=== PATIENT | female | born 1950 | race Caucasian/White ===

== ENCOUNTER 2017-04-13 11:08 | Observation (INO) | payer MEDICARE, OTHER ==
[~2017-04-13] VITALS: Ht 160 cm; Wt 48.7 kg
[~2017-04-13 11:08] MED LIST: CREON PO; FLUC10S PO; GLUC2.5T2 PO; LEXA10TA PO; LIBRAX PO; LORA-474 PO; MORP30TA3 PO; PROT40TA PO; PROV200T11 PO; SENN1TAB11 PO; SUCR1TAB6 PO; TIZA4 PO; VICO7.5T PO; ZOVI800T13 PO
[2017-04-13 11:10] VITALS: BP 104/62; PULSE 84; RESP 14; TEMP 97.6; O2SAT 95
[2017-04-13] MEDS ORDERED: SODIUM CHLOR 0.9% 1000 ML INJ 1,000 ML IV SCH (11:46)
[2017-04-13] MEDS ORDERED: ONDANSETRON HCL 4 MG/2 ML VIAL IVP ONE (12:00)
[2017-04-13] MEDS ORDERED: MORPHINE SULFATE 4 MG/ML INJ IV PUSH ONE ×2 (12:00→15:30)
--- NOTE | 2017-04-13 12:07 | PD ---
HPI Chief Complaint: General Weakness Time Seen by Provider: 12:01 Travel History International Travel<30 days: No Contact w/Intl Traveler<30days: No Traveled to known affect area: No History of Present Illness HPI 66-year-old female that presents to the ED for evaluation of generalized weakness. Patient reports that she has a history of non-Hodgkin's lymphoma and she's been battling this for a number of years. Per patient she recently moved here from [place] about 2 weeks ago. She meant appointment with Dr. Quispe who she already saw as well as a different doctor for routine checkup. Per patient for the past 6 months she's been developing generalized weakness, anorexia and diarrhea. Per patient the diarrhea got worse today but is not constant all the time. Per patient she has lower abdominal pain. Per patient and family she is more lethargic and more tired than her usual. She does have a history of having had chemotherapy last time 6 months ago. She states that she is supposed to follow with Dr. Keating for oncology this week but has not been able to follow up yet. Per patient she had blood work done at [facility]. on Thursday but does not know the results. She denies any chest pain or shortness of breath. Per patient she does have abdominal pain mainly in the lower abdomen. She did had multiple surgeries including both the procedure 10-12 years ago secondary to what was thought to be pancreatic cancer but ended up being non- Hodgkin's lymphoma. She states that currently her pain is 6 out of 10 and gets worse when she has a bowel movement. Per patient has no blood in the bowels. Per patient her stools were more liquidy. She's had multiple bouts of this. No nausea or vomiting. PFSH Past Medical History Heart Rhythm Problems: No Cancer: Yes (NON HODKINS LYMPHOMA) Cardiac Catheterization: No Cardiovascular Problems: Yes High Cholesterol: No Chemotherapy: Yes (last 09/2016) Congestive Heart Failure: No Diabetes: Yes Patient Takes Glucophage: No Diminished Hearing: No Gastrointestinal Disorders: Yes Hypertension: No Myocardial Infarction: No Influenza Vaccination: Yes ?: Not Past Surgical History Appendectomy: Yes Body Medical Devices: PORT Cholecystectomy: Yes (DURING WHIPPLE) Coronary Artery Bypass Graft: No Hysterectomy: Yes Tonsillectomy: Yes Family History Family Myocardial Infarction: Yes (dad, brother) Social History Alcohol Use: No Tobacco Use: No Substance Use: No Allergies-Medications (Allergen,Severity, Reaction): Coded Allergies: Lyrica (Verified Allergy, Severe, neuro symptoms, 04/13/17) Reported Meds & Prescriptions Reported Meds & Active Scripts Active Reported Restasis Opth 0.05% (Cyclosporine Opth 0.05%) 0.05% Emul 1 Drop EACH EYE HS Lomotil (Diphenoxylate-Atropine) 2.5-0.025 Mg Tab 1 Tab PO Q6H PRN Xifaxan (Rifaximin) 550 Mg Tab 550 Mg PO Q12HR Phenergan (Promethazine HCl) 25 Mg Tablet 12.5 Mg PO Q6H PRN Glyburide 2.5 Mg Tab 2.5 Mg PO BID Take with meals at the same time each day Hydrocodone-Acetaminophen 7.5-300 Mg Tab 1 Tab PO Q6H PRN Megestrol (Megestrol Acetate) 20 Mg Tab 20 Mg PO QID Creon (Amylase/Lipase/Protease) 12,000-38,000-60,000 Units Cap 1 Cap PO TIDPC Metoprolol Succinate ER 24 HR (Metoprolol Succinate) 25 Mg Tab 12.5 Mg PO DAILY Provigil (Modafinil) 100 Mg Tab 100 Mg PO DAILY@1200 Provigil (Modafinil) 200 Mg Tab 200 Mg PO DAILY Lexapro (Escitalopram Oxalate) 20 Mg Tab 20 Mg PO DAILY Omeprazole 40 Mg Cap 40 Mg PO DAILY Review of Systems Except as stated in HPI: all other systems reviewed are Neg Physical Exam Narrative GENERAL: SKIN: Warm and dry. HEAD: Atraumatic. Normocephalic. EYES: Pupils equal and round. No scleral icterus. No injection or drainage. ENT: No nasal bleeding or discharge. Mucous membranes pink and moist.Tongue is midline. No blood deviation. NECK: Trachea midline. No JVD. CARDIOVASCULAR: Regular rate and rhythm. No murmurs, S3, S4. RESPIRATORY: No accessory muscle use. Clear to auscultation. Breath sounds equal bilaterally. GASTROINTESTINAL: Abdomen soft, non-tender, nondistended. Hepatic and splenic margins not palpable. MUSCULOSKELETAL: Extremities without clubbing, cyanosis, or edema. No obvious deformities. Full range of motion of the upper and lower extremities bilaterally. 2+ pulses bilaterally. NEUROLOGICAL: Awake and alert. No obvious cranial nerve deficits. Motor grossly within normal limits. Five out of 5 muscle strength in the arms and legs. Normal speech. PSYCHIATRIC: Appropriate mood and affect; insight and judgment normal. Data Data Last Documented VS Vital Signs Date Time Temp Pulse Resp B/P Pulse Ox O2 Delivery O2 Flow Rate FiO2 04/13/17 12:33 98 Room Air 04/13/17 11:10 97.6 84 14 104/62 Orders Electrocardiogram (04/13/17 11:46) Complete Blood Count With Diff (04/13/17 11:46) Comprehensive Metabolic Panel (04/13/17 11:46) Blood Culture (04/13/17 11:46) Lipase (04/13/17 11:46) Urinalysis - C+S If Indicated (04/13/17 11:46) Magnesium (Mg) (04/13/17 11:46) Thyroid Stimulating Hormone (04/13/17 11:46) C Diff Toxin Pcr (04/13/17 11:46) Chest, Single Ap (04/13/17 11:46) Ct Abd/Pel W Iv Contrast(Rout) (04/13/17 11:46) Iv Access Insert/Monitor (04/13/17 11:46) Ecg Monitoring (04/13/17 11:46) Oximetry (04/13/17 11:46) Stool Ova And Parasite Screen (04/13/17 11:46) Stool Wbc (Leukocytes) (04/13/17 11:46) Morphine Inj (Morphine Inj) (04/13/17 12:00) Ondansetron Inj (Zofran Inj) (04/13/17 12:00) Sodium Chlor 0.9% 1000 Ml Inj (Ns 1000 M (04/13/17 11:46) Potassium Chloride (Kcl) (04/13/17 14:00) Rotavirus Ag Detection (Stool) (04/13/17 13:58) C Diff Toxin Pcr (04/13/17 13:58) Giardia Antigen (Stool) (04/13/17 13:58) Stool Ova And Parasite Screen (04/13/17 13:58) Stool Wbc (Leukocytes) (04/13/17 13:58) Vascular Access Team Consult/P PRN (04/13/17 14:12) Vascular Poc Ultrasound (04/13/17 ) Morphine Inj (Morphine Inj) (04/13/17 15:30) Iohexol 350 Inj (Omnipaque 350 Inj) (04/13/17 16:51) Consult Medical Oncology (04/13/17 ) Labs Laboratory Tests Test 04/13/17 12:00 White Blood Count 11.3 TH/MM3 Red Blood Count 3.56 MIL/MM3 Hemoglobin 10.5 GM/DL Hematocrit 30.3 % Mean Corpuscular Volume 85.2 FL Mean Corpuscular Hemoglobin 29.4 PG Mean Corpuscular Hemoglobin 34.5 % Concent Red Cell Distribution Width 13.3 % Platelet Count 397 TH/MM3 Mean Platelet Volume 8.5 FL Neutrophils (%) (Auto) 81.3 % Lymphocytes (%) (Auto) 13.1 % Monocytes (%) (Auto) 4.3 % Eosinophils (%) (Auto) 1.0 % Basophils (%) (Auto) 0.3 % Neutrophils # (Auto) 9.2 TH/MM3 Lymphocytes # (Auto) 1.5 TH/MM3 Monocytes # (Auto) 0.5 TH/MM3 Eosinophils # (Auto) 0.1 TH/MM3 Basophils # (Auto) 0.0 TH/MM3 CBC Comment DIFF FINAL Differential Comment Sodium Level 141 MEQ/L Potassium Level 3.3 MEQ/L Chloride Level 107 MEQ/L Carbon Dioxide Level 24.0 MEQ/L Anion Gap 10 MEQ/L Blood Urea Nitrogen 14 MG/DL Creatinine 0.49 MG/DL Estimat Glomerular Filtration 126 ML/MIN Rate Random Glucose 151 MG/DL Calcium Level 9.1 MG/DL Magnesium Level 1.8 MG/DL Total Bilirubin 0.3 MG/DL Aspartate Amino Transf 16 U/L (AST/SGOT) Alanine Aminotransferase 28 U/L (ALT/SGPT) Alkaline Phosphatase 86 U/L Total Protein 6.5 GM/DL Albumin 3.2 GM/DL Lipase 91 U/L Thyroid Stimulating Hormone 0.837 uIU/ML 3rd Gen [facility] Medical Decision Making Medical Screen Exam Complete: Yes Emergency Medical Condition: Yes Medical Record Reviewed: Yes Interpretation(s) CBC & BMP Diagram 04/13/17 12:00 Differential Diagnosis Generalized weakness versus cancer versus diarrhea versus diverticulitis versus parasite versus acute abdomen versus pancreatitis versus perforation versus cancer Narrative Course 66-year-old female that presents to the ED for evaluation of general weakness. Patient was properly examined and was found to have signs and symptoms of unclear etiology at this time. Before she the patient has multiple comorbidities. I am concerned that she might have the cancer coming back. Will do labs and imaging because patient is very tender on the abdomen. Patient and family agree with plan. Patient was started on IV fluids and antiemetics and pain medication. Case was signed out to my attending Dr. Lopez pending labs and imaging and disposition. Bobo Hood Apr 13, 2017 12:07
[2017-04-13 12:15] LABS: AUTOMATED NEUTROPHIL # 9.2 TH/MM3 (1.8-7.7); BASOPHIL % 0.3 % (0.0-2.0); EOSINOPHIL # 0.1 TH/MM3 (0-0.4); HEMATOCRIT 30.3 % (35.0-46.0); HEMO FLAGS DIFF FINAL; LYMPH % 13.1 % (9.0-44.0); LYMPHOCYTE # 1.5 TH/MM3 (1.0-4.8); MEAN CELL VOLUME 85.2 FL (80.0-100.0); MEAN CORPUSCULAR HEMOGLOBIN 29.4 PG (27.0-34.0); MEAN CORPUSCULAR HGB CONC 34.5 % (32.0-36.0); MONO % 4.3 % (0.0-8.0); NEUT % 81.3 % (16.0-70.0); PLATELET COUNT 397 TH/MM3 (150-450); RED BLOOD COUNT 3.56 MIL/MM3 (4.00-5.30); RED CELL DISTRIBUTION WIDTH 13.3 % (11.6-17.2); WHITE BLOOD COUNT 11.3 TH/MM3 (4.0-11.0)
[2017-04-13 12:33] VITALS: O2SAT 98
[2017-04-13 12:34] LABS: ALT (GPT) 28 U/L (10-53); ANION GAP 10 MEQ/L (5-15); AST (GOT) 16 U/L (15-37); BLOOD UREA NITROGEN 14 MG/DL (7-18); CHLORIDE 107 MEQ/L (98-107); GLOMERULAR FILTRATION RATE 126 ML/MIN (>89); MAGNESIUM 1.8 MG/DL (1.5-2.5); POTASSIUM 3.3 MEQ/L (3.5-5.1); SODIUM (NA) 141 MEQ/L (136-145)
[2017-04-13 12:44] LABS: ALKALINE PHOSPHATASE 86 U/L (45-117); TOTAL BILIRUBIN ADULT 0.3 MG/DL (0.2-1.0)
[2017-04-13] MEDS ORDERED: MEGE20TA PO (12:45)
[2017-04-13] MEDS ORDERED: PROM25TA10 PO (12:45)
[2017-04-13] MEDS ORDERED: HYDR-2376 PO (12:45)
[2017-04-13] MEDS ORDERED: PROV200T11 PO (12:45)
[2017-04-13] MEDS ORDERED: LEXA20TA PO (12:45)
[2017-04-13] MEDS ORDERED: REST0.05 EACH EYE (12:45)
[2017-04-13] MEDS ORDERED: XIFA550T4 PO (12:45)
[2017-04-13] MEDS ORDERED: CREON12 PO (12:45)
[2017-04-13] MEDS ORDERED: LOMO2.5T PO (12:45)
[2017-04-13] MEDS ORDERED: PROV100T10 PO (12:45)
[2017-04-13] MEDS ORDERED: GLYB2.5T3 PO (12:45)
[2017-04-13] MEDS ORDERED: OMEP40CA2 PO (12:45)
[2017-04-13] MEDS ORDERED: METO25TA6 PO (12:45)
--- NOTE | 2017-04-13 13:31 | RADRPT ---
EXAM DATE/TIME: 04/13/2017 12:08 [facility] COMPARISON: No previous studies available for comparison. INDICATIONS : Shortness of breath. MEDICAL HISTORY : Diabetes mellitus type II. Non-Hodgkin's lymphoma SURGICAL HISTORY : Appendectomy. Infusaport ENCOUNTER: Initial ACUITY: 2 days PAIN SCORE: 0/10 LOCATION: Bilateral chest FINDINGS: A single view of the chest demonstrates the lungs to be symmetrically aerated without evidence of mas s, infiltrate or effusion. There is a left subclavian line in good position. Clips are seen in the u pper abdomen. The cardiomediastinal contours are unremarkable. Osseous structures are intact. CONCLUSION: No acute disease. Ernie Lackey MD on April 13, 2017 at 13:27 Board Certified Radiologist. This report was verified electronically.
--- NOTE | 2017-04-13 13:59 | PD ---
Physical Exam Narrative I, Dr. Lopez, have reviewed the advance practice practitioner's documentation and am in agreement, met with the patient face to face, made the diagnosis, and the medical decision making was done by me. *My assessment and Findings: Dehydration vs. electrolyte abnormality 66yo F with PMH of nonhodgkin's lymphoma here with generalized weakness and nonbloody diarrhea. Labs reviewed, WBC 11.3. H/H showed 10.5/30.3, which is at baseline. TSH normal. K mildly decreased at 3.3, replaced orally with 20mEq KCl. CXR negative. CTa/p showed postop change from whipple procedure and removal of pancreatic head. Also some soft tissue density surrounding celiac and SMA. Recommend PET scan. Also nonspecific sclerotic area in left ilum which may be bone island or metastatic disease. Focal area of suspected consolidation or atelectasis at medial right middle lobe. Pt has no fever or cough so clinically do not think it is pneumonia. Pt has been having weight loss and has not follow up with oncologist here. Last chemo was in 09/2016 in [place]. Discussed with Dr. Arias and admitted for observation and further work up of recurrence of nonhodgkin's lymphoma. Consult placed for medical oncology. UA pending. Data Data Last Documented VS Vital Signs Date Time Temp Pulse Resp B/P Pulse Ox O2 Delivery O2 Flow Rate FiO2 04/13/17 12:33 98 Room Air 04/13/17 11:10 97.6 84 14 104/62 Orders Electrocardiogram (04/13/17 11:46) Complete Blood Count With Diff (04/13/17 11:46) Comprehensive Metabolic Panel (04/13/17 11:46) Blood Culture (04/13/17 11:46) Lipase (04/13/17 11:46) Urinalysis - C+S If Indicated (04/13/17 11:46) Magnesium (Mg) (04/13/17 11:46) Thyroid Stimulating Hormone (04/13/17 11:46) Chest, Single Ap (04/13/17 11:46) Ct Abd/Pel W Iv Contrast(Rout) (04/13/17 11:46) Iv Access Insert/Monitor (04/13/17 11:46) Ecg Monitoring (04/13/17 11:46) Oximetry (04/13/17 11:46) Morphine Inj (Morphine Inj) (04/13/17 12:00) Ondansetron Inj (Zofran Inj) (04/13/17 12:00) Sodium Chlor 0.9% 1000 Ml Inj (Ns 1000 M (04/13/17 11:46) Potassium Chloride (Kcl) (04/13/17 14:00) Rotavirus Ag Detection (Stool) (04/13/17 13:58) Vascular Access Team Consult/P PRN (04/13/17 14:12) Vascular Poc Ultrasound (04/13/17 ) Morphine Inj (Morphine Inj) (04/13/17 15:30) Iohexol 350 Inj (Omnipaque 350 Inj) (04/13/17 16:51) Consult Medical Oncology (04/13/17 ) Admit Order (Ed Use Only) (04/13/17 17:39) Labs Laboratory Tests Test 04/13/17 12:00 White Blood Count 11.3 TH/MM3 Red Blood Count 3.56 MIL/MM3 Hemoglobin 10.5 GM/DL Hematocrit 30.3 % Mean Corpuscular Volume 85.2 FL Mean Corpuscular Hemoglobin 29.4 PG Mean Corpuscular Hemoglobin 34.5 % Concent Red Cell Distribution Width 13.3 % Platelet Count 397 TH/MM3 Mean Platelet Volume 8.5 FL Neutrophils (%) (Auto) 81.3 % Lymphocytes (%) (Auto) 13.1 % Monocytes (%) (Auto) 4.3 % Eosinophils (%) (Auto) 1.0 % Basophils (%) (Auto) 0.3 % Neutrophils # (Auto) 9.2 TH/MM3 Lymphocytes # (Auto) 1.5 TH/MM3 Monocytes # (Auto) 0.5 TH/MM3 Eosinophils # (Auto) 0.1 TH/MM3 Basophils # (Auto) 0.0 TH/MM3 CBC Comment DIFF FINAL Differential Comment Sodium Level 141 MEQ/L Potassium Level 3.3 MEQ/L Chloride Level 107 MEQ/L Carbon Dioxide Level 24.0 MEQ/L Anion Gap 10 MEQ/L Blood Urea Nitrogen 14 MG/DL Creatinine 0.49 MG/DL Estimat Glomerular Filtration 126 ML/MIN Rate Random Glucose 151 MG/DL Calcium Level 9.1 MG/DL Magnesium Level 1.8 MG/DL Total Bilirubin 0.3 MG/DL Aspartate Amino Transf 16 U/L (AST/SGOT) Alanine Aminotransferase 28 U/L (ALT/SGPT) Alkaline Phosphatase 86 U/L Total Protein 6.5 GM/DL Albumin 3.2 GM/DL Lipase 91 U/L Thyroid Stimulating Hormone 0.837 uIU/ML 3rd Gen MDM Supervised Visit with DARIAN: Yes Interpretation(s) EKG: NSR 78bpm. LAD. No ST segment elevation or depression. Diagnosis Primary Impression: Generalized weakness Admitting Information Admitting Physician Requests: Observation Sonal Lopez DO Apr 13, 2017 13:59 Generalized weakness Admitting Information Admitting Physician Requests: Observation Sonal Lopez DO Apr 13, 2017 13:59
[2017-04-13] MEDS ORDERED: POTASSIUM CHLORIDE 20 MEQ CONTROLLED RELEASE TAB PO ONE (14:00)
[2017-04-13] MEDS ORDERED: IOHEXOL 350 MG/ML 10 ML VIAL (for RAD DIAG) IV ONE (16:51)
--- NOTE | 2017-04-13 17:19 | RADRPT ---
EXAM DATE/TIME: 04/13/2017 16:12 [facility] COMPARISON: CT ABDOMEN & PELVIS W/O CONTRAST, November 27, 2009, 20:12. INDICATIONS : Weight loss, nausea, diarrhea, abdomen pain IV CONTRAST: 80 cc Omnipaque 350 (iohexol) IV ORAL CONTRAST: No oral contrast ingested. RADIATION DOSE: 9.96 CTDIvol (mGy) MEDICAL HISTORY : Cardiovascular disease. Diabetes, non-Hodgkin's lymphoma SURGICAL HISTORY : Appendectomy. Whipple ENCOUNTER: Initial ACUITY: 4 - 6 days PAIN SCALE: 5/10 LOCATION: Abdomen TECHNIQUE: Volumetric scanning of the abdomen and pelvis was performed. Using automated exposure control and adjustment of the mA and/or kV according to patient size, radiation dose was kept as low as reasonably achievable to obtain optimal diagnostic quality images. FINDINGS: The patient is status post Whipple procedure with removal of the pancreatic head. The pancreatic body and tail appear normal. There is some increased soft tissue density seen in the expec sarah region of the pancreatic head. The soft tissue density does abut and surround the portions of th e celiac artery and SMA. The prior study from 2009 showed soft tissue density in this region. This w as done without intravenous contrast. The soft tissue density is much better delineated on the curre nt study but based on the vascular calcifications it appears likely similar to the prior exam. There is some dilatation of the biliary duct at the estella hepatus measuring 1.5 cm. This appearance is unch anged. Clips are seen in the right upper quadrant. Bowel dylan are seen in the right upper quadra nt. All these findings appear stable. Bowel dylan are seen at the distal aspect of the stomach. The liver, spleen, kidneys and adrenal glands are unremarkable. The pelvic structures appear grossly intact. The patient appears to be status post hysterectomy. No pelvic masses are seen. There is increased density seen at the anterior medial right middle lobe region. This may represent an area of focal consolidation or atelectasis. No focal masses are seen at the lung bases. There is a new 0.9 cm focal area of sclerosis at the left iliac bone. No other focal bone lesions ar e seen. There is some degenerative change in the lower lumbar spine. CONCLUSION: 1. Postoperative change from a Whipple procedure and removal of the pancreatic head. There is some s oft tissue density seen surrounding the celiac and SMA. Some of the soft tissue density does appear p resent based on the comparison with the prior exam. This suggests this is likely postoperative ricardo e. However, recurrence could potentially have a similar appearance. One could further evaluate this region noninvasively with a PET/FDG study to determine if this is metabolically active or not. 2. Nonspecific sclerotic area identified at the left ilium. This could be a bone island. Other cause s for sclerotic lesions including metastatic disease cannot be excluded. This could also be further e valuated with the PET/FDG study. 3. Focal area of suspected consolidation or atelectasis at the medial right middle lobe. Ernie Lackey MD on April 13, 2017 at 16:56 Board Certified Radiologist. This report was verified electronically.
[2017-04-13] MEDS: SODIUM CHLOR 0.9% 1000 ML INJ 1,000 ML IV SCH ×2 (17:39→23:45)
[2017-04-13] MEDS ORDERED: MAGNESIUM HYDROXIDE SUSP 30 ML CUP PO PRN (17:45)
[2017-04-13] MEDS ORDERED: LACTULOSE SYRUP 20 GM/30 ML CUP PO PRN (17:45)
[2017-04-13] MEDS ORDERED: SENNOSIDES 8.6 MG TAB PO PRN (17:45)
[2017-04-13] MEDS ORDERED: SODIUM CHLORIDE 0.9% FLUSH 10 ML FLUSH IV FLUSH PRN (17:45)
[2017-04-13] MEDS ORDERED: BISACODYL 10 MG SUPP RECTAL PRN (17:45)
[2017-04-13] MEDS ORDERED: ACETAMINOPHEN 325 MG TAB PO PRN (17:45)
[2017-04-13] MEDS ORDERED: NALOXONE HCL 0.4 MG/ML AMP IV PRN (17:45)
[2017-04-13 18:18] LABS: BACTERIA, URINE RARE /hpf; BLOOD, URINE NEG (NEG); COMMENT (UR) CULTURE INDICATED; CULTURE IF INDICATED CULTURE INDICATED; GLUCOSE,URINE NEG (NEG); KETONE, URINE 10 mg/dL (NEG); MUCUS URINE FEW /lpf (OCC); NITRITE,URINE NEG (NEG); PH, URINE 5.5 (5.0-8.5); URINE COLOR YELLOW (YELLW/STRAW)
[2017-04-13 18:20] VITALS: BP 112/65; PULSE 77; O2SAT 98
[2017-04-13 19:00] VITALS: BP_SYST 109; BP_SYST 98; BP_DIAS 65; PULSE 82; PULSE 86; RESP 16; RESP 18; TEMP 97.6; TEMP 99.4; O2SAT 100; O2SAT 97
--- NOTE | 2017-04-13 19:38 | HHI.HP ---
HPI Service [facility] Primary Care Physician Azael Quispe MD Admission Diagnosis Generalized weakness Diagnoses: Chief Complaint: Generalized weakness, nausea, diarrhea. Travel History International Travel<30 Days: No Contact w/Intl Traveler <30 Da: No Traveled to Known Affected Are: No History of Present Illness Ms. Louis is a pleasant 66 year old female with a history of Non- Hodgkin's lymphoma, diabetes mellitus, whipple procedure who presented to the ED on 04/13/2017 due to generalized weakness, diarrhea, nausea and weight loss. She recently moved from [place] to [place] and is in the process of establishing oncology care with [facility]. While she has been dealing with chronic diarrhea, anorexia, generalized weakness for the last 6 months, in the recent days, her symptoms have been particularly bothersome. She reports abdominal cramps which transiently feels better after she has diarrhea. Her diarrhea is mushy in quality. She reports no blood in the stool. She reports nausea but not vomiting. Her diarrhea is worse when she eats fatty meals. In the last 6 months, she has lost about 20 lbs of weight. She reports no fever or night sweats. Additionally, she reports some chest congestion but she is unable to cough up much. On arrival, Temp 97.6F, Pulse 84, Resp 14, BP 104/62, Pulse ox 95% on room air. CXR unremarkable. CT abd/pelvis indicates soft tissue density around celiac and SMA - possibly due to postoperative changes vs. malignancy recurrence. PET/FDG study was recommended. CT abd/pelvis also shows non-specific sclerotic area at the left ilium as well as focal area of suspected consolidation or atelectasis at the medial right middle lobe. Review of Systems Except as stated in HPI: all other systems reviewed are Neg Past Family Social History Past Medical History Non-Hodgkin's lymphoma Diabetes mellitus type 2 Tachycardia Keratitis Past Surgical History Appendectomy Hysterectomy Tonsillectomy Whipple's surgery. Reported Medications Restasis Opth 0.05% (Cyclosporine Opth 0.05%) 0.05% Emul 1 Drop EACH EYE HS Lomotil (Diphenoxylate-Atropine) 2.5-0.025 Mg Tab 1 Tab PO Q6H PRN Xifaxan (Rifaximin) 550 Mg Tab 550 Mg PO Q12HR Phenergan (Promethazine HCl) 25 Mg Tablet 12.5 Mg PO Q6H PRN Glyburide 2.5 Mg Tab 2.5 Mg PO BID Take with meals at the same time each day Hydrocodone-Acetaminophen 7.5-300 Mg Tab 1 Tab PO Q6H PRN Megestrol (Megestrol Acetate) 20 Mg Tab 20 Mg PO QID Creon (Amylase/Lipase/Protease) 12,000-38,000-60,000 Units Cap 1 Cap PO TIDPC Metoprolol Succinate ER 24 HR (Metoprolol Succinate) 25 Mg Tab 12.5 Mg PO DAILY Provigil (Modafinil) 100 Mg Tab 100 Mg PO DAILY@1200 Provigil (Modafinil) 200 Mg Tab 200 Mg PO DAILY Lexapro (Escitalopram Oxalate) 20 Mg Tab 20 Mg PO DAILY Omeprazole 40 Mg Cap 40 Mg PO DAILY Allergies: Coded Allergies: Lyrica (Verified Allergy, Severe, neuro symptoms, 04/13/17) Family History Mother - breast cancer. Father - heart disease. Social History Denies using tobacco, alcohol or illicit drugs. Physical Exam Vital Signs Vital Signs Date Time Temp Pulse Resp B/P Pulse Ox O2 Delivery O2 Flow Rate FiO2 04/13/17 19:00 97.6 82 18 109/65 100 04/13/17 18:20 77 112/65 98 Room Air 04/13/17 12:33 98 Room Air 04/13/17 11:10 97.6 84 14 104/62 95 Physical Exam GENERAL: Cachectic appearing female in no acute distress. Alert, Oriented x 3. SKIN: No rashes, ecchymoses or lesions. Warm and dry. HEAD: Atraumatic. Normocephalic. No temporal or scalp tenderness. EYES: Pupils equal round and reactive. No injection or drainage. ENT: Nose without bleeding, purulent drainage or septal hematoma. Airway patent. NECK: Trachea midline. No lymphadenopathy. Supple, nontender, no meningeal signs. CARDIOVASCULAR: Regular rate and rhythm without murmurs, gallops, or rubs. No JVD. RESPIRATORY: Clear to auscultation. Breath sounds equal bilaterally. No wheezes , rales, or rhonchi. GASTROINTESTINAL: Abdomen soft, Mild tenderness to palpation on the lower abd, nondistended. No guarding. MUSCULOSKELETAL: Extremities without clubbing, cyanosis, or edema. NEUROLOGICAL: Awake and alert. Cranial nerves II through XII intact. No focal neurological deficits. Normal speech. Laboratory Laboratory Tests Test 04/13/17 04/13/17 12:00 17:55 White Blood Count 11.3 Red Blood Count 3.56 Hemoglobin 10.5 Hematocrit 30.3 Mean Corpuscular Volume 85.2 Mean Corpuscular Hemoglobin 29.4 Mean Corpuscular Hemoglobin 34.5 Concent Red Cell Distribution Width 13.3 Platelet Count 397 Mean Platelet Volume 8.5 Neutrophils (%) (Auto) 81.3 Lymphocytes (%) (Auto) 13.1 Monocytes (%) (Auto) 4.3 Eosinophils (%) (Auto) 1.0 Basophils (%) (Auto) 0.3 Neutrophils # (Auto) 9.2 Lymphocytes # (Auto) 1.5 Monocytes # (Auto) 0.5 Eosinophils # (Auto) 0.1 Basophils # (Auto) 0.0 CBC Comment DIFF FINAL Differential Comment Sodium Level 141 Potassium Level 3.3 Chloride Level 107 Carbon Dioxide Level 24.0 Anion Gap 10 Blood Urea Nitrogen 14 Creatinine 0.49 Estimat Glomerular Filtration 126 Rate Random Glucose 151 Calcium Level 9.1 Magnesium Level 1.8 Total Bilirubin 0.3 Aspartate Amino Transf 16 (AST/SGOT) Alanine Aminotransferase 28 (ALT/SGPT) Alkaline Phosphatase 86 Total Protein 6.5 Albumin 3.2 Lipase 91 Thyroid Stimulating Hormone 0.837 3rd Gen Urine Color YELLOW Urine Turbidity CLEAR Urine pH 5.5 Urine Specific Romeo GREATER THAN 1.035 Urine Protein TRACE Urine Glucose (UA) NEG Urine Ketones 10 Urine Occult Blood NEG Urine Nitrite NEG Urine Bilirubin NEG Urine Urobilinogen LESS THAN 2.0 Urine Leukocyte Esterase SMALL Urine RBC 2 Urine WBC 15 Urine Bacteria RARE Urine Mucus FEW Microscopic Urinalysis Comment CULTURE INDICATED Date/Time Procedure Status Source Growth 04/13/17 17:55 Urine Culture Received Urine Random Urine Pending 04/13/17 12:15 Aerobic Blood Culture Received Blood Peripheral Pending 04/13/17 12:15 Anaerobic Blood Culture Received Blood Peripheral Pending Result Diagram: 04/13/17 1200 04/13/17 1200 Imaging Last Impressions Chest X-Ray 04/13/17 1146 Signed Impressions: Service Date/Time: Thursday, April 13, 2017 12:08 - CONCLUSION: No acute disease. Ernie Lackey MD CT abdomen pelvis CONCLUSION: 1. Postoperative change from a Whipple procedure and removal of the pancreatic head. There is some soft tissue density seen surrounding the celiac and SMA. Some of the soft tissue density does appear present based on the comparison with the prior exam. This suggests this is likely postoperative change. However, recurrence could potentially have a similar appearance. One could further evaluate this region noninvasively with a PET/FDG study to determine if this is metabolically active or not. 2. Nonspecific sclerotic area identified at the left ilium. This could be a bone island. Other causes for sclerotic lesions including metastatic disease cannot be excluded. This could also be further evaluated with the PET/FDG study. 3. Focal area of suspected consolidation or atelectasis at the medial right middle lobe. Assessment and Plan Problem List: (1) Generalized weakness ICD Code: R53.1 Status: Acute (2) Chronic diarrhea ICD Code: K52.9 Status: Acute (3) DM (diabetes mellitus) ICD Code: E11.9 Status: Acute (4) History of non-Hodgkin's lymphoma ICD Code: Z85.72 Status: Acute Assessment and Plan Ms. Louis is a pleasant 66 year old female with a history of Non- Hodgkin's lymphoma, diabetes mellitus, Whipple procedure who presented to the ED on 04/13/2017 due to generalized weakness, diarrhea, nausea and weight loss. She reports 20 lbs weight loss in the last 6 months. Reports no fever or night sweats. CT abd/pelvis indicates possible soft tissue density which could potentially be recurrence vs. post-surgical changes. PET scan recommended. - Chronic diarrhea - Stool O&P, Giardia antigen, Rotavirus AG, Stool WBC pending. - C. Diff toxin PCR, less likely also pending. - Continue NS @100cc/hour. - May need a colonoscopy in the outpatient vs. in-patient setting. - Will consult Gastroenterology for additional recommendations. - History of Non-Hodgkin's lymphoma - CT abd/pelvis suggestive of soft tissue density - Will consult Medical oncology for further work up including PET scan. - No clear evidence of B symptoms (Patient reports weight loss but no night sweats or fever). - Possible right middle lobe pneumonia - Possible atelectasis. - Will start patient on Levaquin 750mg Qday - DuoNeb PRN - Start Incentive spirometry. - Diabetes mellitus type 2 - Patient takes Glyburide at home. We will hold off using Glyburide at this point. - Start Sliding scale insulin. May need to add low dose basal insulin with Levemir. - Continue Regular diet. If blood glucose elevates, we will consider switching to diabetic diet. Full code. SCDs. Sheri Arias DO Apr 13, 2017 19:38
[2017-04-13] MEDS ORDERED: DEXTROSE 50% IN WATER 50 ML VIAL(D50) IV PRN (19:45)
[2017-04-13] MEDS ORDERED: GLUCAGON 1 MG/ML VIAL OTHER PRN (19:45)
[2017-04-13] MEDS ORDERED: RESP: ALBUTEROL 2.5 MG/IPRATROPIUM 0.5 MG NEB (PRN) NEB (19:45)
[2017-04-13] MEDS: ONDANSETRON HCL 4 MG/2 ML VIAL IVP PRN (19:54)
[2017-04-13] MEDS: ACETAMINOPHEN/HYDROcodone 325 MG/5 MG TAB PO PRN (20:41)
[2017-04-13] MEDS: LEVOFLOXACIN 750 MG TAB PO SCH (20:42)
[2017-04-13] MEDS: MEGESTROL ACETATE 40 MG TAB PO SCH (20:43)
[2017-04-13] MEDS: SODIUM CHLORIDE 0.9% FLUSH 10 ML FLUSH IV FLUSH SCH (20:43)
[2017-04-13] MEDS: DOCUSATE SODIUM 50 MG/SENNA 8.6 MG TAB PO SCH (20:43)
[2017-04-13] MEDS: INSULIN ASPART SUPPLEMENTAL SCALE SQ SCH (20:43)
[2017-04-13] MEDS: PATIENT OWN MEDICATION (Cyclosporine Opth 0.05% (Restasis Opth 0.05%) 1 DROP) EACH EYE SCH (20:47)
[2017-04-14] VITALS (7 sets, daily range): BP systolic 87–126; BP diastolic 49–67; PULSE 79–95; RESP 16–19; TEMP 97.2–98.8; O2SAT 95–99
[2017-04-14] MEDS ORDERED: BENZOCAINE-MENTHOL (SUGAR FREE) 15 MG-3.6 MG LOZENGE BUCCAL ONE (00:15)
[2017-04-14] MEDS: INSULIN ASPART SUPPLEMENTAL SCALE SQ SCH ×4 (06:29→20:46)
[2017-04-14 07:45] LABS: AUTOMATED NEUTROPHIL # 5.7 TH/MM3 (1.8-7.7); BASOPHIL % 0.4 % (0.0-2.0); EOSINOPHIL # 0.1 TH/MM3 (0-0.4); EOSINOPHIL % 1.9 % (0.0-4.0); HEMATOCRIT 25.8 % (35.0-46.0); HEMO FLAGS DIFF FINAL; LYMPH % 16.9 % (9.0-44.0); LYMPHOCYTE # 1.3 TH/MM3 (1.0-4.8); MEAN CELL VOLUME 85.1 FL (80.0-100.0); MEAN CORPUSCULAR HEMOGLOBIN 28.5 PG (27.0-34.0); MEAN CORPUSCULAR HGB CONC 33.5 % (32.0-36.0); MONO % 8.1 % (0.0-8.0); NEUT % 72.7 % (16.0-70.0); PLATELET COUNT 315 TH/MM3 (150-450); RED BLOOD COUNT 3.03 MIL/MM3 (4.00-5.30); RED CELL DISTRIBUTION WIDTH 13.5 % (11.6-17.2); WHITE BLOOD COUNT 7.9 TH/MM3 (4.0-11.0)
[2017-04-14 08:09] LABS: BICARBONATE 24.8 MEQ/L (21.0-32.0); POTASSIUM 3.6 MEQ/L (3.5-5.1)
[2017-04-14] MEDS: ONDANSETRON HCL 4 MG/2 ML VIAL IVP PRN (08:37)
[2017-04-14] MEDS: DOCUSATE SODIUM 50 MG/SENNA 8.6 MG TAB PO SCH ×2 (08:37→20:45)
[2017-04-14] MEDS: PANTOPRAZOLE SOD 40 MG DELAYED RELEASE TAB PO SCH (08:38)
[2017-04-14] MEDS: ESCITALOPRAM OXALATE 20 MG TAB PO SCH (08:39)
[2017-04-14] MEDS: MEGESTROL ACETATE 40 MG TAB PO SCH ×5 (08:40→20:46)
[2017-04-14] MEDS: ACETAMINOPHEN/HYDROcodone 325 MG/5 MG TAB PO PRN ×2 (08:41→17:03)
[2017-04-14] MEDS: METOPROLOL SUCCINATE 25 MG EXTENDED RELEASE TAB PO SCH (08:42)
[2017-04-14] MEDS: SODIUM CHLORIDE 0.9% FLUSH 10 ML FLUSH IV FLUSH SCH ×2 (08:44→20:46)
[2017-04-14] MEDS ORDERED: LIPASE/PROTEASE/AMYLASE (12,000/38,000/60,000) CAP PO SCH (09:30)
--- NOTE | 2017-04-14 10:29 | HHI.PR ---
Subjective Remarks Follow up for chronic diarrhea, weight loss in a patient with a history of NHL and Whipple's procedure. Patient reports some nausea. No fever, chills. Has not had any diarrhea today. Complains of some sore throat. Objective Vitals Vital Signs Date Time Temp Pulse Resp B/P Pulse Ox O2 Delivery O2 Flow Rate FiO2 04/14/17 09:52 95 21 04/14/17 08:00 97.2 81 18 106/57 97 04/14/17 04:00 98.0 79 16 92/49 98 04/14/17 00:00 98.7 83 17 87/54 98 04/13/17 19:24 Room Air 04/13/17 19:00 99.4 86 16 98/65 97 04/13/17 19:00 97.6 82 18 109/65 100 04/13/17 18:20 77 112/65 98 Room Air 04/13/17 12:33 98 Room Air 04/13/17 11:10 97.6 84 14 104/62 95 I/O 04/13/17 04/13/17 04/13/17 04/14/17 04/14/17 04/14/17 07:00 15:00 23:00 07:00 15:00 23:00 Intake Total 200 ml 889 ml Balance 200 ml 889 ml Intake Oral 200 ml 200 ml IV Total 689 ml # Voids 2 2 # Bowel Movements 0 0 Result Diagram: 04/14/17 0720 04/14/17 0720 Imaging Last Impressions Chest X-Ray 04/13/17 1146 Signed Impressions: Service Date/Time: Thursday, April 13, 2017 12:08 - CONCLUSION: No acute disease. Ernie Lackey MD Abdomen/Pelvis CT 04/13/17 1146 Signed Impressions: Service Date/Time: Thursday, April 13, 2017 16:12 - CONCLUSION: 1. Postoperative change from a Whipple procedure and removal of the pancreatic head. There is some soft tissue density seen surrounding the celiac and SMA. Some of the soft tissue density does appear present based on the comparison with the prior exam. This suggests this is likely postoperative change. However, recurrence could potentially have a similar appearance. One could further evaluate this region noninvasively with a PET/FDG study to determine if this is metabolically active or not. 2. Nonspecific sclerotic area identified at the left ilium. This could be a bone island. Other causes for sclerotic lesions including metastatic disease cannot be excluded. This could also be further evaluated with the PET/FDG study. 3. Focal area of suspected consolidation or atelectasis at the medial right middle lobe. Ernie Lackey MD Objective Remarks GENERAL: AOX3, NAD. SKIN: Warm and dry. HEAD: Normocephalic. EYES: No scleral icterus. No injection or drainage. NECK: Supple, trachea midline. No JVD or lymphadenopathy. CARDIOVASCULAR: Regular rate and rhythm without murmurs, gallops, or rubs. RESPIRATORY: Breath sounds equal bilaterally. No accessory muscle use. GASTROINTESTINAL: Abdomen soft, non-tender except for mild tenderness along the lower abdomen, nondistended. MUSCULOSKELETAL: No cyanosis, or edema. BACK: Nontender without obvious deformity. No CVA tenderness. Procedures None. A/P Problem List: (1) Generalized weakness ICD Code: R53.1 Status: Acute (2) Chronic diarrhea ICD Code: K52.9 Status: Acute (3) DM (diabetes mellitus) ICD Code: E11.9 Status: Acute (4) History of non-Hodgkin's lymphoma ICD Code: Z85.72 Status: Acute Assessment and Plan Ms. Louis is a pleasant 66 year old female with a history of Non- Hodgkin's lymphoma, diabetes mellitus, Whipple procedure who presented to the ED on 04/13/2017 due to generalized weakness, diarrhea, nausea and weight loss. She reports 20 lbs weight loss in the last 6 months. Reports no fever or night sweats. CT abd/pelvis indicates possible soft tissue density which could potentially be recurrence vs. post-surgical changes. PET scan recommended. - Chronic diarrhea - Stool O&P, Giardia antigen, Rotavirus AG, Stool WBC pending. - C. Diff toxin PCR, less likely - pending. No diarrhea today, however. - Increase NS @200cc/hour. - Discussed with GI - they plan to perform Colonoscopy in the AM. - History of Non-Hodgkin's lymphoma - CT abd/pelvis suggestive of soft tissue density - Discussed with Oncologist Dr. Hall. He agrees with GI work up with regards to Diarrhea. - PET scan can be obtained in the outpatient setting. - No clear evidence of B symptoms (Patient reports weight loss but no night sweats or fever). - Pancreatic insufficiency - Has a history of Whipple's procedure. - Will increase Creon to 6 pills TIDAC (adjusted depending on the food intake ). - Possible right middle lobe pneumonia - Possible atelectasis. - Continue Levaquin 750mg Qday. Breathing treatments PRN. - DuoNeb PRN - Continue Incentive spirometry. - Diabetes mellitus type 2 - Patient takes Glyburide at home. We will hold off using Glyburide at this point. - Sliding scale insulin. May need to add low dose basal insulin with Levemir. - Continue Regular diet. If blood glucose elevates, we will consider switching to diabetic diet. Full code. SCDs. Sheri Arias DO Apr 14, 2017 10:29
[2017-04-14] MEDS ORDERED: PROMETHAZINE HCL SYRUP 6.25 MG/5 ML CUP PO PRN (10:30)
[2017-04-14] MEDS: SODIUM CHLOR 0.9% 1000 ML INJ 1,000 ML IV SCH ×3 (10:32→20:32)
--- NOTE | 2017-04-14 10:47 | PD.CONS ---
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 She was found to have a pancreatic head mass back in 2004. Pancreatic cancer was suspected, but because of the location, she was not able to have a biopsy. She underwent a Whipple Procedure at that time. After this, she was found to have Non-Hodkin's Lymphoma and started chemotherapy. Of note, she also received chemotherapy in 2009 and afterwards stayed on a maintenance dose up until September of 2016. After the whipple procedure, she started having issues with nausea, bloating, and diarrhea. She was placed on pancreatic enzymes. She states that she did have this intermittently for a few years, but then it seemed to improve and her episodes were less frequent and usually related to eating fatty meals. About a year ago, she started having more issues with nausea, bloating, and diarrhea and began losing weight. This suddenly worsened in September of 2016 and she also started having generalized weakness with this. She has lost a total of 30 pounds over the past year, but 20 of these pounds have been since September. She reports she has frequent nausea and occasional vomiting and persistent diarrhea- although it ranges from 1-2 "mushy orange" stool to ~6 per day. She has not seen any blood or mucous. She has not seen any oily stool. She is on Creon, Lomotil, and Xifaxan, but has not had any improvement. She was started on Megace 2 months ago and the dose was increased about 4 weeks ago. She reports that she is actually eating more than usual, but continues to have weight loss. Her last egd and colonoscopy was 1-2 years ago. [place] She recently relocated to this area. She was seen by Dr. Worthy in the office on April 09 2017 and he suspected that her symptoms could be secondary to gastrectomy vs bacterial overgrowth vs. malabsorption vs malignancy. He recommended continuing her creon and megace and ordered fecal fat, ferritin, vitamin A, vitamin E, vitamin B12, folate, vitamin D. She has not had a chance to get her labs done. He also recommended follow up with oncologist. He also recommended nutritional supplements. She denies any fever or chills. She denies any recent travel, suspicious food, or sick contacts. PFSH Past Medical History Non-Hodgkin's lymphoma Diabetes mellitus type 2 Tachycardia Keratitis GERD Pancreatic Insufficiency Past Surgical History Appendectomy Hysterectomy Tonsillectomy Whipple procedure EGD/Colonoscopy Coded Allergies: Lyrica (Verified Allergy, Severe, neuro symptoms, 04/13/17) Medications Allergies Coded Allergies Type Severity Reaction Last Updated Verified Lyrica Allergy Severe neuro symptoms 04/13/17 Yes Active Scripts Medications Dose Route/Sig Days Date Category Dose Instructions Restasis Opth 0.05% (Cyclosporine Opth 0.05%) 0.05% Emul 1 Drop EACH EYE HS 04/13/17 Reported Lomotil (Diphenoxylate-Atropine) 2.5-0.025 Mg Tab 1 Tab PO Q6H PRN 04/13/17 Reported Xifaxan (Rifaximin) 550 Mg Tab 550 Mg PO Q12HR 04/13/17 Reported Phenergan (Promethazine HCl) 25 Mg Tablet 12.5 Mg PO Q6H PRN 04/13/17 Reported Glyburide 2.5 Mg Tab 2.5 Mg PO BID 04/13/17 Reported Take with meals at the same time each day Hydrocodone-Acetaminophen 7.5-300 Mg Tab 1 Tab PO Q6H PRN 04/13/17 Reported Megestrol (Megestrol Acetate) 20 Mg Tab 20 Mg PO QID 04/13/17 Reported Creon (Amylase/Lipase/Protease) 12,000-38,000-60,000 Units Cap 1 Cap PO TIDPC 04/13/17 Reported Metoprolol Succinate ER 24 HR (Metoprolol Succinate) 25 Mg Tab 12.5 Mg PO DAILY 04/13/17 Reported Provigil (Modafinil) 100 Mg Tab 100 Mg PO DAILY@1200 04/13/17 Reported Provigil (Modafinil) 200 Mg Tab 200 Mg PO DAILY 04/13/17 Reported Lexapro (Escitalopram Oxalate) 20 Mg Tab 20 Mg PO DAILY 04/13/17 Reported Omeprazole 40 Mg Cap 40 Mg PO DAILY 04/13/17 Reported Family History Mother had breast cancer. Father had heart disease. Social History Denies using tobacco, alcohol or illicit drugs. Review of Systems Constitutional: COMPLAINS OF: Fatigue, Weight loss, DENIES: Fever, Chills Respiratory: DENIES: Cough, Shortness of breath Cardiovascular: DENIES: Chest pain Gastrointestinal: COMPLAINS OF: Diarrhea, Nausea, Swelling of Abdomen, DENIES : Abdominal pain, Black stools, Bloody stools, Constipation, Vomiting, Anorexia , Heartburn Musculoskeletal: DENIES: Joint pain Integumentary: DENIES: Abnormal pigmentation Hematologic/lymphatic: DENIES: Bruising Neurologic: DENIES: Headache Psychiatric: DENIES: Confusion GI Exam Vitals I&O Vital Signs Date Time Temp Pulse Resp B/P Pulse Ox O2 Delivery O2 Flow Rate FiO2 04/14/17 09:52 95 21 04/14/17 08:00 97.2 81 18 106/57 97 04/14/17 04:00 98.0 79 16 92/49 98 04/14/17 00:00 98.7 83 17 87/54 98 04/13/17 19:24 Room Air 04/13/17 19:00 99.4 86 16 98/65 97 04/13/17 19:00 97.6 82 18 109/65 100 04/13/17 18:20 77 112/65 98 Room Air 04/13/17 12:33 98 Room Air 04/13/17 11:10 97.6 84 14 104/62 95 I/O 04/13/17 04/13/17 04/13/17 04/14/17 04/14/17 04/14/17 07:00 15:00 23:00 07:00 15:00 23:00 Intake Total 200 ml 889 ml Balance 200 ml 889 ml Intake Oral 200 ml 200 ml IV Total 689 ml # Voids 2 2 # Bowel Movements 0 0 Imaging Last Impressions Chest X-Ray 04/13/17 1146 Signed Impressions: Service Date/Time: Thursday, April 13, 2017 12:08 - CONCLUSION: No acute disease. Ernie Lackey MD Laboratory Test 04/13/17 04/13/17 04/14/17 12:00 17:55 07:20 White Blood Count 11.3 TH/MM3 7.9 TH/MM3 Red Blood Count 3.56 MIL/MM3 3.03 MIL/MM3 Hemoglobin 10.5 GM/DL 8.7 GM/DL Hematocrit 30.3 % 25.8 % Mean Corpuscular Volume 85.2 FL 85.1 FL Mean Corpuscular Hemoglobin 29.4 PG 28.5 PG Mean Corpuscular Hemoglobin 34.5 % 33.5 % Concent Red Cell Distribution Width 13.3 % 13.5 % Platelet Count 397 TH/MM3 315 TH/MM3 Mean Platelet Volume 8.5 FL 8.1 FL Neutrophils (%) (Auto) 81.3 % 72.7 % Lymphocytes (%) (Auto) 13.1 % 16.9 % Monocytes (%) (Auto) 4.3 % 8.1 % Eosinophils (%) (Auto) 1.0 % 1.9 % Basophils (%) (Auto) 0.3 % 0.4 % Neutrophils # (Auto) 9.2 TH/MM3 5.7 TH/MM3 Lymphocytes # (Auto) 1.5 TH/MM3 1.3 TH/MM3 Monocytes # (Auto) 0.5 TH/MM3 0.6 TH/MM3 Eosinophils # (Auto) 0.1 TH/MM3 0.1 TH/MM3 Basophils # (Auto) 0.0 TH/MM3 0.0 TH/MM3 CBC Comment DIFF FINAL DIFF FINAL Differential Comment Sodium Level 141 MEQ/L 144 MEQ/L Potassium Level 3.3 MEQ/L 3.6 MEQ/L Chloride Level 107 MEQ/L 110 MEQ/L Carbon Dioxide Level 24.0 MEQ/L 24.8 MEQ/L Anion Gap 10 MEQ/L 9 MEQ/L Blood Urea Nitrogen 14 MG/DL 6 MG/DL Creatinine 0.49 MG/DL 0.44 MG/DL Estimat Glomerular Filtration 126 ML/MIN 142 ML/MIN Rate Random Glucose 151 MG/DL 109 MG/DL Calcium Level 9.1 MG/DL 8.4 MG/DL Magnesium Level 1.8 MG/DL Total Bilirubin 0.3 MG/DL Aspartate Amino Transf 16 U/L (AST/SGOT) Alanine Aminotransferase 28 U/L (ALT/SGPT) Alkaline Phosphatase 86 U/L Total Protein 6.5 GM/DL Albumin 3.2 GM/DL Lipase 91 U/L Thyroid Stimulating Hormone 0.837 uIU/ML 3rd Gen Urine Color YELLOW Urine Turbidity CLEAR Urine pH 5.5 Urine Specific [place] GREATER THAN 1.035 Urine Protein TRACE mg/dL Urine Glucose (UA) NEG mg/dL Urine Ketones 10 mg/dL Urine Occult Blood NEG Urine Nitrite NEG Urine Bilirubin NEG Urine Urobilinogen LESS THAN 2.0 MG/DL Urine Leukocyte Esterase SMALL Urine RBC 2 /hpf Urine WBC 15 /hpf Urine Bacteria RARE /hpf Urine Mucus FEW /lpf Microscopic Urinalysis Comment CULTURE INDICATED Date/Time Procedure Status Source Growth 04/13/17 17:55 Urine Culture Received Urine Random Urine Pending 04/13/17 12:15 Aerobic Blood Culture Received Blood Peripheral Pending 04/13/17 12:15 Anaerobic Blood Culture Received Blood Peripheral Pending Physical Examination HEENT: Normocephalic; atraumatic; no jaundice. Throat is clear. NECK: Neck is supple, no JVD, no lymphadenopathy. CHEST: CTA CARDIAC: RRR ABDOMEN: Soft, nondistended, nontender; no hepatosplenomegaly; bowel sounds are present in all four quadrants. EXTREMITIES: No clubbing, cyanosis, or edema. SKIN: Normal; no rash; no jaundice. CONTACT CENTER CONSULTANT: No focal deficits; alert and oriented times three. Assessment and Plan Plan ASSESSMENT: - Acute on chronic diarrhea with nausea/bloating. Hx of Whipple procedure. She had significant diarrhea, but eventually was able to control this with pancreatic enzymes and lomotil. She has had worsening of symptoms over the past year, with significant worsening in September of 2016. Her symptoms are aggravated by fatty meals. She has frequent nausea, bloating, and diarrhea ranging from 1-2 to 6 "mushy" stools. She has associated weakness/weight loss since September. Her last egd and colonoscopy was 1-2 years ago. [place]. She recently relocated to this area. She was seen by Dr. Worthy in the office on April 09 2017 and he suspected that her symptoms could be secondary to gastrectomy vs bacterial overgrowth vs. malabsorption vs malignancy. He recommended continuing her creon and megace and ordered fecal fat, ferritin, vitamin A, vitamin E, vitamin B12, folate, vitamin D. He also recommended follow up with oncologist. He also recommended nutritional supplements. She denies any fever or chills. She denies any recent travel, suspicious food, or sick contacts. CT scan abdomen and pelvis with IV contrast (04/13/17)-----> Postoperative change from a whipple procedure and removal of pancreatic head. There is some soft tissue density seen surrounding the celiac and SMA. Some of the soft tissue density does appear present based on the comparison with the prior exam. This suggests this is likely a postoperative change. However, recurrence could potentially have a similar appearance. One could further evaluate this fat region noninvasively with a PET/FDG study to determine if this is metabolically active or note. Nonspecific sclerotic area identified at the left ilium. This could be a bone island. Other causes for sclerotic lesions including metastatic disease cannot be excluded. This could also be further evaluated with the PET/FDG study. Focal area of suspected consolidation or atelectasis at the medial right middle lobe. Will plan for EGD/Colonoscopy in am. Pt requesting Magnesium Citrate prep. Will also get celiac panel, fecal fat, ferritin, vitamin A, vitamin E, vitamin B12, folate, vitamin D. Cont. pancreatic enzymes, xifaxan, and lomotil as needed. Diff. ? secondary to gastrectomy vs bacterial overgrowth vs. malabsorption vs malignancy. - Abnormal weight loss. 30 lb weight loss in 1 year, 20 lbs since September. Started on Megace 2 months ago, with dosage increase one month ago, eating more than usual but continues to lose weight. - Anemia, normocytic. 8.7/25.8. - Abnormal imaging on CT with soft tissue density surrounding celiac and SMA and nonspecific sclerotic area identified left ilium. Possible PET scan. Will defer to oncology. - Hx Non-Hodgkin's lymphoma. Dx in 2004 and started chemotherapy. Of note, she also received chemotherapy in 2009 and afterwards stayed on a maintenance dose up until September of 2016. - Hx Pancreatic head mass. Pancreatic cancer was suspected, although because of location, she could not have a biopsy. S/P Whipple procedure in 2004. Pt reports that this was found to be benign. - DM per primary PLAN: - Plan for egd with small bowel biopsy and colonoscopy in am - Obtain consents - Magnesium citrate prep per patient request - Clear liquids - NPO after MN - Fecal fat - Ferritin, - Vitamin A - Vitamin E - Vitamin B12 - Vitamin D - Folate - Celiac panel - Stool studies - Cont Pancreatic enzymes - Cont. Megace - Add Xifaxan - Monitor labs - Supportive care - Further recommendations to follow based on results of above - Pt seen and examined by Dr. Parkinson and myself and this note is written on his behalf Rose Yu Apr 14, 2017 10:47
[2017-04-14] MEDS ORDERED: BISACODYL EC 5 MG TABEC PO ONE (11:00)
[2017-04-14] MEDS: LIPASE/PROTEASE/AMYLASE (12,000/38,000/60,000) CAP PO SCH ×2 (13:30→18:30)
[2017-04-14] MEDS ORDERED: MAGNESIUM CITRATE SOLN 300 ML BTL PO ONE ×2 (17:00→19:00)
[2017-04-14] MEDS: PROCHLORPERAZINE INJ 10 MG/2 ML VIAL IV PUSH PRN (17:02)
--- NOTE | 2017-04-14 17:16 | EKG ---
Date Performed: 04/13/2017 Time Performed: 12:45:34 PTAGE: 66 years EKG: Sinus rhythm BORDERLINE LEFT AXIS DEVIATION BORDERLINE ECG PREVIOUS TRACING : 11/27/2009 08.26 Compared to previous tracing, interventricular conduction d elay has resolved. DOCTOR: Naomie Dhillon Interpretating Date/Time 04/14/2017 17:10:20
[2017-04-14] MEDS: RIFAXIMIN 550 MG TAB PO SCH ×2 (20:45→20:49)
[2017-04-14] MEDS: LEVOFLOXACIN 750 MG TAB PO SCH (20:45)
[2017-04-14] MEDS: PATIENT OWN MEDICATION (Cyclosporine Opth 0.05% (Restasis Opth 0.05%) 1 DROP) EACH EYE SCH (20:46)
[2017-04-14] MEDS ORDERED: PHENOL 1.4% SOLN 180 ML BTL OROPHARYNG PRN (21:00)
[2017-04-15] VITALS (9 sets, daily range): BP systolic 110–140; BP diastolic 62–79; PULSE 73–108; RESP 16–18; TEMP 96.8–99.4; O2SAT 96–100
[2017-04-15] MEDS: SODIUM CHLOR 0.9% 1000 ML INJ 1,000 ML IV SCH ×3 (01:13→20:44)
[2017-04-15] MEDS ORDERED: POVIDONE IODINE 5% (ANTISEPSIS KIT) 4 APPLICATIONS EACH NARE PRN (02:00)
[2017-04-15] MEDS ORDERED: LACTATED RINGER'S 1000 ML IV PRN (02:00)
[2017-04-15] MEDS ORDERED: CHLORHEXIDINE GLUCONATE 2 % 1 PACK (2 CLOTHS) TOPICAL PRN (02:00)
[2017-04-15] MEDS: ACETAMINOPHEN/HYDROcodone 325 MG/5 MG TAB PO PRN ×2 (06:07→20:53)
[2017-04-15] MEDS: PROCHLORPERAZINE INJ 10 MG/2 ML VIAL IV PUSH PRN (06:10)
[2017-04-15] MEDS: INSULIN ASPART SUPPLEMENTAL SCALE SQ SCH ×4 (06:13→20:46)
--- NOTE | 2017-04-15 07:00 | MB ---
cc: DOMINGO CHAUDHARI M.D. DATE OF CONSULTATION 04/14/[address] Quispe REFERRING PHYSICIAN MIKAELA REASON FOR CONSULTATION Consult requested by MIKAELA hospitalist for evaluation of non-Hodgkin's lymphoma. HISTORY OF PRESENT ILLNESS Riddhi is a pleasant 66-year-old female. She recently about two to three weeks ago moved to [place] from [place] to stay close to her daughter. The patient states that she was found to have a mass in the head of the pancreas in 2004. She was evaluated at [facility] in [place]. Due to the location of the mass, biopsy could not be performed. She underwent Whipple procedure as they suspected that she may have pancreatic cancer. However, the pathology report came back showed low grade non-Hodgkin's lymphoma. She was treated with Rituxan and CHOP chemotherapy times six cycles. The patient went into remission. After the Whipple procedure, the patient had developed pancreatic insufficiency in terms of nausea, bloating sensation and diarrhea. She was started on pancreatic enzymes at [facility]. In 2008, the patient was found to have recurrent lymphoma in the retroperitoneum and also in the bone marrow. In 2004, she had a bone marrow biopsy which was positive for lymphoma and she had a stage IVB lymphoma. In 2008, she had a repeat bone marrow biopsy which was again positive for low grade non-Hodgkin's lymphoma. She was treated just with Rituxan according to the patient. She could not remember how many treatments she had. Subsequently she was placed on maintenance Rituxan once every three months. Her last Rituxan was in September of 2016. Further Rituxan has not been given since the patient is not feeling well. She has developed significant diarrhea, especially after fatty meals. She is also complaining of nausea, bloating sensation and abdominal discomfort. She stated that she always has diarrhea since the Whipple procedure, but lately her diarrhea has gotten worse. She has lost 20-30 pounds since last September. When she moved here, she got established with Dr. Quispe as a primary physician. The patient was referred to Dr. Ferrer, firm administrator. The patient saw Dr. Ferrer last week. Multiple tests have been ordered. The patient came into the emergency room yesterday complaining of extreme weakness, fatigue, abdominal discomfort and worsening diarrhea. She is now admitted to the hospital. GI has been consulted. She had a CT scan of the abdomen and pelvis which showed postoperative changes from the Whipple procedure and removal of the pancreatic head. There is some soft tissue density seen surrounding the celiac and SMA. The soft tissue density does appear present based on the comparison with the prior exam. This suggested this is likely postoperative change. However, recurrence could potentially have a similar appearance. One could further evaluate this region with the PET scan. There is a nonspecific sclerotic area identified at the left ileum. This could be a bone island. Other causes for a sclerotic lesion including metastatic disease cannot be excluded. This could also be further evaluated with a PET scan. Focal area of suspected consolidation or atelectasis at the medial right middle lobe of the lung noted. I have been asked to see the patient for further evaluation of the lymphoma. The patient states that she is not feeling well. She has severe diarrhea, abdominal discomfort, bloating sensation and nausea. She is losing weight. She has lost 20-30 pounds. She denies any fevers or night sweats. The rest of the review of systems is negative. PAST MEDICAL HISTORY 1. Diabetes mellitus 2. Depression 3. Gastroesophageal reflux disease 4. Trigeminal neuralgia 5. Non-Hodgkin's lymphoma PAST SURGICAL HISTORY 1. Lwetvw-W-[id number] placement 2. Cardiac catheterization 3. Cholecystectomy 4. Whipple procedure 5. Complete hysterectomy 6. Appendectomy 7. Tonsillectomy 8. Bone marrow biopsy ALLERGIES [facility] MEDICATIONS 1. Restasis 2. Lomotil 3. Xifaxan 4. Phenergan 5. Glyburide 6. Lortab 7. Megace 8. Creon 9. Metoprolol 10. Provigil 11. Lexapro 12. Omeprazole FAMILY HISTORY Mother from breast cancer. Father , but cause of is unknown. The patient has two brother, one is a brain tumor survivor. The patient does not have any sisters and she has one daughter and one son both alive and well. SOCIAL HISTORY The patient is , lives with her . Does not smoke cigarettes, does not drink alcohol. 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 She used to live in [place] and moved to this area about two to three weeks ago. PHYSICAL EXAM This is a well-developed, well-nourished white female in no apparent distress. VITAL SIGNS: Temperature 97.2, heart rate is 81, blood pressure of 106/57. O2 saturation 97% on room air. HEENT: PERRLA, EOMI, anicteric. No oral lesions are noted. NECK: No lymphadenopathy noted. LUNGS: Clear. No wheezing, rhonchi or rales. HEART: Regular rate and rhythm. ABDOMEN: Soft, diffuse tenderness noted. EXTREMITIES: No pedal edema. NEUROLOGIC: Awake, alert, oriented times three. SKIN: No significant lesions noted. ASSESSMENT 1. Intractable nausea, diarrhea, abdominal discomfort associated with a 20-30-pound weight loss. The etiology of that is unclear at this time, but I suspect that this is most likely related to pancreatic insufficiency from Whipple procedure that was done 12 years ago. 2. 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 She had a Whipple procedure followed by six cycles of Rituxan and CHOP chemotherapy. Then in 2008, she had minimal recurrent disease in the retroperitoneum and in the bone marrow. She was treated with Rituxan and then she was placed on maintenance Rituxan every three months. The last treatment was in September of 2016. PLAN I have reviewed her available records and I had an extensive discussion with the patient and her daughter. I specifically reviewed the CT scan of the abdomen and pelvis findings. I do not think that she has any evidence of recurrent lymphoma. The soft tissue changes in the celiac and SMA area are most likely postoperative from the previous Whipple procedure. She does not have any peripheral lymphadenopathy on examination. She does not have any fever or night sweats. Her weight loss is due to the diarrhea and not from the lymphoma. There is a bony island noted. She does have biopsy-proven lymphoma in the bone marrow. I agree with the radiologist assessment to get a PET scan as an outpatient. We discussed that. At this time, the index of suspicion for recurrent lymphoma is very low and I will arrange for her to have a PET scan as an outpatient. There is no need to do PET scan as an inpatient. Her primary problem is intractable nausea, diarrhea and weight loss. GI has been consulted. The patient will most likely require upper endoscopy and colonoscopy. She saw Dr. Ferrer last week who had ordered multiple tests. However, the patient has not had those tests done and now she is admitted to the hospital. The patient and her daughter have asked several questions and these were answered to their satisfaction. Further recommendations to follow based on the hospital stay. Thank you for asking my opinion. MD CURRY Sam/YUAN /12:42 AM /6:41 AM ALINA
--- NOTE | 2017-04-15 07:50 | HHI.PR ---
Subjective Remarks Follow up for chronic diarrhea, weight loss in a patient with a history of NHL and Whipple's procedure. Ms. Louis was on her way to GI lab for colonoscopy. She reports no fever, chills. She still has some nausea. No other acute concerns. Objective Vitals Vital Signs Date Time Temp Pulse Resp B/P Pulse Ox O2 Delivery O2 Flow Rate FiO2 04/15/17 04:00 96.9 105 18 137/71 98 04/15/17 00:13 96.8 104 17 133/79 97 04/14/17 20:25 97.6 95 17 118/61 98 04/14/17 16:00 98.8 89 18 126/67 98 04/14/17 12:00 98.4 87 19 119/60 99 04/14/17 09:52 95 21 04/14/17 08:00 97.2 81 18 106/57 97 I/O 04/14/17 04/14/17 04/14/17 04/15/17 04/15/17 04/15/17 07:00 15:00 23:00 07:00 15:00 23:00 Intake Total 889 ml 1520 ml 240 ml 0 ml Balance 889 ml 1520 ml 240 ml 0 ml Intake Oral 200 ml 300 ml 240 ml 0 ml IV Total 689 ml 1220 ml # Voids 2 4 3 2 # Bowel Movements 0 1 1 Result Diagram: 04/14/17 0720 04/14/17 0720 Imaging Last Impressions Chest X-Ray 04/13/17 1146 Signed Impressions: Service Date/Time: Thursday, April 13, 2017 12:08 - CONCLUSION: No acute disease. Ernie Lackey MD Abdomen/Pelvis CT 04/13/17 1146 Signed Impressions: Service Date/Time: Thursday, April 13, 2017 16:12 - CONCLUSION: 1. Postoperative change from a Whipple procedure and removal of the pancreatic head. There is some soft tissue density seen surrounding the celiac and SMA. Some of the soft tissue density does appear present based on the comparison with the prior exam. This suggests this is likely postoperative change. However, recurrence could potentially have a similar appearance. One could further evaluate this region noninvasively with a PET/FDG study to determine if this is metabolically active or not. 2. Nonspecific sclerotic area identified at the left ilium. This could be a bone island. Other causes for sclerotic lesions including metastatic disease cannot be excluded. This could also be further evaluated with the PET/FDG study. 3. Focal area of suspected consolidation or atelectasis at the medial right middle lobe. Ernie Lackey MD Objective Remarks GENERAL: AOX3, NAD. SKIN: Warm and dry. HEAD: Normocephalic. EYES: No scleral icterus. No injection or drainage. NECK: Supple, trachea midline. No JVD or lymphadenopathy. CARDIOVASCULAR: Regular rate and rhythm without murmurs, gallops, or rubs. RESPIRATORY: Breath sounds equal bilaterally. No accessory muscle use. GASTROINTESTINAL: Abdomen soft, non-tender except for mild tenderness along the lower abdomen, nondistended. MUSCULOSKELETAL: No cyanosis, or edema. BACK: Nontender without obvious deformity. No CVA tenderness. Procedures None. A/P Problem List: (1) Generalized weakness ICD Code: R53.1 Status: Acute (2) Chronic diarrhea ICD Code: K52.9 Status: Acute (3) DM (diabetes mellitus) ICD Code: E11.9 Status: Acute (4) History of non-Hodgkin's lymphoma ICD Code: Z85.72 Status: Acute Assessment and Plan Ms. Louis is a pleasant 66 year old female with a history of Non- Hodgkin's lymphoma, diabetes mellitus, Whipple procedure who presented to the ED on 04/13/2017 due to generalized weakness, diarrhea, nausea and weight loss. She reports 20 lbs weight loss in the last 6 months. Reports no fever or night sweats. CT abd/pelvis indicates possible soft tissue density which could potentially be recurrence vs. post-surgical changes. PET scan recommended. - Chronic diarrhea - Stool O&P, Giardia antigen, Rotavirus AG, Stool WBC pending. - C. Diff toxin PCR negative. - Continue NS @125 cc/hour. - Colonoscopy today. - History of Non-Hodgkin's lymphoma - CT abd/pelvis suggestive of soft tissue density - Discussed with Oncologist Dr. Hall. He agrees with GI work up with regards to Diarrhea. - PET scan can be obtained in the outpatient setting. - No clear evidence of B symptoms (Patient reports weight loss but no night sweats or fever). - NHL recurrence is less likely. - Pancreatic insufficiency - Has a history of Whipple's procedure. - Continue Creon to 6 pills TIDAC (adjusted depending on the food intake). - Possible right middle lobe pneumonia - Possible atelectasis. - Continue Levaquin 750mg Qday. Breathing treatments PRN. - DuoNeb PRN - Continue Incentive spirometry. - Diabetes mellitus type 2 - Patient takes Glyburide at home. We will hold off using Glyburide at this point. - Sliding scale insulin. May need to add low dose basal insulin with Levemir. - Continue Regular diet. If blood glucose elevates, we will consider switching to diabetic diet. - Blood glucose 110 - 130 range. Full code. SCDs. Discharge plan: Patient could potentially go home today or tomorrow and follow up with Oncology regarding PET scan. Sheri Arias DO Apr 15, 2017 7:50 am
[2017-04-15] MEDS: METOPROLOL SUCCINATE 25 MG EXTENDED RELEASE TAB PO SCH (08:45)
[2017-04-15] MEDS: MEGESTROL ACETATE 40 MG TAB PO SCH ×4 (09:00→20:54)
[2017-04-15] MEDS: DOCUSATE SODIUM 50 MG/SENNA 8.6 MG TAB PO SCH ×2 (09:00→20:53)
[2017-04-15] MEDS: SODIUM CHLORIDE 0.9% FLUSH 10 ML FLUSH IV FLUSH SCH ×2 (09:00→20:54)
[2017-04-15 09:16] LABS: C. DIFF EPI 027 PRESUMPTIVE NEGATIVE (NEGATIVE); C. DIFF TOXIN PCR NEGATIVE (NEGATIVE)
[2017-04-15] MEDS: LIPASE/PROTEASE/AMYLASE (12,000/38,000/60,000) CAP PO SCH ×3 (09:30→18:30)
[2017-04-15] MEDS ORDERED: PROPOFOL 200 MG/20 ML AMP IV ONE (10:38)
--- NOTE | 2017-04-15 10:38 | HHI.GIFU ---
Subjective Remarks Immediate postop note: EGD with biopsy and esophageal dilatation over guidewire and colonoscopy with biopsy Indication: anemia, weakness Meds: MAC Findings: Esophagus: phlegm and residual food in upper esophagus. dilated with 15mm dilator through upper esophagus only. Relook showed no complication Stomach: gastritis with bile present refluxing via the gastro jejunostomy. Jejunum normal appearing. Cecum normal Ascending colon biopsy taken to evaluate diarrhea Descending colon biopsy taken to evaluate diarrhea No abnormality of mucosal surfaces. Rectum normal. Objective Vitals I&O Vital Signs Date Time Temp Pulse Resp B/P Pulse Ox O2 Delivery O2 Flow Rate FiO2 04/15/17 09:05 98.0 108 18 140/78 96 04/15/17 08:00 98.0 108 18 140/78 96 04/15/17 04:00 96.9 105 18 137/71 98 04/15/17 00:13 96.8 104 17 133/79 97 04/14/17 20:25 97.6 95 17 118/61 98 04/14/17 16:00 98.8 89 18 126/67 98 04/14/17 12:00 98.4 87 19 119/60 99 I/O 04/14/17 04/14/17 04/14/17 04/15/17 04/15/17 04/15/17 07:00 15:00 23:00 07:00 15:00 23:00 Intake Total 889 ml 1520 ml 240 ml 0 ml Balance 889 ml 1520 ml 240 ml 0 ml Intake Oral 200 ml 300 ml 240 ml 0 ml IV Total 689 ml 1220 ml # Voids 2 4 3 2 # Bowel Movements 0 1 1 Laboratory Laboratory Tests Test 04/14/17 04/14/17 12:57 21:00 Lactic Acid Level 0.6 Vitamin B12 Level 690 25-Hydroxy Vitamin D Total 29.0 Folate 7.4 Stool C. difficile Toxin (PCR) NEGATIVE Stl C. difficile Toxin PRESUMPTIVE Epiderm 027 NEGATIVE Date/Time Procedure Status Source Growth 04/14/17 21:00 Rotavirus Antigen - Final Complete Stool Stool NEGATIVE - ROTAVIRUS ANTIGEN IS ABSEN... 04/14/17 21:00 Cyclospora Exam Resulted Stool Stool Pending 04/14/17 21:00 Cryptosporidium Exam Resulted Stool Stool Pending 04/14/17 21:00 Stool Pus (YAMILE) - Final Resulted Stool Stool FEW WBC'S 04/14/17 21:00 Giardia Antigen (YAMILE) Resulted Stool Stool Pending 04/14/17 21:00 Received Stool Stool Pending 04/14/17 10:47 Cancelled Stool Stool 04/13/17 17:55 Urine Culture - Final Complete Urine Random Urine NO GROWTH IN 48 HOURS. 04/13/17 12:15 Aerobic Blood Culture - Preliminary Resulted Blood Peripheral NO GROWTH IN 1 DAY 04/13/17 12:15 Anaerobic Blood Culture - Preliminary Resulted Blood Peripheral NO GROWTH IN 1 DAY Physical Exam HEENT: Pupils round and reactive to light; normocephalic; atraumatic; no jaundice. Throat is clear. NECK: Neck is supple, no JVD, no lymphadenopathy. CHEST: Chest is clear to auscultation and percussion. CARDIAC: Regular rate and rhythm with no murmur gallop or rubs. ABDOMEN: Soft, nondistended, nontender; no hepatosplenomegaly; bowel sounds are present in all four quadrants. EXTREMITIES: No clubbing, cyanosis, or edema. SKIN: Normal; no rash; no jaundice. [employer]: No focal deficits; alert and oriented times three. Assessment and Plan Plan ASSESSMENT: - Acute on chronic diarrhea with nausea/bloating. Hx of Whipple procedure. She had significant diarrhea, but eventually was able to control this with pancreatic enzymes and lomotil. She has had worsening of symptoms over the past year, with significant worsening in September of 2016. Her symptoms are aggravated by fatty meals. She has frequent nausea, bloating, and diarrhea ranging from 1-2 to 6 "mushy" stools. She has associated weakness/weight loss since September. Her last egd and colonoscopy was 1-2 years ago. [place] recently [place] to this area. She was seen by Dr. Worthy in the office on April 09 2017 and he suspected that her symptoms could be secondary to gastrectomy vs bacterial overgrowth vs. malabsorption vs malignancy. He recommended continuing her creon and megace and ordered fecal fat, ferritin, vitamin A, vitamin E, vitamin B12, folate, vitamin D. He also recommended follow up with oncologist. He also recommended nutritional supplements. She denies any fever or chills. She denies any recent travel, suspicious food, or sick contacts. CT scan abdomen and pelvis with IV contrast (04/13/17)-----> Postoperative change from a whipple procedure and removal of pancreatic head. There is some soft tissue density seen surrounding the celiac and SMA. Some of the soft tissue density does appear present based on the comparison with the prior exam. This suggests this is likely a postoperative change. However, recurrence could potentially have a similar appearance. One could further evaluate this fat region noninvasively with a PET/FDG study to determine if this is metabolically active or note. Nonspecific sclerotic area identified at the left ilium. This could be a bone island. Other causes for sclerotic lesions including metastatic disease cannot be excluded. This could also be further evaluated with the PET/FDG study. Focal area of suspected consolidation or atelectasis at the medial right middle lobe. Will plan for EGD/Colonoscopy in am. Pt requesting Magnesium Citrate prep. Will also get celiac panel, fecal fat, ferritin, vitamin A, vitamin E, vitamin B12, folate, vitamin D. Cont. pancreatic enzymes, xifaxan, and lomotil as needed. Diff. ? secondary to gastrectomy vs bacterial overgrowth vs. malabsorption vs malignancy. - Abnormal weight loss. 30 lb weight loss in 1 year, 20 lbs since September. Started on Megace 2 months ago, with dosage increase one month ago, eating more than usual but continues to lose weight. - Anemia, normocytic. 8.7/25.8. - Abnormal imaging on CT with soft tissue density surrounding celiac and SMA and nonspecific sclerotic area identified left ilium. Possible PET scan. Will defer to oncology. - Hx Non-Hodgkin's lymphoma. Dx in 2004 and started chemotherapy. Of note, she also received chemotherapy in 2009 and afterwards stayed on a maintenance dose up until September of 2016. - Hx Pancreatic head mass. Pancreatic cancer was suspected, although because of location, she could not have a biopsy. S/P Whipple procedure in 2004. Pt reports that this was found to be benign. - DM per primary - EGD and colonoscopy performed, biopsies from stomach and colon. PLAN: - Fecal fat - Ferritin, - Vitamin A - Vitamin E - Vitamin B12 - Vitamin D - Folate - Celiac panel - Stool studies - Cont Pancreatic enzymes - Cont. Megace - Add Xifaxan - Monitor labs - Supportive care - Regular diet - Carafate 1gm qid Ti Parkinson MD Apr 15, 2017 10:38
--- NOTE | 2017-04-15 11:52 | PD.ONC.PN ---
Subjective Subjective Remarks Afebrile overnight Has just came back from having colonoscopy Continue to feel weak Denies SOB Has some chronic back pain Objective Data Date Time Temp Pulse Resp B/P Pulse Ox O2 Delivery O2 Flow Rate FiO2 04/15/17 10:41 78 18 112/62 99 04/15/17 10:31 98.1 77 18 112/64 99 04/15/17 09:05 98.0 108 18 140/78 96 04/15/17 08:00 98.0 108 18 140/78 96 04/15/17 04:00 96.9 105 18 137/71 98 04/15/17 00:13 96.8 104 17 133/79 97 04/14/17 20:25 97.6 95 17 118/61 98 04/14/17 16:00 98.8 89 18 126/67 98 04/14/17 12:00 98.4 87 19 119/60 99 04/15/17 04/15/17 04/15/17 07:00 15:00 23:00 Intake Total 0 ml 250 ml Balance 0 ml 250 ml Result Diagram: 04/14/17 0720 04/14/17 0720 Laboratory Results Laboratory Tests Test 04/14/17 04/14/17 12:57 21:00 Lactic Acid Level 0.6 mmol/L Vitamin B12 Level 690 PG/ML 25-Hydroxy Vitamin D Total 29.0 ng/ML Folate 7.4 NG/ML Stool C. difficile Toxin (PCR) NEGATIVE Stl C. difficile Toxin PRESUMPTIVE Epiderm 027 NEGATIVE Culture Results Microbiology Date/Time Procedure Status Source Growth 04/13/17 12:00 Aerobic Blood Culture - Preliminary Resulted Blood Peripheral NO GROWTH IN 2 DAYS 04/13/17 12:00 Anaerobic Blood Culture - Preliminary Resulted Blood Peripheral NO GROWTH IN 2 DAYS 04/13/17 12:15 Aerobic Blood Culture - Preliminary Resulted Blood Peripheral NO GROWTH IN 2 DAYS 04/13/17 12:15 Anaerobic Blood Culture - Preliminary Resulted Blood Peripheral NO GROWTH IN 2 DAYS 04/13/17 17:55 Urine Culture - Final Complete Urine Random Urine NO GROWTH IN 48 HOURS. 04/14/17 10:47 Cancelled Stool Stool 04/14/17 21:00 Rotavirus Antigen - Final Complete Stool Stool NEGATIVE - ROTAVIRUS ANTIGEN IS ABSEN... 04/14/17 21:00 - Final Complete Stool Stool NO ENTERIC PATHOGENS DETECTED BY PCR... 04/14/17 21:00 Cyclospora Exam - Final Resulted Stool Stool NO CYCLOSPORA SEEN 04/14/17 21:00 Cryptosporidium Exam Resulted Stool Stool Pending 04/14/17 21:00 Stool Pus (YAMILE) - Final Resulted Stool Stool FEW WBC'S 04/14/17 21:00 Giardia Antigen (YAMILE) Resulted Stool Stool Pending Administered Medications Medications (Trade) Dose Ordered Sig/Kaiser Route PRN Reason Start Time Stop Time Status Last Admin Dose Admin Sodium Chloride (NS 1000 ml Inj) 1,000 ml @ 125 mls/hr Q8H IV 04/13/17 17:39 04/15/17 03:04 Sodium Chloride (NS Flush) 2 ml BID IV FLUSH 04/13/17 21:00 04/14/17 08:44 Ondansetron HCl (Zofran Inj) 4 mg Q6H PRN IVP NAUSEA OR VOMITING 04/13/17 17:45 04/14/17 08:37 Levofloxacin (Levaquin) 750 mg Q24H PO 04/13/17 21:00 04/20/17 20:59 04/14/17 20:45 Escitalopram Oxalate (Lexapro) 20 mg DAILY PO 04/14/17 09:00 04/14/17 08:39 Patient Own Medication PT OWN MED: (Cyclosporine Opth 0.... HS EACH EYE 04/13/17 21:00 04/14/17 20:46 Pantoprazole Sodium (Protonix) 40 mg DAILY PO 04/14/17 09:00 04/14/17 08:38 Acetaminophen/ Hydrocodone Bitart ([place] 5-325 Mg) 1 tab Q6H PRN PO PAIN SCALE 5 TO 10 04/13/17 19:45 04/15/17 06:07 Prochlorperazine Edisylate (Compazine Inj) 5 mg Q6H PRN IV PUSH NAUSEA OR VOMITING 04/14/17 10:30 04/15/17 06:10 Promethazine HCl (Phenergan Liq) 6.25 mg Q6H PRN PO NAUSEA OR VOMITING 04/14/17 10:30 04/14/17 11:49 Rifaximin (Xifaxan) 550 mg BID PO 04/14/17 21:00 04/14/17 20:49 Objective Remarks GENERAL: Tired, pale appearing female lying in bed in no distress. SKIN: Warm and dry. HEAD: Normocephalic. EYES: No injection or drainage. NECK: Supple, trachea midline. CARDIOVASCULAR: +S1/S2. No murmur noted. RESPIRATORY: Clear anteriorly. Breathing unlabored. GASTROINTESTINAL: Abdomen soft, non-tender, nondistended. EXTREMITIES: No cyanosis, or edema. NEUROLOGICAL: No obvious focal deficit. Awake, alert, and oriented x3. Assessment/Plan Problem List: (1) History of non-Hodgkin's lymphoma Status: Acute Plan: 04/15: Recurrence of lymphoma likelihood is quite low. We will followup with PET CT as outpatient. Will order iron studies to assess anemia. Discussed with pt and her family. -- Admitted with weakness and severe diarrhea. -- CT scan A/P shows some soft tissue density seen surrounding the celiac and SMA. The soft tissue density does appear present based on the comparison with the prior exam. This is likely postoperative change. -- Panendoscopy on 04/15; biopsies taken of stomach and colon. Hx/Workup: Original diagnosis was in 2004 where she had R-CHOP x 6 cycles. She developed a recurrence in 2008 involving the retroperitoneum and also n the bone marrow. She was treated and then placed on maintenance Rituxan every 3 months. Last treatment was in Sep 2016. Assessment 66 y/o female with past medical history of non-Hodgkin's lymphoma admitted with severe diarrhea, weakness and weight loss Attending Statement c/o diarrhoea and weakness s/p EGD and colonoscopy today d/w pt and . The exam, history, and the medical decision-making described in the above note were completed with the assistance of the mid-level provider. I reviewed and agree with the findings presented. I attest that I had a [id number] encounter with the patient on the same day, and personally performed and documented my assessment and findings in the medical record. Sara Goff Apr 15, 2017 11:51 Jade Hall MD Apr 16, 2017 00:56
[2017-04-15] MEDS ORDERED: MAGNESIUM CITRATE SOLN 300 ML BTL PO ONE ×2 (12:00→18:00)
[2017-04-15] MEDS: RIFAXIMIN 550 MG TAB PO SCH ×2 (13:11→20:53)
[2017-04-15] MEDS: PANTOPRAZOLE SOD 40 MG DELAYED RELEASE TAB PO SCH (13:11)
[2017-04-15] MEDS: ESCITALOPRAM OXALATE 20 MG TAB PO SCH (13:11)
[2017-04-15 16:26] LABS: TRANSFERRIN IRON PROFILE 154 MG/DL (200-360)
[2017-04-15 16:31] LABS: FERRITIN 80 NG/ML (8-252)
[2017-04-15] MEDS: SUCRALFATE 1 GM/10 ML CUP PO SCH ×2 (17:06→20:54)
[2017-04-15] MEDS: BISACODYL EC 5 MG TABEC PO SCH ×2 (18:00→20:49)
[2017-04-15] MEDS: LEVOFLOXACIN 750 MG TAB PO SCH (20:49)
[2017-04-15] MEDS: PATIENT OWN MEDICATION (Cyclosporine Opth 0.05% (Restasis Opth 0.05%) 1 DROP) EACH EYE SCH (20:54)
[2017-04-16] MEDS: PROCHLORPERAZINE INJ 10 MG/2 ML VIAL IV PUSH PRN ×2 (02:30→14:11)
[2017-04-16 03:51] LABS: IGA SERUM 72 mg/dL (81-463)
[2017-04-16 04:00] VITALS: BP 123/73; PULSE 87; RESP 16; TEMP 97.8; O2SAT 97
[2017-04-16] MEDS: SODIUM CHLOR 0.9% 1000 ML INJ 1,000 ML IV SCH ×3 (04:40→20:34)
[2017-04-16] MEDS: SUCRALFATE 1 GM/10 ML CUP PO SCH ×4 (06:16→20:24)
[2017-04-16] MEDS: INSULIN ASPART SUPPLEMENTAL SCALE SQ SCH ×4 (06:16→20:42)
--- NOTE | 2017-04-16 07:36 | MR ---
cc: TI PARKINSON MD,[facility] DATE OF PROCEDURE 04/15/2017 PROCEDURE 1. Esophagogastroduodenoscopy with biopsy and esophageal dilatation over a guidewire. 2. Colonoscopy with biopsy. INDICATIONS Anemia and weakness. HISTORY The patient has a history of Whipple surgery for removal of a pancreatic mass. ATTENDING PHYSICIAN Dr. Arias PROCEDURE After informed consent was obtained, the patient was placed in the left side down position. She was sedated by the Anesthesia Service. After adequate sedation was achieved, the Pentax video gastroscope was inserted in the oropharynx and advanced down through the esophagus into the stomach. It was advanced into what appeared to be the efferent limb for 10 cm and appeared normal. The scope was then withdrawn and biopsies were obtained from the gastric body which was brightly erythematous and friable. Retroflexed exam was performed. The scope was then straightened and pulled through the esophagus. It was reinserted into the gastric body and a guidewire was left in place. Over the guidewire a 15-mm Savary dilator was passed down through the upper esophagus only. The dilator and guidewire were then removed and the scope was reinserted into the stomach. Biopsies were obtained from the gastric body to evaluate for the gastritis. The scope was then withdrawn and the procedure was terminated. A colonoscopy was then performed. Digital rectal examination was normal. The Olympus video colonoscope was inserted in the anal canal and advanced through the colon, reaching the base of the cecum. It was then slowly withdrawn, examining the mucosal services carefully. Biopsies were obtained from the ascending colon and also from the descending colon, submitted separately. Retroflexed exam was performed in the rectum. The scope was then straightened and pulled through the anal canal. The procedure was terminated. She tolerated the procedure well and was returned to the recovery area in good condition. FINDINGS 1. The esophagus contained some phlegm and residual food in the upper part of the esophagus. This was dilated with a 15-mm dilator through the upper esophagus only. Re-look examination showed no complication. 2. In the stomach there was gastritis. It was brightly erythematous with bile present refluxing via the gastrojejunostomy. 3. The efferent limb of the jejunum appeared normal. 4. The afferent limb of the jejunum was not entered. 5. The cecum was normal. 6. In the ascending colon the mucosal surfaces were all normal. Biopsies were taken to evaluate diarrhea. 7. In the descending colon biopsies were taken to evaluate the diarrhea. 8. The rectum was normal. IMPRESSION 1. Weight loss and anemia, weakness with a history of Whipple operation. 2. No definite cause for her symptoms has been found but she does have significant bile reflux gastritis. 3. Biopsies have been taken and are pending. PLAN 1. She should have a trial of Carafate. 2. She should try a regular diet. 3. Stool and blood testing will be performed as previously ordered. Ti Parkinson MD [facility] /10:52 AM /7:21 AM
[2017-04-16 08:00] VITALS: BP 129/71; PULSE 85; RESP 18; TEMP 96.5; O2SAT 94
[2017-04-16] MEDS: MEGESTROL ACETATE 40 MG TAB PO SCH ×4 (09:00→20:28)
[2017-04-16] MEDS: PANTOPRAZOLE SOD 40 MG DELAYED RELEASE TAB PO SCH (09:00)
[2017-04-16] MEDS: RIFAXIMIN 550 MG TAB PO SCH ×2 (09:00→20:25)
[2017-04-16] MEDS: ESCITALOPRAM OXALATE 20 MG TAB PO SCH (09:00)
[2017-04-16] MEDS: METOPROLOL SUCCINATE 25 MG EXTENDED RELEASE TAB PO SCH (09:00)
[2017-04-16] MEDS: DOCUSATE SODIUM 50 MG/SENNA 8.6 MG TAB PO SCH ×2 (09:00→20:29)
[2017-04-16] MEDS: SODIUM CHLORIDE 0.9% FLUSH 10 ML FLUSH IV FLUSH SCH ×2 (09:00→20:28)
[2017-04-16] MEDS: LIPASE/PROTEASE/AMYLASE (12,000/38,000/60,000) CAP PO SCH ×3 (09:30→17:19)
--- NOTE | 2017-04-16 09:44 | HHI.PR ---
Subjective Remarks Follow up for chronic diarrhea, weight loss in a patient with a history of NHL and Whipple's procedure. Ms. Louis had an episode of vomiting overnight. No fever , chills. She actually felt warm last night. Still not able to eat or drink much. Objective Vitals Vital Signs Date Time Temp Pulse Resp B/P Pulse Ox O2 Delivery O2 Flow Rate FiO2 04/16/17 08:00 96.5 85 18 129/71 94 04/16/17 04:00 97.8 87 16 123/73 97 04/15/17 23:29 97.2 73 16 110/67 98 04/15/17 21:53 18 04/15/17 20:58 98 04/15/17 20:00 99.1 79 16 111/62 98 04/15/17 16:00 99.4 84 18 110/64 98 04/15/17 12:00 96.8 80 18 121/72 100 04/15/17 10:51 77 18 120/67 99 04/15/17 10:41 78 18 112/62 99 04/15/17 10:31 98.1 77 18 112/64 99 I/O 04/15/17 04/15/17 04/15/17 04/16/17 04/16/17 04/16/17 06:59 14:59 22:59 06:59 14:59 22:59 Intake Total 0 ml 250 ml 840 ml 360 ml Balance 0 ml 250 ml 840 ml 360 ml Intake Oral 0 ml 840 ml 360 ml Other 250 ml # Voids 2 4 1 # Bowel Movements 1 0 Result Diagram: 04/14/17 0720 04/14/17 0720 Imaging Last Impressions Upper GI and Small Bowel X-Ray 04/16/17 0000 Signed Impressions: Service Date/Time: March 09:57 - CONCLUSION: 1. Postoperative changes of choledocho enterostomy and gastrojejunostomy status post Whipple procedure. 2. Nonspecific esophageal motility disorder. 3. No small bowel dilatation or obstruction. Normal transit time. Renny Rizzo MD Chest X-Ray 04/13/17 1146 Signed Impressions: Service Date/Time: Thursday, April 13, 2017 12:08 - CONCLUSION: No acute disease. Ernie Lackey MD Abdomen/Pelvis CT 04/13/17 1146 Signed Impressions: Service Date/Time: Thursday, April 13, 2017 16:12 - CONCLUSION: 1. Postoperative change from a Whipple procedure and removal of the pancreatic head. There is some soft tissue density seen surrounding the celiac and SMA. Some of the soft tissue density does appear present based on the comparison with the prior exam. This suggests this is likely postoperative change. However, recurrence could potentially have a similar appearance. One could further evaluate this region noninvasively with a PET/FDG study to determine if this is metabolically active or not. 2. Nonspecific sclerotic area identified at the left ilium. This could be a bone island. Other causes for sclerotic lesions including metastatic disease cannot be excluded. This could also be further evaluated with the PET/FDG study. 3. Focal area of suspected consolidation or atelectasis at the medial right middle lobe. Ernie Lackey MD Objective Remarks GENERAL: AOX3, NAD. SKIN: Warm and dry. HEAD: Normocephalic. EYES: No scleral icterus. No injection or drainage. NECK: Supple, trachea midline. No JVD or lymphadenopathy. CARDIOVASCULAR: Regular rate and rhythm without murmurs, gallops, or rubs. RESPIRATORY: Breath sounds equal bilaterally. No accessory muscle use. GASTROINTESTINAL: Abdomen soft, non-tender except for mild tenderness along the lower abdomen, nondistended. MUSCULOSKELETAL: No cyanosis, or edema. BACK: Nontender without obvious deformity. No CVA tenderness. Procedures None. A/P Problem List: (1) Generalized weakness ICD Code: R53.1 Status: Acute (2) Chronic diarrhea ICD Code: K52.9 Status: Acute (3) DM (diabetes mellitus) ICD Code: E11.9 Status: Acute (4) History of non-Hodgkin's lymphoma ICD Code: Z85.72 Status: Acute Assessment and Plan Ms. Louis is a pleasant 66 year old female with a history of Non- Hodgkin's lymphoma, diabetes mellitus, Whipple procedure who presented to the ED on 04/13/2017 due to generalized weakness, diarrhea, nausea and weight loss. She reports 20 lbs weight loss in the last 6 months. Reports no fever or night sweats. CT abd/pelvis indicates possible soft tissue density which could potentially be recurrence vs. post-surgical changes. PET scan recommended. - Chronic diarrhea - Stool O&P, Giardia antigen, Rotavirus AG, Stool WBC pending. - C. Diff toxin PCR negative. - Continue NS @125 cc/hour. - EGD/Colonoscopy on 04/15/2017 shows No significant abnormalities. - Stomach shows gastritis. Esophagus was dilated with a 15 mm dilator. - History of Non-Hodgkin's lymphoma - CT abd/pelvis suggestive of soft tissue density - Discussed with Oncologist Dr. Hall. He agrees with GI work up with regards to Diarrhea. - PET scan can be obtained in the outpatient setting. - No clear evidence of B symptoms (Patient reports weight loss but no night sweats or fever). - NHL recurrence is less likely. - Pancreatic insufficiency - Has a history of Whipple's procedure. - Continue Creon to 6 pills TIDAC (adjusted depending on the food intake). - Possible right middle lobe pneumonia - Possible atelectasis. - Continue Levaquin 750mg Qday. Breathing treatments PRN. - DuoNeb PRN - Continue Incentive spirometry. - Diabetes mellitus type 2 - Patient takes Glyburide at home. We will hold off using Glyburide at this point. - Sliding scale insulin. May need to add low dose basal insulin with Levemir. - Continue Regular diet. If blood glucose elevates, we will consider switching to diabetic diet. - Blood glucose 110 - 130 range. Full code. SCDs. Discharge plan: Once patient's diarrhea improves and able to tolerate food better, she can be discharged. Sheri Arias DO Apr 16, 2017 9:44 am
[2017-04-16 12:38] VITALS: BP 122/69; PULSE 84; RESP 18; TEMP 98.2; O2SAT 98
--- NOTE | 2017-04-16 13:35 | RADRPT ---
EXAM DATE/TIME: 04/16/2017 09:57 [facility] COMPARISON: No previous studies available for comparison. INDICATIONS : Abdominal pain, nausea, diarrhea. FLUORO TIME: 1.7 minutes IMAGE COUNT: 25 CONTRAST: Liquid E-Z Paque Barium Sulfate (60% w/v, 41% w/w) IMAGING TIME(S): 15 min, 30 min, 45 min, 1 hr, 1.5 hrs MEDICAL HISTORY : Cardiovascular disease. Diabetes. Non-Hodgkin's lymphoma. SURGICAL HISTORY : Appendectomy. Whipple. Part of small bowel and stomach removed. ENCOUNTER: Subsequent ACUITY: 1 week PAIN SCORE: 4/10 LOCATION: Abdomen. FINDINGS: Solid demonstrates mild nonspecific esophageal motility disorder. No discrete ulcerations. No hiatal hernia. Postoperative changes of distal gastrectomy with gastrojejunostomy as part of Whipple procedure. Ther e is a choledocho enterostomy with contrast in nondilated bile duct and intrahepatic biliary ductal s ystem. There is normal progression of barium through small bowel. The terminal ileum is unremarkable. No obs truction. CONCLUSION: 1. Postoperative changes of choledocho enterostomy and gastrojejunostomy status post Whipple procedur e. 2. Nonspecific esophageal motility disorder. 3. No small bowel dilatation or obstruction. Normal transit time. Renny Rizzo MD on April 16, 2017 at 13:29 Board Certified Radiologist. This report was verified electronically.
[2017-04-16 13:51] LABS: ENDOMYSIAL AB TITER ND (<1:5); TISSUE TRANSGLUTAMINASE AB LESS THAN 1 U/mL (())
--- NOTE | 2017-04-16 14:28 | PD.ONC.PN ---
Subjective Subjective Remarks Afebrile overnight Pt states she feels better overall Still c/o occasional nausea Had barium swallow today Objective Data Date Time Temp Pulse Resp B/P Pulse Ox O2 Delivery O2 Flow Rate FiO2 04/16/17 12:38 98.2 84 18 122/69 98 04/16/17 08:00 96.5 85 18 129/71 94 04/16/17 04:00 97.8 87 16 123/73 97 04/15/17 23:29 97.2 73 16 110/67 98 04/15/17 21:53 18 04/15/17 20:58 98 04/15/17 20:00 99.1 79 16 111/62 98 04/15/17 16:00 99.4 84 18 110/64 98 04/16/17 04/16/17 04/16/17 07:00 15:00 23:00 Intake Total 360 ml Balance 360 ml Result Diagram: 04/14/1720 04/14/17 0720 Laboratory Results Laboratory Tests Test 04/15/17 15:30 Iron Level 47 MCG/DL Total Iron Binding Capacity 216 MCG/DL Percent Iron Saturation 21.8 % Ferritin 80 NG/ML Culture Results Microbiology Date/Time Procedure Status Source Growth 04/13/17 17:55 Urine Culture - Final Complete Urine Random Urine NO GROWTH IN 48 HOURS. 04/14/17 10:47 Cancelled Stool Stool 04/14/17 21:00 Rotavirus Antigen - Final Complete Stool Stool NEGATIVE - ROTAVIRUS ANTIGEN IS ABSEN... 04/14/17 21:00 - Final Complete Stool Stool NO ENTERIC PATHOGENS DETECTED BY PCR... 04/14/17 21:00 Cyclospora Exam - Final Complete Stool Stool NO CYCLOSPORA SEEN 04/14/17 21:00 Cryptosporidium Exam - Final Complete Stool Stool NEGATIVE - NO CRYPTOSPORIDIUM ANTIGEN... 04/14/17 21:00 Stool Pus (YAMILE) - Final Complete Stool Stool FEW WBC'S 04/14/17 21:00 Giardia Antigen (YAMILE) - Final Complete Stool Stool NEGATIVE - NO GIARDIA ANTIGEN DETECTE... Imaging Studies Last 24 hours Impressions Upper GI and Small Bowel X-Ray 04/16/17 0000 Signed Impressions: Service Date/Time: March 09:57 - CONCLUSION: 1. Postoperative changes of choledocho enterostomy and gastrojejunostomy status post Whipple procedure. 2. Nonspecific esophageal motility disorder. 3. No small bowel dilatation or obstruction. Normal transit time. Renny Rizzo MD Administered Medications Medications (Trade) Dose Ordered Sig/[facility] Route PRN Reason Start Time Stop Time Status Last Admin Dose Admin Sodium Chloride (NS 1000 ml Inj) 1,000 ml @ 125 mls/hr Q8H IV 04/13/17 17:39 04/16/17 11:24 Sodium Chloride (NS Flush) 2 ml BID IV FLUSH 04/13/17 21:00 04/14/17 08:44 Acetaminophen (Tylenol) 650 mg Q4H PRN PO Fever, headache, pain 1-4 04/13/17 17:45 04/15/17 21:52 Ondansetron HCl (Zofran Inj) 4 mg Q6H PRN IVP NAUSEA OR VOMITING 04/13/17 17:45 04/14/17 08:37 Levofloxacin (Levaquin) 750 mg Q24H PO 04/13/17 21:00 04/20/17 20:59 04/15/17 20:49 Escitalopram Oxalate (Lexapro) 20 mg DAILY PO 04/14/17 09:00 04/15/17 13:11 Megestrol Acetate (Megace) 20 mg QID PO 04/13/17 21:00 04/16/17 14:12 Patient Own Medication PT OWN MED: (Cyclosporine Opth 0.... HS EACH EYE 04/13/17 21:00 04/15/17 20:54 Pantoprazole Sodium (Protonix) 40 mg DAILY PO 04/14/17 09:00 04/15/17 13:11 Acetaminophen/ Hydrocodone Bitart ([place] 5-325 Mg) 1 tab Q6H PRN PO PAIN SCALE 5 TO 10 04/13/17 19:45 04/15/17 20:53 Amylase/Lipase/ Protease (Creon 12-38-60) 6 cap TIDPC PO 04/14/17 13:30 04/16/17 14:12 Prochlorperazine Edisylate (Compazine Inj) 5 mg Q6H PRN IV PUSH NAUSEA OR VOMITING 04/14/17 10:30 04/16/17 14:11 Promethazine HCl (Phenergan Liq) 6.25 mg Q6H PRN PO NAUSEA OR VOMITING 04/14/17 10:30 04/14/17 11:49 Rifaximin (Xifaxan) 550 mg BID PO 04/14/17 21:00 04/15/17 13:11 Sucralfate (Carafate Liq) 1 gm ACHS PO 04/15/17 16:00 04/16/17 14:11 Objective Remarks GENERAL: Older female, lying in bed in no distress. She looks better then seen yesterday. SKIN: Warm and dry. HEAD: Normocephalic. EYES: No injection or drainage. NECK: Supple, trachea midline. CARDIOVASCULAR: +S1/S2. No murmur noted. RESPIRATORY: Clear anteriorly. Breathing unlabored. GASTROINTESTINAL: Abdomen soft, non-tender, nondistended. EXTREMITIES: No cyanosis, or edema. NEUROLOGICAL: No obvious focal deficit. Awake, alert, and oriented x3. Assessment/Plan Problem List: (1) History of non-Hodgkin's lymphoma Status: Acute Plan: 04/16: Pt clinically doing better today. Stool studies negative so far. Iron studies difficult to decipher but ferritin OK. Will monitor iron studies periodically. We will plan to see her in the clinic and get a PET scan as outpatient. -- Admitted with weakness and severe diarrhea. -- CT scan A/P shows some soft tissue density seen surrounding the celiac and SMA. The soft tissue density does appear present based on the comparison with the prior exam. This is likely postoperative change. -- Panendoscopy on 04/15; biopsies taken of stomach and colon. Hx/Workup: Original diagnosis was in 2004 where she had R-CHOP x 6 cycles. She developed a recurrence in 2008 involving the retroperitoneum and also n the bone marrow. She was treated and then placed on maintenance Rituxan every 3 months. Last treatment was in Sep 2016. Assessment 66 y/o female with past medical history of non-Hodgkin's lymphoma admitted with severe diarrhea, weakness and weight loss Attending Statement No new problems Over all Feels better The exam, history, and the medical decision-making described in the above note were completed with the assistance of the mid-level provider. I reviewed and agree with the findings presented. I attest that I had a [id number] encounter with the patient on the same day, and personally performed and documented my assessment and findings in the medical record. Sara Goff Apr 16, 2017 14:28 Jade Hall MD Apr 17, 2017 00:27
--- NOTE | 2017-04-16 14:28 | HHI.GIFU ---
Subjective Remarks Pt resting in bed, in no distress. Says she feels a little better today, nausea somewhat improved. No BM today. She is going to try to eat. Objective Vitals I&O Vital Signs Date Time Temp Pulse Resp B/P Pulse Ox O2 Delivery O2 Flow Rate FiO2 04/16/17 12:38 98.2 84 18 122/69 98 04/16/17 08:00 96.5 85 18 129/71 94 04/16/17 04:00 97.8 87 16 123/73 97 04/15/17 23:29 97.2 73 16 110/67 98 04/15/17 21:53 18 04/15/17 20:58 98 04/15/17 20:00 99.1 79 16 111/62 98 04/15/17 16:00 99.4 84 18 110/64 98 I/O 04/15/17 04/15/17 04/15/17 04/16/17 04/16/17 04/16/17 07:00 15:00 23:00 07:00 15:00 23:00 Intake Total 0 ml 250 ml 840 ml 360 ml Balance 0 ml 250 ml 840 ml 360 ml Intake Oral 0 ml 840 ml 360 ml Other 250 ml # Voids 2 4 1 # Bowel Movements 1 0 Laboratory Laboratory Tests Test 04/15/17 15:30 Iron Level 47 Total Iron Binding Capacity 216 Percent Iron Saturation 21.8 Ferritin 80 Date/Time Procedure Status Source Growth 04/14/17 21:00 Rotavirus Antigen - Final Complete Stool Stool NEGATIVE - ROTAVIRUS ANTIGEN IS ABSEN... 04/14/17 21:00 Cyclospora Exam - Final Complete Stool Stool NO CYCLOSPORA SEEN 04/14/17 21:00 Cryptosporidium Exam - Final Complete Stool Stool NEGATIVE - NO CRYPTOSPORIDIUM ANTIGEN... 04/14/17 21:00 Stool Pus (YAMILE) - Final Complete Stool Stool FEW WBC'S 04/14/17 21:00 Giardia Antigen (YAMILE) - Final Complete Stool Stool NEGATIVE - NO GIARDIA ANTIGEN DETECTE... 04/14/17 21:00 - Final Complete Stool Stool NO ENTERIC PATHOGENS DETECTED BY PCR... 04/14/17 10:47 Cancelled Stool Stool 04/13/17 17:55 Urine Culture - Final Complete Urine Random Urine NO GROWTH IN 48 HOURS. 04/13/17 12:15 Aerobic Blood Culture - Preliminary Resulted Blood Peripheral NO GROWTH IN 3 DAYS 04/13/17 12:15 Anaerobic Blood Culture - Preliminary Resulted Blood Peripheral NO GROWTH IN 3 DAYS Imaging Last Impressions Upper GI and Small Bowel X-Ray 04/16/17 0000 Signed Impressions: Service Date/Time: March 09:57 - CONCLUSION: 1. Postoperative changes of choledocho enterostomy and gastrojejunostomy status post Whipple procedure. 2. Nonspecific esophageal motility disorder. 3. No small bowel dilatation or obstruction. Normal transit time. Renny Rizzo MD Chest X-Ray 04/13/17 1146 Signed Impressions: Service Date/Time: Thursday, April 13, 2017 12:08 - CONCLUSION: No acute disease. Ernie Lackey MD Abdomen/Pelvis CT 04/13/17 1146 Signed Impressions: Service Date/Time: Thursday, April 13, 2017 16:12 - CONCLUSION: 1. Postoperative change from a Whipple procedure and removal of the pancreatic head. There is some soft tissue density seen surrounding the celiac and SMA. Some of the soft tissue density does appear present based on the comparison with the prior exam. This suggests this is likely postoperative change. However, recurrence could potentially have a similar appearance. One could further evaluate this region noninvasively with a PET/FDG study to determine if this is metabolically active or not. 2. Nonspecific sclerotic area identified at the left ilium. This could be a bone island. Other causes for sclerotic lesions including metastatic disease cannot be excluded. This could also be further evaluated with the PET/FDG study. 3. Focal area of suspected consolidation or atelectasis at the medial right middle lobe. Ernie Lackey MD Physical Exam HEENT: PERRL; normocephalic; atraumatic; no jaundice. CHEST: CTA CARDIAC: RRR ABDOMEN: Soft, nondistended, nontender; no hepatosplenomegaly; bowel sounds are present in all four quadrants. EXTREMITIES: No clubbing, cyanosis, or edema. SKIN: Normal; no rash; no jaundice. ELEVATOR MECHANIC: No focal deficits; alert and oriented times three. Assessment and Plan Plan ASSESSMENT: - Acute on chronic diarrhea with nausea/bloating. Hx of Whipple procedure. She had significant diarrhea, but eventually was able to control this with pancreatic enzymes and lomotil. She has had worsening of symptoms over the past year, with significant worsening in September of 2016. Her symptoms are aggravated by fatty meals. She has frequent nausea, bloating, and diarrhea ranging from 1-2 to 6 "mushy" stools. She has associated weakness/weight loss since September. Her last egd and colonoscopy was 1-2 years ago. [place] recently relocated to this area. She was seen by Dr. Worthy in the office on April 09 2017 and he suspected that her symptoms could be secondary to gastrectomy vs bacterial overgrowth vs. malabsorption vs malignancy. He recommended continuing her creon and megace and ordered fecal fat, ferritin, vitamin A, vitamin E, vitamin B12, folate, vitamin D. He also recommended follow up with oncologist. He also recommended nutritional supplements. She denies any fever or chills. She denies any recent travel, suspicious food, or sick contacts. UGI 04-16-17 --> post op changes choledocho enterostomy, gastrojejunostomy s/p whipple, nonspecific esophageal motility disorder, no small bowel dilation or obstruction, normal transit time. EGD/colonoscopy 04-15-17 --> normal colonoscopy with bx taken, esophagus contained some phlegm and food residue in upper part, was dilated, gastritis in stomach brightly erythemaous with pile present refluxing via the gastrojejunostomy. CT scan abdomen and pelvis with IV contrast (04/13/17)-----> Postoperative change from a whipple procedure and removal of pancreatic head. There is some soft tissue density seen surrounding the celiac and SMA. Some of the soft tissue density does appear present based on the comparison with the prior exam. This suggests this is likely a postoperative change. However, recurrence could potentially have a similar appearance. One could further evaluate this fat region noninvasively with a PET/FDG study to determine if this is metabolically active or note. Nonspecific sclerotic area identified at the left ilium. This could be a bone island. Other causes for sclerotic lesions including metastatic disease cannot be excluded. This could also be further evaluated with the PET/FDG study. Focal area of suspected consolidation or atelectasis at the medial right middle lobe. Ferritin 80. stool cx neg. celiac panel, fecal fat pending vitamin A, vitamin E, vitamin B12, folate, vitamin D. Cont. pancreatic enzymes, xifaxan, and lomotil as needed. Diff. ? secondary to gastrectomy vs bacterial overgrowth vs. malabsorption vs malignancy. - Abnormal weight loss. 30 lb weight loss in 1 year, 20 lbs since September. Started on Megace 2 months ago, with dosage increase one month ago, eating more than usual but continues to lose weight. - Anemia, normocytic. 8.7/25.8. - Abnormal imaging on CT with soft tissue density surrounding celiac and SMA and nonspecific sclerotic area identified left ilium. Possible PET scan. Will defer to oncology. - Hx Non-Hodgkin's lymphoma. Dx in 2004 and started chemotherapy. Of note, she also received chemotherapy in 2009 and afterwards stayed on a maintenance dose up until September of 2016. - Hx Pancreatic head mass. Pancreatic cancer was suspected, although because of location, she could not have a biopsy. S/P Whipple procedure in 2004. Pt reports that this was found to be benign. - DM per primary - EGD and colonoscopy performed, biopsies from stomach and colon. PLAN: - await Fecal fat - Vitamin A - Vitamin E - Vitamin B12 - Vitamin D - Folate - await rest of Celiac panel - Cont Pancreatic enzymes - Cont. Megace - Cont. xifaxan - Monitor labs - Supportive care - Regular diet - Carafate 1gm qid This pt seen by myself and Dr Parkinson and this note is written on is behalf. Anupama Flores Apr 16, 2017 14:27
[2017-04-16 16:00] VITALS: BP 122/69; PULSE 98; RESP 17; TEMP 98.9; O2SAT 97
[2017-04-16 20:00] VITALS: BP 121/66; PULSE 89; RESP 18; TEMP 97.5; O2SAT 95
[2017-04-16] MEDS: LEVOFLOXACIN 750 MG TAB PO SCH (20:25)
[2017-04-16] MEDS: PATIENT OWN MEDICATION (Cyclosporine Opth 0.05% (Restasis Opth 0.05%) 1 DROP) EACH EYE SCH (20:28)
[2017-04-17] VITALS: BP 124/72; PULSE 50; RESP 16; TEMP 97.8; O2SAT 99
[2017-04-17] MEDS: SODIUM CHLOR 0.9% 1000 ML INJ 1,000 ML IV SCH (03:24)
[2017-04-17 04:00] VITALS: BP 133/75; PULSE 92; RESP 16; TEMP 98; O2SAT 96
[2017-04-17] MEDS: SUCRALFATE 1 GM/10 ML CUP PO SCH ×4 (06:07→21:00)
[2017-04-17] MEDS: INSULIN ASPART SUPPLEMENTAL SCALE SQ SCH ×4 (06:16→21:00)
[2017-04-17] MEDS: PROCHLORPERAZINE INJ 10 MG/2 ML VIAL IV PUSH PRN (06:30)
[2017-04-17 07:22] VITALS: BP 133/74; PULSE 96; RESP 18; TEMP 98.2; O2SAT 96
[2017-04-17 08:19] LABS: AUTOMATED NEUTROPHIL # 5.4 TH/MM3 (1.8-7.7); BASOPHIL % 0.2 % (0.0-2.0); EOSINOPHIL # 0.1 TH/MM3 (0-0.4); EOSINOPHIL % 1.4 % (0.0-4.0); HEMATOCRIT 26.6 % (35.0-46.0); HEMO FLAGS DIFF FINAL; LYMPH % 16.5 % (9.0-44.0); LYMPHOCYTE # 1.2 TH/MM3 (1.0-4.8); MEAN CELL VOLUME 83.9 FL (80.0-100.0); MEAN CORPUSCULAR HEMOGLOBIN 29.4 PG (27.0-34.0); MEAN CORPUSCULAR HGB CONC 35.1 % (32.0-36.0); MONO % 5.5 % (0.0-8.0); NEUT % 76.4 % (16.0-70.0); PLATELET COUNT 332 TH/MM3 (150-450); RED BLOOD COUNT 3.16 MIL/MM3 (4.00-5.30); RED CELL DISTRIBUTION WIDTH 13.6 % (11.6-17.2)
--- NOTE | 2017-04-17 09:57 | HHI.FF ---
Face to Face Verification Diagnosis: (1) Generalized weakness (2) Chronic diarrhea (3) DM (diabetes mellitus) (4) History of non-Hodgkin's lymphoma Physical Therapy Order: Evaluate and Treat, Improve ambulation, Strength and gait training Home Health Nursing Order: Medical education Signs/symptoms of disease process Nursing assessment with vital signs IV medication administration I have seen patient Riddhi Louis on 04/17/17. My clinical findings support the need for the requested home health care services because: Ltd mobility - disease progression Patient has SOB Deconditioned w/ increased weakness Limited ability to care for self Need for psychosocial assistance High risk of falls Infection w/ risk of complications I certify that my clinical findings support that this patient is homebound because: Unsteady gait/balance Unsafe to leave home unassisted Need for psychosocial assistance Unable to use public transportation Sheri Arias DO Apr 17, 2017 9:56 am
--- NOTE | 2017-04-17 10:31 | PD.ONC.PN ---
Subjective Subjective Remarks Afebrile overnight. Says she feels a bit better today. Hopeful for discharge this afternoon on TPN. Objective Data Date Time Temp Pulse Resp B/P Pulse Ox O2 Delivery O2 Flow Rate FiO2 04/17/17 07:22 98.2 96 18 133/74 96 04/17/17 04:00 98.0 92 16 133/75 96 04/17/17 00:00 97.8 50 16 124/72 99 04/16/17 20:00 97.5 89 18 121/66 95 04/16/17 16:00 98.9 98 17 122/69 97 04/16/17 12:38 98.2 84 18 122/69 98 04/17/17 04/17/17 04/17/17 07:00 15:00 23:00 Intake Total 240 ml Balance 240 ml Result Diagram: 04/17/17 0716 04/14/17 0720 Laboratory Results Laboratory Tests Test 04/17/17 07:16 White Blood Count 7.0 TH/MM3 Red Blood Count 3.16 MIL/MM3 Hemoglobin 9.3 GM/DL Hematocrit 26.6 % Mean Corpuscular Volume 83.9 FL Mean Corpuscular Hemoglobin 29.4 PG Mean Corpuscular Hemoglobin 35.1 % Concent Red Cell Distribution Width 13.6 % Platelet Count 332 TH/MM3 Mean Platelet Volume 8.4 FL Neutrophils (%) (Auto) 76.4 % Lymphocytes (%) (Auto) 16.5 % Monocytes (%) (Auto) 5.5 % Eosinophils (%) (Auto) 1.4 % Basophils (%) (Auto) 0.2 % Neutrophils # (Auto) 5.4 TH/MM3 Lymphocytes # (Auto) 1.2 TH/MM3 Monocytes # (Auto) 0.4 TH/MM3 Eosinophils # (Auto) 0.1 TH/MM3 Basophils # (Auto) 0.0 TH/MM3 CBC Comment DIFF FINAL Differential Comment Culture Results Microbiology Date/Time Procedure Status Source Growth 04/14/17 10:47 Cancelled Stool Stool 04/14/17 21:00 Rotavirus Antigen - Final Complete Stool Stool NEGATIVE - ROTAVIRUS ANTIGEN IS ABSEN... 04/14/17 21:00 - Final Complete Stool Stool NO ENTERIC PATHOGENS DETECTED BY PCR... 04/14/17 21:00 Cyclospora Exam - Final Complete Stool Stool NO CYCLOSPORA SEEN 04/14/17 21:00 Cryptosporidium Exam - Final Complete Stool Stool NEGATIVE - NO CRYPTOSPORIDIUM ANTIGEN... 04/14/17 21:00 Stool Pus (YAMILE) - Final Complete Stool Stool FEW WBC'S 04/14/17 21:00 Giardia Antigen (YAMILE) - Final Complete Stool Stool NEGATIVE - NO GIARDIA ANTIGEN DETECTE... Administered Medications Medications (Trade) Dose Ordered Sig/Kaiser Route PRN Reason Start Time Stop Time Status Last Admin Dose Admin Sodium Chloride (NS 1000 ml Inj) 1,000 ml @ 125 mls/hr Q8H IV 04/13/17 17:39 04/16/17 20:34 Sodium Chloride (NS Flush) 2 ml BID IV FLUSH 04/13/17 21:00 04/14/17 08:44 Acetaminophen (Tylenol) 650 mg Q4H PRN PO Fever, headache, pain 1-4 04/13/17 17:45 04/15/17 21:52 Ondansetron HCl (Zofran Inj) 4 mg Q6H PRN IVP NAUSEA OR VOMITING 04/13/17 17:45 04/14/17 08:37 Levofloxacin (Levaquin) 750 mg Q24H PO 04/13/17 21:00 04/20/17 20:59 04/16/17 20:25 Escitalopram Oxalate (Lexapro) 20 mg DAILY PO 04/14/17 09:00 04/15/17 13:11 Megestrol Acetate (Megace) 20 mg QID PO 04/13/17 21:00 04/16/17 17:19 Patient Own Medication PT OWN MED: (Cyclosporine Opth 0.... HS EACH EYE 04/13/17 21:00 04/16/17 20:28 Pantoprazole Sodium (Protonix) 40 mg DAILY PO 04/14/17 09:00 04/15/17 13:11 Acetaminophen/ Hydrocodone Bitart (Hollytree 5-325 Mg) 1 tab Q6H PRN PO PAIN SCALE 5 TO 10 04/13/17 19:45 04/15/17 20:53 Amylase/Lipase/ Protease (Creon 12-38-60) 6 cap TIDPC PO 04/14/17 13:30 04/16/17 17:19 Prochlorperazine Edisylate (Compazine Inj) 5 mg Q6H PRN IV PUSH NAUSEA OR VOMITING 04/14/17 10:30 04/17/17 06:30 Promethazine HCl (Phenergan Liq) 6.25 mg Q6H PRN PO NAUSEA OR VOMITING 04/14/17 10:30 04/14/17 11:49 Rifaximin (Xifaxan) 550 mg BID PO 04/14/17 21:00 04/16/17 20:25 Sucralfate (Carafate Liq) 1 gm ACHS PO 04/15/17 16:00 04/17/17 06:07 Objective Remarks GENERAL: Frail elderly female, upright in bed in nad. SKIN: Warm and dry. HEAD: Normocephalic. EYES: No injection or drainage. NECK: Supple, trachea midline. CARDIOVASCULAR: Regular rate and rhythm RESPIRATORY: Breath sounds equal bilaterally. No accessory muscle use. GASTROINTESTINAL: Abdomen soft, non-tender, nondistended. EXTREMITIES: No cyanosis NEUROLOGICAL: awake and alert, normal speech. moving all extremities. Assessment/Plan Problem List: (1) History of non-Hodgkin's lymphoma Status: Acute Plan: 04/17: patient to be started on TPN and hopeful for discharge this afternoon. discussed following up at clinic and obtaining outpatient PET scan. patient agreeable with plan. -- Admitted with weakness and severe diarrhea. -- CT scan A/P shows some soft tissue density seen surrounding the celiac and SMA. The soft tissue density does appear present based on the comparison with the prior exam. This is likely postoperative change. -- Panendoscopy on 04/15; biopsies taken of stomach and colon. Hx/Workup: Original diagnosis was in 2004 where she had R-CHOP x 6 cycles. She developed a recurrence in 2008 involving the retroperitoneum and also n the bone marrow. She was treated and then placed on maintenance Rituxan every 3 months. Last treatment was in Sep 2016. Assessment 66 y/o female with past medical history of non-Hodgkin's lymphoma admitted with severe diarrhea, weakness and weight loss Attending Statement no new c/o TPN and D/C home today FU outpt . will get PET The exam, history, and the medical decision-making described in the above note were completed with the assistance of the mid-level provider. I reviewed and agree with the findings presented. I attest that I had a [id number] encounter with the patient on the same day, and personally performed and documented my assessment and findings in the medical record. Mignon Alonzo Apr 17, 2017 10:31 Jade Hall MD Apr 17, 2017 13:19
[2017-04-17] MEDS ORDERED: IMIPRAMINE HCL 25 MG TAB PO ONE (10:45)
[2017-04-17] MEDS: METOPROLOL SUCCINATE 25 MG EXTENDED RELEASE TAB PO SCH (11:04)
[2017-04-17] MEDS: PANTOPRAZOLE SOD 40 MG DELAYED RELEASE TAB PO SCH (11:04)
[2017-04-17] MEDS: LIPASE/PROTEASE/AMYLASE (12,000/38,000/60,000) CAP PO SCH ×3 (11:05→17:26)
[2017-04-17] MEDS: DOCUSATE SODIUM 50 MG/SENNA 8.6 MG TAB PO SCH ×2 (11:05→21:00)
[2017-04-17] MEDS: SODIUM CHLORIDE 0.9% FLUSH 10 ML FLUSH IV FLUSH SCH ×2 (11:06→21:00)
[2017-04-17] MEDS: MEGESTROL ACETATE 40 MG TAB PO SCH ×4 (11:06→21:00)
[2017-04-17] MEDS: ESCITALOPRAM OXALATE 20 MG TAB PO SCH (11:06)
[2017-04-17] MEDS: RIFAXIMIN 550 MG TAB PO SCH ×2 (11:06→20:59)
[2017-04-17 11:28] LABS: AUTOMATED NEUTROPHIL # 7.4 TH/MM3 (1.8-7.7); BASOPHIL % 0.3 % (0.0-2.0); EOSINOPHIL % 0.5 % (0.0-4.0); HEMATOCRIT 30.1 % (35.0-46.0); HEMO FLAGS DIFF FINAL; LYMPH % 12.6 % (9.0-44.0); LYMPHOCYTE # 1.1 TH/MM3 (1.0-4.8); MEAN CELL VOLUME 83.6 FL (80.0-100.0); MEAN CORPUSCULAR HEMOGLOBIN 28.9 PG (27.0-34.0); MEAN CORPUSCULAR HGB CONC 34.6 % (32.0-36.0); MONO % 5.4 % (0.0-8.0); NEUT % 81.2 % (16.0-70.0); PLATELET COUNT 377 TH/MM3 (150-450); RED CELL DISTRIBUTION WIDTH 13.6 % (11.6-17.2); WHITE BLOOD COUNT 9.1 TH/MM3 (4.0-11.0)
[2017-04-17 11:52] LABS: ALT (GPT) 24 U/L (10-53); ANION GAP 8 MEQ/L (5-15); AST (GOT) 10 U/L (15-37); BICARBONATE 25.7 MEQ/L (21.0-32.0); BLOOD UREA NITROGEN 4 MG/DL (7-18); CHLORIDE 110 MEQ/L (98-107); GLOMERULAR FILTRATION RATE 120 ML/MIN (>89); MAGNESIUM 1.5 MG/DL (1.5-2.5); SODIUM (NA) 144 MEQ/L (136-145)
[2017-04-17 11:53] VITALS: BP 121/67; PULSE 106; RESP 18; TEMP 96.9; O2SAT 97
[2017-04-17 11:55] LABS: POTASSIUM 2.6 MEQ/L (3.5-5.1)
[2017-04-17 11:57] LABS: ALKALINE PHOSPHATASE 69 U/L (45-117); TOTAL BILIRUBIN ADULT 0.3 MG/DL (0.2-1.0)
[2017-04-17] MEDS ORDERED: MODAFINIL 200 MG TAB PO SCH (12:00)
--- NOTE | 2017-04-17 12:00 | HHI.GIFU ---
Subjective Remarks Resting in bed. Feeling better, but still extremely weak and only taking small amounts of po- although it is slowly improving. Hoping to go home today with TPN and have PET scan as outpatient. Objective Vitals I&O Vital Signs Date Time Temp Pulse Resp B/P Pulse Ox O2 Delivery O2 Flow Rate FiO2 04/17/17 07:22 98.2 96 18 133/74 96 04/17/17 04:00 98.0 92 16 133/75 96 04/17/17 00:00 97.8 50 16 124/72 99 04/16/17 20:00 97.5 89 18 121/66 95 04/16/17 16:00 98.9 98 17 122/69 97 04/16/17 12:38 98.2 84 18 122/69 98 I/O 04/16/17 04/16/17 04/16/17 04/17/17 04/17/17 04/17/17 07:00 15:00 23:00 07:00 15:00 23:00 Intake Total 360 ml 840 ml 240 ml Balance 360 ml 840 ml 240 ml Intake Oral 360 ml 840 ml 240 ml # Voids 1 7 4 # Bowel Movements 0 1 Laboratory Laboratory Tests Test 04/17/17 04/17/17 07:16 11:08 White Blood Count 7.0 9.1 Red Blood Count 3.16 3.60 Hemoglobin 9.3 10.4 Hematocrit 26.6 30.1 Mean Corpuscular Volume 83.9 83.6 Mean Corpuscular Hemoglobin 29.4 28.9 Mean Corpuscular Hemoglobin 35.1 34.6 Concent Red Cell Distribution Width 13.6 13.6 Platelet Count 332 377 Mean Platelet Volume 8.4 8.4 Neutrophils (%) (Auto) 76.4 81.2 Lymphocytes (%) (Auto) 16.5 12.6 Monocytes (%) (Auto) 5.5 5.4 Eosinophils (%) (Auto) 1.4 0.5 Basophils (%) (Auto) 0.2 0.3 Neutrophils # (Auto) 5.4 7.4 Lymphocytes # (Auto) 1.2 1.1 Monocytes # (Auto) 0.4 0.5 Eosinophils # (Auto) 0.1 0.0 Basophils # (Auto) 0.0 0.0 CBC Comment DIFF FINAL DIFF FINAL Differential Comment Date/Time Procedure Status Source Growth 04/14/17 21:00 Rotavirus Antigen - Final Complete Stool Stool NEGATIVE - ROTAVIRUS ANTIGEN IS ABSEN... 04/14/17 21:00 Cyclospora Exam - Final Complete Stool Stool NO CYCLOSPORA SEEN 04/14/17 21:00 Cryptosporidium Exam - Final Complete Stool Stool NEGATIVE - NO CRYPTOSPORIDIUM ANTIGEN... 04/14/17 21:00 Stool Pus (YAMILE) - Final Complete Stool Stool FEW WBC'S 04/14/17 21:00 Giardia Antigen (YAMILE) - Final Complete Stool Stool NEGATIVE - NO GIARDIA ANTIGEN DETECTE... 04/14/17 21:00 - Final Complete Stool Stool NO ENTERIC PATHOGENS DETECTED BY PCR... 04/14/17 10:47 Cancelled Stool Stool 04/13/17 17:55 Urine Culture - Final Complete Urine Random Urine NO GROWTH IN 48 HOURS. 04/13/17 12:15 Aerobic Blood Culture - Preliminary Resulted Blood Peripheral NO GROWTH IN 4 DAYS 04/13/17 12:15 Anaerobic Blood Culture - Preliminary Resulted Blood Peripheral NO GROWTH IN 4 DAYS Imaging Last Impressions Upper GI and Small Bowel X-Ray 04/16/17 0000 Signed Impressions: Service Date/Time: March 09:57 - CONCLUSION: 1. Postoperative changes of choledocho enterostomy and gastrojejunostomy status post Whipple procedure. 2. Nonspecific esophageal motility disorder. 3. No small bowel dilatation or obstruction. Normal transit time. Renny Rizzo MD Chest X-Ray 04/13/17 1146 Signed Impressions: Service Date/Time: Thursday, April 13, 2017 12:08 - CONCLUSION: No acute disease. Ernie Lackey MD Abdomen/Pelvis CT 04/13/17 1146 Signed Impressions: Service Date/Time: Thursday, April 13, 2017 16:12 - CONCLUSION: 1. Postoperative change from a Whipple procedure and removal of the pancreatic head. There is some soft tissue density seen surrounding the celiac and SMA. Some of the soft tissue density does appear present based on the comparison with the prior exam. This suggests this is likely postoperative change. However, recurrence could potentially have a similar appearance. One could further evaluate this region noninvasively with a PET/FDG study to determine if this is metabolically active or not. 2. Nonspecific sclerotic area identified at the left ilium. This could be a bone island. Other causes for sclerotic lesions including metastatic disease cannot be excluded. This could also be further evaluated with the PET/FDG study. 3. Focal area of suspected consolidation or atelectasis at the medial right middle lobe. Ernie Lackey MD Physical Exam HEENT: Normocephalic; atraumatic; no jaundice. CHEST: CTA CARDIAC: RRR ABDOMEN: Soft, nondistended, nontender; no hepatosplenomegaly; bowel sounds are present in all four quadrants. EXTREMITIES: No clubbing, cyanosis, or edema. SKIN: Normal; no rash; no jaundice. BOX LINER: No focal deficits; alert and oriented times three. Assessment and Plan Plan ASSESSMENT: - Acute on chronic diarrhea with nausea/bloating. Hx of Whipple procedure. She had significant diarrhea, but eventually was able to control this with pancreatic enzymes and lomotil. She has had worsening of symptoms over the past year, with significant worsening in September of 2016. Her symptoms are aggravated by fatty meals. She has frequent nausea, bloating, and diarrhea ranging from 1-2 to 6 "mushy" stools. She has associated weakness/weight loss since September. Her last egd and colonoscopy was 1-2 years ago. [place] recently relocated to this area. She was seen by Dr. Worthy in the office on April 09 2017 and he suspected that her symptoms could be secondary to gastrectomy vs bacterial overgrowth vs. malabsorption vs malignancy. He recommended continuing her creon and megace and ordered fecal fat, ferritin, vitamin A, vitamin E, vitamin B12, folate, vitamin D. He also recommended follow up with oncologist. He also recommended nutritional supplements. She denies any fever or chills. She denies any recent travel, suspicious food, or sick contacts. CT scan abdomen and pelvis with IV contrast (04/13/17)-----> Postoperative change from a whipple procedure and removal of pancreatic head. There is some soft tissue density seen surrounding the celiac and SMA. Some of the soft tissue density does appear present based on the comparison with the prior exam. This suggests this is likely a postoperative change. However, recurrence could potentially have a similar appearance. One could further evaluate this fat region noninvasively with a PET/FDG study to determine if this is metabolically active or note. Nonspecific sclerotic area identified at the left ilium. This could be a bone island. Other causes for sclerotic lesions including metastatic disease cannot be excluded. This could also be further evaluated with the PET/FDG study. Focal area of suspected consolidation or atelectasis at the medial right middle lobe. EGD/ colonoscopy (04/15/17)----> normal colonoscopy with bx taken, esophagus contained some phlegm and food residue in upper part, was dilated, gastritis in stomach brightly erythemaous with pile present refluxing via the gastrojejunostomy. Pathology with mildly active chronic fundic gastritis, no helicobacter like organisms are present, mild melanosis coli in ascending and descending colon. Upper GI and Small Bowel X-Ray (04/16/17)----> 1. Postoperative changes of choledocho enterostomy and gastrojejunostomy status post Whipple procedure. 2. Nonspecific esophageal motility disorder. 3. No small bowel dilatation or obstruction. Normal transit time. Ferritin 80. Celiac panel negative, Stool cx negative for cdiff, cyclospora, cryptosporidium, giardia, enteric pathogens, few wbc present. Vitamin A pending , Vitamin B12 690, folate 7.4, vitamin D 29.0. Cont. pancreatic enzymes, xifaxan, and lomotil as needed. Diarrhea improved. Nausea improved, but still with decreased weight loss. - Abnormal weight loss. 30 lb weight loss in 1 year, 20 lbs since September. Started on Megace 2 months ago, with dosage increase one month ago, eating more than usual but continues to lose weight. Plan is for TPN as outpatient. - Anemia, normocytic. 10.4/30.1. EGD/Colonoscopy as above. - Abnormal imaging on CT with soft tissue density surrounding celiac and SMA and nonspecific sclerotic area identified left ilium. PET scan as outpatient - Hx Non-Hodgkin's lymphoma. Dx in 2004 and started chemotherapy. Of note, she also received chemotherapy in 2009 and afterwards stayed on a maintenance dose up until September 2016. - Hx Pancreatic head mass. Pancreatic cancer was suspected, although because of location, she could not have a biopsy. S/P Whipple procedure in 2004. Pt reports that this was found to be benign. - DM per primary - EGD and colonoscopy performed, biopsies from stomach and colon. PLAN: - Okay to d/c home from GI standpoint - MIGUE - TPN- Clinimix E 5/25 at 60cc/hr with Central fat emulsions 20% at 10cc/hr over 24 hours- Orders for TPN and labs given to [facility], Dr. Worthy to follow - Cont Pancreatic enzymes - Cont. Megace - Cont. Xifaxan - Cont. Carafate - Cont. PPI - FU TIFFANY 2 weeks - PET scan as outpatient - This pt seen by myself and Dr Parkinson and this note is written on is behalf. Rose Yu Apr 17, 2017 12:00
[2017-04-17 13:53] LABS: TISSUE TRANSGLUTAMINASE AB IGG LESS THAN 1 U/mL (())
[2017-04-17] MEDS: POTASSIUM CHLOR 20 MEQ PREMIX 100 ML IV SCH ×2 (13:59→17:27)
[2017-04-17] MEDS: MAGNESIUM SULFATE 1 GM PREMIX 100 ML IV SCH ×2 (14:00→15:38)
--- NOTE | 2017-04-17 15:02 | HHI.PR ---
Subjective Remarks Follow up for chronic diarrhea, weight loss in a patient with a history of NHL and Whipple's procedure. Ms. Louis continues to feel weak. Could not sleep well. She walked a little today. However, she feels very weak, especially lower extremity. No diarrhea today. No fever, chills. Objective Vitals Vital Signs Date Time Temp Pulse Resp B/P Pulse Ox O2 Delivery O2 Flow Rate FiO2 04/17/17 11:53 96.9 106 18 121/67 97 04/17/17 07:22 98.2 96 18 133/74 96 04/17/17 04:00 98.0 92 16 133/75 96 04/17/17 00:00 97.8 50 16 124/72 99 04/16/17 20:00 97.5 89 18 121/66 95 04/16/17 16:00 98.9 98 17 122/69 97 I/O 04/16/17 04/16/17 04/16/17 04/17/17 04/17/17 04/17/17 07:00 15:00 23:00 07:00 15:00 23:00 Intake Total 360 ml 840 ml 240 ml Balance 360 ml 840 ml 240 ml Intake Oral 360 ml 840 ml 240 ml # Voids 1 7 4 # Bowel Movements 0 1 Result Diagram: 04/17/17 1108 04/17/17 1108 Imaging Last Impressions Upper GI and Small Bowel X-Ray 04/16/17 0000 Signed Impressions: Service Date/Time: March 09:57 - CONCLUSION: 1. Postoperative changes of choledocho enterostomy and gastrojejunostomy status post Whipple procedure. 2. Nonspecific esophageal motility disorder. 3. No small bowel dilatation or obstruction. Normal transit time. Renny Rizzo MD Chest X-Ray 04/13/17 1146 Signed Impressions: Service Date/Time: Thursday, April 13, 2017 12:08 - CONCLUSION: No acute disease. Ernie Lackey MD Abdomen/Pelvis CT 04/13/17 1146 Signed Impressions: Service Date/Time: Thursday, April 13, 2017 16:12 - CONCLUSION: 1. Postoperative change from a Whipple procedure and removal of the pancreatic head. There is some soft tissue density seen surrounding the celiac and SMA. Some of the soft tissue density does appear present based on the comparison with the prior exam. This suggests this is likely postoperative change. However, recurrence could potentially have a similar appearance. One could further evaluate this region noninvasively with a PET/FDG study to determine if this is metabolically active or not. 2. Nonspecific sclerotic area identified at the left ilium. This could be a bone island. Other causes for sclerotic lesions including metastatic disease cannot be excluded. This could also be further evaluated with the PET/FDG study. 3. Focal area of suspected consolidation or atelectasis at the medial right middle lobe. Ernie Lackey MD Objective Remarks GENERAL: AOX3, NAD. SKIN: Warm and dry. HEAD: Normocephalic. EYES: No scleral icterus. No injection or drainage. NECK: Supple, trachea midline. No JVD or lymphadenopathy. CARDIOVASCULAR: Regular rate and rhythm without murmurs, gallops, or rubs. RESPIRATORY: Breath sounds equal bilaterally. No accessory muscle use. GASTROINTESTINAL: Abdomen soft, non-tender except for mild tenderness along the lower abdomen, nondistended. MUSCULOSKELETAL: No cyanosis, or edema. BACK: Nontender without obvious deformity. No CVA tenderness. Procedures EGD/Colonoscopy 04/15/2017 FINDINGS 1. The esophagus contained some phlegm and residual food in the upper part of the esophagus. This was dilated with a 15-mm dilator through the upper esophagus only. Re-look examination showed no complication. 2. In the stomach there was gastritis. It was brightly erythematous with bile present refluxing via the gastrojejunostomy. 3. The efferent limb of the jejunum appeared normal. 4. The afferent limb of the jejunum was not entered. 5. The cecum was normal. 6. In the ascending colon the mucosal surfaces were all normal. Biopsies were taken to evaluate diarrhea. 7. In the descending colon biopsies were taken to evaluate the diarrhea. 8. The rectum was normal. A/P Problem List: (1) Generalized weakness ICD Code: R53.1 Status: Acute (2) Chronic diarrhea ICD Code: K52.9 Status: Acute (3) DM (diabetes mellitus) ICD Code: E11.9 Status: Acute (4) History of non-Hodgkin's lymphoma ICD Code: Z85.72 Status: Acute Assessment and Plan Ms. Louis is a pleasant 66 year old female with a history of Non- Hodgkin's lymphoma, diabetes mellitus, Whipple procedure who presented to the ED on 04/13/2017 due to generalized weakness, diarrhea, nausea and weight loss. She reports 20 lbs weight loss in the last 6 months. Reports no fever or night sweats. CT abd/pelvis indicates possible soft tissue density which could potentially be recurrence vs. post-surgical changes. PET scan recommended. - Chronic diarrhea - Stool O&P, Giardia antigen, Rotavirus AG - all negative. - C. Diff toxin PCR negative. - Continue NS @125 cc/hour. - EGD/Colonoscopy on 04/15/2017 shows No significant abnormalities. - Stomach shows gastritis. Esophagus was dilated with a 15 mm dilator. - Change sucralfate liq to tablet form per patient request. - Hypokalemia - Hypomagnesemia - Hypophosphatemia - K+ 2.6, Mg 1.5, PO4 2.0. - Will start KCL IV 20meQ X 2, Magnesium sulfate 2g today and 2g tomorrow AM - Start potassium phosphate-sodium phosphate 250mg Q8hrs X 4 doses. - Will also start PO KCL 10meQ BID X 5 days. - Labs in the AM. - History of Non-Hodgkin's lymphoma - CT abd/pelvis suggestive of soft tissue density - Discussed with Oncologist Dr. Hall. He agrees with GI work up with regards to Diarrhea. - PET scan can be obtained in the outpatient setting. - No clear evidence of B symptoms (Patient reports weight loss but no night sweats or fever). - NHL recurrence is less likely. - Pancreatic insufficiency - Has a history of Whipple's procedure. - Continue Creon to 6 pills TIDAC (adjusted depending on the food intake). - Possible right middle lobe pneumonia - Possible atelectasis. - Continue Levaquin 750mg Qday. Breathing treatments PRN. - DuoNeb PRN - Continue Incentive spirometry. - Diabetes mellitus type 2 - Patient takes Glyburide at home. We will hold off using Glyburide at this point. - Sliding scale insulin. May need to add low dose basal insulin with Levemir. - Continue Regular diet. Blood glucose was 246. If it is persistently high, we will consider long acting insulin. - Patient will likely go home on 04/18/2017. - Nutrition - Patient's nutrition is extremely poor despite esophageal dilation, supplementation. - Patient will likely need at least 6 months of alternative nutritional support - TPN. - Sports Lawyer evaluated patient. We will try to arrange TPN at home. - Likely discharge tomorrow once Electrolytes are reasonably replaced. Full code. SCDs. Sheri Arias DO Apr 17, 2017 15:02
[2017-04-17 15:52] VITALS: BP 127/77; PULSE 105; RESP 18; TEMP 96.1; O2SAT 98
[2017-04-17 19:42] VITALS: BP 99/65; PULSE 101; RESP 17; TEMP 98.2; O2SAT 98
[2017-04-17 19:52] LABS: ALPHA-TOCOPHEROL 9.8 mg/L (5.7-19.9); BETA-GAMMA-TOCOPHEROL LESS THAN 1.0 mg/L (< 4.3); VITAMIN A 27 mcg/dL (38-98)
[2017-04-17] MEDS: POTASSIUM CHLORIDE 10 MEQ CAP PO SCH (20:59)
[2017-04-17] MEDS: POTASSIUM PHOSPHATE/SODIUM PHOSPHATE 250 MG TAB PO SCH (20:59)
[2017-04-17] MEDS: PATIENT OWN MEDICATION (Cyclosporine Opth 0.05% (Restasis Opth 0.05%) 1 DROP) EACH EYE SCH (21:00)
[2017-04-17] MEDS: LEVOFLOXACIN 750 MG TAB PO SCH (21:00)
[2017-04-17] MEDS ORDERED: SODIUM CHLORIDE 0.9% FLUSH 10 ML FLUSH IV FLUSH PRN (21:30)
[2017-04-18 00:13] VITALS: BP 122/68; PULSE 85; RESP 18; TEMP 97.1; O2SAT 98
[2017-04-18 04:23] VITALS: BP 130/73; PULSE 80; RESP 18; TEMP 97.1; O2SAT 98
[2017-04-18] MEDS: POTASSIUM PHOSPHATE/SODIUM PHOSPHATE 250 MG TAB PO SCH (06:33)
[2017-04-18] MEDS: SUCRALFATE 1 GM TAB PO SCH ×2 (06:33→11:23)
[2017-04-18] MEDS: INSULIN ASPART SUPPLEMENTAL SCALE SQ SCH ×2 (06:34→11:00)
[2017-04-18 07:14] LABS: AUTOMATED NEUTROPHIL # 5.2 TH/MM3 (1.8-7.7); BASOPHIL % 0.3 % (0.0-2.0); EOSINOPHIL # 0.2 TH/MM3 (0-0.4); EOSINOPHIL % 2.9 % (0.0-4.0); HEMO FLAGS DIFF FINAL; LYMPH % 22.2 % (9.0-44.0); LYMPHOCYTE # 1.7 TH/MM3 (1.0-4.8); MEAN CORPUSCULAR HEMOGLOBIN 29.1 PG (27.0-34.0); MEAN CORPUSCULAR HGB CONC 34.6 % (32.0-36.0); MONO % 7.8 % (0.0-8.0); NEUT % 66.8 % (16.0-70.0); PLATELET COUNT 346 TH/MM3 (150-450); RED BLOOD COUNT 3.21 MIL/MM3 (4.00-5.30); RED CELL DISTRIBUTION WIDTH 13.9 % (11.6-17.2); WHITE BLOOD COUNT 7.8 TH/MM3 (4.0-11.0)
[2017-04-18 07:24] LABS: ALKALINE PHOSPHATASE 68 U/L (45-117); ALT (GPT) 23 U/L (10-53); ANION GAP 7 MEQ/L (5-15); AST (GOT) 10 U/L (15-37); BICARBONATE 27.6 MEQ/L (21.0-32.0); BLOOD UREA NITROGEN 4 MG/DL (7-18); CHLORIDE 110 MEQ/L (98-107); GLOMERULAR FILTRATION RATE 142 ML/MIN (>89); MAGNESIUM 1.9 MG/DL (1.5-2.5); POTASSIUM 3.1 MEQ/L (3.5-5.1); SODIUM (NA) 145 MEQ/L (136-145); TOTAL BILIRUBIN ADULT 0.3 MG/DL (0.2-1.0)
[2017-04-18 07:53] VITALS: BP 134/72; PULSE 88; RESP 16; TEMP 95.8; O2SAT 99
[2017-04-18] MEDS ORDERED: IMIPRAMINE HCL 25 MG TAB PO SCH (09:00)
[2017-04-18] MEDS ORDERED: MODAFINIL 200 MG TAB PO SCH (09:00)
[2017-04-18] MEDS: DOCUSATE SODIUM 50 MG/SENNA 8.6 MG TAB PO SCH (09:00)
[2017-04-18] MEDS: PANTOPRAZOLE SOD 40 MG DELAYED RELEASE TAB PO SCH (09:36)
[2017-04-18] MEDS: LIPASE/PROTEASE/AMYLASE (12,000/38,000/60,000) CAP PO SCH (09:36)
[2017-04-18] MEDS: POTASSIUM CHLORIDE 10 MEQ CAP PO SCH (09:37)
[2017-04-18] MEDS: MEGESTROL ACETATE 40 MG TAB PO SCH (09:38)
[2017-04-18] MEDS: RIFAXIMIN 550 MG TAB PO SCH (09:38)
[2017-04-18] MEDS: METOPROLOL SUCCINATE 25 MG EXTENDED RELEASE TAB PO SCH (09:39)
[2017-04-18] MEDS: ESCITALOPRAM OXALATE 20 MG TAB PO SCH (09:39)
[2017-04-18] MEDS: SODIUM CHLORIDE 0.9% FLUSH 10 ML FLUSH IV FLUSH SCH (09:41)
[2017-04-18] MEDS: MAGNESIUM SULFATE 1 GM PREMIX 100 ML IV SCH ×2 (09:41→11:23)
[2017-04-18 11:10] VITALS: BP 119/65; PULSE 86; RESP 16; TEMP 96.9; O2SAT 99
[2017-04-18] MEDS ORDERED: CARA1TAB6 PO (11:15)
[2017-04-18] MEDS ORDERED: KPHOS250 PO (13:19)
--- NOTE | 2017-04-18 13:50 | HHI.DS ---
Discharge Summary Admission Date Apr 13, 2017 at 17:41 Discharge Date: Apr 18, 2017 Admitting Diagnosis Generalized weakness (1) Generalized weakness ICD Code: R53.1 (2) Chronic diarrhea ICD Code: K52.9 (3) DM (diabetes mellitus) ICD Code: E11.9 (4) History of non-Hodgkin's lymphoma ICD Code: Z85.72 Procedures EGD/Colonoscopy 04/15/2017 FINDINGS 1. The esophagus contained some phlegm and residual food in the upper part of the esophagus. This was dilated with a 15-mm dilator through the upper esophagus only. Re-look examination showed no complication. 2. In the stomach there was gastritis. It was brightly erythematous with bile present refluxing via the gastrojejunostomy. 3. The efferent limb of the jejunum appeared normal. 4. The afferent limb of the jejunum was not entered. 5. The cecum was normal. 6. In the ascending colon the mucosal surfaces were all normal. Biopsies were taken to evaluate diarrhea. 7. In the descending colon biopsies were taken to evaluate the diarrhea. 8. The rectum was normal. Brief History - From Admission Ms. Louis is a pleasant 66 year old female with a history of Non- Hodgkin's lymphoma, diabetes mellitus, whipple procedure who presented to the ED on 04/13/2017 due to generalized weakness, diarrhea, nausea and weight loss. She recently moved from [place] to [place] and is in the process of establishing oncology care with [facility]. While she has been dealing with chronic diarrhea, anorexia, generalized weakness for the last 6 months, in the recent days, her symptoms have been particularly bothersome. She reports abdominal cramps which transiently feels better after she has diarrhea. Her diarrhea is mushy in quality. She reports no blood in the stool. She reports nausea but not vomiting. Her diarrhea is worse when she eats fatty meals. In the last 6 months, she has lost about 20 lbs of weight. She reports no fever or night sweats. Additionally, she reports some chest congestion but she is unable to cough up much. On arrival, Temp 97.6F, Pulse 84, Resp 14, BP 104/62, Pulse ox 95% on room air. CXR unremarkable. CT abd/pelvis indicates soft tissue density around celiac and SMA - possibly due to postoperative changes vs. malignancy recurrence. PET/FDG study was recommended. CT abd/pelvis also shows non-specific sclerotic area at the left ilium as well as focal area of suspected consolidation or atelectasis at the medial right middle lobe. CBC/BMP: 04/18/17 0625 04/18/17 0625 Significant Findings Laboratory Tests Test 04/15/17 04/17/17 04/17/17 04/18/17 15:30 07:16 11:08 01:10 Iron Level 47 MCG/DL (50-170) Total Iron Binding Capacity 216 MCG/DL (250-450) Red Blood Count 3.16 MIL/MM3 3.60 MIL/MM3 (4.00-5.30) (4.00-5.30) Hemoglobin 9.3 GM/DL 10.4 GM/DL (11.6-15.3) (11.6-15.3) Hematocrit 26.6 % 30.1 % (35.0-46.0) (35.0-46.0) Neutrophils (%) (Auto) 76.4 % 81.2 % (16.0-70.0) (16.0-70.0) Potassium Level 2.6 MEQ/L 3.4 MEQ/L (3.5-5.1) (3.5-5.1) Chloride Level 110 MEQ/L (98-107) Blood Urea Nitrogen 4 MG/DL (7-18) Random Glucose 246 MG/DL (74-106) Calcium Level 8.4 MG/DL (8.5-10.1) Phosphorus Level 2.0 MG/DL (2.5-4.9) Aspartate Amino Transf 10 U/L (15-37) (AST/SGOT) Total Protein 5.6 GM/DL (6.4-8.2) Albumin 2.8 GM/DL (3.4-5.0) Test 04/18/17 06:25 Red Blood Count 3.21 MIL/MM3 (4.00-5.30) Hemoglobin 9.3 GM/DL (11.6-15.3) Hematocrit 27.0 % (35.0-46.0) Potassium Level 3.1 MEQ/L (3.5-5.1) Chloride Level 110 MEQ/L (98-107) Blood Urea Nitrogen 4 MG/DL (7-18) Creatinine 0.44 MG/DL (0.50-1.00) Random Glucose 139 MG/DL (74-106) Calcium Level 8.3 MG/DL (8.5-10.1) Phosphorus Level 2.2 MG/DL (2.5-4.9) Aspartate Amino Transf 10 U/L (15-37) (AST/SGOT) Total Protein 5.5 GM/DL (6.4-8.2) Albumin 2.8 GM/DL (3.4-5.0) PE at Discharge GENERAL: AOX3, NAD. SKIN: Warm and dry. HEAD: Normocephalic. EYES: No scleral icterus. No injection or drainage. NECK: Supple, trachea midline. No JVD or lymphadenopathy. CARDIOVASCULAR: Regular rate and rhythm without murmurs, gallops, or rubs. RESPIRATORY: Breath sounds equal bilaterally. No accessory muscle use. GASTROINTESTINAL: Abdomen soft, non-tender except for mild tenderness along the lower abdomen, nondistended. MUSCULOSKELETAL: No cyanosis, or edema. BACK: Nontender without obvious deformity. No CVA tenderness. Hospital Course Ms. Louis is a pleasant 66 year old female with a history of NonHodgkin 's lymphoma, diabetes mellitus, Whipple procedure who presented to the ED on due to generalized weakness, diarrhea, nausea and weight loss. She reports 20 lbs weight loss in the last 6 months. Reports no fever or night sweats. CT abd/pelvis indicates possible soft tissue density which could potentially be recurrence vs. postsurgical changes. PET scan recommended. She had Chronic diarrhea Stool O&P, Giardia antigen, Rotavirus AG - all negative. C. Diff toxin PCR negative. Placement of fluid EGD/Colonoscopy on 04/15/2017 shows No significant abnormalities. Stomach shows gastritis. Esophagus was dilated with a 15 mm dilator. , Change sucralfate liq to tablet form per patient request. Patient had electrolyte imbalance with hyperkalemia hypomagnesemia and hypophosphatemia, all replaced iv nothing by mouth for History of NonHodgkin's lymphoma, CT abd/pelvis suggestive of soft tissue density Oncologist Dr. Hall. Consulted and followed He agrees with GI work up with regards to Diarrhea. PET scan can be obtained in the outpatient setting. No clear evidence of B symptoms (Patient reports weight loss but no night sweats or fever). NHL recurrence is less likely. Patient had Pancreatic insufficiency , Has a history of Whipple's procedure. Continue Creon to 6 pills TIDAC (adjusted depending on the food intake). Possible right middle lobe pneumonia and atelectasis , status post Levaquin Breathing treatments PRN. DuoNeb PRN, Incentive spirometry. Patient's nutrition was extremely poor despite esophageal dilation, supplementation. Patient will likely need at least 6 months of alternative nutritional support - TPN. Baseboard Heating Installer evaluated patient. Arrangement for TPN at home has been done [id number] encounter performed with the patient on discharge day, as well as physical exam, summary of hospitalization course and postdischarge plan has been D/W the patient and her D/W nurse Discharge medications reviewed and printed and signed, post discharge follow up visit with PCP and other specialist as well as Brief hospital course and discharge summary has been placed. Pt Condition on Discharge: Fair Discharge Disposition: Disch w/ Home Health Serv Discharge Time: > 30 minutes Discharge Instructions DIET: Follow Instructions for: Calorie Counting Diet Additional Diet Instructions: on TPN managed by GI Activities you can perform: Weight Bearing as Sergey Follow up Referrals: Oncology New Orders: BASIC METABOLIC PROF - 2-3 Days New Medications: Potassium Phosphate-Sodium Phosphate (K-Phos Neutral) 155-852-130 Mg Tab 250 MG PO Q8HR repl #15 TAB Sucralfate (Carafate) 1 Gm Tab 1 GM PO ACHS gi #30 TAB Continued Medications: Cyclosporine Opth 0.05% (Restasis Opth 0.05%) 0.05% Emul 1 DROP EACH EYE HS Dry Eye #1 Ref 0 BOX Diphenoxylate-Atropine (Lomotil) 2.5-0.025 Mg Tab 1 TAB PO Q6H PRN DIARRHEA Ref 0 TAB Escitalopram (Lexapro) 20 Mg Tab 20 MG PO DAILY #30 Ref 0 TAB Glyburide (Glyburide) 2.5 Mg Tab 2.5 MG PO BID Take with meals at the same time each day Blood Sugar Management # 60 Ref 0 TAB Hydrocodone-Acetaminophen (Hydrocodone-Acetaminophen) 7.5-300 Mg Tab 1 TAB PO Q6H PRN PAIN Ref 0 TAB Megestrol (Megestrol) 20 Mg Tab 20 MG PO QID Ref 0 TAB Metoprolol Succinate ER 24 HR (Metoprolol Succinate ER 24 HR) 25 Mg Tab 12.5 MG PO DAILY #30 Ref 0 TAB Modafinil (Provigil) 200 Mg Tab 200 MG PO DAILY Manage Daytime Sleepiness Ref 0 TAB Modafinil (Provigil) 100 Mg Tab 100 MG PO DAILY@1200 Manage Daytime Sleepiness Ref 0 TAB Omeprazole (Omeprazole) 40 Mg Cap 40 MG PO DAILY #30 Ref 0 CAP Pancrelipase (Creon) 12,000-38,000-60,000 Units Cap 1 CAP PO TIDPC Digestive Aid #90 Ref 0 CAP Promethazine (Phenergan) 25 Mg Tablet 12.5 MG PO Q6H PRN NAUSEA OR VOMITING Ref 0 TAB Rifaximin (Xifaxan) 550 Mg Tab 550 MG PO Q12HR Hepatic encephalopathy #60 Ref 0 TAB Smooth Christianson MD Apr 18, 2017 13:50
--- NOTE | 2017-04-18 15:02 | HHI.FF ---
Face to Face Verification Diagnosis: (1) Generalized weakness (2) Chronic diarrhea (3) DM (diabetes mellitus) (4) History of non-Hodgkin's lymphoma Home Health Nursing Order: Nursing assessment with vital signs IV medication administration Instructions: TPN administration I have seen patient Riddhi Louis on 04/18/17. My clinical findings support the need for the requested home health care services because: Injectable med education/admin I certify that my clinical findings support that this patient is homebound because: Unable to use public transportation Smooth Christianson MD Apr 18, 2017 15:02
== END 2017-04-18 14:15 | disposition home health service (06) ==
LOC: NEPC 11:08 → NEDA 17:41 → N06B 19:02 → N06A 04-16 20:25
PROVIDERS: ADMIT Hospitalist; ATTEND Hospitalist
DX: R53.1 Weakness (principal); K29.60 Other gastritis without bleeding; D64.9 Anemia, unspecified; R63.4 Abnormal weight loss; K52.9 Noninfective gastroenteritis and colitis, unspecified; E11.9 Type 2 diabetes mellitus without complications; E83.42 Hypomagnesemia; E87.5 Hyperkalemia; E87.6 Hypokalemia; R06.02 Shortness of breath; Z90.411 Acquired partial absence of pancreas; Z85.72 Personal history of non-Hodgkin lymphomas; Z92.21 Personal history of antineoplastic chemotherapy
CPT/HCPCS: 00740; 44361; 45380; 71010; 74177; 74245; 80048; 80053; 81001; 82306; 82607; 82728; 82746; 82784; 82948; 83516; 83540; 83550; 83605; 83690; 83735; 84100; 84132; 84145; 84443; 84446; 84478; 84590; 85025; 87040; 87086; 87205; 87207; 87328; 87425; 87493; 87506; 88305; 88312; 93005; 94150; 96361; 96374; 96375; 96376; 97162; 97530; 99285; C1769; G0378; G8987; G8988; J0780; J1642; J1815; J2270; J2405; J3475; J3480; J7030; Q9967; 87329

== ENCOUNTER 2017-05-03 15:54 | Inpatient (IN) | payer MEDICARE, OTHER ==
[~2017-05-03] VITALS: Ht 160 cm; Wt 50.3 kg
[2017-05-03] VITALS (8 sets, daily range): BP systolic 94–123; BP diastolic 55–64; PULSE 102–125; RESP 18–20; TEMP 98.6–100.8; O2SAT 94–100
[~2017-05-03 15:54] MED LIST changes: +CARA1TAB6 PO; -CREON PO; +CREON12 PO; -FLUC10S PO; -GLUC2.5T2 PO; +GLYB2.5T3 PO; +HYDR-2376 PO; +KPHOS250 PO; -LEXA10TA PO; +LEXA20TA PO; -LIBRAX PO; +LOMO2.5T PO; -LORA-474 PO; +MEGE20TA PO; +METO25TA6 PO; -MORP30TA3 PO; +OMEP40CA2 PO; +PROM25TA10 PO; -PROT40TA PO; +PROV100T10 PO; +REST0.05 EACH EYE; -SENN1TAB11 PO; -SUCR1TAB6 PO; -TIZA4 PO; -VICO7.5T PO; +XIFA550T4 PO; -ZOVI800T13 PO
--- NOTE | 2017-05-03 16:28 | PD ---
HPI Chief Complaint: fever, weakness Time Seen by Provider: 16:28 Travel History International Travel<30 days: No Contact w/Intl Traveler<30days: No History of Present Illness HPI 66-year-old female presents to the emergency department for evaluation of generalized weakness, fever. Patient's at bedside states that her generalized weakness started on Thursday after having a hair appointment. He noticed that she was having chills last night he places her fever started then. She had a 102 fever today. The patient has history non-Hodgkin's lymphoma. She has a port to the left chest. She does receive TPN. The patient reports chronic nausea. She states that Zofran does not work for her. She is requesting Phenergan. She denies any headache. She denies any neck pain. She states she has chronic back pain. No chest pain or shortness of breath. She does report a cough. She denies any abdominal pain. She did vomit once earlier today. She has history of diarrhea. She denies any urinary symptoms. 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 Dr. Quispe is her PCP. Dr. Keating is her oncologist. PFSH Past Medical History Heart Rhythm Problems: No Cancer: Yes (NON HODKINS LYMPHOMA) Cardiac Catheterization: No Cardiovascular Problems: Yes High Cholesterol: No Chemotherapy: Yes (last 09/2016) Congestive Heart Failure: No Diabetes: Yes Diminished Hearing: No Gastrointestinal Disorders: Yes Hypertension: No Musculoskeletal: No Neurologic: No Respiratory: No Myocardial Infarction: No Radiation Therapy: No Past Surgical History Abdominal Surgery: Yes (APPENDECTOMY) Appendectomy: Yes Body Medical Devices: PORT Cholecystectomy: Yes (DURING WHIPPLE) Coronary Artery Bypass Graft: No Genitourinary Surgery: Yes (WHIPPLE PROCEDURE) Gynecologic Surgery: Yes (HYSTERECTOMY) Hysterectomy: Yes Oral Surgery: Yes (TONSILLECTOMY) Tonsillectomy: Yes Social History Alcohol Use: No Tobacco Use: No Substance Use: No Allergies-Medications (Allergen,Severity, Reaction): Coded Allergies: Lyrica (Verified Allergy, Severe, neuro symptoms, 04/13/17) Reported Meds & Prescriptions Reported Meds & Active Scripts Active Reported Xifaxan (Rifaximin) 550 Mg Tab 550 Mg PO Q12HR Glyburide 2.5 Mg Tab 2.5 Mg PO BID Take with meals at the same time each day Megestrol (Megestrol Acetate) 20 Mg Tab 20 Mg PO QID Creon (Amylase/Lipase/Protease) 12,000-38,000-60,000 Units Cap 1 Cap PO TIDPC Metoprolol Succinate ER 24 HR (Metoprolol Succinate) 25 Mg Tab 12.5 Mg PO DAILY Provigil (Modafinil) 100 Mg Tab 100 Mg PO DAILY@1200 Provigil (Modafinil) 200 Mg Tab 200 Mg PO DAILY Lexapro (Escitalopram Oxalate) 20 Mg Tab 20 Mg PO DAILY Omeprazole 40 Mg Cap 40 Mg PO DAILY Review of Systems Except as stated in HPI: all other systems reviewed are Neg Physical Exam Narrative GENERAL: Thin female patient, fever of [-]. Patient is very weak on exam. SKIN: Focused skin assessment warm/dry. HEAD: Normocephalic. Atraumatic. EYES: No scleral icterus. No injection or drainage. NECK: Supple, trachea midline. No JVD or lymphadenopathy. CARDIOVASCULAR: Regular rate and rhythm without murmurs, gallops, or rubs. RESPIRATORY: Breath sounds equal bilaterally. No accessory muscle use. Lungs sounds clear to auscultation. GASTROINTESTINAL: Abdomen soft, non-tender, nondistended. MUSCULOSKELETAL: No cyanosis, or edema. BACK: Nontender without obvious deformity. No CVA tenderness. Data Data Last Documented VS Vital Signs Date Time Temp Pulse Resp B/P Pulse Ox O2 Delivery O2 Flow Rate FiO2 05/03/17 18:07 114 18 112/58 99 Nasal Cannula 2 05/03/17 17:06 100.1 Orders Electrocardiogram (05/03/17 16:25) Complete Blood Count With Diff (05/03/17 16:25) Comprehensive Metabolic Panel (05/03/17 16:25) Prothrombin Time / Inr (Pt) (05/03/17 16:25) Act Partial Throm Time (Ptt) (05/03/17 16:25) Lactic Acid Sepsis Protocol (05/03/17 16:25) Magnesium (Mg) (05/03/17 16:25) Ckmb (Isoenzyme) Profile (05/03/17 16:25) Troponin I (05/03/17 16:25) Urinalysis - C+S If Indicated (05/03/17 16:25) Influenzae A/B Antigen (05/03/17 16:25) Blood Culture (05/03/17 16:25) Chest, Single Ap (05/03/17 16:25) Blood Glucose (05/03/17 16:25) Ecg Monitoring (05/03/17 16:25) Iv Access Insert/Monitor (05/03/17 16:25) Oximetry (05/03/17 16:25) Oxygen Administration (05/03/17 16:25) Acetaminophen (Tylenol) (05/03/17 16:30) Sodium Chlor 0.9% 1000 Ml Inj (Ns 1000 M (05/03/17 16:30) Promethazine (Phenergan) (05/03/17 16:30) Cefepime Inj (Maxipime Inj) (05/03/17 17:45) Vancomycin Inj (Vancomycin Inj) (05/03/17 17:45) Urine Culture (05/03/17 17:00) Sodium Chlorid 0.9% 500 Ml Inj (Ns 500 M (05/03/17 17:45) Admit Order (Ed Use Only) (05/03/17 19:18) Labs Laboratory Tests Test 05/03/17 17:00 White Blood Count 13.1 TH/MM3 Red Blood Count 2.98 MIL/MM3 Hemoglobin 8.6 GM/DL Hematocrit 26.2 % Mean Corpuscular Volume 87.9 FL Mean Corpuscular Hemoglobin 28.8 PG Mean Corpuscular Hemoglobin 32.7 % Concent Red Cell Distribution Width 14.7 % Platelet Count 215 TH/MM3 Mean Platelet Volume 10.2 FL Neutrophils (%) (Auto) 89.9 % Lymphocytes (%) (Auto) 3.8 % Monocytes (%) (Auto) 6.2 % Eosinophils (%) (Auto) 0.0 % Basophils (%) (Auto) 0.1 % Neutrophils # (Auto) 11.8 TH/MM3 Lymphocytes # (Auto) 0.5 TH/MM3 Monocytes # (Auto) 0.8 TH/MM3 Eosinophils # (Auto) 0.0 TH/MM3 Basophils # (Auto) 0.0 TH/MM3 CBC Comment DIFF FINAL Differential Comment Prothrombin Time 11.2 SEC Prothromb Time International 1.0 RATIO Ratio Activated Partial 31.4 SEC Thromboplast Time Urine Color YELLOW Urine Turbidity HAZY Urine pH 5.0 Urine Specific [place] 1.024 Urine Protein 30 mg/dL Urine Glucose (UA) 1000 mg/dL Urine Ketones NEG mg/dL Urine Occult Blood NEG Urine Nitrite NEG Urine Bilirubin NEG Urine Urobilinogen LESS THAN 2.0 MG/DL Urine Leukocyte Esterase TRACE Urine RBC LESS THAN 1 /hpf Urine WBC 8 /hpf Urine Amorphous Sediment RARE Urine Bacteria OCC /hpf Urine Hyaline Casts 1 /lpf Microscopic Urinalysis Comment CATH-CULTURE IND Sodium Level 137 MEQ/L Potassium Level 3.6 MEQ/L Chloride Level 107 MEQ/L Carbon Dioxide Level 19.1 MEQ/L Anion Gap 11 MEQ/L Blood Urea Nitrogen 19 MG/DL Creatinine 0.61 MG/DL Estimat Glomerular Filtration 98 ML/MIN Rate Random Glucose 155 MG/DL Lactic Acid Level 3.1 mmol/L Calcium Level 8.8 MG/DL Magnesium Level 1.6 MG/DL Total Bilirubin 0.6 MG/DL Aspartate Amino Transf 122 U/L (AST/SGOT) Alanine Aminotransferase 171 U/L (ALT/SGPT) Alkaline Phosphatase 150 U/L Total Creatine Kinase 28 U/L Troponin I LESS THAN 0.02 NG/ML Total Protein 6.4 GM/DL Albumin 3.0 GM/DL [facility] Medical Decision Making Medical Screen Exam Complete: Yes Emergency Medical Condition: Yes Medical Record Reviewed: Yes Interpretation(s) chest x-ray - CONCLUSION: No acute disease. Differential Diagnosis Pneumonia versus UTI versus sepsis versus electrolyte abnormality versus dehydration Narrative Course 66-year-old female presents to the emergency department for evaluation of generalized weakness, fever. Patient has history of non-Hodgkin's lymphoma. EKG, CBC, CMP, PTT, PTT/INR, lactic acid, magnesium, CK, troponin, UA, and influenza, blood cultures 2, chest x-ray are ordered and pending. EKG shows sinus tachycardia, heart rate 114, no acute ST changes. CBC shows a CBC of 13.1, hemoglobin 8.7, hematocrit 26.2. CMP shows elevated glucose 155, AST 122, ALT 171, alkaline phosphatase 150. Lactic acid is elevated at 3.1. Magnesium is 1.6. CK is 28. Troponin is less than 0.02. Coags show no acute abnormality. UA shows trace leukocyte esterase, 8 WBC, occasional bacteria. Influenza is negative. Chest x-ray shows no acute disease. Patient is given a total of 1.5 L normal saline. Patient is given Phenergan 12.5 g by mouth per patient's request for nausea. She is started on cefepime 2 g IV, vancomycin 1 g IV. Patient will be admitted to the hospital for sepsis. Dr. Bran accepted admission. Sepsis Criteria SIRS Criteria (2 or more): Heart rate over 90, WBC > 46680, < 4000 or > 10% bands Sepsis Criteria (SIRS+source): Infect source susp/known Severe Sepsis (+one): Lactate >2 Diagnosis Primary Impression: Sepsis Qualified Code: A41.9 - Sepsis, due to unspecified organism Additional Impressions: Elevated LFTs Generalized weakness History of non-Hodgkin's lymphoma Admitting Information Admitting Physician Requests: Admit Madison Hooper May 03, 2017 16:28
[2017-05-03] MEDS ORDERED: ACETAMINOPHEN 325 MG TAB PO ONE (16:30)
[2017-05-03] MEDS ORDERED: PROMETHAZINE HCL 25 MG TAB PO ONE (16:30)
[2017-05-03] MEDS ORDERED: SODIUM CHLOR 0.9% 1000 ML INJ 1,000 ML IV ONE (16:30)
--- NOTE | 2017-05-03 17:17 | RADRPT ---
EXAM DATE/TIME: 05/03/2017 16:50 [facility] COMPARISON: CHEST SINGLE AP, April 13, 2017, 12:08. INDICATIONS : Chest pain. MEDICAL HISTORY : Diabetes mellitus type II. Non-Hodgkin's lymphoma. SURGICAL HISTORY : Appendectomy. Infusaport. ENCOUNTER: Initial ACUITY: 1 day PAIN SCORE: 0/10 LOCATION: Bilateral chest FINDINGS: A single view of the chest demonstrates the lungs to be symmetrically aerated without evidence of mas s, infiltrate or effusion. The cardiomediastinal contours are unremarkable. Osseous structures are intact. The right subclavian implantable port catheter remains in place. CONCLUSION: No acute disease. Saman Salas MD on May 03, 2017 at 17:15 Board Certified Radiologist. This report was verified electronically.
[2017-05-03 17:34] LABS: AUTOMATED NEUTROPHIL # 11.8 TH/MM3 (1.8-7.7); BACTERIA, URINE OCC /hpf; BASOPHIL % 0.1 % (0.0-2.0); BLOOD, URINE NEG (NEG); GLUCOSE,URINE 1000 mg/dL (NEG); HEMATOCRIT 26.2 % (35.0-46.0); HEMO FLAGS DIFF FINAL; HYALINE CAST, URINE 1 /lpf (RARE); KETONE, URINE NEG (NEG); LYMPH % 3.8 % (9.0-44.0); LYMPHOCYTE # 0.5 TH/MM3 (1.0-4.8); MEAN CELL VOLUME 87.9 FL (80.0-100.0); MEAN CORPUSCULAR HEMOGLOBIN 28.8 PG (27.0-34.0); MEAN CORPUSCULAR HGB CONC 32.7 % (32.0-36.0); MONO % 6.2 % (0.0-8.0); NEUT % 89.9 % (16.0-70.0); NITRITE,URINE NEG (NEG); PLATELET COUNT 215 TH/MM3 (150-450); RED BLOOD COUNT 2.98 MIL/MM3 (4.00-5.30); RED CELL DISTRIBUTION WIDTH 14.7 % (11.6-17.2); URINE COLOR YELLOW (YELLW/STRAW); WHITE BLOOD COUNT 13.1 TH/MM3 (4.0-11.0)
[2017-05-03 17:35] LABS: COMMENT (UR) CATH-CULTURE IND; CULTURE IF INDICATED CATH CULTURE IND
[2017-05-03 17:43] LABS: APTT (PATIENT) 31.4 SEC (24.3-30.1); PROTHROMBIN TIME - PATIENT 11.2 SEC (9.8-11.6)
[2017-05-03] MEDS ORDERED: VANCOMYCIN INJ 1,000 MG in SODIUM CHLOR 0.9% 250 ML INJ 250 ML IV ONE (17:45)
[2017-05-03] MEDS ORDERED: SODIUM CHLORID 0.9% 500 ML INJ 500 ML IV ONE (17:45)
[2017-05-03] MEDS ORDERED: CEFEPIME INJ 2,000 MG in SODIUM CHLORIDE 0.9% INJ 100 ML IV ONE (17:45)
[2017-05-03 17:49] LABS: ALT (GPT) 171 U/L (10-53); ANION GAP 11 MEQ/L (5-15); AST (GOT) 122 U/L (15-37); BICARBONATE 19.1 MEQ/L (21.0-32.0); BLOOD UREA NITROGEN 19 MG/DL (7-18); CHLORIDE 107 MEQ/L (98-107); GLOMERULAR FILTRATION RATE 98 ML/MIN (>89); MAGNESIUM 1.6 MG/DL (1.5-2.5); POTASSIUM 3.6 MEQ/L (3.5-5.1); SODIUM (NA) 137 MEQ/L (136-145)
[2017-05-03 17:53] LABS: ALKALINE PHOSPHATASE 150 U/L (45-117); TOTAL BILIRUBIN ADULT 0.6 MG/DL (0.2-1.0)
[2017-05-03 17:57] LABS: CREATINE KINASE 28 U/L (26-192)
[2017-05-03 19:26] LABS: LACTIC ACID GHOST NOT REPORTABLE
[2017-05-03] MEDS ORDERED: BISACODYL 10 MG SUPP RECTAL PRN (19:30)
[2017-05-03] MEDS ORDERED: NS + KCL 20 MEQ INJ 1,000 ML IV SCH (19:30)
[2017-05-03] MEDS ORDERED: Vancomycin Consult Pharmacy 1 EA OTHER SCH (19:30)
[2017-05-03] MEDS ORDERED: MAGNESIUM HYDROXIDE SUSP 30 ML CUP PO PRN (19:30)
[2017-05-03] MEDS ORDERED: ONDANSETRON HCL 4 MG/2 ML VIAL IVP PRN (19:30)
[2017-05-03] MEDS ORDERED: SENNOSIDES 8.6 MG TAB PO PRN (19:30)
[2017-05-03] MEDS ORDERED: SODIUM CHLORIDE 0.9% FLUSH 10 ML FLUSH IV FLUSH PRN (19:30)
[2017-05-03] MEDS ORDERED: NALOXONE HCL 0.4 MG/ML AMP IV PRN (19:30)
[2017-05-03] MEDS ORDERED: LACTULOSE SYRUP 20 GM/30 ML CUP PO PRN (19:30)
--- NOTE | 2017-05-03 20:37 | HHI.HP ---
cc: Azael Quispe MD [facility] Azael Quispe MD Admission Diagnosis sepsis, elevated LFTs, generalized weakness Diagnoses: Chief Complaint: weakness, fever, nausea, and vomiting Travel History International Travel<30 Days: No Contact w/Intl Traveler <30 Da: No Traveled to Known Affected Are: No History of Present Illness Written by BILLY Lisa acting as scribe for [Yina] on 05/03/17 at 20:27. 66 y/o female with a history of non Hodgkin lymphoma, DM, tachycardia, depression and gerd presented to the ED with complaints of weakness,nausea, vomiting, and diarrhea that started . Over the last few days she has been getting worse and more fatigued and confused at time. Yesterday she developed a 102 fever at home with chills. She denies chest pain, sob, or dysuria. She is incontinent at times, but not more than normal. She was started on TPN at home last month, she does not eat much by mouth, she becomes more nauseated after eating by mouth. Per the daughter who is at bedside she states over the last few days she has been becoming more confused at times and her balance has been off when using the walker. She just started with Dr. Keating, in the process of getting a pet scan and bone marrow biopsy Dr Ferrer is her GI doctor Dr. Quispe is her PCP Review of Systems Constitutional: COMPLAINS OF: Fatigue, Fever, Chills Respiratory: DENIES: Cough, Shortness of breath Cardiovascular: DENIES: Chest pain, Lower Extremity Edema Gastrointestinal: COMPLAINS OF: Diarrhea, Nausea, Vomiting, DENIES: Constipation Genitourinary: DENIES: Hematuria, Dysuria Musculoskeletal: DENIES: Back pain, Neck pain Integumentary: DENIES: Rash Hematologic/lymphatic: DENIES: Lymphadenopathy Immunologic/allergic: DENIES: Urticaria Neurologic: COMPLAINS OF: Localized weakness, DENIES: Headache Past Family Social History Past Medical History non Hodgkin lymphoma in remission, last dose in 09/2016 Tachycardia DM Depression Gerd Past Surgical History Whipple Tonsillectomy Appendectomy Hysterectomy Port placement Reported Medications Reported Meds & Active Scripts Active Reported Xifaxan (Rifaximin) 550 Mg Tab 550 Mg PO Q12HR Glyburide 2.5 Mg Tab 2.5 Mg PO BID Take with meals at the same time each day Megestrol (Megestrol Acetate) 20 Mg Tab 20 Mg PO QID Creon (Amylase/Lipase/Protease) 12,000-38,000-60,000 Units Cap 1 Cap PO TIDPC Metoprolol Succinate ER 24 HR (Metoprolol Succinate) 25 Mg Tab 12.5 Mg PO DAILY Provigil (Modafinil) 100 Mg Tab 100 Mg PO DAILY@1200 Provigil (Modafinil) 200 Mg Tab 200 Mg PO DAILY Lexapro (Escitalopram Oxalate) 20 Mg Tab 20 Mg PO DAILY Omeprazole 40 Mg Cap 40 Mg PO DAILY Allergies: Coded Allergies: Lyrica (Verified Allergy, Severe, neuro symptoms, 04/13/17) Active Ordered Medications Current Medications Medications (Trade) Dose Ordered Sig/Kaiser Route Start Time Stop Time Status Last Admin Cefepime HCl 2000 mg/Sodium Chloride 100 ml @ 100 mls/hr Q12H IV 05/04/17 08:00 (Vancomycin Consult Pharmacy) 0 ml @ 0 mls/hr UNSCH OTHER 05/03/17 19:30 (NS Flush) 2 ml UNSCH PRN IV FLUSH 05/03/17 19:30 (NS Flush) 2 ml BID IV FLUSH 05/03/17 21:00 (Tylenol) 650 mg Q4H PRN PO 05/03/17 19:30 (Zofran Inj) 4 mg Q6H PRN IVP 05/03/17 19:30 (Narcan Inj) 0.4 mg UNSCH PRN IV 05/03/17 19:30 (Sultana-Colace) 1 tab BID PO 05/03/17 21:00 (Milk Of Magnesia Liq) 30 ml Q12H PRN PO 05/03/17 19:30 (Senokot) 17.2 mg Q12H PRN PO 05/03/17 19:30 (Dulcolax Supp) 10 mg DAILY PRN RECTAL 05/03/17 19:30 Lactulose 30 ml 30 ml DAILY PRN PO 05/03/17 19:30 Potassium Chloride/Sodium Chloride 1,000 ml @ 42 mls/hr [id number] IV 05/03/17 19:30 (Vancomycin Inj/ NS 250 ml Inj) 250 ml @ 250 mls/hr Q18H IV 05/04/17 12:00 Miscellaneous Information SPECIFIC LAB TO BE BRENDA... ONCE ONCE .XX 05/04/17 23:45 05/04/17 23:46 Family History Dad: CHF Mom: Breast Cancer Social History Tobacco use: Quit 25 years ago Alcohol use: Denies Physical Exam Vital Signs Vital Signs Date Time Temp Pulse Resp B/P Pulse Ox O2 Delivery O2 Flow Rate FiO2 05/03/17 19:45 99 Nasal Cannula 2.00 05/03/17 18:07 114 18 112/58 99 Nasal Cannula 2 05/03/17 17:12 114 18 95 Nasal Cannula 2 05/03/17 17:11 95 Nasal Cannula 2 05/03/17 17:10 Nasal Cannula 2 05/03/17 17:06 100.1 114 20 112/60 94 Physical Exam GENERAL: This is a thin, pale patient in no apparent distress. SKIN: No rashes, ecchymoses or lesions. Cool and dry. HEAD: Atraumatic. Normocephalic. EYES: Pupils equal round and reactive. Extraocular motions intact. ENT: Nose without bleeding, purulent drainage or septal hematoma. Throat without erythema, tonsillar hypertrophy or exudate.Airway patent. NECK: Trachea midline. No JVD or lymphadenopathy. Supple, nontender, no meningeal signs. CARDIOVASCULAR: Regular rate and tachycardic rhythm without murmurs, gallops, or rubs. RESPIRATORY: Clear to auscultation. Breath sounds equal bilaterally. No wheezes , rales, or rhonchi. GASTROINTESTINAL: Abdomen soft, tender, nondistended. No hepato-splenomegaly, or palpable masses. No guarding. MUSCULOSKELETAL: Extremities without clubbing, cyanosis, or edema. No joint tenderness, effusion, or edema noted. No calf tenderness. NEUROLOGICAL: Awake and alert. Motor and sensory grossly within normal limits. Normal speech. Laboratory Laboratory Tests Test 05/03/17 17:00 White Blood Count 13.1 Red Blood Count 2.98 Hemoglobin 8.6 Hematocrit 26.2 Mean Corpuscular Volume 87.9 Mean Corpuscular Hemoglobin 28.8 Mean Corpuscular Hemoglobin 32.7 Concent Red Cell Distribution Width 14.7 Platelet Count 215 Mean Platelet Volume 10.2 Neutrophils (%) (Auto) 89.9 Lymphocytes (%) (Auto) 3.8 Monocytes (%) (Auto) 6.2 Eosinophils (%) (Auto) 0.0 Basophils (%) (Auto) 0.1 Neutrophils # (Auto) 11.8 Lymphocytes # (Auto) 0.5 Monocytes # (Auto) 0.8 Eosinophils # (Auto) 0.0 Basophils # (Auto) 0.0 CBC Comment DIFF FINAL Differential Comment Prothrombin Time 11.2 Prothromb Time International 1.0 Ratio Activated Partial 31.4 Thromboplast Time Urine Color YELLOW Urine Turbidity HAZY Urine pH 5.0 Urine Specific [place] 1.024 Urine Protein 30 Urine Glucose (UA) 1000 Urine Ketones NEG Urine Occult Blood NEG Urine Nitrite NEG Urine Bilirubin NEG Urine Urobilinogen LESS THAN 2.0 Urine Leukocyte Esterase TRACE Urine RBC LESS THAN 1 Urine WBC 8 Urine Amorphous Sediment RARE Urine Bacteria OCC Urine Hyaline Casts 1 Microscopic Urinalysis Comment CATH-CULTURE IND Sodium Level 137 Potassium Level 3.6 Chloride Level 107 Carbon Dioxide Level 19.1 Anion Gap 11 Blood Urea Nitrogen 19 Creatinine 0.61 Estimat Glomerular Filtration 98 Rate Random Glucose 155 Lactic Acid Level 3.1 Calcium Level 8.8 Magnesium Level 1.6 Total Bilirubin 0.6 Aspartate Amino Transf 122 (AST/SGOT) Alanine Aminotransferase 171 (ALT/SGPT) Alkaline Phosphatase 150 Total Creatine Kinase 28 Troponin I LESS THAN 0.02 Total Protein 6.4 Albumin 3.0 Date/Time Procedure Status Source Growth 05/03/17 17:03 Influenza Types A,B Antigen (YAMILE) - Final Complete Nasal Aspirate NEGATIVE FOR FLU A AND B ANTIGEN.... 05/03/17 17:00 Urine Culture Received Urine Catheterized Urine Pending 05/03/17 17:00 Aerobic Blood Culture Received Blood Peripheral Pending 05/03/17 17:00 Anaerobic Blood Culture Received Blood Peripheral Pending Result Diagram: 05/03/17 1700 05/03/17 1700 Imaging Last Impressions Chest X-Ray 05/03/17 1625 Signed Impressions: Service Date/Time: Wednesday, May 03, 2017 16:50 - CONCLUSION: No acute disease. Saman Salas MD Assessment and Plan Problem List: (1) Severe sepsis ICD Code: A41.9 Status: Acute (2) Transaminitis ICD Code: R74.0 Status: Acute (3) Generalized weakness ICD Code: R53.1 Status: Acute (4) Protein calorie malnutrition ICD Code: E46 Status: Acute (5) History of non-Hodgkin's lymphoma ICD Code: Z85.72 Status: Chronic (6) DM (diabetes mellitus) ICD Code: E11.9 Status: Chronic Assessment and Plan 66 y/o female with a history of non Hodgkin lymphoma, DM, tachycardia, depression and gerd presented to the ED with complaints of weakness,nausea, vomiting, and diarrhea that started . Severe Sepsis, suspected UTI Abnormal UA, WBC 13.1, tmax 100.1, tachycardia, lactic 3.1 -Bolus NS given in ED -Urine and blood cultures pending -CBC in AM -Cefepime and Vanco IV ordered, with pharmacy consulted -Repeat Lactic acid pending -Consult infectious disease for recommendations -IVF for hydration NS w/ 20K -CBC in AM Transaminitis, AST 122, ALT 170 likely reactive to nausea and vomiting -Consult GI for recommendations, Patient sees Dr. Squires -Trend CMP Weakness, likely due to sepsis -PT eval and treat Protein calorie malnutrition, patient on TPN at home Albumin 3.0 -Consult nc manager Non Hodgkin lymphoma, chronic -Consult Dr. Keating, patient is scheduled for pet scan and bone marrow biopsy outpatient DM, chronic -Accu checks DVT prophylaxis: SCDs This note was transcribed by rosa isela Alejo. I, Dr. Omar Bran personally performed the history, physical exam, and medical decision making; and confirmed the accuracy of the information in the transcribed note. Authenticated by Dr. Omar Bran on 05/03/17 at 21:43. Discussed Condition With Patient and Patient's daughter Physician Certification 2 Midnight Certification Type: Admission for Inpatient Services Order for Inpatient Services The services are ordered in accordance with Medicare regulations or non- Medicare payer requirements, as applicable. In the case of services not specified as inpatient-only, they are appropriately provided as inpatient services in accordance with the 2-midnight benchmark. Estimated LOS (days): 3 days is the estimated time the patient will need to remain in the hospital, assuming treatment plan goals are met and no additional complications. Post-Hospital Plan: Not yet determined Problem Qualifiers (1) DM (diabetes mellitus): Mariaelena Alejo May 03, 2017 20:37 Omar Bran MD May 03, 2017 21:43
[2017-05-03] MEDS ORDERED: GLUCAGON 1 MG/ML VIAL OTHER PRN (21:30)
[2017-05-03] MEDS ORDERED: DEXTROSE 50% IN WATER 50 ML VIAL(D50) IV PRN (21:30)
[2017-05-03] MEDS: DOCUSATE SODIUM 50 MG/SENNA 8.6 MG TAB PO SCH (21:52)
[2017-05-03] MEDS: SODIUM CHLORIDE 0.9% FLUSH 10 ML FLUSH IV FLUSH SCH (21:54)
[2017-05-03] MEDS ORDERED: PILL SPLITTER OTHER PRN (22:15)
[2017-05-03] MEDS: ACETAMINOPHEN 325 MG TAB PO PRN (22:57)
[2017-05-03] MEDS ORDERED: D5W + KCL 20 MEQ INJ 1,000 ML IV SCH (23:00)
[2017-05-04] VITALS (10 sets, daily range): BP systolic 92–105; BP diastolic 53–64; PULSE 95–122; RESP 17–20; TEMP 97–99.9; O2SAT 93–100
[2017-05-04 05:33] LABS: AUTOMATED NEUTROPHIL # 10.6 TH/MM3 (1.8-7.7); EOSINOPHIL % 0.1 % (0.0-4.0); HEMO FLAGS DIFF FINAL; LYMPH % 3.9 % (9.0-44.0); LYMPHOCYTE # 0.5 TH/MM3 (1.0-4.8); MEAN CELL VOLUME 86.3 FL (80.0-100.0); MEAN CORPUSCULAR HEMOGLOBIN 29.5 PG (27.0-34.0); MEAN CORPUSCULAR HGB CONC 34.2 % (32.0-36.0); PLATELET COUNT 201 TH/MM3 (150-450); RED BLOOD COUNT 2.78 MIL/MM3 (4.00-5.30); RED CELL DISTRIBUTION WIDTH 14.9 % (11.6-17.2); WHITE BLOOD COUNT 11.6 TH/MM3 (4.0-11.0)
[2017-05-04 06:00] LABS: ALT (GPT) 655 U/L (10-53); ANION GAP 9 MEQ/L (5-15); AST (GOT) 560 U/L (15-37); BICARBONATE 20.8 MEQ/L (21.0-32.0); BLOOD UREA NITROGEN 10 MG/DL (7-18); CHLORIDE 111 MEQ/L (98-107); GLOMERULAR FILTRATION RATE 99 ML/MIN (>89); POTASSIUM 3.3 MEQ/L (3.5-5.1); SODIUM (NA) 141 MEQ/L (136-145)
[2017-05-04 06:15] LABS: ALKALINE PHOSPHATASE 283 U/L (45-117); TOTAL BILIRUBIN ADULT 1.1 MG/DL (0.2-1.0)
--- NOTE | 2017-05-04 08:45 | HHI.PR ---
Subjective Remarks This is a pleasant 66 y/o Female with Non Hodgkin Lymphoma, DM II, Depression, GERD, who came to ER with weakness, nausea, vomit and diarrhea, confused, fever 102F, she was started on TPN at home last month, more difficult to ambulate at home with her walker, asked for support services specialist consult to her primary support services specialist Doctor Zuri. Doctor Quispe is her PCP, as per Doctor Zuri he called and said he will see Mrs. Louis in am tomorrow, discussed in the room with patient who is feeling weak and with her Daughter Miss Joshi, she will be followed by ID specialist, GI specialist and Dietitian to evaluate her TPN management, she has elevated Liver enzymes. As We know the patient was just discharged from this Facility and came as Re admission she had EGD and Colonoscopy 04/15/17 she has History of Whipple procedure, chronic Diarrhea, weight loss, abdominal pain, had CT scan with possible soft tissue around Celiac and SMA, secondary to operative changes versus recurrent Malignancy, followed by GI specialist and by support services specialist Doctor Keating who has her scheduled for PET scan tomorrow 05/05/17 and for Bone Marrow Biopsy for 05/08/17, C Diff test was negative all stool negative for Rotavirus, the patient has Pancreatic Insufficiency history, Poor nutritional state even after esophageal dilation and now on TPN by support services specialist but is been Hyperglycemic at home. also with Electrolyte derangement. re started home medicines and though initially to ask for another CT abdomen and Pelvis but GI knows her very well will follow recommendations by specialist in this case. Objective Vital Signs Date Time Temp Pulse Resp B/P Pulse Ox O2 Delivery O2 Flow Rate FiO2 05/04/17 08:07 97.8 101 20 97/64 98 05/04/17 04:55 97.0 95 18 105/58 100 05/04/17 04:01 96 05/04/17 00:01 122 05/03/17 23:15 100.8 125 18 123/60 98 05/03/17 22:53 125 05/03/17 21:25 100.5 112 18 118/64 100 05/03/17 20:35 98.6 102 20 94/55 100 Room Air 05/03/17 19:45 99 Nasal Cannula 2.00 05/03/17 18:07 114 18 112/58 99 Nasal Cannula 2 05/03/17 17:12 114 18 95 Nasal Cannula 2 05/03/17 17:11 95 Nasal Cannula 2 05/03/17 17:10 Nasal Cannula 2 05/03/17 17:06 100.1 114 20 112/60 94 I/O 05/03/17 05/03/17 05/03/17 05/04/17 05/04/17 05/04/17 07:00 15:00 23:00 07:00 15:00 23:00 Intake Total 840 ml 1092 ml Balance 840 ml 1092 ml Intake Oral 240 ml 240 ml IV Total 600 ml 852 ml # Voids 2 # Bowel Movements 1 Result Diagram: 05/04/17 0500 05/04/17 0500 Imaging Last Impressions Chest X-Ray 05/03/17 1625 Signed Impressions: Service Date/Time: Wednesday, May 03, 2017 16:50 - CONCLUSION: No acute disease. Saman Salas MD Procedures None Other Results Laboratory Tests Test 05/03/17 05/03/17 05/04/17 17:00 20:10 05:00 Prothrombin Time 11.2 SEC Prothromb Time International 1.0 RATIO Ratio Activated Partial 31.4 SEC Thromboplast Time Urine Color YELLOW Urine Turbidity HAZY Urine pH 5.0 Urine Specific [place] 1.024 Urine Protein 30 mg/dL Urine Glucose (UA) 1000 mg/dL Urine Ketones NEG mg/dL Urine Occult Blood NEG Urine Nitrite NEG Urine Bilirubin NEG Urine Urobilinogen LESS THAN 2.0 MG/DL Urine Leukocyte Esterase TRACE Urine RBC LESS THAN 1 /hpf Urine WBC 8 /hpf Urine Amorphous Sediment RARE Urine Bacteria OCC /hpf Urine Hyaline Casts 1 /lpf Microscopic Urinalysis Comment CATH-CULTURE IND Magnesium Level 1.6 MG/DL Total Creatine Kinase 28 U/L Troponin I LESS THAN 0.02 NG/ML Lactic Acid Level 2.8 mmol/L White Blood Count 11.6 TH/MM3 Red Blood Count 2.78 MIL/MM3 Hemoglobin 8.2 GM/DL Hematocrit 24.0 % Mean Corpuscular Volume 86.3 FL Mean Corpuscular Hemoglobin 29.5 PG Mean Corpuscular Hemoglobin 34.2 % Concent Red Cell Distribution Width 14.9 % Platelet Count 201 TH/MM3 Mean Platelet Volume 10.0 FL Neutrophils (%) (Auto) 91.0 % Lymphocytes (%) (Auto) 3.9 % Monocytes (%) (Auto) 5.0 % Eosinophils (%) (Auto) 0.1 % Basophils (%) (Auto) 0.0 % Neutrophils # (Auto) 10.6 TH/MM3 Lymphocytes # (Auto) 0.5 TH/MM3 Monocytes # (Auto) 0.6 TH/MM3 Eosinophils # (Auto) 0.0 TH/MM3 Basophils # (Auto) 0.0 TH/MM3 CBC Comment DIFF FINAL Differential Comment Sodium Level 141 MEQ/L Potassium Level 3.3 MEQ/L Chloride Level 111 MEQ/L Carbon Dioxide Level 20.8 MEQ/L Anion Gap 9 MEQ/L Blood Urea Nitrogen 10 MG/DL Creatinine 0.60 MG/DL Estimat Glomerular Filtration 99 ML/MIN Rate Random Glucose 143 MG/DL Calcium Level 8.8 MG/DL Total Bilirubin 1.1 MG/DL Aspartate Amino Transf 560 U/L (AST/SGOT) Alanine Aminotransferase 655 U/L (ALT/SGPT) Alkaline Phosphatase 283 U/L Total Protein 6.1 GM/DL Albumin 2.7 GM/DL Objective Remarks GENERAL: Cachectic patient, in no apparent distress denotes chronic illness. SKIN: No rashes, ecchymoses or lesions. Cool and dry. HEAD: Atraumatic. Normocephalic. EYES: Pupils equal round and reactive. Extraocular motions intact. ENT: Nose without bleeding, purulent drainage or septal hematoma. moist mucous membranes. NECK: Trachea midline. No JVD or lymphadenopathy. Supple. CARDIOVASCULAR: Regular rate and tachycardic rhythm without murmurs. RESPIRATORY: Clear to auscultation. Breath sounds equal bilaterally. GASTROINTESTINAL: Abdomen soft, but tender. MUSCULOSKELETAL: Extremities without clubbing, cyanosis, or edema. NEUROLOGICAL: Awake and alert. No focal deficits. Medications and IVs Current Medications Medications (Trade) Dose Ordered Sig/Kaiser Route Start Time Stop Time Status Last Admin Cefepime HCl 2000 mg/Sodium Chloride 100 ml @ 100 mls/hr Q12H IV 05/04/17 08:00 (Vancomycin Consult Pharmacy) 0 ml @ 0 mls/hr UNSCH OTHER 05/03/17 19:30 (NS Flush) 2 ml UNSCH PRN IV FLUSH 05/03/17 19:30 (NS Flush) 2 ml BID IV FLUSH 05/03/17 21:00 05/03/17 21:54 (Tylenol) 650 mg Q4H PRN PO 05/03/17 19:30 05/03/17 22:57 (Zofran Inj) 4 mg Q6H PRN IVP 05/03/17 19:30 (Narcan Inj) 0.4 mg UNSCH PRN IV 05/03/17 19:30 (Sultana-Colace) 1 tab BID PO 05/03/17 21:00 (Milk Of Magnesia Liq) 30 ml Q12H PRN PO 05/03/17 19:30 (Senokot) 17.2 mg Q12H PRN PO 05/03/17 19:30 (Dulcolax Supp) 10 mg DAILY PRN RECTAL 05/03/17 19:30 Lactulose 30 ml 30 ml DAILY PRN PO 05/03/17 19:30 (Vancomycin Inj/ NS 250 ml Inj) 250 ml @ 250 mls/hr Q18H IV 05/04/17 12:00 Miscellaneous Information SPECIFIC LAB TO BE BRENDA... ONCE ONCE .XX 05/04/17 23:45 05/04/17 23:46 (D50w (Vial) Inj) 50 ml UNSCH PRN IV 05/03/17 21:30 05/03/17 21:53 Glucagon 1 mg 1 mg UNSCH PRN OTHER 05/03/17 21:30 (D5W + KCl 20 Meq Inj) 1,000 ml @ 42 mls/hr [id number] IV 05/03/17 23:00 05/03/17 22:29 (Phenergan) 12.5 mg Q6H PRN PO 05/03/17 22:15 (Pill Splitter) 1 ea UNSCH PRN OTHER 05/03/17 22:15 A/P Assessment and Plan As We know the patient was just discharged from this Facility and came as Re admission she had EGD and Colonoscopy 04/15/17 she has History of Whipple procedure, chronic Diarrhea, weight loss, abdominal pain, had CT scan with possible soft tissue around Celiac and SMA, secondary to operative changes versus recurrent Malignancy, followed by GI specialist and by support services specialist Doctor Keating who has her scheduled for PET scan tomorrow 05/05/17 and for Bone Marrow Biopsy for 05/08/17, C Diff test was negative all stool negative for Rotavirus, the patient has Pancreatic Insufficiency history, Poor nutritional state even after esophageal dilation and now on TPN by support services specialist but is been Hyperglycemic at home. also with Electrolyte derangement. re started home medicines and though initially to ask for another CT abdomen and Pelvis but GI knows her very well will follow recommendations by specialist in this case. Severe Sepsis, no clear source of infection will follow ID specialist recommendations Abnormal UA, WBC 13.1, tmax 100.1, tachycardia, lactic 3.1 -Bolus NS given in ED -Urine and blood cultures pending -Cefepime and Vanco IV ordered, with pharmacy consulted -Consult infectious disease for recommendations -IVF changed to Normal Saline 84 ml per hour until Dietitian starts her TPN. -CBC in AM Transaminitis, AST 122, ALT 170 likely reactive to nausea and vomiting -Consult GI for recommendations, Patient sees Dr. Squires Weakness, likely due to sepsis and basal pathology. -PT eval and treat Protein calorie malnutrition, patient on TPN at home Albumin 3.0 -Consult prawn trawler hand Non Hodgkin lymphoma, chronic -Consult Dr. Keating who called and will see patient as outpatient. DM, chronic -Accu checks DVT prophylaxis: SCDs Discussed with Patient and nurse Miss Garcia and also present her Daughter Miss Joshi all questions answered to the best of my abilities. Discharge Planning once cleared by specialists. Bogdan Curry MD May 04, 2017 08:45
[2017-05-04] MEDS: DOCUSATE SODIUM 50 MG/SENNA 8.6 MG TAB PO SCH ×2 (09:00→21:32)
[2017-05-04] MEDS: SODIUM CHLORIDE 0.9% FLUSH 10 ML FLUSH IV FLUSH SCH ×2 (09:00→21:32)
[2017-05-04] MEDS: PROMETHAZINE HCL 25 MG TAB PO PRN ×2 (09:02→18:30)
[2017-05-04] MEDS: CEFEPIME INJ 2,000 MG in SODIUM CHLORIDE 0.9% INJ 100 ML IV SCH ×2 (09:03→21:58)
[2017-05-04] MEDS ORDERED: DIATRIZOATE MEGLUM/DIATRIZOATE SOD 9 ML CUP PO ONE ×3 (09:45→19:30)
--- NOTE | 2017-05-04 09:49 | PD.ONC.PN ---
Subjective Subjective Remarks TMax 100.8 overnight. Feeling better today. Eating breakfast. Does not feel nauseated at present. Objective Data Result Diagram: 05/04/17 0500 05/04/17 0500 Assessment/Plan Assessment 66y/o female with h/o NHL, admitted with weakness, nausea vomiting and diarrhea. Plan 1. Discussed with Ms. Louis and her daughter at bedside, Dr. Keating is off on Mondays, but will see patient and dictate full consult tomorrow. 2. Advised to cancel PET scan and bone marrow biopsy scheduled for tomorrow. Mignon Alonzo May 04, 2017 09:49
[2017-05-04] MEDS: MAGNESIUM SULFATE 1 GM PREMIX 100 ML IV SCH ×2 (10:29→11:53)
[2017-05-04] MEDS: POTASSIUM CHLOR 20 MEQ PREMIX 100 ML IV SCH ×2 (11:00→15:02)
[2017-05-04] MEDS: SUCRALFATE 1 GM/10 ML CUP PO SCH ×2 (11:41→18:21)
[2017-05-04] MEDS: PANTOPRAZOLE SOD 40 MG DELAYED RELEASE TAB PO SCH (11:41)
[2017-05-04] MEDS: SODIUM CHLOR 0.9% 1000 ML INJ 1,000 ML IV SCH ×2 (11:55→21:32)
[2017-05-04] MEDS: MODAFINIL 200 MG TAB PO SCH (12:13)
[2017-05-04] MEDS: MEGESTROL ACETATE 40 MG TAB PO SCH ×3 (12:13→21:59)
[2017-05-04] MEDS: VANCOMYCIN 1,000 MG/NS 250 ML IV SCH ×2 (13:05)
[2017-05-04] MEDS: INSULIN NovoLIN REGULAR SUPPLEMENTAL SCALE SQ SCH ×3 (13:11→22:09)
--- NOTE | 2017-05-04 13:23 | EKG ---
Date Performed: 05/03/2017 Time Performed: 16:49:33 PTAGE: 66 years EKG: SINUS TACHYCARDIA MARKED LEFT AXIS DEVIATION MINIMAL VOLTAGE CRITERIA FOR LVH, CONSIDER NOR MAL VARIANT NONSPECIFIC T-WAVE ABNORMALITY ABNORMAL ECG Compared to prior tracing no significant [place] ge PREVIOUS TRACING : 04/13/2017 12.45 DOCTOR: Edilberto Aguilar Interpretating Date/Time 05/04/2017 13:20:57
[2017-05-04] MEDS ORDERED: LIPASE/PROTEASE/AMYLASE (12,000/38,000/60,000) CAP PO SCH (13:30)
[2017-05-04 17:04] LABS: HEMOGLOBIN A1a 1.2 %; HEMOGLOBIN Ao 83.1 %; HEMOGLOBIN LA1C 2.1 %
--- NOTE | 2017-05-04 17:52 | PD.CONS ---
HPI History of Present Illness This is a 66 year old [lady] with hx nonhodgkins lymphoma, s/p whipple, DM, GERD who presented to hospital with c/o weakness, n/v, diarrhea, lower abd pain. She has been feeling weak for months. 4-5 days ago she started having n/ v. She is on TPn but she does eat some. 2 d ago she started having diarrhea, 3 -4 BM daily. Her "norm" is a formed BM in the morning and progressively loose stool throughout day but she says the last couple days it has been green and looser. She was found to have elevated LFTs as well. She was on chemo for non hodgkins but has not had any since september. She has been losing weight, at least 20lbs since september. She was scheduled to have PET scan tomorrow. Sees DR Keating. She was hospitalized last month and seen by us for diarrhea and nausea that did improve, has been on pancreatic enzymes. EGD/colonoscopy --> no definite cause for sx found but significant bile reflux gastritis, path benign. PFSH Past Medical History non Hodgkin lymphoma in remission, last dose in 09/2016 Tachycardia DM Depression Gerd Past Surgical History Whipple Tonsillectomy Appendectomy Hysterectomy Port placement Coded Allergies: Lyrica (Verified Allergy, Severe, neuro symptoms, 04/13/17) Family History Dad: CHF Mom: Breast Cancer Social History Tobacco use: Quit 25 years ago Alcohol use: Denies Review of Systems Constitutional: COMPLAINS OF: Fever Eyes: DENIES: Blurred vision Ears, nose, mouth, throat: DENIES: Hearing loss Respiratory: DENIES: Cough Cardiovascular: DENIES: Chest pain Gastrointestinal: COMPLAINS OF: Abdominal pain, Diarrhea, Nausea, Vomiting, DENIES: Black stools, Bloody stools, Constipation, Hematemesis Genitourinary: DENIES: Hematuria Musculoskeletal: DENIES: Joint Swelling Integumentary: DENIES: Pruritus Neurologic: COMPLAINS OF: Localized weakness Psychiatric: DENIES: Confusion GI Exam Vitals I&O Vital Signs Date Time Temp Pulse Resp B/P Pulse Ox O2 Delivery O2 Flow Rate FiO2 05/04/17 15:54 98.4 108 20 101/61 100 05/04/17 11:33 99.9 99 20 95/53 99 05/04/17 10:05 97 21 05/04/17 08:07 97.8 101 20 97/64 98 05/04/17 04:55 97.0 95 18 105/58 100 05/04/17 04:01 96 05/04/17 00:01 122 05/03/17 23:15 100.8 125 18 123/60 98 05/03/17 22:53 125 05/03/17 21:25 100.5 112 18 118/64 100 05/03/17 20:35 98.6 102 20 94/55 100 Room Air 05/03/17 19:45 99 Nasal Cannula 2.00 05/03/17 18:07 114 18 112/58 99 Nasal Cannula 2 I/O 05/03/17 05/03/17 05/03/17 05/04/17 05/04/17 05/04/17 07:00 15:00 23:00 07:00 15:00 23:00 Intake Total 840 ml 1092 ml 965 ml Balance 840 ml 1092 ml 965 ml Intake Oral 240 ml 240 ml 150 ml IV Total 600 ml 852 ml 815 ml # Voids 2 2 # Bowel Movements 1 1 Imaging Last Impressions Chest X-Ray 05/03/17 1625 Signed Impressions: Service Date/Time: Wednesday, May 03, 2017 16:50 - CONCLUSION: No acute disease. Saman Salas MD Laboratory Test 05/03/17 05/03/17 05/04/17 20:10 21:45 05:00 Lactic Acid Level 2.8 mmol/L Random Glucose 51 MG/DL 143 MG/DL White Blood Count 11.6 TH/MM3 Red Blood Count 2.78 MIL/MM3 Hemoglobin 8.2 GM/DL Hematocrit 24.0 % Mean Corpuscular Volume 86.3 FL Mean Corpuscular Hemoglobin 29.5 PG Mean Corpuscular Hemoglobin 34.2 % Concent Red Cell Distribution Width 14.9 % Platelet Count 201 TH/MM3 Mean Platelet Volume 10.0 FL Neutrophils (%) (Auto) 91.0 % Lymphocytes (%) (Auto) 3.9 % Monocytes (%) (Auto) 5.0 % Eosinophils (%) (Auto) 0.1 % Basophils (%) (Auto) 0.0 % Neutrophils # (Auto) 10.6 TH/MM3 Lymphocytes # (Auto) 0.5 TH/MM3 Monocytes # (Auto) 0.6 TH/MM3 Eosinophils # (Auto) 0.0 TH/MM3 Basophils # (Auto) 0.0 TH/MM3 CBC Comment DIFF FINAL Differential Comment Sodium Level 141 MEQ/L Potassium Level 3.3 MEQ/L Chloride Level 111 MEQ/L Carbon Dioxide Level 20.8 MEQ/L Anion Gap 9 MEQ/L Blood Urea Nitrogen 10 MG/DL Creatinine 0.60 MG/DL Estimat Glomerular Filtration 99 ML/MIN Rate Hemoglobin A1c 6.7 % Calcium Level 8.8 MG/DL Total Bilirubin 1.1 MG/DL Aspartate Amino Transf 560 U/L (AST/SGOT) Alanine Aminotransferase 655 U/L (ALT/SGPT) Alkaline Phosphatase 283 U/L Total Protein 6.1 GM/DL Albumin 2.7 GM/DL Date/Time Procedure Status Source Growth 05/03/17 17:03 Influenza Types A,B Antigen (YAMILE) - Final Complete Nasal Aspirate NEGATIVE FOR FLU A AND B ANTIGEN.... 05/03/17 17:00 Urine Culture - Preliminary Resulted Urine Catheterized Urine IMMATURE GROWTH - REINCUBATE 05/03/17 17:00 Aerobic Blood Culture - Preliminary Resulted Blood Peripheral NO GROWTH IN 1 DAY 05/03/17 17:00 Anaerobic Blood Culture - Preliminary Resulted Blood Peripheral NO GROWTH IN 1 DAY Physical Examination HEENT: PERRL; normocephalic; atraumatic; no jaundice. CHEST: CTA CARDIAC: RRR ABDOMEN: Soft, nondistended, mild lower abd TTP; no hepatosplenomegaly; bowel sounds are present in all four quadrants. EXTREMITIES: No clubbing, cyanosis, or edema. SKIN: pale; no rash; no jaundice. BRAND PLANNER: No focal deficits; alert and oriented times three. Assessment and Plan Plan ASSESSMENT - n/v - unclear etiology. not on chemo since Sep. on TPN. EGD/colonoscopy 04/13 --> no definite cause for sx found but significant bile reflux gastritis, path benign. - diarrhea, lower abd pain - 3-4 loose stools daily. - weight loss - 20 lbs since september - anemia - normocytic. Hgb 8.6 on admission. - elevated LFTs - unclear etiology. no hx liver problems or significant ETOH use. pt on modafinil, this can raise LFTs. will do CT, liver w/u - hx non hodgkins lymphoma, pancreatic mass - Dx in 2004 and started chemotherapy. Of note, she also received chemotherapy in 2009 and afterwards stayed on a maintenance dose up until September of 2016. Pancreatic cancer was suspected, although because of location, she could not have a biopsy. S/P Whipple procedure in 2004. Pt reports that this was found to be benign. oncology following - sepsis - per primary, poss UTI, ID following PLAN - CT abd w/ IV & oral contrast if tolerated - stool cx - c diff pcr - liver w/u - supportive care - further recommendations to follow THis pt seen by myself and DR Parkinson and this note is written on his behalf Anupama Flores May 04, 2017 17:52
[2017-05-04] MEDS ORDERED: POTASSIUM CHLOR 20 MEQ PREMIX 100 ML IV ONE (18:30)
[2017-05-04] MEDS: LIPASE/PROTEASE/AMYLASE (12,000/38,000/60,000) CAP PO SCH (18:45)
[2017-05-04] MEDS: SUCRALFATE 1 GM TAB PO SCH (21:58)
--- NOTE | 2017-05-04 23:31 | PD.ID.CON ---
History of Present Illness Service ID Consult Requested By Dr Aguirre Reason for Consult sepsis Primary Care Physician Azael Quispe MD Diagnoses: History of Present Illness 66 yo female with h/o pancreatic NHL (non Hodgkins lyphoma) sp Whipple procedure She noted 30 lbs weight loss in the last 2 monsths and in the last week she noted fever, chills, nausea and abdominal pain She has prominent elevation of transaminases, worsning over last 24 hrs C XR is negative Review of Systems Constitutional: COMPLAINS OF: Fever, Weight loss, Chills Gastrointestinal: COMPLAINS OF: Abdominal pain, Nausea Past Family Social History Allergies: Coded Allergies: Lyrica (Verified Allergy, Severe, neuro symptoms, 04/13/17) Past Medical History non Hodgkin lymphoma in remission, last dose in 09/2016 Tachycardia DM Depression Gerd Past Surgical History Whipple Tonsillectomy Appendectomy Hysterectomy Port placement Active Ordered Medications Medications where reviewed in EMR Antibiotics Include: cefepime vancomycin Family History Non-Contributory. Social History quit Tobacco 25 yrs ago No ETOH. No Illicit Drugs. Physical Exam Vital Signs Vital Signs Date Time Temp Pulse Resp B/P Pulse Ox O2 Delivery O2 Flow Rate FiO2 05/04/17 19:39 97.2 110 17 96/56 98 05/04/17 15:54 98.4 108 20 101/61 100 05/04/17 11:33 99.9 99 20 95/53 99 05/04/17 10:05 97 21 05/04/17 08:07 97.8 101 20 97/64 98 05/04/17 04:55 97.0 95 18 105/58 100 05/04/17 04:01 96 05/04/17 00:01 122 Physical Exam CONSTITUTIONAL/GENERAL: This is an ill appeariaring emaciated patient, in no apparent distress. TUBES/LINES/DRAINS: SKIN: No jaundice, rashes, or lesions. Ecchymoses on upper extremities. No wounds seen anteriorly. Skin temperature appropriate. Not diaphoretic. HEAD: Atraumatic. Normocephalic. EYES: Pupils equal and round and reactive. Extraocular motions intact. No scleral icterus. No injection or drainage. Fundi not examined. ENT: Hearing grossly normal. Nose without bleeding or purulent drainage. Throat without visible erythema, exudates, masses, or lesions. NECK: Trachea midline. Supple, nontender. No palpable thyroid enlargement or nodularity. CARDIOVASCULAR: Regular rate and rhythm without murmurs, gallops, or rubs. No JVD. Peripheral pulses symmetric. RESPIRATORY/CHEST: Symmetric, unlabored respirations. Clear to auscultation. Breath sounds equal bilaterally. No wheezes, rales, or rhonchi. GASTROINTESTINAL: Abdomen soft, non-tender, nondistended. No hepato-splenomegaly , or palpable masses. No guarding. Bowel sounds present. GENITOURINARY: Without palpable bladder distension. Quesada catheter in place. MUSCULOSKELETAL: Extremities without clubbing, cyanosis, or edema. No mottling or clubbing. LYMPHATICS: No palpable cervical or supraclavicular adenopathy. NEUROLOGICAL: Awake and alert. Motor and sensory grossly within normal limits. Follows commands. Clear speech. Moves all extremities. PSYCHIATRIC: No obvious anxiety/depression. no apparent hallucinations or other psychotic thought process. Laboratory Laboratory Tests Test 05/04/17 05:00 White Blood Count 11.6 Red Blood Count 2.78 Hemoglobin 8.2 Hematocrit 24.0 Mean Corpuscular Volume 86.3 Mean Corpuscular Hemoglobin 29.5 Mean Corpuscular Hemoglobin 34.2 Concent Red Cell Distribution Width 14.9 Platelet Count 201 Mean Platelet Volume 10.0 Neutrophils (%) (Auto) 91.0 Lymphocytes (%) (Auto) 3.9 Monocytes (%) (Auto) 5.0 Eosinophils (%) (Auto) 0.1 Basophils (%) (Auto) 0.0 Neutrophils # (Auto) 10.6 Lymphocytes # (Auto) 0.5 Monocytes # (Auto) 0.6 Eosinophils # (Auto) 0.0 Basophils # (Auto) 0.0 CBC Comment DIFF FINAL Differential Comment Sodium Level 141 Potassium Level 3.3 Chloride Level 111 Carbon Dioxide Level 20.8 Anion Gap 9 Blood Urea Nitrogen 10 Creatinine 0.60 Estimat Glomerular Filtration 99 Rate Random Glucose 143 Hemoglobin A1c 6.7 Calcium Level 8.8 Total Bilirubin 1.1 Aspartate Amino Transf 560 (AST/SGOT) Alanine Aminotransferase 655 (ALT/SGPT) Alkaline Phosphatase 283 Total Protein 6.1 Albumin 2.7 Date/Time Procedure Status Source Growth 05/03/17 17:03 Influenza Types A,B Antigen (YAMILE) - Final Complete Nasal Aspirate NEGATIVE FOR FLU A AND B ANTIGEN.... 05/03/17 17:00 Urine Culture - Preliminary Resulted Urine Catheterized Urine IMMATURE GROWTH - REINCUBATE 05/03/17 17:00 Aerobic Blood Culture - Preliminary Resulted Blood Peripheral NO GROWTH IN 1 DAY 05/03/17 17:00 Anaerobic Blood Culture - Preliminary Resulted Blood Peripheral NO GROWTH IN 1 DAY Result Diagram: 05/04/17 0500 05/04/17 0500 Imaging Last Impressions Chest X-Ray 05/03/17 1625 Signed Impressions: Service Date/Time: Wednesday, May 03, 2017 16:50 - CONCLUSION: No acute disease. Saman Salas MD Assessment and Plan Assessment and Plan Fever, leukocytosis, abnormal LFTs Weight loss CT abd/pelvis with IV an doral contrast cont abx Sadie Estevez MD May 04, 2017 23:31
[2017-05-04] MEDS ORDERED: PHARMACY ORDERED LAB ONE (23:45)
[2017-05-05] VITALS (10 sets, daily range): BP systolic 102–113; BP diastolic 55–70; PULSE 74–96; RESP 17–18; TEMP 96.7–98.3; O2SAT 95–100
[2017-05-05] MEDS ORDERED: LACTATED RINGER'S 1000 ML INJ 500 ML IV SCH (00:15)
[2017-05-05] MEDS ORDERED: IOHEXOL 350 MG/ML 10 ML VIAL (for RAD DIAG) IV ONE (01:13)
--- NOTE | 2017-05-05 01:23 | RADRPT ---
EXAM DATE/TIME: 05/05/2017 01:01 [facility] COMPARISON: CT ABDOMEN & PELVIS W CONTRAST, April 13, 2017, 16:12. INDICATIONS : Abdomen pain with nausea and vomiting. IV CONTRAST: 70 cc Omnipaque 350 (iohexol) IV ORAL CONTRAST: Prescribed oral contrast ingested. RADIATION DOSE: 4.53 CTDIvol (mGy) MEDICAL HISTORY : Diabetes mellitus type 2. Cardiovascular disease Hodgkin's lymphoma SURGICAL HISTORY : Appendectomy. Cholecystectomy. ENCOUNTER: Initial ACUITY: 1 day PAIN SCALE: 6/10 LOCATION: Bilateral abdomen TECHNIQUE: Volumetric scanning of the abdomen and pelvis was performed. Using automated exposure control and ad justment of the mA and/or kV according to patient size, radiation dose was kept as low as reasonably achievable to obtain optimal diagnostic quality images. DICOM format image data is available electro nically for review and comparison. FINDINGS: Increasing soft tissue density in the estella hepatis noted, currently measures about 2.7 x 4.7 x 3.1 c m in size. Patient has had an apparent previous Whipple procedure. Pancreatic body and tail have a no rmal CT appearance. Liver, spleen and adrenal glands are within normal limits. Mild hydronephrosis and hydroureter now se en of both kidneys, etiology uncertain. No perceptible stones. No obstruction or acute inflammatory changes seen in the gastrointestinal tract. Trace atelectasis of the visualized lung bases. No acute bony abnormality demonstrated. CONCLUSION: 1. Previous Whipple. Increasing mass in the estella hepatis of concern for local recurrence or metastat ic adenopathy. 2. Mild bilateral hydronephrosis/hydroureter now seen, etiology uncertain. Ernie Mccarty MD on May 05, 2017 at 1:14 Board Certified Radiologist. This report was verified electronically.
[2017-05-05] MEDS: VANCOMYCIN 1,000 MG/NS 250 ML IV SCH ×2 (06:10)
[2017-05-05] MEDS: SUCRALFATE 1 GM TAB PO SCH ×5 (06:10→21:49)
[2017-05-05] MEDS: INSULIN NovoLIN REGULAR SUPPLEMENTAL SCALE SQ SCH ×4 (06:21→21:56)
--- NOTE | 2017-05-05 08:57 | HHI.PR ---
Subjective Remarks This is a pleasant 66 y/o Female with Non Hodgkin Lymphoma, DM II, Depression, GERD, who came to ER with weakness, nausea, vomit and diarrhea, confused, fever 102F, she was started on TPN at home last month, more difficult to ambulate at home with her walker, asked for prepress specialist consult to her primary prepress specialist Doctor Zuri. Doctor Quispe is her PCP, as per Doctor Zuri he called and said he will see Mrs. Louis in am tomorrow, discussed in the room with patient who is feeling weak and with her Daughter Miss Joshi, she will be followed by ID specialist, GI specialist and Dietitian to evaluate her TPN management, she has elevated Liver enzymes. As We know the patient was just discharged from this Facility and came as Re admission she had EGD and Colonoscopy 04/15/17 she has History of Whipple procedure, chronic Diarrhea, weight loss, abdominal pain, had CT scan with possible soft tissue around Celiac and SMA, secondary to operative changes versus recurrent Malignancy, followed by GI specialist and by prepress specialist Doctor Keating who has her scheduled for PET scan tomorrow 05/05/17 and for Bone Marrow Biopsy for 05/08/17, C Diff test was negative all stool negative for Rotavirus, the patient has Pancreatic Insufficiency history, Poor nutritional state even after esophageal dilation and now on TPN by prepress specialist but is been Hyperglycemic at home. also with Electrolyte derangement. re started home medicines and though initially to ask for another CT abdomen and Pelvis but GI knows her very well will follow recommendations by specialist in this case. 05/05: Stable in her bedroom no nausea, vomit or diarrhea, as pe ID recommended to continue antibiotics, her in her room, no new complaint, added Glucerna Shakes to her management, giving replacement of Electrolytes, asked for Urology specialist consult following prepress specialist recommendations. Objective Vital Signs Date Time Temp Pulse Resp B/P Pulse Ox O2 Delivery O2 Flow Rate FiO2 05/05/17 04:13 96.7 86 17 104/61 95 05/05/17 04:02 86 05/05/17 00:16 96 05/04/17 23:15 97.8 95 17 92/54 93 05/04/17 20:39 104 05/04/17 20:11 21 05/04/17 19:39 97.2 110 17 96/56 98 05/04/17 15:54 98.4 108 20 101/61 100 05/04/17 11:33 99.9 99 20 95/53 99 05/04/17 10:05 97 21 I/O 05/04/17 05/04/17 05/04/17 05/05/17 05/05/17 05/05/17 07:00 15:00 23:00 07:00 15:00 23:00 Intake Total 1092 ml 965 ml 770 ml 1441 ml Balance 1092 ml 965 ml 770 ml 1441 ml Intake Oral 240 ml 150 ml 480 ml 360 ml IV Total 852 ml 815 ml 290 ml 1081 ml # Voids 2 2 1 4 # Bowel Movements 1 1 0 0 Result Diagram: 05/04/17 0500 05/04/17 0500 Imaging Last Impressions Abdomen/Pelvis CT 05/05/17 0000 Signed Impressions: Service Date/Time: Friday, May 05, 2017 01:01 - CONCLUSION: 1. Previous Whipple. Increasing mass in the estella hepatis of concern for local recurrence or metastatic adenopathy. 2. Mild bilateral hydronephrosis/hydroureter now seen, etiology uncertain. Ernie Mccarty MD Chest X-Ray 05/03/17 1625 Signed Impressions: Service Date/Time: Wednesday, May 03, 2017 16:50 - CONCLUSION: No acute disease. Saman Salas MD Procedures None Other Results Laboratory Tests Test 05/03/17 05/04/17 05/05/17 05/05/17 17:00 05:00 05:45 05:46 Prothrombin Time 11.2 SEC Prothromb Time International 1.0 RATIO Ratio Activated Partial 31.4 SEC Thromboplast Time Urine Color YELLOW Urine Turbidity HAZY Urine pH 5.0 Urine Specific [place] 1.024 Urine Protein 30 mg/dL Urine Glucose (UA) 1000 mg/dL Urine Ketones NEG mg/dL Urine Occult Blood NEG Urine Nitrite NEG Urine Bilirubin NEG Urine Urobilinogen LESS THAN 2.0 MG/DL Urine Leukocyte Esterase TRACE Urine RBC LESS THAN 1 /hpf Urine WBC 8 /hpf Urine Amorphous Sediment RARE Urine Bacteria OCC /hpf Urine Hyaline Casts 1 /lpf Microscopic Urinalysis Comment CATH-CULTURE IND Magnesium Level 1.6 MG/DL Total Creatine Kinase 28 U/L Troponin I LESS THAN 0.02 NG/ML White Blood Count 11.6 TH/MM3 Red Blood Count 2.78 MIL/MM3 Hemoglobin 8.2 GM/DL Hematocrit 24.0 % Mean Corpuscular Volume 86.3 FL Mean Corpuscular Hemoglobin 29.5 PG Mean Corpuscular Hemoglobin 34.2 % Concent Red Cell Distribution Width 14.9 % Platelet Count 201 TH/MM3 Mean Platelet Volume 10.0 FL Neutrophils (%) (Auto) 91.0 % Lymphocytes (%) (Auto) 3.9 % Monocytes (%) (Auto) 5.0 % Eosinophils (%) (Auto) 0.1 % Basophils (%) (Auto) 0.0 % Neutrophils # (Auto) 10.6 TH/MM3 Lymphocytes # (Auto) 0.5 TH/MM3 Monocytes # (Auto) 0.6 TH/MM3 Eosinophils # (Auto) 0.0 TH/MM3 Basophils # (Auto) 0.0 TH/MM3 CBC Comment DIFF FINAL Differential Comment Sodium Level 141 MEQ/L Potassium Level 3.3 MEQ/L Chloride Level 111 MEQ/L Carbon Dioxide Level 20.8 MEQ/L Anion Gap 9 MEQ/L Blood Urea Nitrogen 10 MG/DL Creatinine 0.60 MG/DL Estimat Glomerular Filtration 99 ML/MIN Rate Random Glucose 143 MG/DL Hemoglobin A1c 6.7 % Calcium Level 8.8 MG/DL Total Bilirubin 1.1 MG/DL Aspartate Amino Transf 560 U/L (AST/SGOT) Alanine Aminotransferase 655 U/L (ALT/SGPT) Alkaline Phosphatase 283 U/L Total Protein 6.1 GM/DL Albumin 2.7 GM/DL Vancomycin Level Trough 5.6 MCG/ML Lactic Acid Level 0.6 mmol/L Objective Remarks GENERAL: Cachectic patient, in no apparent distress denotes chronic illness. SKIN: No rashes, ecchymoses or lesions. Cool and dry. HEAD: Atraumatic. Normocephalic. EYES: Pupils equal round and reactive. Extraocular motions intact. ENT: Nose without bleeding, purulent drainage or septal hematoma. moist mucous membranes. NECK: Trachea midline. No JVD or lymphadenopathy. Supple. CARDIOVASCULAR: Regular rate and tachycardic rhythm without murmurs. RESPIRATORY: Clear to auscultation. Breath sounds equal bilaterally. GASTROINTESTINAL: Abdomen soft, but tender. MUSCULOSKELETAL: Extremities without clubbing, cyanosis, or edema. NEUROLOGICAL: Awake and alert. No focal deficits. Medications and IVs Current Medications Medications (Trade) Dose Ordered Sig/Kaiser Route Start Time Stop Time Status Last Admin Cefepime HCl 2000 mg/Sodium Chloride 100 ml @ 100 mls/hr Q12H IV 05/04/17 08:00 05/04/17 21:58 (Vancomycin Consult Pharmacy) 0 ml @ 0 mls/hr UNSCH OTHER 05/03/17 19:30 (NS Flush) 2 ml UNSCH PRN IV FLUSH 05/03/17 19:30 (NS Flush) 2 ml BID IV FLUSH 05/03/17 21:00 05/03/17 21:54 (Tylenol) 650 mg Q4H PRN PO 05/03/17 19:30 05/03/17 22:57 (Zofran Inj) 4 mg Q6H PRN IVP 05/03/17 19:30 (Narcan Inj) 0.4 mg UNSCH PRN IV 05/03/17 19:30 (Sultana-Colace) 1 tab BID PO 05/03/17 21:00 (Milk Of Magnesia Liq) 30 ml Q12H PRN PO 05/03/17 19:30 (Senokot) 17.2 mg Q12H PRN PO 05/03/17 19:30 (Dulcolax Supp) 10 mg DAILY PRN RECTAL 05/03/17 19:30 (Lactulose Liq) 30 ml DAILY PRN PO 05/03/17 19:30 (D50w (Vial) Inj) 50 ml UNSCH PRN IV 05/03/17 21:30 05/03/17 21:53 (Glucagon Inj) 1 mg UNSCH PRN OTHER 05/03/17 21:30 (Pill Splitter) 1 ea UNSCH PRN OTHER 05/03/17 22:15 (Lexapro) 20 mg DAILY PO 05/05/17 09:00 (Megace) 20 mg QID PO 05/04/17 13:00 05/04/17 21:59 (Toprol Xl) 12.5 mg DAILY PO 05/05/17 09:00 (Provigil) 200 mg DAILY PO 05/05/17 09:00 (Provigil) 100 mg DAILY@12 PO 05/04/17 12:00 05/04/17 12:13 Pantoprazole Sodium 40 mg 40 mg DAILY PO 05/04/17 11:00 05/04/17 11:41 (NS 1000 ml Inj) 1,000 ml @ 84 mls/hr [id number] IV 05/04/17 10:15 05/04/17 11:55 (Creon 12-38-60) 6 cap TIDPC PO 05/04/17 18:30 05/04/17 18:45 (Phenergan) 25 mg Q6H PRN PO 05/04/17 22:15 Sucralfate 1 gm 1 gm ACHS PO 05/04/17 21:00 05/05/17 06:10 (Vancomycin Inj/ NS 250 ml Inj) 250 ml @ 250 mls/hr Q12H IV 05/05/17 18:00 Miscellaneous Information SPECIFIC LAB TO BE DRAWN:VANCOMYCIN TROUGH DATE TO... ONCE ONCE .XX 05/07/17 05:45 05/07/17 05:46 A/P Assessment and Plan As We know the patient was just discharged from this Facility and came as Re admission she had EGD and Colonoscopy 04/15/17 she has History of Whipple procedure, chronic Diarrhea, weight loss, abdominal pain, had CT scan with possible soft tissue around Celiac and SMA, secondary to operative changes versus recurrent Malignancy, followed by GI specialist and by prepress specialist Doctor Keating who has her scheduled for PET scan tomorrow 05/05/17 and for Bone Marrow Biopsy for 05/08/17, C Diff test was negative all stool negative for Rotavirus, the patient has Pancreatic Insufficiency history, Poor nutritional state even after esophageal dilation and now on TPN by prepress specialist but is been Hyperglycemic at home. also with Electrolyte derangement. re started home medicines and though initially to ask for another CT abdomen and Pelvis but GI knows her very well will follow recommendations by specialist in this case. Severe Sepsis, probable secondary to Urinary tract infection. UTI secondary to Gram Negative Rods, on Cefepime and Vancomycin, ID specialist following. Non Hodgkin lymphoma, chronic -Her Primary prepress specialist following, asked for CT abdomen and Pelvis found increasing Mass in the estella Hepatis of concern for local recurrence or Metastatic adenopathy, Mild bilateral Hydronephrosis/ Hydroureter now seen Urology specialist consult seen but not yet consult in EMR. Transaminitis, AST 122, ALT 170 likely reactive to nausea and vomiting -Consult GI for recommendations, Patient sees Dr. Squires Weakness, likely due to sepsis and basal pathology. -PT eval and treat Protein calorie malnutrition, patient on TPN at home Albumin 3.0 -Consult manager ui, continue Regular diet to improve patient's Nutrition also added Glucerna Shakes. \ electrolyte derangement replaced and following, Phosphorus 1.8, Magnesium 1.7 and Potassium 3.5 replaced DM, chronic -Accu checks, stable at this time. DVT prophylaxis: SCDs Discussed with Patient and nurse Miss Miss Johansen and her all questions answered to the best of My abilities. Discharge Planning once cleared by specialists. Bogdan Curry MD May 05, 2017 08:57
[2017-05-05] MEDS: METOPROLOL SUCCINATE 25 MG EXTENDED RELEASE TAB PO SCH (09:00)
[2017-05-05] MEDS: DOCUSATE SODIUM 50 MG/SENNA 8.6 MG TAB PO SCH ×2 (09:06→21:49)
[2017-05-05] MEDS: LIPASE/PROTEASE/AMYLASE (12,000/38,000/60,000) CAP PO SCH ×3 (09:06→19:01)
[2017-05-05] MEDS: ESCITALOPRAM OXALATE 20 MG TAB PO SCH (09:06)
[2017-05-05] MEDS: MEGESTROL ACETATE 40 MG TAB PO SCH ×4 (09:06→21:49)
[2017-05-05] MEDS: PANTOPRAZOLE SOD 40 MG DELAYED RELEASE TAB PO SCH (09:06)
[2017-05-05] MEDS: MODAFINIL 200 MG TAB PO SCH ×3 (09:06→13:21)
[2017-05-05] MEDS: SODIUM CHLORIDE 0.9% FLUSH 10 ML FLUSH IV FLUSH SCH ×2 (09:10→21:49)
[2017-05-05] MEDS: CEFEPIME INJ 2,000 MG in SODIUM CHLORIDE 0.9% INJ 100 ML IV SCH ×2 (09:10→21:49)
--- NOTE | 2017-05-05 10:12 | PD.CONS ---
HPI Service Urology Consult Requested By Reason for Consult Bilateral hydronephrosis Primary Care Physician Azael Quispe MD Diagnosis: (1) Severe sepsis ICD Code: A41.9 (2) Transaminitis ICD Code: R74.0 (3) Generalized weakness ICD Code: R53.1 (4) Protein calorie malnutrition ICD Code: E46 (5) History of non-Hodgkin's lymphoma ICD Code: Z85.72 (6) DM (diabetes mellitus) ICD Code: E11.9 History of Present Illness 66-year-old female with history non-Hodgkin's lymphoma who was admitted with symptoms of nausea, vomiting, diarrhea and fatigue. During the course of her present admission a CT scan of the abdomen and pelvis was performed that demonstrated mild bilateral hydroureteronephrosis. A urology consult was placed regarding this finding. At the time of consultation the patient denied any problems urinating. She states that since being admitted to the hospital and receiving I V fluids and TPN she has found it necessary to empty her bladder approximately every 2 hours. Prior to being admitted she denied any voiding issues. She denies dysuria or gross hematuria. She denies flank pain. I reviewed the actual CT scan images and the patient was noted to have a distended urinary bladder at the time of the study. Also noted was mild bilateral hydroureteronephrosis which could be explained by the distended bladder. Laboratory studies included a BUN obtain a creatinine of 0.6. Review of Systems Constitutional: COMPLAINS OF: Fatigue, Fever Gastrointestinal: COMPLAINS OF: Diarrhea, Nausea, Vomiting Neurologic: COMPLAINS OF: Poor Balance Except as stated in HPI: all other systems reviewed are Neg Past Family Social History Past Medical History Non-Hodgkin's lymphoma Cardiac arrhythmia Diabetes mellitus Depression GERD Past Surgical History Whipple procedure Tonsillectomy Hysterectomy Appendectomy Status post port placement Reported Medications Refer to EMR Allergies: Coded Allergies: Lyrica (Verified Allergy, Severe, neuro symptoms, 04/13/17) Active Ordered Medications Refer to EMR Family History Father with history congestive heart failure Mother with history breast cancer Social History Former smoker who quit 25 years ago Denies alcohol or intravenous drug abuse Physical Exam Vital Signs Date Time Temp Pulse Resp B/P Pulse Ox O2 Delivery O2 Flow Rate FiO2 05/05/17 04:13 96.7 86 17 104/61 95 05/05/17 04:02 86 05/05/17 00:16 96 05/04/17 23:15 97.8 95 17 92/54 93 05/04/17 20:39 104 05/04/17 20:11 21 05/04/17 19:39 97.2 110 17 96/56 98 05/04/17 15:54 98.4 108 20 101/61 100 05/04/17 11:33 99.9 99 20 95/53 99 Physical Exam GENERAL: This is a well-nourished, well-developed patient, in no apparent distress. SKIN: No rashes, ecchymoses or lesions. Cool and dry. HEAD: Atraumatic. Normocephalic. No temporal or scalp tenderness. EYES: Pupils equal round and reactive. Extraocular motions intact. No scleral icterus. No injection or drainage. ENT: Nose without bleeding, purulent drainage or septal hematoma. Throat without erythema, tonsillar hypertrophy or exudate. Uvula midline. Airway patent. NECK: Trachea midline. No JVD or lymphadenopathy. Supple, nontender, no meningeal signs. GENITOURINARY: No CVA tenderness, bladder not distended MUSCULOSKELETAL: Extremities without clubbing, cyanosis, or edema. No joint tenderness, effusion, or edema noted. No calf tenderness. Negative Homans sign bilaterally. NEUROLOGICAL: Awake and alert. Cranial nerves II through XII intact. Motor and sensory grossly within normal limits. Normal speech. Laboratory Tests Test 05/05/17 05/05/17 05:45 05:46 Vancomycin Level Trough 5.6 Lactic Acid Level 0.6 Date/Time Procedure Status Source Growth 05/03/17 17:03 Influenza Types A,B Antigen (YAMILE) - Final Complete Nasal Aspirate NEGATIVE FOR FLU A AND B ANTIGEN.... 05/03/17 17:00 Urine Culture - Preliminary Resulted Urine Catheterized Urine Gram Negative Wicho 05/03/17 17:00 Aerobic Blood Culture - Preliminary Resulted Blood Peripheral NO GROWTH IN 1 DAY 05/03/17 17:00 Anaerobic Blood Culture - Preliminary Resulted Blood Peripheral NO GROWTH IN 1 DAY Result Diagram: 05/04/17 0500 05/04/17 0500 Imaging Last Impressions Abdomen/Pelvis CT 05/05/17 0000 Signed Impressions: Service Date/Time: Friday, May 05, 2017 01:01 - CONCLUSION: 1. Previous Whipple. Increasing mass in the estella hepatis of concern for local recurrence or metastatic adenopathy. 2. Mild bilateral hydronephrosis/hydroureter now seen, etiology uncertain. Ernie Mccarty MD Chest X-Ray 05/03/17 9336 Signed Impressions: Service Date/Time: Thursday, May 03, 2017 16:50 - CONCLUSION: No acute disease. Saman Salas MD CT scan images reviewed. Assessment and Plan Assessment and Plan Urologic impression: Mild bilateral hydroureteronephrosis related to a markedly distended urinary bladder at the time of study. Recommendations: #1 Since BUN/creatinine are normal and patient is not experiencing any significant voiding issues, no further urologic workup is indicated. #2 Will be available as needed during present hospitalization. Problem Qualifiers (1) DM (diabetes mellitus): David Kraus MD May 05, 2017 10:12
[2017-05-05 10:17] LABS: MAGNESIUM 1.7 MG/DL (1.5-2.5); POTASSIUM 3.5 MEQ/L (3.5-5.1)
[2017-05-05] MEDS ORDERED: SODIUM PHOSPHATE INJ 21 MMOL in SODIUM CHLORIDE 0.9% INJ 150 ML IV ONE (10:45)
[2017-05-05] MEDS ORDERED: POTASSIUM CHLORIDE 20 MEQ CONTROLLED RELEASE TAB PO ONE (10:45)
[2017-05-05] MEDS: SODIUM CHLOR 0.9% 1000 ML INJ 1,000 ML IV SCH ×2 (10:58→21:49)
[2017-05-05] MEDS ORDERED: LIDOCAINE HCL 2% 50 ML VIAL NERV BLOCK ONE (11:00)
--- NOTE | 2017-05-05 11:42 | HHI.GIFU ---
Subjective Remarks Pt sitting on edge of bed, just had soft BM. SAys she feels warm. Objective Vitals I&O Vital Signs Date Time Temp Pulse Resp B/P Pulse Ox O2 Delivery O2 Flow Rate FiO2 05/05/17 08:00 98.0 83 18 113/55 98 05/05/17 04:13 96.7 86 17 104/61 95 05/05/17 04:02 86 05/05/17 00:16 96 05/04/17 23:15 97.8 95 17 92/54 93 05/04/17 20:39 104 05/04/17 20:11 21 05/04/17 19:39 97.2 110 17 96/56 98 05/04/17 15:54 98.4 108 20 101/61 100 I/O 05/04/17 05/04/17 05/04/17 05/05/17 05/05/17 05/05/17 07:00 15:00 23:00 07:00 15:00 23:00 Intake Total 1092 ml 965 ml 770 ml 1441 ml Balance 1092 ml 965 ml 770 ml 1441 ml Intake Oral 240 ml 150 ml 480 ml 360 ml IV Total 852 ml 815 ml 290 ml 1081 ml # Voids 2 2 1 4 # Bowel Movements 1 1 0 0 Laboratory Laboratory Tests Test 05/05/17 05/05/17 05/05/17 05:45 05:46 09:45 Vancomycin Level Trough 5.6 Lactic Acid Level 0.6 Potassium Level 3.5 Phosphorus Level 1.8 Magnesium Level 1.7 Date/Time Procedure Status Source Growth 05/03/17 17:03 Influenza Types A,B Antigen (YAMILE) - Final Complete Nasal Aspirate NEGATIVE FOR FLU A AND B ANTIGEN.... 05/03/17 17:00 Urine Culture - Preliminary Resulted Urine Catheterized Urine Gram Negative Wicho 05/03/17 17:00 Aerobic Blood Culture - Preliminary Resulted Blood Peripheral NO GROWTH IN 2 DAYS 05/03/17 17:00 Anaerobic Blood Culture - Preliminary Resulted Blood Peripheral NO GROWTH IN 2 DAYS Imaging Last Impressions Abdomen/Pelvis CT 05/05/17 0000 Signed Impressions: Service Date/Time: Friday, May 05, 2017 01:01 - CONCLUSION: 1. Previous Whipple. Increasing mass in the estella hepatis of concern for local recurrence or metastatic adenopathy. 2. Mild bilateral hydronephrosis/hydroureter now seen, etiology uncertain. Ernie Mccarty MD Chest X-Ray 05/03/17 1625 Signed Impressions: Service Date/Time: Wednesday, May 03, 2017 16:50 - CONCLUSION: No acute disease. Saman Salas MD Physical Exam HEENT: PERRL; normocephalic; atraumatic; no jaundice. CHEST: CTA CARDIAC: tachy ABDOMEN: Soft, nondistended, nontender; no hepatosplenomegaly; bowel sounds are present in all four quadrants. EXTREMITIES: No clubbing, cyanosis, or edema. SKIN: Normal; no rash; no jaundice. AD OPERATIONS SPECIALIST: No focal deficits; alert and oriented times three. Assessment and Plan Plan ASSESSMENT - n/v - unclear etiology. not on chemo since Sep. on TPN. EGD/colonoscopy 04/13 --> no definite cause for sx found but significant bile reflux gastritis, path benign. - diarrhea, lower abd pain - 3-4 loose stools daily. - weight loss - 20 lbs since september - anemia - normocytic. Hgb 8.6 on admission. - elevated LFTs - unclear etiology. CT --> 1. Previous Whipple. Increasing mass in the estella hepatis of concern for local recurrence or metastatic adenopathy. no hx liver problems or significant ETOH use. will do tumor markers - hx non hodgkins lymphoma, pancreatic mass - Dx in 2004 and started chemotherapy. Of note, she also received chemotherapy in 2009 and afterwards stayed on a maintenance dose up until September of 2016. Pancreatic cancer was suspected, although because of location, she could not have a biopsy. S/P Whipple procedure in 2004. Pt reports that this was found to be benign. oncology following - sepsis - per primary, poss UTI, ID following PLAN - rck LFTs - AFP, CEA, CA 19-9 - await stool cx - await c diff pcr - await liver w/u - supportive care - further recommendations to follow THis pt seen by myself and DR Parkinson and this note is written on his behalf Anupama Flores May 05, 2017 11:42
[2017-05-05] MEDS: PROMETHAZINE HCL 25 MG TAB PO PRN ×2 (11:56→16:41)
[2017-05-05] MEDS: MAGNESIUM SULFATE 1 GM PREMIX 100 ML IV SCH ×2 (11:58→13:25)
[2017-05-05] MEDS ORDERED: VANCOMYCIN 1,000 MG/NS 250 ML IV SCH ×2 (18:00)
--- NOTE | 2017-05-05 18:05 | HHI.IDPN ---
Subjective Subjective Remarks pt is doing OK afebrile denies disuria Antibiotics cefepime vancomycin Allergies: Coded Allergies: Lyrica (Verified Allergy, Severe, neuro symptoms, 04/13/17) Objective . Vital Signs Date Time Temp Pulse Resp B/P Pulse Ox O2 Delivery O2 Flow Rate FiO2 05/05/17 12:00 97.9 93 18 106/63 99 05/05/17 08:00 98.0 83 18 113/55 98 05/05/17 04:13 96.7 86 17 104/61 95 05/05/17 04:02 86 05/05/17 00:16 96 05/04/17 23:15 97.8 95 17 92/54 93 05/04/17 20:39 104 05/04/17 20:11 21 05/04/17 19:39 97.2 110 17 96/56 98 05/04/17 05/04/17 05/05/17 15:00 23:00 07:00 Intake Total 965 ml 770 ml 1441 ml Balance 965 ml 770 ml 1441 ml Intake Oral 150 ml 480 ml 360 ml IV Total 815 ml 290 ml 1081 ml # Voids 2 1 4 # Bowel Movements 1 0 0 . Laboratory Tests Test 05/04/17 05:00 White Blood Count 11.6 TH/MM3 Red Blood Count 2.78 MIL/MM3 Hemoglobin 8.2 GM/DL Hematocrit 24.0 % Mean Corpuscular Volume 86.3 FL Mean Corpuscular Hemoglobin 29.5 PG Mean Corpuscular Hemoglobin 34.2 % Concent Red Cell Distribution Width 14.9 % Platelet Count 201 TH/MM3 Mean Platelet Volume 10.0 FL Neutrophils (%) (Auto) 91.0 % Lymphocytes (%) (Auto) 3.9 % Monocytes (%) (Auto) 5.0 % Eosinophils (%) (Auto) 0.1 % Basophils (%) (Auto) 0.0 % Neutrophils # (Auto) 10.6 TH/MM3 Lymphocytes # (Auto) 0.5 TH/MM3 Monocytes # (Auto) 0.6 TH/MM3 Eosinophils # (Auto) 0.0 TH/MM3 Basophils # (Auto) 0.0 TH/MM3 CBC Comment DIFF FINAL Differential Comment Laboratory Tests Test 05/03/17 05/03/17 05/04/17 05/05/17 20:10 21:45 05:00 05:46 Lactic Acid Level 2.8 mmol/L 0.6 mmol/L Random Glucose 51 MG/DL 143 MG/DL Sodium Level 141 MEQ/L Potassium Level 3.3 MEQ/L Chloride Level 111 MEQ/L Carbon Dioxide Level 20.8 MEQ/L Anion Gap 9 MEQ/L Blood Urea Nitrogen 10 MG/DL Creatinine 0.60 MG/DL Estimat Glomerular Filtration 99 ML/MIN Rate Hemoglobin A1c 6.7 % Calcium Level 8.8 MG/DL Total Bilirubin 1.1 MG/DL Aspartate Amino Transf 560 U/L (AST/SGOT) Alanine Aminotransferase 655 U/L (ALT/SGPT) Alkaline Phosphatase 283 U/L Total Protein 6.1 GM/DL Albumin 2.7 GM/DL Test 05/05/17 09:45 Potassium Level 3.5 MEQ/L Phosphorus Level 1.8 MG/DL Magnesium Level 1.7 MG/DL Microbiology Date/Time Procedure Status Source Growth 05/03/17 16:35 Aerobic Blood Culture - Preliminary Resulted Blood Peripheral NO GROWTH IN 2 DAYS 05/03/17 16:35 Anaerobic Blood Culture - Preliminary Resulted Blood Peripheral NO GROWTH IN 2 DAYS 05/03/17 17:00 Aerobic Blood Culture - Preliminary Resulted Blood Peripheral NO GROWTH IN 2 DAYS 05/03/17 17:00 Anaerobic Blood Culture - Preliminary Resulted Blood Peripheral NO GROWTH IN 2 DAYS 05/03/17 17:00 Urine Culture - Preliminary Resulted Urine Catheterized Urine Gram Negative Wicho 05/03/17 17:03 Influenza Types A,B Antigen (YAMILE) - Final Complete Nasal Aspirate NEGATIVE FOR FLU A AND B ANTIGEN.... Imaging Last Impressions Abdomen/Pelvis CT 05/05/17 0000 Signed Impressions: Service Date/Time: Friday, May 05, 2017 01:01 - CONCLUSION: 1. Previous Whipple. Increasing mass in the estella hepatis of concern for local recurrence or metastatic adenopathy. 2. Mild bilateral hydronephrosis/hydroureter now seen, etiology uncertain. Ernie Mccarty MD Chest X-Ray 05/03/17 1625 Signed Impressions: Service Date/Time: Wednesday, May 03, 2017 16:50 - CONCLUSION: No acute disease. Saman Salas MD Physical Exam CONSTITUTIONAL/GENERAL: This is an ill appeariaring emaciated patient, in no apparent distress. TUBES/LINES/DRAINS: SKIN: No jaundice, rashes, or lesions. Skin temperature appropriate. Not diaphoretic. EYES: No scleral icterus. ENT: Hearing grossly normal. Nose without bleeding or purulent drainage. Throat without visible erythema, exudates, masses, or lesions. CARDIOVASCULAR: Regular rate and rhythm without murmurs, gallops, or rubs. No JVD. Peripheral pulses symmetric. RESPIRATORY/CHEST: Symmetric, unlabored respirations. Clear to auscultation. Breath sounds equal bilaterally. No wheezes, rales, or rhonchi. GASTROINTESTINAL: Abdomen soft, non-tender, nondistended. No hepato-splenomegaly , or palpable masses. No guarding. Bowel sounds present. GENITOURINARY: Without palpable bladder distension. MUSCULOSKELETAL: Extremities without clubbing, cyanosis, or edema. No mottling or clubbing. NEUROLOGICAL: Awake and alert. Motor and sensory grossly within normal limits. Follows commands. Clear speech. Moves all extremities. PSYCHIATRIC: No obvious anxiety/depression. no apparent hallucinations or other psychotic thought process. Assessment & Plan Remarks Fever, leukocytosis, abnormal LFTs CT with mass, no abscess Weight loss UTI, GNB Clinically stable , afebrile, cont cefepime dc vancomycin Sadie Estevez MD May 05, 2017 18:05
[2017-05-05] MEDS ORDERED: oxyCODONE/ACETAMINOPHEN 5 MG/325 MG TAB PO ONE (19:30)
[2017-05-05] MEDS ORDERED: LORazepam 0.5 MG TAB PO ONE (19:30)
[2017-05-05 22:13] LABS: BONE MARROW PROCESSING COMPLETE; IRON STAIN DONE; JENNER GIEMSA STAIN DONE
--- NOTE | 2017-05-05 22:20 | MB ---
cc: BOWENMADDIE DATE OF CONSULTATION 05/05/17 REASON FOR CONSULTATION A 66-year female with a history of lymphoma, weight loss and failure to thrive. PATIENT PROFILE The patient is a 66-year-old white female. She is . She was born in [place], [place]. She moved to [place] on March 25, 2017 due to health issues and to be closer to her daughter. She has two children, a son in [place] and her daughter who resides in [place]. She lives in the same block as her daughter. She had lived in [place] for 68 years. She stopped smoking 25 years ago and had smoked a pack of cigarettes per day for 20 years. Alcohol intake in the past has been minimal. HISTORY OF PRESENT ILLNESS The patient is a 66-year-old female who had a Whipple procedure in 2004. 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 I do not have the pathology report from the procedure. She received what I believe was six cycles of R-CHOP and entered a remission. In late 2008 or 2009, she developed recurrence. Her family believes this was a large cell lymphoma, but they are not sure. She received approximately three additional cycles of R-CHOP and then maintenance Rituxan until September of 2016. The daughter was able to provide me with a bone marrow report from the time of her recurrence and she had a small amount of involvement from a low grade lymphoma. During the past six months, she has had a profound deterioration in health. She has had increasing weakness, weight loss, fatigue and recently night sweats. She was hospitalized at [facility] on April 13, 2017 when she was admitted for weakness. She had a hemoglobin of 10.5, white count 11,000 and platelets of 397,000. She had an upper GI and small-bowel follow-through showing postoperative changes from her choledochoenterostomy and gastrojejunostomy status post Whipple. 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 CAT scan of the abdomen and pelvis from 04/13 showed postoperative changes and soft tissue density around the celiac and SMA area which was felt to be present on a previous CT scan. There was a nonspecific sclerotic area identified in the left ileum, probably a bone island. She had upper endoscopy on 04/15 and had residual fluid in the upper esophagus. A dilation was performed. She had a colonoscopy as well. The pathology from the stomach revealed mildly active chronic gastritis. There was no helicobacter. The colon showed mild melanosis coli. There was no indication of lymphomatous involvement of the bowel or stomach. I saw her for the first time on April 24, 2017. At that time she was receiving TPN. She had a markedly elevated glucose and she felt poorly. The plan at that time was to do a bone marrow aspirate and biopsy and a PET scan as well as an LDH level and a serum cortisol level. In the interim, the patient has continued to deteriorate. She became febrile and, on 05/03, had temperatures to 100.8. She was hospitalized and placed on antibiotics and her urine shows a gram-negative rodo. Blood cultures are negative. She did have stool cultures on 04/14/2017 which were unremarkable. A repeat CT scan of the abdomen and pelvis was performed on 05/05/2017. This is compared with a April 13 scan and reads "increasing soft tissue density in the estella hepatis, currently measuring 2.7 x 4.7 x 3.1 cm in size. The patient has had an apparent previous Whipple procedure. Pancreatic body and tail have a normal appearance. There is mild bilateral hydronephrosis." Other laboratory studies included hemoglobin on 05/03 is 8.6, white count 13,000, platelet count 215,000. Differential is unremarkable. Liver function tests on 05/04 bilirubin 1.1, AST 560, ALT 655, alk phos 283. Serum ferritin on 04/15/2017 was 80. A B12 level on 04/14/2017 was 690, folic acid level of 7.4. PAST SURGICAL HISTORY 1. Appendectomy 2. Cholecystectomy at the time of the Whipple procedure 3. Hysterectomy 1971 for uterine bleeding 4. Tonsillectomy 5. 2004 Whipple procedure and was diagnosed with non-Hodgkin's lymphoma and subsequently developed pancreatic insufficiency. Diagnosis according to family was large B-cell lymphoma for which she received six cycles of R-CHOP. PAST MEDICAL HISTORY 1. Anemia 2. Cataracts 3. Depression 4. Diabetes type 2 5. Possible pancreatic insufficiency. ALLERGIES LYRICA MEDICATIONS Prior to admission, 1. Creon 2. Lexapro 3. Glyburide 4. Megace 5. Metoprolol 6. Provigil 7. Omeprazole 8. Rifaxin Current medicines. include Cefepime FAMILY HISTORY Mother age 79 of breast cancer. Father age 60 of heart disease. She has two brothers who are alive. She had a brother who of a brain tumor. Both children are alive. Her mother of supranuclear palsy and also had metastatic breast cancer. REVIEW OF SYSTEMS CONSTITUTIONAL: Notable for decreased appetite, fatigue, 30-40 pound weight loss. HEENT: The patient wears glasses. No neck pain. ENDOCRINE: Notable for problems with fluctuating blood sugars. She denies any adenopathy. There are no breast masses. No shortness of breath. No chest pain. She has nausea, occasional vomiting. She has some mild incontinence and muscle weakness. No skin problems or neurologic problems. PSYCHIATRIC: She has depression. PHYSICAL EXAMINATION GENERAL: A frail female appearing much older than her stated age. VITAL SIGNS: Blood pressure 112/70, respiratory rate 18, pulse is 90 afebrile. O2 sat 99%. HEENT: Head is normocephalic. Sclerae and conjunctivae are normal. Oropharynx unremarkable. BREASTS: No masses. HEART: Regular rhythm. LUNGS: Clear. LYMPH: There is no enlargement of lymph nodes. ABDOMEN: Soft. There is no hepatosplenomegaly or masses. No tenderness. EXTREMITIES: No edema. MUSCULOSKELETAL: No muscle wasting. NEUROLOGIC: Generalized weakness but not focal weakness. Cognition, affect are normal. SKIN: Unremarkable. ASSESSMENT The patient is a 66-year-old female who has had lymphoma dating back to 2004 and then had a recurrence in 2008 or 2009 which involve the bone marrow with a low grade lymphoma. Over the past year, there has been a generalized deterioration in health which has accelerated. She has occasional night sweats, weakness, fatigue and what appears to be enlarging mass in the upper abdomen and anemia. PLAN 1. A bone marrow aspirate and biopsy was done. If this is lymphoma, I may be able to make a diagnosis with the bone marrow. material sent for flow cytometry. 2. I have spoken with some of my surgical colleagues and I would very much like to have a laparoscopic biopsy of the mass if possible. This may be difficult because of its location and previous surgery. I have ordered an LDH, serum cortisol level, repeat CBC and as indicated above the bone marrow aspirate and biopsy was done. I am in the process of transporting the material to the pathology department tonight. The fact that the upper abdominal mass appears larger certainly does suggest malignancy as well as her course. I would like her to stay in the hospital until we have a diagnosis as she does not appear stable. MD GUS Castro/ /9:02 PM /9:54 PM ALINA
[2017-05-06] VITALS (14 sets, daily range): BP systolic 95–116; BP diastolic 54–68; PULSE 73–85; RESP 17–18; TEMP 96.8–99.4; O2SAT 95–99
[2017-05-06] MEDS: INSULIN NovoLIN REGULAR SUPPLEMENTAL SCALE SQ SCH ×4 (05:45→20:19)
[2017-05-06 06:41] LABS: MAGNESIUM 1.9 MG/DL (1.5-2.5); POTASSIUM 3.3 MEQ/L (3.5-5.1)
[2017-05-06 06:44] LABS: INDIRECT BILIRUBIN 0.4 MG/DL (0.0-0.8); TOTAL BILIRUBIN ADULT 0.8 MG/DL (0.2-1.0)
[2017-05-06] MEDS: SUCRALFATE 1 GM TAB PO SCH ×4 (07:18→20:15)
[2017-05-06] MEDS: CEFEPIME INJ 2,000 MG in SODIUM CHLORIDE 0.9% INJ 100 ML IV SCH ×2 (08:24→20:16)
[2017-05-06 08:33] LABS: AUTOMATED NEUTROPHIL # 3.3 TH/MM3 (1.8-7.7); BASOPHIL % 0.3 % (0.0-2.0); EOSINOPHIL # 0.2 TH/MM3 (0-0.4); EOSINOPHIL % 4.1 % (0.0-4.0); HEMATOCRIT 21.6 % (35.0-46.0); HEMO FLAGS DIFF FINAL; LYMPH % 17.2 % (9.0-44.0); LYMPHOCYTE # 0.8 TH/MM3 (1.0-4.8); MEAN CORPUSCULAR HEMOGLOBIN 29.2 PG (27.0-34.0); MEAN CORPUSCULAR HGB CONC 33.2 % (32.0-36.0); MONO % 8.6 % (0.0-8.0); NEUT % 69.8 % (16.0-70.0); PLATELET COUNT 199 TH/MM3 (150-450); RED BLOOD COUNT 2.45 MIL/MM3 (4.00-5.30); RED CELL DISTRIBUTION WIDTH 15.2 % (11.6-17.2); WHITE BLOOD COUNT 4.7 TH/MM3 (4.0-11.0)
[2017-05-06] MEDS: METOPROLOL SUCCINATE 25 MG EXTENDED RELEASE TAB PO SCH (08:41)
[2017-05-06] MEDS: DOCUSATE SODIUM 50 MG/SENNA 8.6 MG TAB PO SCH ×2 (09:00→20:25)
[2017-05-06] MEDS: LIPASE/PROTEASE/AMYLASE (12,000/38,000/60,000) CAP PO SCH ×3 (09:30→18:30)
[2017-05-06] MEDS ORDERED: BENZOCAINE 20% ORAL SPR 60 ML CAN OROPHARYNG ONE (09:45)
[2017-05-06] MEDS ORDERED: SIMETHICONE SUSP DROPS 40 MG/0.6 ML 30 ML BTL ONE (09:56)
[2017-05-06] MEDS ORDERED: PROPOFOL 200 MG/20 ML AMP IV PUSH ONE (10:10)
--- NOTE | 2017-05-06 10:10 | HHI.GIFU ---
Subjective Remarks Immediate postop note: EGD with biopsy Indication: Mass in RUQ, diarrhea Meds: MAC Findings: Esophagus normal Stomach: normal post surgical anatomy Anastomosis healthy Jejunum normal. Biopsy taken for eval of diarrhea. Imp: No tumor seen on this examination Diarrhea Objective Vitals I&O Vital Signs Date Time Temp Pulse Resp B/P Pulse Ox O2 Delivery O2 Flow Rate FiO2 05/06/17 09:56 97 21 05/06/17 09:23 98.9 84 17 111/65 97 05/06/17 04:13 82 05/06/17 03:31 98.7 85 18 116/68 95 05/06/17 00:22 84 05/06/17 00:12 97.4 73 17 103/64 98 05/05/17 21:32 98.1 87 18 102/61 98 05/05/17 20:09 95 05/05/17 19:49 98.0 74 18 108/65 96 05/05/17 18:05 99 21 05/05/17 16:00 94 05/05/17 16:00 98.3 94 18 112/70 100 05/05/17 12:00 97.9 93 18 106/63 99 I/O 05/05/17 05/05/17 05/05/17 05/06/17 05/06/17 05/06/17 07:00 15:00 23:00 07:00 15:00 23:00 Intake Total 1441 ml 2394 ml 649 ml Balance 1441 ml 2394 ml 649 ml Intake Oral 360 ml 960 ml 0 ml IV Total 1081 ml 1434 ml 649 ml # Voids 4 5 3 # Bowel Movements 0 1 0 Laboratory Laboratory Tests Test 05/06/17 05/06/17 05:45 07:40 Potassium Level 3.3 Creatinine 0.39 Estimat Glomerular Filtration 163 Rate Phosphorus Level 2.6 Magnesium Level 1.9 Total Bilirubin 0.8 Direct Bilirubin 0.4 Indirect Bilirubin 0.4 Aspartate Amino Transf 75 (AST/SGOT) Alanine Aminotransferase 277 (ALT/SGPT) Alkaline Phosphatase 600 Lactate Dehydrogenase 124 Total Protein 5.4 Albumin 2.4 Tumor Marker Alpha Fetoprotein 1.0 Carcinoembryonic Antigen 1.3 CA 19-9 Antigen 52.0 Random Cortisol 3.5 White Blood Count 4.7 Red Blood Count 2.45 Hemoglobin 7.2 Hematocrit 21.6 Mean Corpuscular Volume 88.0 Mean Corpuscular Hemoglobin 29.2 Mean Corpuscular Hemoglobin 33.2 Concent Red Cell Distribution Width 15.2 Platelet Count 199 Mean Platelet Volume 10.3 Neutrophils (%) (Auto) 69.8 Lymphocytes (%) (Auto) 17.2 Monocytes (%) (Auto) 8.6 Eosinophils (%) (Auto) 4.1 Basophils (%) (Auto) 0.3 Neutrophils # (Auto) 3.3 Lymphocytes # (Auto) 0.8 Monocytes # (Auto) 0.4 Eosinophils # (Auto) 0.2 Basophils # (Auto) 0.0 CBC Comment DIFF FINAL Differential Comment Date/Time Procedure Status Source Growth 05/03/17 17:03 Influenza Types A,B Antigen (YAMILE) - Final Complete Nasal Aspirate NEGATIVE FOR FLU A AND B ANTIGEN.... 05/03/17 17:00 Urine Culture - Final Complete Urine Catheterized Urine Enterobacter Aerogenes 05/03/17 17:00 Aerobic Blood Culture - Preliminary Resulted Blood Peripheral NO GROWTH IN 2 DAYS 05/03/17 17:00 Anaerobic Blood Culture - Preliminary Resulted Blood Peripheral NO GROWTH IN 2 DAYS Physical Exam HEENT: PERRL; normocephalic; atraumatic; no jaundice. CHEST: CTA CARDIAC: tachy ABDOMEN: Soft, nondistended, nontender; no hepatosplenomegaly; bowel sounds are present in all four quadrants. EXTREMITIES: No clubbing, cyanosis, or edema. SKIN: Normal; no rash; no jaundice. 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 Assessment and Plan Plan ASSESSMENT - n/v - unclear etiology. not on chemo since Sep. on TPN. EGD/colonoscopy 04/13 --> no definite cause for sx found but significant bile reflux gastritis, path benign. - diarrhea, lower abd pain - 3-4 loose stools daily. - weight loss - 20 lbs since september - anemia - normocytic. Hgb 8.6 on admission. - elevated LFTs - unclear etiology. CT --> 1. Previous Whipple. Increasing mass in the estella hepatis of concern for local recurrence or metastatic adenopathy. no hx liver problems or significant ETOH use. will do tumor markers - hx non hodgkins lymphoma, pancreatic mass - Dx in 2004 and started chemotherapy. Of note, she also received chemotherapy in 2009 and afterwards stayed on a maintenance dose up until September of 2016. Pancreatic cancer was suspected, although because of location, she could not have a biopsy. S/P Whipple procedure in 2004. Pt reports that this was found to be benign. oncology following - sepsis - per primary, poss UTI, ID following PLAN - EGD negative for tumor. Biopsy taken from jejunum for eval of diarrhea. - rck LFTs - AFP, CEA, CA 19-9 - await stool cx - await c diff pcr - await liver w/u - supportive care - further recommendations to follow Ti Parkinson MD May 06, 2017 10:10
[2017-05-06 10:50] LABS: ANA SCREEN NEG (NEG)
[2017-05-06] MEDS: ESCITALOPRAM OXALATE 20 MG TAB PO SCH (11:42)
[2017-05-06] MEDS: PANTOPRAZOLE SOD 40 MG DELAYED RELEASE TAB PO SCH (11:42)
[2017-05-06] MEDS: MODAFINIL 200 MG TAB PO SCH ×2 (11:43→11:56)
[2017-05-06] MEDS: MEGESTROL ACETATE 40 MG TAB PO SCH ×4 (11:43→20:25)
[2017-05-06] MEDS: SODIUM CHLORIDE 0.9% FLUSH 10 ML FLUSH IV FLUSH SCH ×2 (11:44→20:19)
[2017-05-06] MEDS: SODIUM CHLOR 0.9% 1000 ML INJ 1,000 ML IV SCH ×2 (11:44→22:05)
[2017-05-06 12:01] LABS: C. DIFF EPI 027 PRESUMPTIVE NEGATIVE (NEGATIVE); C. DIFF TOXIN PCR NEGATIVE (NEGATIVE)
[2017-05-06] MEDS: PROMETHAZINE HCL 25 MG TAB PO PRN ×2 (13:50→20:26)
--- NOTE | 2017-05-06 14:08 | HHI.PR ---
Subjective Remarks Status post EGD today. Biopsies taken of GI wall tissues to determine possible etiologies of her diarrhea. Bone biopsy results pending. GI mass may need a biopsy of bone biopsy shows no answers. Objective Vital Signs Date Time Temp Pulse Resp B/P Pulse Ox O2 Delivery O2 Flow Rate FiO2 05/06/17 10:42 99 21 05/06/17 10:22 76 18 99/58 99 05/06/17 10:12 78 18 98/59 100 05/06/17 10:02 97.6 79 18 91/57 99 05/06/17 09:56 97 21 05/06/17 09:23 98.9 84 17 111/65 97 05/06/17 08:00 96.8 84 17 111/65 97 05/06/17 04:13 82 05/06/17 03:31 98.7 85 18 116/68 95 05/06/17 00:22 84 05/06/17 00:12 97.4 73 17 103/64 98 05/05/17 21:32 98.1 87 18 102/61 98 05/05/17 20:09 95 05/05/17 19:49 98.0 74 18 108/65 96 05/05/17 18:05 99 21 05/05/17 16:00 94 05/05/17 16:00 98.3 94 18 112/70 100 I/O 05/05/17 05/05/17 05/05/17 05/06/17 05/06/17 05/06/17 07:00 15:00 23:00 07:00 15:00 23:00 Intake Total 1441 ml 2394 ml 649 ml 200 ml Balance 1441 ml 2394 ml 649 ml 200 ml Intake Oral 360 ml 960 ml 0 ml IV Total 1081 ml 1434 ml 649 ml Other 200 ml # Voids 4 5 3 # Bowel Movements 0 1 0 Result Diagram: 05/06/17 0740 05/06/17 0545 Procedures None Objective Remarks GENERAL: NAD, A&Ox3 HEAD: Normocephalic. NECK: Supple, trachea midline. No lymphadenopathy. EYES: No scleral icterus. No injection or drainage. CARDIOVASCULAR: Regular rate and rhythm without murmurs, gallops, or rubs. RESPIRATORY: Breath sounds equal bilaterally. No accessory muscle use. GASTROINTESTINAL: Abdomen soft, non-tender, nondistended. MUSCULOSKELETAL: No cyanosis, or edema. SKIN: Warm and dry. NEURO: No focal neurological deficitis. A/P Problem List: (1) History of non-Hodgkin's lymphoma ICD Code: Z85.72 (2) Chronic diarrhea ICD Code: K52.9 (3) Sepsis ICD Code: A41.9 (4) Elevated LFTs ICD Code: R79.89 (5) Generalized weakness ICD Code: R53.1 (6) DM (diabetes mellitus) ICD Code: E11.9 Assessment and Plan Assessment and Plan 66-year-old female admitted with sepsis, elevated LFTs, and diarrhea Severe Sepsis Resolved UTI secondary to Gram Negative Rods Continue Cefepime and Vancomycin Infectious disease doctor following Non Hodgkin lymphoma Chronic Bone biopsy pending Consider abdominal last biopsy based on bone biopsy findings Hydronephrosis No further workup needed per urology Weakness Continue physical therapy Protein calorie malnutrition Related to chronic diarrhea patient on TPN at home Albumin 3.0 Follow electrolytes and replace as needed DM, chronic Follow blood sugars Diabetic diet Insulin sliding scale DVT prophylaxis SCDs Discharge Planning Awaiting biopsy results Problem Qualifiers (1) Sepsis: Qualified Code: A41.9 - Sepsis, due to unspecified organism (2) DM (diabetes mellitus): David Flores MD May 06, 2017 14:08
--- NOTE | 2017-05-06 16:45 | PD.ONC.PN ---
Subjective Subjective Remarks remains weak and frail Objective Data Date Time Temp Pulse Resp B/P Pulse Ox O2 Delivery O2 Flow Rate FiO2 05/06/17 12:00 97.8 77 18 107/60 98 05/06/17 10:42 99 21 05/06/17 10:22 76 18 99/58 99 05/06/17 10:12 78 18 98/59 100 05/06/17 10:02 97.6 79 18 91/57 99 05/06/17 09:56 97 21 05/06/17 09:23 98.9 84 17 111/65 97 05/06/17 08:00 96.8 84 17 111/65 97 05/06/17 08:00 74 05/06/17 04:13 82 05/06/17 03:31 98.7 85 18 116/68 95 05/06/17 00:22 84 05/06/17 00:12 97.4 73 17 103/64 98 05/05/17 21:32 98.1 87 18 102/61 98 05/05/17 20:09 95 05/05/17 19:49 98.0 74 18 108/65 96 05/05/17 18:05 99 21 05/06/17 05/06/17 05/06/17 07:00 15:00 23:00 Intake Total 649 ml 200 ml Balance 649 ml 200 ml Result Diagram: 05/06/17 0740 05/06/17 0545 Laboratory Results Laboratory Tests Test 05/06/17 05/06/17 05/06/17 05:45 07:40 09:25 Potassium Level 3.3 MEQ/L Creatinine 0.39 MG/DL Estimat Glomerular Filtration 163 ML/MIN Rate Phosphorus Level 2.6 MG/DL Magnesium Level 1.9 MG/DL Total Bilirubin 0.8 MG/DL Direct Bilirubin 0.4 MG/DL Indirect Bilirubin 0.4 MG/DL Aspartate Amino Transf 75 U/L (AST/SGOT) Alanine Aminotransferase 277 U/L (ALT/SGPT) Alkaline Phosphatase 600 U/L Lactate Dehydrogenase 124 U/L Total Protein 5.4 GM/DL Albumin 2.4 GM/DL Tumor Marker Alpha Fetoprotein 1.0 NG/ML Carcinoembryonic Antigen 1.3 NG/ML CA 19-9 Antigen 52.0 U/ML Random Cortisol 3.5 MCG/DL White Blood Count 4.7 TH/MM3 Red Blood Count 2.45 MIL/MM3 Hemoglobin 7.2 GM/DL Hematocrit 21.6 % Mean Corpuscular Volume 88.0 FL Mean Corpuscular Hemoglobin 29.2 PG Mean Corpuscular Hemoglobin 33.2 % Concent Red Cell Distribution Width 15.2 % Platelet Count 199 TH/MM3 Mean Platelet Volume 10.3 FL Neutrophils (%) (Auto) 69.8 % Lymphocytes (%) (Auto) 17.2 % Monocytes (%) (Auto) 8.6 % Eosinophils (%) (Auto) 4.1 % Basophils (%) (Auto) 0.3 % Neutrophils # (Auto) 3.3 TH/MM3 Lymphocytes # (Auto) 0.8 TH/MM3 Monocytes # (Auto) 0.4 TH/MM3 Eosinophils # (Auto) 0.2 TH/MM3 Basophils # (Auto) 0.0 TH/MM3 CBC Comment DIFF FINAL Differential Comment Stool C. difficile Toxin (PCR) NEGATIVE Stl C. difficile Toxin PRESUMPTIVE Epiderm 027 NEGATIVE Item Value Date Time Random Cortisol 3.5 MCG/DL 05/06/17 0545 Culture Results Microbiology Date/Time Procedure Status Source Growth 05/03/17 17:00 Aerobic Blood Culture - Preliminary Resulted Blood Peripheral NO GROWTH IN 3 DAYS 05/03/17 17:00 Anaerobic Blood Culture - Preliminary Resulted Blood Peripheral NO GROWTH IN 3 DAYS 05/03/17 17:00 Urine Culture - Final Complete Urine Catheterized Urine Enterobacter Aerogenes 05/03/17 17:03 Influenza Types A,B Antigen (YAMILE) - Final Complete Nasal Aspirate NEGATIVE FOR FLU A AND B ANTIGEN.... 05/06/17 09:25 - Final Complete Stool Stool NO ENTERIC PATHOGENS DETECTED BY PCR... Administered Medications Medications (Trade) Dose Ordered Sig/Kaiser Route PRN Reason Start Time Stop Time Status Last Admin Dose Admin Cefepime HCl/ Sodium Chloride (Maxipime Inj/NS Inj) 100 ml @ 100 mls/hr Q12H IV 05/04/17 08:00 05/06/17 08:24 Sodium Chloride (NS Flush) 2 ml BID IV FLUSH 05/03/17 21:00 05/06/17 11:44 Acetaminophen (Tylenol) 650 mg Q4H PRN PO TEMP > 100.4 05/03/17 19:30 05/03/17 22:57 Senna/Docusate Sodium (Sultana-Colace) 1 tab BID PO 05/03/17 21:00 05/05/17 21:49 Dextrose (D50w (Vial) Inj) 50 ml UNSCH PRN IV HYPOGLYCEMIA-SEE COMMENTS 05/03/17 21:30 05/03/17 21:53 Escitalopram Oxalate (Lexapro) 20 mg DAILY PO 05/05/17 09:00 05/06/17 11:42 Megestrol Acetate (Megace) 20 mg QID PO 05/04/17 13:00 05/06/17 11:43 Metoprolol Succinate (Toprol Xl) 12.5 mg DAILY PO 05/05/17 09:00 05/06/17 08:41 Modafinil (Provigil) 200 mg DAILY PO 05/05/17 09:00 05/06/17 11:43 Modafinil (Provigil) 100 mg DAILY@12 PO 05/04/17 12:00 05/06/17 11:56 Pantoprazole Sodium 40 mg 40 mg DAILY PO 05/04/17 11:00 05/06/17 11:42 Sodium Chloride (NS 1000 ml Inj) 1,000 ml @ 84 mls/hr [id number] IV 05/04/17 10:15 05/06/17 11:44 Amylase/Lipase/ Protease (Creon 12-38-60) 6 cap TIDPC PO 05/04/17 18:30 05/06/17 13:08 Promethazine HCl (Phenergan) 25 mg Q6H PRN PO nausea 05/04/17 22:15 05/06/17 13:50 Sucralfate (Carafate) 1 gm ACHS PO 05/04/17 21:00 05/06/17 11:42 Objective Remarks GENERAL: frail and tired appearing. SKIN: Warm and dry. HEAD: Normocephalic. EYES: No scleral icterus. No injection or drainage. NECK: Supple, trachea midline. No JVD or lymphadenopathy. LYMPHATIC: No adenopathy. CARDIOVASCULAR: Regular rate and rhythm without murmurs. RESPIRATORY: Breath sounds equal bilaterally. No accessory muscle use. GASTROINTESTINAL: Abdomen soft, non-tender, nondistended. EXTREMITIES: No cyanosis, or edema. MUSCULOSKELETAL: muscle loss NEUROLOGICAL: generalized weakness. PSYCHIATRIC: Appropriate mood and affect; insight and judgment normal. Assessment/Plan Assessment 1: await results of bone marrow. the normal LDH speaks against extensive lymphoma or high grade lymphoma as LDH usually elevated. 2: I spoke with surgery, Dr. Pedroza and a laparoscopic bx of mass would not be easy due to location 3: cortisol level should be higher given stress. ? addisonian. I would like endocrine to see but do not know how to obtain a consult. 4. LFTs are worsening- await thoughts of GI. Very difficult case and no obvious explanation for deterioration. Get Keating MD May 06, 2017 16:45
[2017-05-06] MEDS: ACETAMINOPHEN 325 MG TAB PO PRN (17:04)
[2017-05-06] MEDS ORDERED: ACETAMINOPHEN 500 MG CPLT PO PRN (19:30)
[2017-05-06] MEDS ORDERED: BENZOCAINE 6 MG/MENTHOL 10 MG LOZENGE BUCCAL PRN (19:45)
[2017-05-06] MEDS: PHENOL 1.4% SOLN 180 ML BTL OROPHARYNG PRN (22:00)
[2017-05-06] MEDS: ACETAMINOPHEN/HYDROcodone 325 MG/7.5 MG TAB PO PRN (22:02)
[2017-05-07 04:23] VITALS: BP 121/70; PULSE 70; RESP 17; TEMP 98.8; O2SAT 98
[2017-05-07] MEDS ORDERED: PHARMACY ORDERED LAB ONE (05:45)
[2017-05-07 07:00] VITALS: BP 125/69; PULSE 85; RESP 17; TEMP 98.7; O2SAT 97
[2017-05-07] MEDS: INSULIN NovoLIN REGULAR SUPPLEMENTAL SCALE SQ SCH ×4 (07:00→20:40)
[2017-05-07] MEDS: SUCRALFATE 1 GM TAB PO SCH ×4 (07:20→20:41)
[2017-05-07] MEDS: LIPASE/PROTEASE/AMYLASE (12,000/38,000/60,000) CAP PO SCH ×3 (09:19→18:09)
[2017-05-07] MEDS: SODIUM CHLORIDE 0.9% FLUSH 10 ML FLUSH IV FLUSH SCH ×2 (09:19→20:41)
[2017-05-07] MEDS: CEFEPIME INJ 2,000 MG in SODIUM CHLORIDE 0.9% INJ 100 ML IV SCH ×2 (09:19→20:42)
[2017-05-07] MEDS: PANTOPRAZOLE SOD 40 MG DELAYED RELEASE TAB PO SCH (09:20)
[2017-05-07] MEDS: MEGESTROL ACETATE 40 MG TAB PO SCH ×4 (09:20→20:40)
[2017-05-07] MEDS: METOPROLOL SUCCINATE 25 MG EXTENDED RELEASE TAB PO SCH (09:20)
[2017-05-07] MEDS: MODAFINIL 200 MG TAB PO SCH ×2 (09:20→13:11)
[2017-05-07] MEDS: ESCITALOPRAM OXALATE 20 MG TAB PO SCH (09:20)
[2017-05-07] MEDS: DOCUSATE SODIUM 50 MG/SENNA 8.6 MG TAB PO SCH ×2 (09:20→20:40)
[2017-05-07] MEDS: ACETAMINOPHEN/HYDROcodone 325 MG/7.5 MG TAB PO PRN ×2 (09:21→15:11)
[2017-05-07] MEDS: PHENOL 1.4% SOLN 180 ML BTL OROPHARYNG PRN (09:26)
[2017-05-07] MEDS: SODIUM CHLOR 0.9% 1000 ML INJ 1,000 ML IV SCH ×2 (09:26→20:36)
[2017-05-07 10:42] LABS: MEAN CELL VOLUME 87.2 FL (80.0-100.0); MEAN CORPUSCULAR HEMOGLOBIN 28.8 PG (27.0-34.0); PLATELET COUNT 240 TH/MM3 (150-450); RED BLOOD COUNT 2.64 MIL/MM3 (4.00-5.30); RED CELL DISTRIBUTION WIDTH 14.8 % (11.6-17.2); REVIEW FLAG FINAL; WHITE BLOOD COUNT 5.6 TH/MM3 (4.0-11.0)
[2017-05-07] MEDS: PROMETHAZINE HCL 25 MG TAB PO PRN ×2 (10:55→22:58)
[2017-05-07 11:02] VITALS: BP 120/60; PULSE 76; RESP 16; TEMP 98.2; O2SAT 97
[2017-05-07 11:05] LABS: BICARBONATE 25.5 MEQ/L (21.0-32.0)
--- NOTE | 2017-05-07 12:02 | MP ---
cc: MADDIE BOWEN,HAYDEE HILLMAN JR., MD, M.D. DATE OF SURGERY: 05/06/2017 PROCEDURE Esophagogastroduodenoscopy with biopsy. INDICATION Mass in the right upper quadrant and diarrhea. REFERRING PHYSICIAN Dr. Haydee Flores and Dr. Bowen. PROCEDURE After informed consent was obtained the patient was placed in left side down position. She was sedated by the anesthesia service. After adequate sedation was achieved the Pentax video gastroscope was inserted in the oropharynx and advanced down through the esophagus into the stomach. It was then advanced through the anastomosis fairly deeply into the jejunum. The scope was then withdrawn slowly examining carefully. A few biopsies were obtained from the jejunal mucosal surface to evaluate her diarrhea. The scope was then withdrawn into the gastric lumen. It was retroflexed there, it was then straightened and pulled through the esophagus and the procedure was terminated. She tolerated the procedure well and was returned to the recovery area in good condition. FINDINGS 1. The esophagus was normal. 2. In the stomach there was normal-appearing postsurgical anatomy. 3. The anastomosis appeared healthy. 4. The jejunum appeared normal. Biopsies were taken for evaluation of her diarrhea. 5. No tumor was seen on this examination. IMPRESSION 1. Mass lesion apparently near the liver hilum, possibly a lymphoma. 2. Diarrhea of uncertain cause, biopsies pending. RECOMMENDATIONS 1. Await the biopsy results. 2. Await the results of the bone marrow biopsy. 3. Further diagnostic evaluation as indicated. Ti Parkinson MD [facility]/TLL /3:21 PM /11:57 AM
--- NOTE | 2017-05-07 15:44 | HHI.PR ---
Subjective Remarks Primary complaint today is mouth and throat pain. She has problems opening her mouth completely so full exam cannot be performed but there is some evidence of candidiasis. Flow cytometry of bone marrow is negative for neoplastic findings. Objective Vital Signs Date Time Temp Pulse Resp B/P Pulse Ox O2 Delivery O2 Flow Rate FiO2 05/07/17 11:02 98.2 76 16 120/60 97 05/07/17 07:00 98.7 85 17 125/69 97 05/07/17 04:23 98.8 70 17 121/70 98 05/06/17 23:01 98.1 74 18 109/59 95 05/06/17 22:00 100/60 05/06/17 19:36 98.5 76 17 95/54 97 05/06/17 18:00 97.5 05/06/17 16:00 77 05/06/17 16:00 99.4 76 18 106/67 96 I/O 05/06/17 05/06/17 05/06/17 05/07/17 05/07/17 05/07/17 07:00 15:00 23:00 07:00 15:00 23:00 Intake Total 649 ml 200 ml 1889 ml 720 ml Balance 649 ml 200 ml 1889 ml 720 ml Intake Oral 0 ml 840 ml 720 ml IV Total 649 ml 1049 ml Other 200 ml # Voids 3 8 6 # Bowel Movements 0 1 0 Result Diagram: 05/07/1791605/07/17916 Procedures None Objective Remarks GENERAL: NAD, A&Ox3 HEAD: Normocephalic. Erythema with trace evidence of danielito and mouth. NECK: Supple, trachea midline. No lymphadenopathy. EYES: No scleral icterus. No injection or drainage. CARDIOVASCULAR: Regular rate and rhythm without murmurs, gallops, or rubs. RESPIRATORY: Breath sounds equal bilaterally. No accessory muscle use. GASTROINTESTINAL: Abdomen soft, non-tender, nondistended. MUSCULOSKELETAL: No cyanosis, or edema. SKIN: Warm and dry. NEURO: No focal neurological deficitis. A/P Problem List: (1) History of non-Hodgkin's lymphoma ICD Code: Z85.72 (2) Chronic diarrhea ICD Code: K52.9 (3) Sepsis ICD Code: A41.9 (4) Elevated LFTs ICD Code: R79.89 (5) Generalized weakness ICD Code: R53.1 (6) DM (diabetes mellitus) ICD Code: E11.9 Assessment and Plan Assessment and Plan 66-year-old female admitted with sepsis, elevated LFTs, and diarrhea. Probiotics provided. Nystatin swish and swallow provided. Oral candidiasis Nystatin swish and swallow Severe Sepsis Resolved UTI secondary to Gram Negative Rods Continue Cefepime and Vancomycin Infectious disease doctor following Probiotics added Non Hodgkin lymphoma Chronic Bone biopsy pending Consider abdominal last biopsy based on bone biopsy findings Hydronephrosis No further workup needed per urology Weakness Continue physical therapy Protein calorie malnutrition Related to chronic diarrhea patient on TPN at home Albumin 3.0 Follow electrolytes and replace as needed DM, chronic Follow blood sugars Diabetic diet Insulin sliding scale DVT prophylaxis SCDs Discharge Planning Awaiting biopsy results Problem Qualifiers (1) Sepsis: Qualified Code: A41.9 - Sepsis, due to unspecified organism (2) DM (diabetes mellitus): David Flores MD May 07, 2017 15:43
[2017-05-07 15:45] VITALS: BP 106/62; PULSE 75; RESP 16; TEMP 98.7; O2SAT 98
[2017-05-07] MEDS ORDERED: NYSTATIN SUSP 500,000 U/5 ML CUP SWISH-SWAL ONE (15:45)
[2017-05-07] MEDS: LACTOBACILLUS ACIDOPHILUS TAB PO SCH (18:10)
[2017-05-07] MEDS: NYSTATIN SUSP 500,000 U/5 ML CUP SWISH-SWAL SCH ×2 (18:10→20:36)
[2017-05-07 20:25] VITALS: BP 111/63; PULSE 85; RESP 16; TEMP 98; O2SAT 100
[2017-05-07 23:53] LABS: MITOCHONDRIAL ABS LESS THAN 20.0 U (())
[2017-05-08] VITALS (7 sets, daily range): BP systolic 93–135; BP diastolic 63–78; PULSE 73–85; RESP 16–17; TEMP 96.7–99.1; O2SAT 97–99
[2017-05-08] MEDS: SUCRALFATE 1 GM TAB PO SCH ×4 (06:16→20:50)
[2017-05-08] MEDS: INSULIN NovoLIN REGULAR SUPPLEMENTAL SCALE SQ SCH ×4 (06:33→20:53)
[2017-05-08] MEDS: CEFEPIME INJ 2,000 MG in SODIUM CHLORIDE 0.9% INJ 100 ML IV SCH ×2 (08:00→20:49)
[2017-05-08] MEDS: DOCUSATE SODIUM 50 MG/SENNA 8.6 MG TAB PO SCH ×2 (09:00→20:51)
[2017-05-08] MEDS: SODIUM CHLORIDE 0.9% FLUSH 10 ML FLUSH IV FLUSH SCH ×2 (09:00→20:51)
--- NOTE | 2017-05-08 10:29 | PD.ONC.PN ---
Subjective Subjective Remarks Afebrile overnight. Patient resting in bed. Daughter concerned that patient has been voiding a lot. Objective Data Date Time Temp Pulse Resp B/P Pulse Ox O2 Delivery O2 Flow Rate FiO2 05/08/17 08:00 96.7 76 16 135/78 97 05/08/17 04:12 98.9 79 17 123/72 98 05/08/17 00:15 99.1 73 16 119/69 99 05/07/17 20:25 98.0 85 16 111/63 100 05/07/17 15:45 98.7 75 16 106/62 98 05/07/17 11:02 98.2 76 16 120/60 97 05/08/17 05/08/17 05/08/17 07:00 15:00 23:00 Intake Total 240 ml Balance 240 ml Result Diagram: 05/07/1791605/07/17916 Culture Results Microbiology Date/Time Procedure Status Source Growth 05/06/17 09:25 - Final Complete Stool Stool NO ENTERIC PATHOGENS DETECTED BY PCR... Administered Medications Medications (Trade) Dose Ordered Sig/Kaiser Route PRN Reason Start Time Stop Time Status Last Admin Dose Admin Cefepime HCl/ Sodium Chloride (Maxipime Inj/NS Inj) 100 ml @ 100 mls/hr Q12H IV 05/04/17 08:00 05/07/17 20:42 Sodium Chloride (NS Flush) 2 ml BID IV FLUSH 05/03/17 21:00 05/07/17 20:41 Senna/Docusate Sodium (Sultana-Colace) 1 tab BID PO 05/03/17 21:00 05/05/17 21:49 Dextrose (D50w (Vial) Inj) 50 ml UNSCH PRN IV HYPOGLYCEMIA-SEE COMMENTS 05/03/17 21:30 05/03/17 21:53 Escitalopram Oxalate (Lexapro) 20 mg DAILY PO 05/05/17 09:00 05/07/17 09:20 Megestrol Acetate (Megace) 20 mg QID PO 05/04/17 13:00 05/07/17 20:40 Metoprolol Succinate (Toprol Xl) 12.5 mg DAILY PO 05/05/17 09:00 05/07/17 09:20 Modafinil (Provigil) 200 mg DAILY PO 05/05/17 09:00 05/07/17 09:20 Modafinil (Provigil) 100 mg DAILY@12 PO 05/04/17 12:00 05/07/17 13:11 Pantoprazole Sodium 40 mg 40 mg DAILY PO 05/04/17 11:00 05/07/17 09:20 Sodium Chloride (NS 1000 ml Inj) 1,000 ml @ 84 mls/hr [id number] IV 05/04/17 10:15 05/07/17 20:36 Amylase/Lipase/ Protease (Creon 12-38-60) 6 cap TIDPC PO 05/04/17 18:30 05/07/17 18:09 Promethazine HCl (Phenergan) 25 mg Q6H PRN PO nausea 05/04/17 22:15 05/07/17 22:58 Sucralfate (Carafate) 1 gm ACHS PO 05/04/17 21:00 05/08/17 06:16 Acetaminophen/ Hydrocodone Bitart ([place] 7.5-325 Mg) 1 tab Q6H PRN PO PAIN SCALE 5 TO 10 05/06/17 17:30 05/07/17 15:11 Phenol (Chloraseptic [place]) 2 spray Q2H PRN OROPHARYNG Sore throat 05/06/17 17:30 05/07/17 09:26 Nystatin (Mycostatin Liq) 5 ml QID SWISH-SWAL 05/07/17 18:00 05/07/17 20:36 Lactobacillus Acidophilus (Lactinex) 1 tab TID PO 05/07/17 18:00 05/07/17 18:10 Objective Remarks GENERAL: Elderly female upright in bed in [facility]. SKIN: Warm and dry. HEAD: Normocephalic. EYES: No injection or drainage. NECK: Supple, trachea midline. CARDIOVASCULAR: +S1/S2 RESPIRATORY: Breath sounds equal bilaterally. No accessory muscle use. GASTROINTESTINAL: Abdomen soft, non-tender, nondistended. EXTREMITIES: No cyanosis NEUROLOGICAL: awake and alert, normal speech. Assessment/Plan Plan 1: pathology from bone marrow biopsy still pending. will await pathology. if pathology is negative would like to obtain a PET scan for further evaluation 2. will start on Hydrocortisone for low cortisone level. give 100mg IV q 8 x 3 doses today, then start Prednisone 5mg PO BID tomorrow. 3. reduce fluids to 42cc/hr, gentle hydration. Attending Statement The exam, history, and the medical decision-making described in the above note were completed with the assistance of the mid-level provider. I reviewed and agree with the findings presented. I attest that I had a [id number] encounter with the patient on the same day, and personally performed and documented my assessment and findings in the medical record. remains frail and anemic. cortisol level low normal in face of significant stress and we do not have endocrine available in hospital. will empirically replace cortisol and see if clinical improvement. So far marrow stains show a reactive marrow and not lymphoma with final stains pending. It may return to factory clerk that the anemia is secondary to some other process and not a primary marrow disease or related to infiltration from lymphoma. Will be very interested in a PET scan to evaluate ? mass in upper abd. remains a difficult case. Mignon Alonzo May 08, 2017 10:29 Get Keating MD May 08, 2017 15:43
[2017-05-08] MEDS: PROMETHAZINE HCL 25 MG TAB PO PRN (11:00)
[2017-05-08] MEDS: METOPROLOL SUCCINATE 25 MG EXTENDED RELEASE TAB PO SCH (11:01)
[2017-05-08] MEDS: ESCITALOPRAM OXALATE 20 MG TAB PO SCH (11:01)
[2017-05-08] MEDS: NYSTATIN SUSP 500,000 U/5 ML CUP SWISH-SWAL SCH ×4 (11:01→20:50)
[2017-05-08] MEDS: LACTOBACILLUS ACIDOPHILUS TAB PO SCH ×3 (11:02→18:04)
[2017-05-08] MEDS: MODAFINIL 200 MG TAB PO SCH ×2 (11:02→14:03)
[2017-05-08] MEDS: MEGESTROL ACETATE 40 MG TAB PO SCH ×4 (11:03→20:50)
[2017-05-08] MEDS: PANTOPRAZOLE SOD 40 MG DELAYED RELEASE TAB PO SCH (11:03)
[2017-05-08] MEDS: LIPASE/PROTEASE/AMYLASE (12,000/38,000/60,000) CAP PO SCH ×3 (11:04→18:05)
[2017-05-08 13:46] LABS: HEMATOCRIT 23.4 % (35.0-46.0); MEAN CELL VOLUME 86.6 FL (80.0-100.0); MEAN CORPUSCULAR HEMOGLOBIN 28.5 PG (27.0-34.0); MEAN CORPUSCULAR HGB CONC 32.8 % (32.0-36.0); PLATELET COUNT 296 TH/MM3 (150-450); RED CELL DISTRIBUTION WIDTH 14.7 % (11.6-17.2); REVIEW FLAG FINAL
[2017-05-08] MEDS: HYDROCORTISONE SOD SUCCINATE 100 MG VIAL IV PUSH SCH ×2 (13:55→20:49)
[2017-05-08 14:24] LABS: BICARBONATE 26.9 MEQ/L (21.0-32.0)
[2017-05-08 14:26] LABS: POTASSIUM 2.7 MEQ/L (3.5-5.1)
--- NOTE | 2017-05-08 14:44 | HHI.PR ---
Subjective Remarks Mouth and throat pain or improved. GI biopsy shows no abnormality. Complain present today of urinary frequency at night. She is on IV hydration and orally hydration also. Objective Vital Signs Date Time Temp Pulse Resp B/P Pulse Ox O2 Delivery O2 Flow Rate FiO2 05/08/17 11:00 98.6 85 16 124/76 98 05/08/17 08:00 96.7 76 16 135/78 97 05/08/17 04:12 98.9 79 17 123/72 98 05/08/17 00:15 99.1 73 16 119/69 99 05/07/17 20:25 98.0 85 16 111/63 100 05/07/17 15:45 98.7 75 16 106/62 98 I/O 05/07/17 05/07/17 05/07/17 05/08/17 05/08/17 05/08/17 06:59 14:59 22:59 06:59 14:59 22:59 Intake Total 720 ml 660 ml 240 ml 240 ml Balance 720 ml 660 ml 240 ml 240 ml Intake Oral 720 ml 660 ml 240 ml 240 ml # Voids 6 6 1 6 # Bowel Movements 0 1 1 0 Result Diagram: 05/08/17 1328 05/08/17 1328 Procedures None Objective Remarks GENERAL: NAD, A&Ox3 HEAD: Normocephalic. Erythema with trace evidence of danielito and mouth. NECK: Supple, trachea midline. No lymphadenopathy. EYES: No scleral icterus. No injection or drainage. CARDIOVASCULAR: Regular rate and rhythm without murmurs, gallops, or rubs. RESPIRATORY: Breath sounds equal bilaterally. No accessory muscle use. GASTROINTESTINAL: Abdomen soft, non-tender, nondistended. MUSCULOSKELETAL: No cyanosis, or edema. SKIN: Warm and dry. NEURO: No focal neurological deficitis. A/P Problem List: (1) History of non-Hodgkin's lymphoma ICD Code: Z85.72 (2) Chronic diarrhea ICD Code: K52.9 (3) Sepsis ICD Code: A41.9 (4) Elevated LFTs ICD Code: R79.89 (5) Generalized weakness ICD Code: R53.1 (6) DM (diabetes mellitus) ICD Code: E11.9 Assessment and Plan Assessment and Plan 66-year-old female admitted with sepsis, elevated LFTs, and diarrhea. Probiotics provided. Nystatin swish and swallow provided. Oral pain improving. IV fluids. Secondary to increased urinary frequency. Will monitor for dehydration and renal function. Oral candidiasis Nystatin swish and swallow Severe Sepsis Resolved UTI secondary to Gram Negative Rods Continue Cefepime and Vancomycin Infectious disease doctor following Probiotics added Non Hodgkin lymphoma Chronic Bone biopsy pending Consider abdominal last biopsy based on bone biopsy findings Hydronephrosis No further workup needed per urology Weakness Continue physical therapy Protein calorie malnutrition Related to chronic diarrhea patient on TPN at home Albumin 3.0 Follow electrolytes and replace as needed DM, chronic Follow blood sugars Diabetic diet Insulin sliding scale DVT prophylaxis SCDs Discharge Planning Awaiting biopsy results Problem Qualifiers (1) Sepsis: Qualified Code: A41.9 - Sepsis, due to unspecified organism (2) DM (diabetes mellitus): David Flores MD May 08, 2017 14:44
[2017-05-08] MEDS ORDERED: POTASSIUM CHLORIDE 10 MEQ CONTROLLED RELEASE TAB PO ONE (14:45)
[2017-05-08] MEDS ORDERED: PROCHLORPERAZINE MALEATE 10 MG TAB PO PRN (14:45)
--- NOTE | 2017-05-08 15:17 | HHI.GIFU ---
Subjective Remarks C/o nausea today. Zofran doesn't help. Compazine helps. Had 10/27 a smoothie. Objective Vitals I&O Vital Signs Date Time Temp Pulse Resp B/P Pulse Ox O2 Delivery O2 Flow Rate FiO2 05/08/17 11:00 98.6 85 16 124/76 98 05/08/17 08:00 96.7 76 16 135/78 97 05/08/17 04:12 98.9 79 17 123/72 98 05/08/17 00:15 99.1 73 16 119/69 99 05/07/17 20:25 98.0 85 16 111/63 100 05/07/17 15:45 98.7 75 16 106/62 98 I/O 05/07/17 05/07/17 05/07/17 05/08/17 05/08/17 05/08/17 06:59 14:59 22:59 06:59 14:59 22:59 Intake Total 720 ml 660 ml 240 ml 240 ml Balance 720 ml 660 ml 240 ml 240 ml Intake Oral 720 ml 660 ml 240 ml 240 ml # Voids 6 6 1 6 # Bowel Movements 0 1 1 0 Laboratory Laboratory Tests Test 05/08/17 13:28 White Blood Count 6.0 Red Blood Count 2.70 Hemoglobin 7.7 Hematocrit 23.4 Mean Corpuscular Volume 86.6 Mean Corpuscular Hemoglobin 28.5 Mean Corpuscular Hemoglobin 32.8 Concent Red Cell Distribution Width 14.7 Platelet Count 296 Mean Platelet Volume 8.9 Sodium Level 143 Potassium Level 2.7 Chloride Level 111 Carbon Dioxide Level 26.9 Anion Gap 5 Blood Urea Nitrogen 5 Creatinine 0.41 Estimat Glomerular Filtration 154 Rate Random Glucose 158 Calcium Level 8.4 Date/Time Procedure Status Source Growth 05/06/17 09:25 - Final Complete Stool Stool NO ENTERIC PATHOGENS DETECTED BY PCR... 05/03/17 17:03 Influenza Types A,B Antigen (YAMILE) - Final Complete Nasal Aspirate NEGATIVE FOR FLU A AND B ANTIGEN.... 05/03/17 17:00 Urine Culture - Final Complete Urine Catheterized Urine Enterobacter Aerogenes 05/03/17 17:00 Aerobic Blood Culture - Final Complete Blood Peripheral NO GROWTH IN 5 DAYS 05/03/17 17:00 Anaerobic Blood Culture - Final Complete Blood Peripheral NO GROWTH IN 5 DAYS Imaging Last Impressions Abdomen/Pelvis CT 05/05/17 0000 Signed Impressions: Service Date/Time: Friday, May 05, 2017 01:01 - CONCLUSION: 1. Previous Whipple. Increasing mass in the estella hepatis of concern for local recurrence or metastatic adenopathy. 2. Mild bilateral hydronephrosis/hydroureter now seen, etiology uncertain. Ernie Mccarty MD Chest X-Ray 05/03/17 1625 Signed Impressions: Service Date/Time: Wednesday, May 03, 2017 16:50 - CONCLUSION: No acute disease. Saman Salas MD Physical Exam HEENT: PERRL; normocephalic; atraumatic; no jaundice. CHEST: CTA CARDIAC: RRR ABDOMEN: Soft, nondistended, nontender; no hepatosplenomegaly; bowel sounds are present in all four quadrants. EXTREMITIES: No clubbing, cyanosis, or edema. SKIN: Normal; no rash; no jaundice. 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 Assessment and Plan Plan ASSESSMENT - n/v - unclear etiology. not on chemo since Sep. on TPN. 05-06-17 normal EGD, path benign EGD/colonoscopy 04/13/17 --> no definite cause for sx found but significant bile reflux gastritis, path benign. - diarrhea, lower abd pain - improved. c diff neg, neg for enteric pathogens - weight loss - 20 lbs since september - anemia - normocytic. Hgb 8.6 on admission. - elevated LFTs - unclear etiology. CT --> 1. Previous Whipple. Increasing mass in the estella hepatis of concern for local recurrence or metastatic adenopathy. no hx liver problems or significant ETOH use. CA 19 -9 elevated 52. liver w/u unremarkable for auto immune cause, hep neg. - hx non hodgkins lymphoma, pancreatic mass - Dx in 2004 and started chemotherapy. Of note, she also received chemotherapy in 2009 and afterwards stayed on a maintenance dose up until September of 2016. Pancreatic cancer was suspected, although because of location, she could not have a biopsy. S/P Whipple procedure in 2004. Pt reports that this was found to be benign. oncology following - sepsis - per primary, poss UTI, resolved - oral candidiasis - per primary swish and swallow - hypokalemia - per primary. oral supplementation PLAN - supportive care - further recommendations to follow - This pt seen by myself and Dr Parkinson and this note is written on his behalf Anupama Flores May 08, 2017 15:17
[2017-05-09] VITALS (7 sets, daily range): BP systolic 90–142; BP diastolic 52–76; PULSE 76–93; RESP 16–20; TEMP 97.7–98.8; O2SAT 95–99
[2017-05-09] MEDS: SUCRALFATE 1 GM TAB PO SCH ×4 (06:48→21:54)
[2017-05-09] MEDS: HYDROCORTISONE SOD SUCCINATE 100 MG VIAL IV PUSH SCH (06:49)
[2017-05-09] MEDS: INSULIN NovoLIN REGULAR SUPPLEMENTAL SCALE SQ SCH ×4 (06:49→22:09)
[2017-05-09 06:59] LABS: AUTOMATED NEUTROPHIL # 5.6 TH/MM3 (1.8-7.7); BASOPHIL % 0.2 % (0.0-2.0); EOSINOPHIL % 0.1 % (0.0-4.0); HEMATOCRIT 21.7 % (35.0-46.0); HEMO FLAGS DIFF FINAL; LYMPH % 17.1 % (9.0-44.0); LYMPHOCYTE # 1.3 TH/MM3 (1.0-4.8); MEAN CORPUSCULAR HEMOGLOBIN 29.8 PG (27.0-34.0); MEAN CORPUSCULAR HGB CONC 34.2 % (32.0-36.0); MONO % 7.6 % (0.0-8.0); PLATELET COUNT 309 TH/MM3 (150-450); RED CELL DISTRIBUTION WIDTH 14.9 % (11.6-17.2); WHITE BLOOD COUNT 7.4 TH/MM3 (4.0-11.0)
[2017-05-09 07:29] LABS: ALKALINE PHOSPHATASE 686 U/L (45-117); ALT (GPT) 210 U/L (10-53); ANION GAP 7 MEQ/L (5-15); AST (GOT) 102 U/L (15-37); BICARBONATE 25.8 MEQ/L (21.0-32.0); BLOOD UREA NITROGEN 7 MG/DL (7-18); CHLORIDE 110 MEQ/L (98-107); GLOMERULAR FILTRATION RATE 99 ML/MIN (>89); SODIUM (NA) 143 MEQ/L (136-145); TOTAL BILIRUBIN ADULT 0.3 MG/DL (0.2-1.0)
[2017-05-09 07:39] LABS: POTASSIUM 2.6 MEQ/L (3.5-5.1)
[2017-05-09] MEDS ORDERED: POTASSIUM CHLORIDE 10 MEQ CONTROLLED RELEASE TAB PO ONE ×2 (08:15→17:00)
[2017-05-09] MEDS ORDERED: predniSONE 5 MG TAB PO SCH (09:00)
[2017-05-09] MEDS: DOCUSATE SODIUM 50 MG/SENNA 8.6 MG TAB PO SCH ×2 (09:00→21:00)
[2017-05-09] MEDS: CEFEPIME INJ 2,000 MG in SODIUM CHLORIDE 0.9% INJ 100 ML IV SCH ×2 (09:19→22:05)
[2017-05-09] MEDS: SODIUM CHLORIDE 0.9% FLUSH 10 ML FLUSH IV FLUSH SCH ×2 (09:21→21:55)
[2017-05-09] MEDS: NYSTATIN SUSP 500,000 U/5 ML CUP SWISH-SWAL SCH ×4 (09:26→21:53)
[2017-05-09] MEDS: LIPASE/PROTEASE/AMYLASE (12,000/38,000/60,000) CAP PO SCH ×3 (09:26→17:52)
[2017-05-09] MEDS: MEGESTROL ACETATE 40 MG TAB PO SCH ×4 (09:27→21:55)
[2017-05-09] MEDS: ESCITALOPRAM OXALATE 20 MG TAB PO SCH (09:27)
[2017-05-09] MEDS: LACTOBACILLUS ACIDOPHILUS TAB PO SCH ×3 (09:27→17:52)
[2017-05-09] MEDS: MODAFINIL 200 MG TAB PO SCH ×2 (09:27→11:55)
[2017-05-09] MEDS: METOPROLOL SUCCINATE 25 MG EXTENDED RELEASE TAB PO SCH (09:28)
[2017-05-09] MEDS: PANTOPRAZOLE SOD 40 MG DELAYED RELEASE TAB PO SCH (09:28)
--- NOTE | 2017-05-09 11:05 | PD.ONC.PN ---
Subjective Subjective Remarks Afebrile overnight Patient states overall she feels much better Tolerating more by mouth intake Objective Data Date Time Temp Pulse Resp B/P Pulse Ox O2 Delivery O2 Flow Rate FiO2 05/09/17 08:00 98.2 86 16 142/76 98 05/09/17 04:30 98.4 80 16 111/58 99 05/09/17 00:25 97.7 76 16 104/56 98 05/08/17 21:00 80 05/08/17 20:35 98.0 78 16 93/63 99 05/08/17 15:46 99.0 75 16 109/63 97 05/08/17 11:00 98.6 85 16 124/76 98 05/09/17 05/09/17 05/09/17 07:00 15:00 23:00 Intake Total 120 ml Balance 120 ml Result Diagram: 05/09/17 0640 05/09/17 0640 Laboratory Results Laboratory Tests Test 05/08/17 05/09/17 13:28 06:40 White Blood Count 6.0 TH/MM3 7.4 TH/MM3 Red Blood Count 2.70 MIL/MM3 2.50 MIL/MM3 Hemoglobin 7.7 GM/DL 7.4 GM/DL Hematocrit 23.4 % 21.7 % Mean Corpuscular Volume 86.6 FL 87.0 FL Mean Corpuscular Hemoglobin 28.5 PG 29.8 PG Mean Corpuscular Hemoglobin 32.8 % 34.2 % Concent Red Cell Distribution Width 14.7 % 14.9 % Platelet Count 296 TH/MM3 309 TH/MM3 Mean Platelet Volume 8.9 FL 9.4 FL Sodium Level 143 MEQ/L 143 MEQ/L Potassium Level 2.7 MEQ/L 2.6 MEQ/L Chloride Level 111 MEQ/L 110 MEQ/L Carbon Dioxide Level 26.9 MEQ/L 25.8 MEQ/L Anion Gap 5 MEQ/L 7 MEQ/L Blood Urea Nitrogen 5 MG/DL 7 MG/DL Creatinine 0.41 MG/DL 0.60 MG/DL Estimat Glomerular Filtration 154 ML/MIN 99 ML/MIN Rate Random Glucose 158 MG/DL 205 MG/DL Calcium Level 8.4 MG/DL 8.4 MG/DL Neutrophils (%) (Auto) 75.0 % Lymphocytes (%) (Auto) 17.1 % Monocytes (%) (Auto) 7.6 % Eosinophils (%) (Auto) 0.1 % Basophils (%) (Auto) 0.2 % Neutrophils # (Auto) 5.6 TH/MM3 Lymphocytes # (Auto) 1.3 TH/MM3 Monocytes # (Auto) 0.6 TH/MM3 Eosinophils # (Auto) 0.0 TH/MM3 Basophils # (Auto) 0.0 TH/MM3 CBC Comment DIFF FINAL Differential Comment Total Bilirubin 0.3 MG/DL Aspartate Amino Transf 102 U/L (AST/SGOT) Alanine Aminotransferase 210 U/L (ALT/SGPT) Alkaline Phosphatase 686 U/L Total Protein 5.4 GM/DL Albumin 2.5 GM/DL Administered Medications Medications (Trade) Dose Ordered Sig/Kaiser Route PRN Reason Start Time Stop Time Status Last Admin Dose Admin Cefepime HCl/ Sodium Chloride (Maxipime Inj/NS Inj) 100 ml @ 100 mls/hr Q12H IV 05/04/17 08:00 05/09/17 09:19 Sodium Chloride (NS Flush) 2 ml BID IV FLUSH 05/03/17 21:00 05/09/17 09:21 Senna/Docusate Sodium (Sultana-Colace) 1 tab BID PO 05/03/17 21:00 05/05/17 21:49 Dextrose (D50w (Vial) Inj) 50 ml UNSCH PRN IV HYPOGLYCEMIA-SEE COMMENTS 05/03/17 21:30 05/03/17 21:53 Escitalopram Oxalate (Lexapro) 20 mg DAILY PO 05/05/17 09:00 05/09/17 09:27 Megestrol Acetate (Megace) 20 mg QID PO 05/04/17 13:00 05/09/17 09:27 Metoprolol Succinate (Toprol Xl) 12.5 mg DAILY PO 05/05/17 09:00 05/09/17 09:28 Modafinil (Provigil) 200 mg DAILY PO 05/05/17 09:00 05/09/17 09:27 Modafinil (Provigil) 100 mg DAILY@12 PO 05/04/17 12:00 05/08/17 14:03 Pantoprazole Sodium (Protonix) 40 mg DAILY PO 05/04/17 11:00 05/09/17 09:28 Amylase/Lipase/ Protease (Creon 12-38-60) 6 cap TIDPC PO 05/04/17 18:30 05/09/17 09:26 Promethazine HCl (Phenergan) 25 mg Q6H PRN PO nausea 05/04/17 22:15 05/08/17 11:00 Sucralfate (Carafate) 1 gm ACHS PO 05/04/17 21:00 05/09/17 06:48 Acetaminophen/ Hydrocodone Bitart ([place] 7.5-325 Mg) 1 tab Q6H PRN PO PAIN SCALE 5 TO 10 05/06/17 17:30 05/07/17 15:11 Phenol (Chloraseptic [place]) 2 spray Q2H PRN OROPHARYNG Sore throat 05/06/17 17:30 05/07/17 09:26 Nystatin (Mycostatin Liq) 5 ml QID SWISH-SWAL 05/07/17 18:00 05/09/17 09:26 Lactobacillus Acidophilus (Lactinex) 1 tab TID PO 05/07/17 18:00 05/09/17 09:27 Prochlorperazine Maleate (Compazine) 10 mg Q6H PRN PO nausea 05/08/17 14:45 05/08/17 16:30 Objective Remarks GENERAL: Elderly female upright in bed in no distress. SKIN: Warm and dry. HEAD: Normocephalic. EYES: No injection or drainage. NECK: Supple, trachea midline. CARDIOVASCULAR: +S1/S2. No murmur RESPIRATORY: Clear anteriorly. Breathing unlabored. GASTROINTESTINAL: Abdomen soft, non-tender, nondistended. EXTREMITIES: No cyanosis NEUROLOGICAL: Moving all extremities. Normal speech. Assessment/Plan Problem List: (1) Generalized weakness Status: Acute Plan: -- Patient has history of large cell lymphoma --Significant decrease in health over the last 6 months with weight loss, night sweats and failure to thrive. Plan 1: Continue prednisone 5 mg twice a day when discharged for low cortisone levels. 2. Await bone marrow biopsy results. Preliminary results show reactive process. 3. Will definitely need PET scan outpatient. 4. Will give 1 unit PRBC today for Hgb of 7.4 and then she is clear for discharge from oncology standpoint. Attending Statement The exam, history, and the medical decision-making described in the above note were completed with the assistance of the mid-level provider. I reviewed and agree with the findings presented. I attest that I had a [id number] encounter with the patient on the same day, and personally performed and documented my assessment and findings in the medical record. long discussion with patient and daughter symptoms of fatigue/anorexia/weight loss over the last 6 months--concern for disease relapse//hx of NHL s/p R-CHOP BM bx final results pending anemia--transfuse 1 unit of pRBC today poor oral intake --was on TPN at home--albumin 2.4--enourage oral intake// ensure or boost . 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
[2017-05-09] MEDS: PROMETHAZINE HCL 25 MG TAB PO PRN (11:55)
[2017-05-09] MEDS ORDERED: ACETAMINOPHEN 325 MG TAB PO PRN (15:30)
[2017-05-09] MEDS ORDERED: SODIUM CHLOR 0.9% 250 ML INJ 250 ML IV ONE (15:30)
--- NOTE | 2017-05-09 16:32 | HHI.GIFU ---
Subjective Remarks Pt resting in bed, at bedside. She is feeling better and eating "like a pig." 1 formed BM today and 1 last night "almost normal" per pt. Per RN she is eating much better. (Anupama Flores) Objective Vitals I&O Vital Signs Date Time Temp Pulse Resp B/P Pulse Ox O2 Delivery O2 Flow Rate FiO2 05/09/17 13:00 98.8 90 20 118/62 97 05/09/17 08:00 98.2 86 16 142/76 98 05/09/17 04:30 98.4 80 16 111/58 99 05/09/17 00:25 97.7 76 16 104/56 98 05/08/17 21:00 80 05/08/17 20:35 98.0 78 16 93/63 99 I/O 05/08/17 05/08/17 05/08/17 05/09/17 05/09/17 05/09/17 07:00 15:00 23:00 07:00 15:00 23:00 Intake Total 240 ml 720 ml 240 ml 120 ml Balance 240 ml 720 ml 240 ml 120 ml Intake Oral 240 ml 720 ml 240 ml 120 ml # Voids 6 6 1 # Bowel Movements 0 0 0 Laboratory Laboratory Tests Test 05/09/17 05/09/17 06:40 14:10 White Blood Count 7.4 Red Blood Count 2.50 Hemoglobin 7.4 Hematocrit 21.7 Mean Corpuscular Volume 87.0 Mean Corpuscular Hemoglobin 29.8 Mean Corpuscular Hemoglobin 34.2 Concent Red Cell Distribution Width 14.9 Platelet Count 309 Mean Platelet Volume 9.4 Neutrophils (%) (Auto) 75.0 Lymphocytes (%) (Auto) 17.1 Monocytes (%) (Auto) 7.6 Eosinophils (%) (Auto) 0.1 Basophils (%) (Auto) 0.2 Neutrophils # (Auto) 5.6 Lymphocytes # (Auto) 1.3 Monocytes # (Auto) 0.6 Eosinophils # (Auto) 0.0 Basophils # (Auto) 0.0 CBC Comment DIFF FINAL Differential Comment Sodium Level 143 Potassium Level 2.6 2.7 Chloride Level 110 Carbon Dioxide Level 25.8 Anion Gap 7 Blood Urea Nitrogen 7 Creatinine 0.60 Estimat Glomerular Filtration 99 Rate Random Glucose 205 Calcium Level 8.4 Total Bilirubin 0.3 Aspartate Amino Transf 102 (AST/SGOT) Alanine Aminotransferase 210 (ALT/SGPT) Alkaline Phosphatase 686 Total Protein 5.4 Albumin 2.5 Date/Time Procedure Status Source Growth 05/06/17 09:25 - Final Complete Stool Stool NO ENTERIC PATHOGENS DETECTED BY PCR... Imaging Last Impressions Abdomen/Pelvis CT 05/05/17 0000 Signed Impressions: Service Date/Time: Friday, May 05, 2017 01:01 - CONCLUSION: 1. Previous Whipple. Increasing mass in the estella hepatis of concern for local recurrence or metastatic adenopathy. 2. Mild bilateral hydronephrosis/hydroureter now seen, etiology uncertain. Ernie Mccarty MD Chest X-Ray 05/03/17 1625 Signed Impressions: Service Date/Time: Wednesday, May 03, 2017 16:50 - CONCLUSION: No acute disease. Saman Salas MD Physical Exam HEENT: PERRL; normocephalic; atraumatic; no jaundice. CHEST: CTA CARDIAC: RRR ABDOMEN: Soft, nondistended, nontender; no hepatosplenomegaly; bowel sounds are present in all four quadrants. EXTREMITIES: No clubbing, cyanosis, or edema. SKIN: Normal; no rash; no jaundice. SALVAGE DIVER: No focal deficits; alert and oriented times three. (Anupama Flores [facility]) Assessment and Plan Plan ASSESSMENT - n/v - unclear etiology. improved today. not on chemo since Sep. on TPN. 05-06 normal EGD, path benign EGD/colonoscopy 04/13/17 --> no definite cause for sx found but significant bile reflux gastritis, path benign. - diarrhea, lower abd pain - improved. c diff neg, neg for enteric pathogens - weight loss - 20 lbs since september - anemia - normocytic. Hgb 8.6 on admission. - elevated LFTs - unclear etiology. CT --> 1. Previous Whipple. Increasing mass in the estella hepatis of concern for local recurrence or metastatic adenopathy. no hx liver problems or significant ETOH use. CA 19 -9 elevated 52. liver w/u unremarkable for auto immune cause, hep neg. - hx non hodgkins lymphoma, pancreatic mass - Dx in 2004 and started chemotherapy. Of note, she also received chemotherapy in 2009 and afterwards stayed on a maintenance dose up until September of 2016. Pancreatic cancer was suspected, although because of location, she could not have a biopsy. S/P Whipple procedure in 2004. Pt reports that this was found to be benign. oncology following bone marrow bx pending - sepsis - per primary, poss UTI, resolved - oral candidiasis - per primary swish and swallow - hypokalemia - per primary. oral supplementation still critically low PLAN - MIGUE - await bone marrow bx - supportive care - further recommendations to follow - This pt seen by myself and Dr Ferrer and this note is written on his behalf (Anupama Flores) Physician Comments patient was seen and examined, agree with above note and plan, stable from GI stand, we will FU as needed, and we will see her in office as needed. (Krissy Ferrer MD) Anupama Flores May 09, 2017 16:32 Krissy Ferrer MD May 09, 2017 16:54
--- NOTE | 2017-05-09 17:13 | HHI.PR ---
Subjective Remarks Hypokalemia this morning. Patient still does not feel well and has a poor appetite. No dehydration even though IV hydration has been discontinued. She does have improvement in urinary symptoms at night. Blood transfusion pending as ordered by another physician. Objective Vital Signs Date Time Temp Pulse Resp B/P Pulse Ox O2 Delivery O2 Flow Rate FiO2 05/09/17 13:00 98.8 90 20 118/62 97 05/09/17 08:00 98.2 86 16 142/76 98 05/09/17 04:30 98.4 80 16 111/58 99 05/09/17 00:25 97.7 76 16 104/56 98 05/08/17 21:00 80 05/08/17 20:35 98.0 78 16 93/63 99 I/O 05/08/17 05/08/17 05/08/17 05/09/17 05/09/17 05/09/17 07:00 15:00 23:00 07:00 15:00 23:00 Intake Total 240 ml 720 ml 240 ml 120 ml Balance 240 ml 720 ml 240 ml 120 ml Intake Oral 240 ml 720 ml 240 ml 120 ml # Voids 6 6 1 # Bowel Movements 0 0 0 Result Diagram: 05/09/17 0640 05/09/17 1410 Procedures None Objective Remarks GENERAL: NAD, A&Ox3 HEAD: Normocephalic. Erythema with trace evidence of danielito and mouth. NECK: Supple, trachea midline. No lymphadenopathy. EYES: No scleral icterus. No injection or drainage. CARDIOVASCULAR: Regular rate and rhythm without murmurs, gallops, or rubs. RESPIRATORY: Breath sounds equal bilaterally. No accessory muscle use. GASTROINTESTINAL: Abdomen soft, non-tender, nondistended. MUSCULOSKELETAL: No cyanosis, or edema. SKIN: Warm and dry. NEURO: No focal neurological deficitis. A/P Problem List: (1) History of non-Hodgkin's lymphoma ICD Code: Z85.72 (2) Chronic diarrhea ICD Code: K52.9 (3) Sepsis ICD Code: A41.9 (4) Elevated LFTs ICD Code: R79.89 (5) Generalized weakness ICD Code: R53.1 (6) DM (diabetes mellitus) ICD Code: E11.9 Assessment and Plan Assessment and Plan 66-year-old female admitted with sepsis, elevated LFTs, and diarrhea. Continue to monitor for dehydration by monitoring renal function. Continue to supplement potassium as needed based on hypokalemia findings. Daily weights added. IV Compazine provided for nausea. Oral candidiasis Nystatin swish and swallow Severe Sepsis Resolved UTI secondary to Gram Negative Rods Continue Cefepime and Vancomycin Infectious disease doctor following Probiotics added Non Hodgkin lymphoma Chronic Bone biopsy pending Consider abdominal last biopsy based on bone biopsy findings Hydronephrosis No further workup needed per urology Weakness Continue physical therapy Protein calorie malnutrition Related to chronic diarrhea patient on TPN at home Albumin 3.0 Follow electrolytes and replace as needed DM, chronic Follow blood sugars Diabetic diet Insulin sliding scale DVT prophylaxis SCDs Discharge Planning Awaiting biopsy results Problem Qualifiers (1) Sepsis: Qualified Code: A41.9 - Sepsis, due to unspecified organism (2) DM (diabetes mellitus): David Flores MD May 09, 2017 17:13
[2017-05-09] MEDS ORDERED: PROCHLORPERAZINE INJ 10 MG/2 ML VIAL IV PUSH PRN (17:15)
[2017-05-09] MEDS: predniSONE 5 MG TAB PO SCH (21:54)
[2017-05-10] VITALS (9 sets, daily range): BP systolic 101–134; BP diastolic 55–81; PULSE 60–84; RESP 14–18; TEMP 97.7–98.8; O2SAT 94–99
[2017-05-10] MEDS: SUCRALFATE 1 GM TAB PO SCH ×4 (05:54→21:42)
[2017-05-10] MEDS: INSULIN NovoLIN REGULAR SUPPLEMENTAL SCALE SQ SCH ×4 (05:55→21:00)
[2017-05-10 06:23] LABS: AUTOMATED NEUTROPHIL # 7.4 TH/MM3 (1.8-7.7); BASOPHIL % 0.3 % (0.0-2.0); EOSINOPHIL # 0.1 TH/MM3 (0-0.4); EOSINOPHIL % 0.9 % (0.0-4.0); HEMATOCRIT 26.2 % (35.0-46.0); HEMO FLAGS DIFF FINAL; LYMPH % 17.9 % (9.0-44.0); LYMPHOCYTE # 1.8 TH/MM3 (1.0-4.8); MEAN CELL VOLUME 86.9 FL (80.0-100.0); MEAN CORPUSCULAR HEMOGLOBIN 30.4 PG (27.0-34.0); MEAN CORPUSCULAR HGB CONC 34.9 % (32.0-36.0); MONO % 7.5 % (0.0-8.0); NEUT % 73.4 % (16.0-70.0); PLATELET COUNT 340 TH/MM3 (150-450); RED BLOOD COUNT 3.02 MIL/MM3 (4.00-5.30); RED CELL DISTRIBUTION WIDTH 14.7 % (11.6-17.2); WHITE BLOOD COUNT 10.1 TH/MM3 (4.0-11.0)
[2017-05-10 06:47] LABS: ANION GAP 6 MEQ/L (5-15); AST (GOT) 117 U/L (15-37); BICARBONATE 27.6 MEQ/L (21.0-32.0); BLOOD UREA NITROGEN 11 MG/DL (7-18); CHLORIDE 111 MEQ/L (98-107); GLOMERULAR FILTRATION RATE 108 ML/MIN (>89); POTASSIUM 3.2 MEQ/L (3.5-5.1); SODIUM (NA) 145 MEQ/L (136-145)
[2017-05-10 06:51] LABS: ALKALINE PHOSPHATASE 635 U/L (45-117); ALT (GPT) 231 U/L (10-53); TOTAL BILIRUBIN ADULT 1.3 MG/DL (0.2-1.0)
[2017-05-10] MEDS ORDERED: POTASSIUM CHLORIDE 10 MEQ CONTROLLED RELEASE TAB PO ONE (08:30)
[2017-05-10] MEDS: DOCUSATE SODIUM 50 MG/SENNA 8.6 MG TAB PO SCH ×2 (09:00→21:00)
[2017-05-10] MEDS: MODAFINIL 200 MG TAB PO SCH ×2 (09:00→12:40)
[2017-05-10] MEDS: CEFEPIME INJ 2,000 MG in SODIUM CHLORIDE 0.9% INJ 100 ML IV SCH (09:21)
[2017-05-10] MEDS: ESCITALOPRAM OXALATE 20 MG TAB PO SCH (09:22)
[2017-05-10] MEDS: LIPASE/PROTEASE/AMYLASE (12,000/38,000/60,000) CAP PO SCH ×3 (09:22→17:35)
[2017-05-10] MEDS: PANTOPRAZOLE SOD 40 MG DELAYED RELEASE TAB PO SCH (09:22)
[2017-05-10] MEDS: LACTOBACILLUS ACIDOPHILUS TAB PO SCH ×3 (09:22→17:35)
[2017-05-10] MEDS: predniSONE 5 MG TAB PO SCH ×2 (09:22→21:41)
[2017-05-10] MEDS: METOPROLOL SUCCINATE 25 MG EXTENDED RELEASE TAB PO SCH (09:22)
[2017-05-10] MEDS: NYSTATIN SUSP 500,000 U/5 ML CUP SWISH-SWAL SCH ×4 (09:22→21:41)
[2017-05-10] MEDS: MEGESTROL ACETATE 40 MG TAB PO SCH ×4 (09:23→21:42)
[2017-05-10] MEDS: SODIUM CHLORIDE 0.9% FLUSH 10 ML FLUSH IV FLUSH SCH ×2 (09:34→21:42)
--- NOTE | 2017-05-10 11:59 | HHI.PR ---
Subjective Remarks Feeling better this morning likely related to blood transfusion which occurred overnight. No new complaints. Potassium is slightly low this morning and replacement is provided. Bone marrow final results are still pending. Objective Vital Signs Date Time Temp Pulse Resp B/P Pulse Ox O2 Delivery O2 Flow Rate FiO2 05/10/17 08:00 97.9 75 18 131/79 97 05/10/17 04:00 98.2 74 14 134/81 98 05/10/17 02:00 98.5 80 14 125/73 98 05/10/17 01:45 98.4 80 14 114/67 98 05/10/17 01:30 98.8 78 14 116/69 99 05/09/17 23:45 98.5 76 16 111/65 97 05/09/17 20:00 91 05/09/17 19:50 98.4 93 16 90/52 95 05/09/17 13:00 98.8 90 20 118/62 97 I/O 05/09/17 05/09/17 05/09/17 05/10/17 05/10/17 05/10/17 07:00 15:00 23:00 07:00 15:00 23:00 Intake Total 120 ml 420 ml 120 ml Balance 120 ml 420 ml 120 ml Intake Oral 120 ml 420 ml 120 ml # Voids 1 2 1 # Bowel Movements 0 1 0 Result Diagram: 05/10/17 0555 05/10/17 0555 Procedures None Objective Remarks GENERAL: NAD, A&Ox3 HEAD: Normocephalic. Erythema with trace evidence of danielito and mouth. NECK: Supple, trachea midline. No lymphadenopathy. EYES: No scleral icterus. No injection or drainage. CARDIOVASCULAR: Regular rate and rhythm without murmurs, gallops, or rubs. RESPIRATORY: Breath sounds equal bilaterally. No accessory muscle use. GASTROINTESTINAL: Abdomen soft, non-tender, nondistended. MUSCULOSKELETAL: No cyanosis, or edema. SKIN: Warm and dry. NEURO: No focal neurological deficitis. A/P Problem List: (1) History of non-Hodgkin's lymphoma ICD Code: Z85.72 (2) Chronic diarrhea ICD Code: K52.9 (3) Sepsis ICD Code: A41.9 (4) Elevated LFTs ICD Code: R79.89 (5) Generalized weakness ICD Code: R53.1 (6) DM (diabetes mellitus) ICD Code: E11.9 Assessment and Plan Assessment and Plan 66-year-old female admitted with sepsis, elevated LFTs, and diarrhea. No signs of dehydration. Appetite improving. Continue to hold IV fluids. Check stool for occult blood. Follow potassium levels in the morning. Replacement provided today. Oral candidiasis Nystatin swish and swallow Severe Sepsis Resolved UTI secondary to Gram Negative Rods Continue Cefepime and Vancomycin Infectious disease doctor following Probiotics added Non Hodgkin lymphoma Chronic Bone biopsy pending Consider abdominal last biopsy based on bone biopsy findings Hydronephrosis No further workup needed per urology Weakness Continue physical therapy Protein calorie malnutrition Related to chronic diarrhea patient on TPN at home Albumin 3.0 Follow electrolytes and replace as needed DM, chronic Follow blood sugars Diabetic diet Insulin sliding scale DVT prophylaxis SCDs Discharge Planning Awaiting biopsy results Problem Qualifiers (1) Sepsis: Qualified Code: A41.9 - Sepsis, due to unspecified organism (2) DM (diabetes mellitus): David Flores MD May 10, 2017 11:59
[2017-05-10] MEDS: ACETAMINOPHEN/HYDROcodone 325 MG/7.5 MG TAB PO PRN ×2 (13:45→22:17)
--- NOTE | 2017-05-10 16:53 | HHI.IDPN ---
Subjective Subjective Remarks pt is doing OK afebrile denies disuria awaiting bone marrow bx results small bowel bx negative Antibiotics cefepime Allergies: Coded Allergies: Lyrica (Verified Allergy, Severe, neuro symptoms, 04/13/17) Objective . Vital Signs Date Time Temp Pulse Resp B/P Pulse Ox O2 Delivery O2 Flow Rate FiO2 05/10/17 12:00 98.2 84 18 129/74 98 05/10/17 08:00 97.9 75 18 131/79 97 05/10/17 04:00 98.2 74 14 134/81 98 05/10/17 02:00 98.5 80 14 125/73 98 05/10/17 01:45 98.4 80 14 114/67 98 05/10/17 01:30 98.8 78 14 116/69 99 05/09/17 23:45 98.5 76 16 111/65 97 05/09/17 20:00 91 05/09/17 19:50 98.4 93 16 90/52 95 05/09/17 05/09/17 05/10/17 15:00 23:00 07:00 Intake Total 420 ml 120 ml Balance 420 ml 120 ml Intake Oral 420 ml 120 ml # Voids 2 1 # Bowel Movements 1 0 . Laboratory Tests Test 05/09/17 05/10/17 06:40 05:55 White Blood Count 7.4 TH/MM3 10.1 TH/MM3 Red Blood Count 2.50 MIL/MM3 3.02 MIL/MM3 Hemoglobin 7.4 GM/DL 9.2 GM/DL Hematocrit 21.7 % 26.2 % Mean Corpuscular Volume 87.0 FL 86.9 FL Mean Corpuscular Hemoglobin 29.8 PG 30.4 PG Mean Corpuscular Hemoglobin 34.2 % 34.9 % Concent Red Cell Distribution Width 14.9 % 14.7 % Platelet Count 309 TH/MM3 340 TH/MM3 Mean Platelet Volume 9.4 FL 9.4 FL Neutrophils (%) (Auto) 75.0 % 73.4 % Lymphocytes (%) (Auto) 17.1 % 17.9 % Monocytes (%) (Auto) 7.6 % 7.5 % Eosinophils (%) (Auto) 0.1 % 0.9 % Basophils (%) (Auto) 0.2 % 0.3 % Neutrophils # (Auto) 5.6 TH/MM3 7.4 TH/MM3 Lymphocytes # (Auto) 1.3 TH/MM3 1.8 TH/MM3 Monocytes # (Auto) 0.6 TH/MM3 0.8 TH/MM3 Eosinophils # (Auto) 0.0 TH/MM3 0.1 TH/MM3 Basophils # (Auto) 0.0 TH/MM3 0.0 TH/MM3 CBC Comment DIFF FINAL DIFF FINAL Differential Comment Laboratory Tests Test 05/09/17 05/09/17 05/10/17 06:40 14:10 05:55 Sodium Level 143 MEQ/L 145 MEQ/L Potassium Level 2.6 MEQ/L 2.7 MEQ/L 3.2 MEQ/L Chloride Level 110 MEQ/L 111 MEQ/L Carbon Dioxide Level 25.8 MEQ/L 27.6 MEQ/L Anion Gap 7 MEQ/L 6 MEQ/L Blood Urea Nitrogen 7 MG/DL 11 MG/DL Creatinine 0.60 MG/DL 0.56 MG/DL Estimat Glomerular Filtration 99 ML/MIN 108 ML/MIN Rate Random Glucose 205 MG/DL 173 MG/DL Calcium Level 8.4 MG/DL 8.4 MG/DL Total Bilirubin 0.3 MG/DL 1.3 MG/DL Aspartate Amino Transf 102 U/L 117 U/L (AST/SGOT) Alanine Aminotransferase 210 U/L 231 U/L (ALT/SGPT) Alkaline Phosphatase 686 U/L 635 U/L Total Protein 5.4 GM/DL 5.5 GM/DL Albumin 2.5 GM/DL 2.7 GM/DL Imaging Last Impressions Abdomen/Pelvis CT 05/05/17 0000 Signed Impressions: Service Date/Time: Friday, May 05, 2017 01:01 - CONCLUSION: 1. Previous Whipple. Increasing mass in the estella hepatis of concern for local recurrence or metastatic adenopathy. 2. Mild bilateral hydronephrosis/hydroureter now seen, etiology uncertain. Ernie Mccarty MD Chest X-Ray 05/03/17 1625 Signed Impressions: Service Date/Time: Wednesday, May 03, 2017 16:50 - CONCLUSION: No acute disease. Saman Salas MD Physical Exam CONSTITUTIONAL/GENERAL: This is an ill appeariaring emaciated patient, in no apparent distress. TUBES/LINES/DRAINS: SKIN: No jaundice, rashes, or lesions. Skin temperature appropriate. Not diaphoretic. RESPIRATORY/CHEST: unlabored respirations. NEUROLOGICAL: Awake and alert.Grossly non focal . Clear speech. PSYCHIATRIC: No obvious anxiety/depression. no apparent hallucinations or other psychotic thought process. Assessment & Plan Remarks Fever, leukocytosis, abnormal LFTs CT with mass, no abscess - w/u in progress Weight loss UTI, Enterobacter fernandes S sp 7 days of abx Clinically stable , afebrile, no disuria and normal WBC dc cefepime give 3 more days of oral abx (cipro) to complete 10 days will sign off ; reconsult if needed Sadie Estevez MD May 10, 2017 16:53
[2017-05-10] MEDS: PROMETHAZINE HCL 25 MG TAB PO PRN (17:34)
[2017-05-10] MEDS: CIPROFLOXACIN 500 MG TAB PO SCH (21:42)
[2017-05-11 04:20] VITALS: BP 125/69; PULSE 65; RESP 16; TEMP 97.2; O2SAT 97
[2017-05-11] MEDS: SUCRALFATE 1 GM TAB PO SCH ×4 (06:20→20:53)
[2017-05-11] MEDS: INSULIN NovoLIN REGULAR SUPPLEMENTAL SCALE SQ SCH ×4 (06:20→20:54)
[2017-05-11 06:51] LABS: BASOPHIL % 0.4 % (0.0-2.0); EOSINOPHIL # 0.1 TH/MM3 (0-0.4); EOSINOPHIL % 1.4 % (0.0-4.0); HEMATOCRIT 28.2 % (35.0-46.0); LYMPH % 20.8 % (9.0-44.0); LYMPHOCYTE # 1.8 TH/MM3 (1.0-4.8); MEAN CELL VOLUME 87.5 FL (80.0-100.0); MEAN CORPUSCULAR HEMOGLOBIN 30.2 PG (27.0-34.0); MEAN CORPUSCULAR HGB CONC 34.5 % (32.0-36.0); MONO % 8.8 % (0.0-8.0); NEUT % 68.6 % (16.0-70.0); PLATELET COUNT 354 TH/MM3 (150-450); RED BLOOD COUNT 3.23 MIL/MM3 (4.00-5.30); RED CELL DISTRIBUTION WIDTH 15.2 % (11.6-17.2); WHITE BLOOD COUNT 8.8 TH/MM3 (4.0-11.0)
[2017-05-11 06:54] LABS: HEMO FLAGS AUTO DIFF
[2017-05-11 07:03] LABS: ALT (GPT) 246 U/L (10-53); ANION GAP 8 MEQ/L (5-15); AST (GOT) 105 U/L (15-37); BLOOD UREA NITROGEN 10 MG/DL (7-18); CHLORIDE 107 MEQ/L (98-107); GLOMERULAR FILTRATION RATE 132 ML/MIN (>89); POTASSIUM 3.5 MEQ/L (3.5-5.1); SODIUM (NA) 144 MEQ/L (136-145)
[2017-05-11 07:05] LABS: ALKALINE PHOSPHATASE 646 U/L (45-117); TOTAL BILIRUBIN ADULT 0.5 MG/DL (0.2-1.0)
[2017-05-11 07:27] LABS: OVALOCYTES 1+ (NORMAL); PLATELET ESTIMATE SMEAR NORMAL (NORMAL); PLATELET MORPHOLOGY NORMAL (NORMAL); SCAN/DIFF AUTO DIFF CONFIRMED
[2017-05-11 08:00] VITALS: BP 138/79; PULSE 69; RESP 17; TEMP 98.2; O2SAT 96
[2017-05-11] MEDS: DOCUSATE SODIUM 50 MG/SENNA 8.6 MG TAB PO SCH ×2 (09:00→20:54)
[2017-05-11] MEDS: SODIUM CHLORIDE 0.9% FLUSH 10 ML FLUSH IV FLUSH SCH ×2 (09:00→20:55)
[2017-05-11] MEDS: LACTOBACILLUS ACIDOPHILUS TAB PO SCH ×3 (09:28→17:19)
[2017-05-11] MEDS: PANTOPRAZOLE SOD 40 MG DELAYED RELEASE TAB PO SCH (09:28)
[2017-05-11] MEDS: CIPROFLOXACIN 500 MG TAB PO SCH ×2 (09:28→20:53)
[2017-05-11] MEDS: MODAFINIL 200 MG TAB PO SCH ×2 (09:29→11:41)
[2017-05-11] MEDS: NYSTATIN SUSP 500,000 U/5 ML CUP SWISH-SWAL SCH ×4 (09:31→20:55)
[2017-05-11] MEDS: ESCITALOPRAM OXALATE 20 MG TAB PO SCH (09:31)
[2017-05-11] MEDS: predniSONE 5 MG TAB PO SCH ×2 (09:31→20:53)
[2017-05-11] MEDS: METOPROLOL SUCCINATE 25 MG EXTENDED RELEASE TAB PO SCH (09:31)
[2017-05-11] MEDS: MEGESTROL ACETATE 40 MG TAB PO SCH ×4 (10:05→20:54)
[2017-05-11] MEDS: LIPASE/PROTEASE/AMYLASE (12,000/38,000/60,000) CAP PO SCH ×3 (10:06→17:19)
--- NOTE | 2017-05-11 11:47 | PD.ONC.PN ---
Subjective Subjective Remarks Afebrile overnight. Feeling stronger but still very fatigued. Daughter at bedside is concerned if patient goes home she will immediately regress. Objective Data Date Time Temp Pulse Resp B/P Pulse Ox O2 Delivery O2 Flow Rate FiO2 05/11/17 08:00 98.2 69 17 138/79 96 05/11/17 04:20 97.2 65 16 125/69 97 05/10/17 23:45 97.7 67 16 129/73 98 05/10/17 20:25 97.9 75 16 117/66 97 05/10/17 16:00 98.2 74 18 105/62 97 05/10/17 12:00 98.2 84 18 129/74 98 05/11/17 05/11/17 05/11/17 07:00 15:00 23:00 Intake Total 240 ml Balance 240 ml Result Diagram: 05/11/1725 05/11/17624 Laboratory Results Laboratory Tests Test 05/11/17 06:25 White Blood Count 8.8 TH/MM3 Red Blood Count 3.23 MIL/MM3 Hemoglobin 9.7 GM/DL Hematocrit 28.2 % Mean Corpuscular Volume 87.5 FL Mean Corpuscular Hemoglobin 30.2 PG Mean Corpuscular Hemoglobin 34.5 % Concent Red Cell Distribution Width 15.2 % Platelet Count 354 TH/MM3 Mean Platelet Volume 9.1 FL Neutrophils (%) (Auto) 68.6 % Lymphocytes (%) (Auto) 20.8 % Monocytes (%) (Auto) 8.8 % Eosinophils (%) (Auto) 1.4 % Basophils (%) (Auto) 0.4 % Neutrophils # (Auto) 6.0 TH/MM3 Lymphocytes # (Auto) 1.8 TH/MM3 Monocytes # (Auto) 0.8 TH/MM3 Eosinophils # (Auto) 0.1 TH/MM3 Basophils # (Auto) 0.0 TH/MM3 CBC Comment AUTO DIFF Differential Comment AUTO DIFF CONFIRMED Platelet Estimate NORMAL Platelet Morphology Comment NORMAL Ovalocytes 1+ Sodium Level 144 MEQ/L Potassium Level 3.5 MEQ/L Chloride Level 107 MEQ/L Carbon Dioxide Level 29.0 MEQ/L Anion Gap 8 MEQ/L Blood Urea Nitrogen 10 MG/DL Creatinine 0.47 MG/DL Estimat Glomerular Filtration 132 ML/MIN Rate Random Glucose 123 MG/DL Calcium Level 9.2 MG/DL Total Bilirubin 0.5 MG/DL Aspartate Amino Transf 105 U/L (AST/SGOT) Alanine Aminotransferase 246 U/L (ALT/SGPT) Alkaline Phosphatase 646 U/L Total Protein 6.0 GM/DL Albumin 2.8 GM/DL Administered Medications Medications (Trade) Dose Ordered Sig/Kaiser Route PRN Reason Start Time Stop Time Status Last Admin Dose Admin Sodium Chloride (NS Flush) 2 ml BID IV FLUSH 05/03/17 21:00 05/11/17 09:00 Senna/Docusate Sodium (Sultana-Colace) 1 tab BID PO 05/03/17 21:00 05/05/17 21:49 Dextrose (D50w (Vial) Inj) 50 ml UNSCH PRN IV HYPOGLYCEMIA-SEE COMMENTS 05/03/17 21:30 05/03/17 21:53 Escitalopram Oxalate (Lexapro) 20 mg DAILY PO 05/05/17 09:00 05/11/17 09:31 Megestrol Acetate (Megace) 20 mg QID PO 05/04/17 13:00 05/11/17 10:05 Metoprolol Succinate (Toprol Xl) 12.5 mg DAILY PO 05/05/17 09:00 05/11/17 09:31 Modafinil (Provigil) 200 mg DAILY PO 05/05/17 09:00 05/11/17 09:29 Modafinil (Provigil) 100 mg DAILY@12 PO 05/04/17 12:00 05/10/17 12:40 Pantoprazole Sodium (Protonix) 40 mg DAILY PO 05/04/17 11:00 05/11/17 09:28 Amylase/Lipase/ Protease (Creon 12-38-60) 6 cap TIDPC PO 05/04/17 18:30 05/11/17 10:06 Promethazine HCl (Phenergan) 25 mg Q6H PRN PO nausea 05/04/17 22:15 05/10/17 17:34 Sucralfate (Carafate) 1 gm ACHS PO 05/04/17 21:00 05/11/17 06:20 Acetaminophen/ Hydrocodone Bitart ([place] 7.5-325 Mg) 1 tab Q6H PRN PO PAIN SCALE 5 TO 10 05/06/17 17:30 05/10/17 22:17 Phenol (Chloraseptic [place]) 2 spray Q2H PRN OROPHARYNG Sore throat 05/06/17 17:30 05/07/17 09:26 Nystatin (Mycostatin Liq) 5 ml QID SWISH-SWAL 05/07/17 18:00 05/11/17 09:31 Lactobacillus Acidophilus (Lactinex) 1 tab TID PO 05/07/17 18:00 05/11/17 09:28 Prednisone (Deltasone) 5 mg BID PO 05/09/17 21:00 05/11/17 09:31 Ciprofloxacin (Cipro) 500 mg Q12HR PO 05/10/17 21:00 05/13/17 20:59 05/11/17 09:28 Objective Remarks GENERAL: Elderly female supine in bed SKIN: Warm and dry. HEAD: Normocephalic. EYES: No injection or drainage. NECK: Supple, trachea midline. CARDIOVASCULAR: +S1/S2 RESPIRATORY: Breath sounds equal bilaterally. No accessory muscle use. GASTROINTESTINAL: Abdomen soft, non-tender, nondistended. EXTREMITIES: No cyanosis NEUROLOGICAL: aox3. normal speech. moving all extremities. Assessment/Plan Plan 1: Continue prednisone 5 mg PO BID 2. daughter remains concerned about the patient's large urine output--will have nurse measure urine output over the next 24 hours 3. once discharged, will need to obtain outpatient PET scan 4. await bone marrow biopsy Mignon Alonzo May 11, 2017 11:47 Get Keating MD May 12, 2017 18:54
[2017-05-11 12:00] VITALS: BP 150/86; PULSE 99; RESP 18; TEMP 98.2; O2SAT 98
--- NOTE | 2017-05-11 14:58 | HHI.PR ---
Subjective Remarks No complaints today, patient eating better. Bone marrow biopsy pending. She says she didn't sleep well last night. Objective Vital Signs Date Time Temp Pulse Resp B/P Pulse Ox O2 Delivery O2 Flow Rate FiO2 05/11/17 12:00 98.2 99 18 150/86 98 05/11/17 08:00 98.2 69 17 138/79 96 05/11/17 04:20 97.2 65 16 125/69 97 05/10/17 23:45 97.7 67 16 129/73 98 05/10/17 20:25 97.9 75 16 117/66 97 05/10/17 16:00 98.2 74 18 105/62 97 I/O 05/10/17 05/10/17 05/10/17 05/11/17 05/11/17 05/11/17 07:00 15:00 23:00 07:00 15:00 23:00 Intake Total 120 ml 600 ml 320 ml 240 ml Balance 120 ml 600 ml 320 ml 240 ml Intake Oral 120 ml 600 ml 320 ml 240 ml # Voids 1 4 2 1 # Bowel Movements 0 2 0 0 Result Diagram: 05/11/1762405/11/17 0625 Procedures None Objective Remarks GENERAL: NAD, A&Ox3 HEAD: Normocephalic. Erythema with trace evidence of danielito and mouth. NECK: Supple, trachea midline. No lymphadenopathy. EYES: No scleral icterus. No injection or drainage. CARDIOVASCULAR: Regular rate and rhythm without murmurs, gallops, or rubs. RESPIRATORY: Breath sounds equal bilaterally. No accessory muscle use. GASTROINTESTINAL: Abdomen soft, non-tender, nondistended. MUSCULOSKELETAL: No cyanosis, or edema. SKIN: Warm and dry. NEURO: No focal neurological deficitis. A/P Problem List: (1) History of non-Hodgkin's lymphoma ICD Code: Z85.72 (2) Chronic diarrhea ICD Code: K52.9 (3) Sepsis ICD Code: A41.9 (4) Elevated LFTs ICD Code: R79.89 (5) Generalized weakness ICD Code: R53.1 (6) DM (diabetes mellitus) ICD Code: E11.9 Assessment and Plan Assessment and Plan 66-year-old female admitted with sepsis, elevated LFTs, and diarrhea. No signs of dehydration. Appetite improving. No signs of dehydration. Continue oral hydration. Monitor for recurrence of hypokalemia. CBC and BMP in a.m. Oral candidiasis Nystatin swish and swallow Severe Sepsis Resolved UTI secondary to Gram Negative Rods Continue Cefepime and Vancomycin Infectious disease doctor following Probiotics added Non Hodgkin lymphoma Chronic Bone biopsy pending Consider abdominal last biopsy based on bone biopsy findings Hydronephrosis No further workup needed per urology Weakness Continue physical therapy Protein calorie malnutrition Related to chronic diarrhea patient on TPN at home Albumin 3.0 Follow electrolytes and replace as needed DM, chronic Follow blood sugars Diabetic diet Insulin sliding scale DVT prophylaxis SCDs Discharge Planning Awaiting biopsy results Problem Qualifiers (1) Sepsis: Qualified Code: A41.9 - Sepsis, due to unspecified organism (2) DM (diabetes mellitus): David Flores MD May 11, 2017 2:58 pm
[2017-05-11 16:00] VITALS: BP 130/75; PULSE 82; RESP 18; TEMP 98.5; O2SAT 98
[2017-05-11 20:00] VITALS: BP 115/64; PULSE 84; RESP 17; TEMP 98.6; O2SAT 98
[2017-05-11 20:50] VITALS: PULSE 84
[2017-05-12] VITALS (12 sets, daily range): BP systolic 102–140; BP diastolic 54–81; PULSE 72–96; RESP 16–18; TEMP 97.6–98.7; O2SAT 96–98
[2017-05-12] MEDS: SUCRALFATE 1 GM TAB PO SCH ×4 (06:36→20:50)
[2017-05-12] MEDS: INSULIN NovoLIN REGULAR SUPPLEMENTAL SCALE SQ SCH (06:36)
[2017-05-12 07:03] LABS: HEMATOCRIT 30.4 % (35.0-46.0); MEAN CORPUSCULAR HEMOGLOBIN 29.9 PG (27.0-34.0); PLATELET COUNT 390 TH/MM3 (150-450); RED BLOOD COUNT 3.45 MIL/MM3 (4.00-5.30); RED CELL DISTRIBUTION WIDTH 15.7 % (11.6-17.2); REVIEW FLAG FINAL; WHITE BLOOD COUNT 9.5 TH/MM3 (4.0-11.0)
[2017-05-12 07:24] LABS: BICARBONATE 29.4 MEQ/L (21.0-32.0); POTASSIUM 3.6 MEQ/L (3.5-5.1)
--- NOTE | 2017-05-12 08:53 | PD.ONC.PN ---
Subjective Subjective Remarks Afebrile overnight. patient resting in bed. She feels somewhat better since starting the prednisone but not 100% better. Still very fatigued and "not myself." still concerned about the large amounts of urine she is producing. She feels she is urinating out more then she is taking in. Objective Data Date Time Temp Pulse Resp B/P Pulse Ox O2 Delivery O2 Flow Rate FiO2 05/12/17 04:00 97.6 73 16 140/73 98 05/12/17 00:00 98.6 77 17 123/68 97 05/11/17 20:50 84 05/11/17 20:00 98.6 84 17 115/64 98 05/11/17 16:00 98.5 82 18 130/75 98 05/11/17 12:00 98.2 99 18 150/86 98 Result Diagram: 05/12/17 0630 05/12/17 0630 Laboratory Results Laboratory Tests Test 05/12/17 06:30 White Blood Count 9.5 TH/MM3 Red Blood Count 3.45 MIL/MM3 Hemoglobin 10.3 GM/DL Hematocrit 30.4 % Mean Corpuscular Volume 88.0 FL Mean Corpuscular Hemoglobin 29.9 PG Mean Corpuscular Hemoglobin 34.0 % Concent Red Cell Distribution Width 15.7 % Platelet Count 390 TH/MM3 Mean Platelet Volume 9.1 FL Sodium Level 141 MEQ/L Potassium Level 3.6 MEQ/L Chloride Level 104 MEQ/L Carbon Dioxide Level 29.4 MEQ/L Anion Gap 8 MEQ/L Blood Urea Nitrogen 11 MG/DL Creatinine 0.58 MG/DL Estimat Glomerular Filtration 103 ML/MIN Rate Random Glucose 191 MG/DL Calcium Level 8.9 MG/DL Administered Medications Medications (Trade) Dose Ordered Sig/Kaiser Route PRN Reason Start Time Stop Time Status Last Admin Dose Admin Sodium Chloride (NS Flush) 2 ml BID IV FLUSH 05/03/17 21:00 05/11/17 20:55 Senna/Docusate Sodium (Sultana-Colace) 1 tab BID PO 05/03/17 21:00 05/05/17 21:49 Dextrose (D50w (Vial) Inj) 50 ml UNSCH PRN IV HYPOGLYCEMIA-SEE COMMENTS 05/03/17 21:30 05/03/17 21:53 Escitalopram Oxalate (Lexapro) 20 mg DAILY PO 05/05/17 09:00 05/11/17 09:31 Megestrol Acetate (Megace) 20 mg QID PO 05/04/17 13:00 05/11/17 20:54 Metoprolol Succinate (Toprol Xl) 12.5 mg DAILY PO 05/05/17 09:00 05/11/17 09:31 Modafinil (Provigil) 200 mg DAILY PO 05/05/17 09:00 05/11/17 09:29 Modafinil (Provigil) 100 mg DAILY@12 PO 05/04/17 12:00 05/11/17 11:41 Pantoprazole Sodium (Protonix) 40 mg DAILY PO 05/04/17 11:00 05/11/17 09:28 Amylase/Lipase/ Protease ([place] 12-38-60) 6 cap TIDPC PO 05/04/17 18:30 05/11/17 17:19 Promethazine HCl (Phenergan) 25 mg Q6H PRN PO nausea 05/04/17 22:15 05/10/17 17:34 Sucralfate (Carafate) 1 gm ACHS PO 05/04/17 21:00 05/12/17 06:36 Acetaminophen/ Hydrocodone Bitart ([place] 7.5-325 Mg) 1 tab Q6H PRN PO PAIN SCALE 5 TO 10 05/06/17 17:30 05/10/17 22:17 Phenol (Chloraseptic [place]) 2 spray Q2H PRN OROPHARYNG Sore throat 05/06/17 17:30 05/07/17 09:26 Nystatin (Mycostatin Liq) 5 ml QID SWISH-SWAL 05/07/17 18:00 05/11/17 20:55 Lactobacillus Acidophilus (Lactinex) 1 tab TID PO 05/07/17 18:00 05/11/17 17:19 Prednisone (Deltasone) 5 mg BID PO 05/09/17 21:00 05/11/17 20:53 Ciprofloxacin (Cipro) 500 mg Q12HR PO 05/10/17 21:00 05/13/17 20:59 05/11/17 20:53 Objective Remarks GENERAL: Elderly female supine in bed, weak appearing. SKIN: Warm and dry. HEAD: Normocephalic. EYES: No injection or drainage. NECK: Supple, trachea midline. CARDIOVASCULAR: +S1/S2 RESPIRATORY: Breath sounds equal bilaterally. No accessory muscle use. GASTROINTESTINAL: Abdomen soft, non-tender, nondistended. EXTREMITIES: No cyanosis NEUROLOGICAL: awake and alert, normal speech. Assessment/Plan Assessment 66y/o with malaise, weakness. Plan 1. bone marrow was normal. no evidence of a primary bone marrow disorder. 2. elevated liver enzymes of unclear etiology--will ask GI to see again, patient may benefit from liver biopsy 3. polyuria: unclear etiology, unfortunately we do not have endocrinologists inpatient. will ask nephrology to evaluate for ?diabetes insipidus, ? adrenal cortical insufficiency? 4. continue Prednisone 5mg PO BID 5. once discharged, will need to obtain outpatient PET scan. 6. this is a very complex case with no simple answers. extensive conversation held with patient and at bedside. Attending Statement The exam, history, and the medical decision-making described in the above note were completed with the assistance of the mid-level provider. I reviewed and agree with the findings presented. I attest that I had a [id number] encounter with the patient on the same day, and personally performed and documented my assessment and findings in the medical record. Patient remain frail and not well. Lfts are abnormal and have spoken with Dr. Oleary about doing a liver bx. patient is taking modafinil which can cause anorexia and may need to stop this medicine but will wait as other tests such as liver bx will be pending. hopefully we will find a unifying explanation and not what we have now. Mignon Alonzo May 12, 2017 08:51 Get Keating MD May 12, 2017 19:02
[2017-05-12] MEDS: DOCUSATE SODIUM 50 MG/SENNA 8.6 MG TAB PO SCH ×2 (09:00→20:51)
[2017-05-12] MEDS: SODIUM CHLORIDE 0.9% FLUSH 10 ML FLUSH IV FLUSH SCH ×2 (09:00→20:58)
[2017-05-12] MEDS: PANTOPRAZOLE SOD 40 MG DELAYED RELEASE TAB PO SCH (09:05)
[2017-05-12] MEDS: MEGESTROL ACETATE 40 MG TAB PO SCH ×4 (09:06→20:51)
[2017-05-12] MEDS: METOPROLOL SUCCINATE 25 MG EXTENDED RELEASE TAB PO SCH (09:06)
[2017-05-12] MEDS: predniSONE 5 MG TAB PO SCH ×2 (09:06→20:52)
[2017-05-12] MEDS: CIPROFLOXACIN 500 MG TAB PO SCH ×2 (09:06→20:52)
[2017-05-12] MEDS: NYSTATIN SUSP 500,000 U/5 ML CUP SWISH-SWAL SCH ×4 (09:06→20:52)
[2017-05-12] MEDS: ESCITALOPRAM OXALATE 20 MG TAB PO SCH (09:07)
[2017-05-12] MEDS: LACTOBACILLUS ACIDOPHILUS TAB PO SCH ×3 (09:07→18:28)
[2017-05-12] MEDS: LIPASE/PROTEASE/AMYLASE (12,000/38,000/60,000) CAP PO SCH ×3 (09:07→18:27)
[2017-05-12] MEDS: MODAFINIL 200 MG TAB PO SCH ×2 (09:07→11:27)
--- NOTE | 2017-05-12 09:27 | HHI.PR ---
Subjective Remarks Planning for liver biopsy. White blood cell count remains normal at 9.5. Hemoglobin has increased to 10.3. Potassium is stable at 3.6. Blood sugars at 191. Objective Vital Signs Date Time Temp Pulse Resp B/P Pulse Ox O2 Delivery O2 Flow Rate FiO2 05/12/17 08:00 98.0 72 18 122/74 98 05/12/17 04:00 97.6 73 16 140/73 98 05/12/17 00:00 98.6 77 17 123/68 97 05/11/17 20:50 84 05/11/17 20:00 98.6 84 17 115/64 98 05/11/17 16:00 98.5 82 18 130/75 98 05/11/17 12:00 98.2 99 18 150/86 98 I/O 05/11/17 05/11/17 05/11/17 05/12/17 05/12/17 05/12/17 07:00 15:00 23:00 07:00 15:00 23:00 Intake Total 240 ml 720 ml 50 ml Output Total 575 ml 600 ml Balance 240 ml 145 ml -550 ml Intake Oral 240 ml 720 ml 50 ml Output Urine Total 575 ml 600 ml # Voids 1 # Bowel Movements 0 1 0 Result Diagram: 05/12/17 0630 05/12/17 0630 Procedures None Objective Remarks GENERAL: NAD, A&Ox3 HEAD: Normocephalic. Erythema with trace evidence of danielito and mouth. NECK: Supple, trachea midline. No lymphadenopathy. EYES: No scleral icterus. No injection or drainage. CARDIOVASCULAR: Regular rate and rhythm without murmurs, gallops, or rubs. RESPIRATORY: Breath sounds equal bilaterally. No accessory muscle use. GASTROINTESTINAL: Abdomen soft, non-tender, nondistended. MUSCULOSKELETAL: No cyanosis, or edema. SKIN: Warm and dry. NEURO: No focal neurological deficitis. A/P Problem List: (1) History of non-Hodgkin's lymphoma ICD Code: Z85.72 (2) Chronic diarrhea ICD Code: K52.9 (3) Sepsis ICD Code: A41.9 (4) Elevated LFTs ICD Code: R79.89 (5) Generalized weakness ICD Code: R53.1 (6) DM (diabetes mellitus) ICD Code: E11.9 Assessment and Plan Assessment and Plan 66-year-old female admitted with sepsis, elevated LFTs, and diarrhea. No signs of dehydration. Appetite improving. Blood sugars elevated. Start insulin sliding scale. Follow potassium levels, white blood cell count, and hemoglobin levels. Continue to monitor blood sugars. Plan for liver biopsy as an inpatient. Oral candidiasis Nystatin swish and swallow Severe Sepsis Resolved UTI secondary to Gram Negative Rods Continue Cefepime and Vancomycin Infectious disease doctor following Probiotics added Non Hodgkin lymphoma Chronic Bone biopsy pending Consider abdominal last biopsy based on bone biopsy findings Hydronephrosis No further workup needed per urology Weakness Continue physical therapy Protein calorie malnutrition Related to chronic diarrhea patient on TPN at home Albumin 3.0 Follow electrolytes and replace as needed DM, chronic Follow blood sugars Diabetic diet Insulin sliding scale DVT prophylaxis SCDs Discharge Planning Awaiting biopsy results Problem Qualifiers (1) Sepsis: Qualified Code: A41.9 - Sepsis, due to unspecified organism (2) DM (diabetes mellitus): David Flores MD May 12, 2017 09:27
[2017-05-12] MEDS ORDERED: DEXTROSE 50% IN WATER 50 ML VIAL(D50) IV PRN (09:30)
[2017-05-12] MEDS ORDERED: GLUCAGON 1 MG/ML VIAL OTHER PRN (09:30)
--- NOTE | 2017-05-12 10:43 | PD.CONS ---
HPI Service Nephrology Consult Requested By Reason for Consult polyuria Primary Care Physician Azael Quispe MD History of Present Illness Ms. Louis was admitted with history of weight loss, nausea and vomiting. She is noted to have abnormal liver function. Liver biopsy is pending. Also has history of lymphoma for which she underwent bone marrow aspiration and biopsy. Results are pending, however flow cytometry is negative for malignant cells. Has history of type 2 diabetes and depression. UA on 05/03 revealed glucosuria, although corresponding blood glucose was 155. Review of Systems Constitutional: COMPLAINS OF: Fatigue, Weight loss, Change in appetite, DENIES : Chills, Night Sweats Respiratory: DENIES: Cough Cardiovascular: COMPLAINS OF: Palpitations, DENIES: Chest pain Gastrointestinal: COMPLAINS OF: Nausea, Vomiting, DENIES: Abdominal pain, Black stools, Bloody stools, Difficulty Swallowing Hematologic/lymphatic: DENIES: Lymphadenopathy Neurologic: DENIES: Abnormal gait, Headache Past Family Social History Allergies: Coded Allergies: Lyrica (Verified Allergy, Severe, neuro symptoms, 04/13/17) Past Medical History non Hodgkin lymphoma in remission, last dose in 09/2016 Tachycardia DM Depression Gerd Past Surgical History Whipple Tonsillectomy Appendectomy Hysterectomy Port placement Reported Medications Reported Medications Reported Meds & Active Scripts Active Reported Xifaxan (Rifaximin) 550 Mg Tab 550 Mg PO Q12HR Glyburide 2.5 Mg Tab 2.5 Mg PO BID Take with meals at the same time each day Megestrol (Megestrol Acetate) 20 Mg Tab 20 Mg PO QID Creon (Amylase/Lipase/Protease) 12,000-38,000-60,000 Units Cap 1 Cap PO TIDPC Metoprolol Succinate ER 24 HR (Metoprolol Succinate) 25 Mg Tab 12.5 Mg PO DAILY Provigil (Modafinil) 100 Mg Tab 100 Mg PO DAILY@1200 Provigil (Modafinil) 200 Mg Tab 200 Mg PO DAILY Lexapro (Escitalopram Oxalate) 20 Mg Tab 20 Mg PO DAILY Omeprazole 40 Mg Cap 40 Mg PO DAILY Active Ordered Medications Current Medications Medications (Trade) Dose Ordered Sig/Kaiser Route Start Time Stop Time Status Last Admin (NS Flush) 2 ml UNSCH PRN IV FLUSH 05/03/17 19:30 (NS Flush) 2 ml BID IV FLUSH 05/03/17 21:00 05/12/17 09:00 (Zofran Inj) 4 mg Q6H PRN IVP 05/03/17 19:30 Hold (Narcan Inj) 0.4 mg UNSCH PRN IV 05/03/17 19:30 (Sultana-Colace) 1 tab BID PO 05/03/17 21:00 05/05/17 21:49 (Milk Of Magnesia Liq) 30 ml Q12H PRN PO 05/03/17 19:30 (Senokot) 17.2 mg Q12H PRN PO 05/03/17 19:30 (Dulcolax Supp) 10 mg DAILY PRN RECTAL 05/03/17 19:30 (Lactulose Liq) 30 ml DAILY PRN PO 05/03/17 19:30 (Pill Splitter) 1 ea UNSCH PRN OTHER 05/03/17 22:15 (Lexapro) 20 mg DAILY PO 05/05/17 09:00 05/12/17 09:07 (Megace) 20 mg QID PO 05/04/17 13:00 05/12/17 09:06 (Toprol Xl) 12.5 mg DAILY PO 05/05/17 09:00 05/12/17 09:06 (Provigil) 200 mg DAILY PO 05/05/17 09:00 05/12/17 09:07 (Provigil) 100 mg DAILY@12 PO 05/04/17 12:00 05/11/17 11:41 (Protonix) 40 mg DAILY PO 05/04/17 11:00 05/12/17 09:05 (Creon 12-38-60) 6 cap TIDPC PO 05/04/17 18:30 05/12/17 09:07 (Phenergan) 25 mg Q6H PRN PO 05/04/17 22:15 05/10/17 17:34 (Carafate) 1 gm ACHS PO 05/04/17 21:00 05/12/17 06:36 (Tylenol) 500 mg Q4H PRN PO 05/06/17 19:30 ([place] 7.5-325 Mg) 1 tab Q6H PRN PO 05/06/17 17:30 05/10/17 22:17 (Chloraseptic [place]) 2 spray Q2H PRN OROPHARYNG 05/06/17 17:30 05/07/17 09:26 (Chloraseptic [place]) 1 lozenge UNSCH PRN BUCCAL 05/06/17 19:45 (Mycostatin Liq) 5 ml QID SWISH-SWAL 05/07/17 18:00 05/12/17 09:06 (Lactinex) 1 tab TID PO 05/07/17 18:00 05/12/17 09:07 (Deltasone) 5 mg BID PO 05/09/17 21:00 05/12/17 09:06 (Compazine Inj) 5 mg Q4H PRN IV PUSH 05/09/17 17:15 (Cipro) 500 mg Q12HR PO 05/10/17 21:00 05/13/17 20:59 05/12/17 09:06 (D50w (Vial) Inj) 50 ml UNSCH PRN IV 05/12/17 09:30 (Glucagon Inj) 1 mg UNSCH PRN OTHER 05/12/17 09:30 (Actigall) 300 mg Q12HR PO 05/12/17 21:00 Family History reviewed, non contributory Social History no tobacco, no ETOH Lives in [place] with her . Recently moved from [place] Physical Exam Vital Signs Vital Signs Date Time Temp Pulse Resp B/P Pulse Ox O2 Delivery O2 Flow Rate FiO2 05/12/17 08:00 98.0 72 18 122/74 98 05/12/17 04:00 97.6 73 16 140/73 98 05/12/17 00:00 98.6 77 17 123/68 97 05/11/17 20:50 84 05/11/17 20:00 98.6 84 17 115/64 98 05/11/17 16:00 98.5 82 18 130/75 98 05/11/17 12:00 98.2 99 18 150/86 98 Physical Exam GENERAL: Thin, alert, oriented. SKIN: Warm and dry. HEAD: Normocephalic. EYES: No scleral icterus. No injection or drainage. NECK: Supple, trachea midline. No JVD or lymphadenopathy. CARDIOVASCULAR: Regular rate and rhythm without murmurs, gallops, or rubs. RESPIRATORY: Breath sounds equal bilaterally. No accessory muscle use. GASTROINTESTINAL: Abdomen soft, non-tender, nondistended. MUSCULOSKELETAL: No cyanosis, or edema. BACK: Nontender without obvious deformity. No CVA tenderness. Laboratory Laboratory Tests Test 05/12/17 06:30 White Blood Count 9.5 Red Blood Count 3.45 Hemoglobin 10.3 Hematocrit 30.4 Mean Corpuscular Volume 88.0 Mean Corpuscular Hemoglobin 29.9 Mean Corpuscular Hemoglobin 34.0 Concent Red Cell Distribution Width 15.7 Platelet Count 390 Mean Platelet Volume 9.1 Sodium Level 141 Potassium Level 3.6 Chloride Level 104 Carbon Dioxide Level 29.4 Anion Gap 8 Blood Urea Nitrogen 11 Creatinine 0.58 Estimat Glomerular Filtration 103 Rate Random Glucose 191 Calcium Level 8.9 Result Diagram: 05/12/17 0630 05/12/17 0630 Assessment and Plan Problem List: (1) Polyuria Plan: Recorded urine output is only about 1200, so it does not satisfy diagnosis of polyuria. May have some degree of osmotic diuresis due to hyperglycemia. I do not think she has diabetes insipidus: hypernatremia is commonly found in this condition. Also does not appear to have risk factors for DI. Patient's specific gravity was not low. She did appear to have glucosuria although corresponding blood glucose was not very high. I will repeat UA. Also obtain urine and serum osmolality, urine Na and potassium. These values may help calculate osmolar clearance and free water clearance. Strict I/O charting. (2) Transaminitis Plan: liver biopsy is scheduled. (3) Protein calorie malnutrition Plan: has history of weight loss, chronic diarrhea. Workup in progress. (4) History of non-Hodgkin's lymphoma Plan: Hematology on the case. s/p bone marrow biopsy. (5) DM (diabetes mellitus) Plan: continue insulin coverage. Maintain blood glucose between 140 and 180 while hospitalized. Assessment and Plan Thanks for the consult. Problem Qualifiers (1) DM (diabetes mellitus): Remi Fuentes MD May 12, 2017 10:43
[2017-05-12] MEDS: INSULIN ASPART SUPPLEMENTAL SCALE SQ SCH ×3 (11:29→21:31)
--- NOTE | 2017-05-12 12:46 | HHI.GIFU ---
Subjective Remarks Resting in bed, states that she is feeling better than she has. States her appetite is much improved. No n/v. No abdominal pain. Moving bowels. (Rose Yu) Objective Vitals I&O Vital Signs Date Time Temp Pulse Resp B/P Pulse Ox O2 Delivery O2 Flow Rate FiO2 05/12/17 08:00 98.0 72 18 122/74 98 05/12/17 04:00 97.6 73 16 140/73 98 05/12/17 00:00 98.6 77 17 123/68 97 05/11/17 20:50 84 05/11/17 20:00 98.6 84 17 115/64 98 05/11/17 16:00 98.5 82 18 130/75 98 I/O 05/11/17 05/11/17 05/11/17 05/12/17 05/12/17 05/12/17 07:00 15:00 23:00 07:00 15:00 23:00 Intake Total 240 ml 720 ml 50 ml Output Total 575 ml 600 ml Balance 240 ml 145 ml -550 ml Intake Oral 240 ml 720 ml 50 ml Output Urine Total 575 ml 600 ml # Voids 1 # Bowel Movements 0 1 0 Laboratory Laboratory Tests Test 05/12/17 06:30 White Blood Count 9.5 Red Blood Count 3.45 Hemoglobin 10.3 Hematocrit 30.4 Mean Corpuscular Volume 88.0 Mean Corpuscular Hemoglobin 29.9 Mean Corpuscular Hemoglobin 34.0 Concent Red Cell Distribution Width 15.7 Platelet Count 390 Mean Platelet Volume 9.1 Sodium Level 141 Potassium Level 3.6 Chloride Level 104 Carbon Dioxide Level 29.4 Anion Gap 8 Blood Urea Nitrogen 11 Creatinine 0.58 Estimat Glomerular Filtration 103 Rate Random Glucose 191 Calcium Level 8.9 Date/Time Procedure Status Source Growth 05/12/17 09:57 Stool Occult Blood (YAMILE) - Final Complete Stool Stool HEMOCCULT NEGATIVE Imaging Last Impressions Abdomen/Pelvis CT 05/05/17 0000 Signed Impressions: Service Date/Time: Friday, May 05, 2017 01:01 - CONCLUSION: 1. Previous Whipple. Increasing mass in the estella hepatis of concern for local recurrence or metastatic adenopathy. 2. Mild bilateral hydronephrosis/hydroureter now seen, etiology uncertain. Ernie Mccarty MD Chest X-Ray 05/03/17 2153 Signed Impressions: Service Date/Time: Wednesday, May 03, 2017 16:50 - CONCLUSION: No acute disease. Saman Salas MD Physical Exam HEENT: Normocephalic; atraumatic; no jaundice. CHEST: CTA, shallow/diminished CARDIAC: RRR ABDOMEN: Soft, nondistended, nontender; no hepatosplenomegaly; bowel sounds are present in all four quadrants. EXTREMITIES: No clubbing, cyanosis, or edema. SKIN: Normal; no rash; no jaundice. MEMORY CARE PROGRAM RESIDENT: No focal deficits; alert and oriented times three. (Rose Yu [facility]) Assessment and Plan Plan ASSESSMENT - Reconsulted for elevated LFTs. Abdomen/Pelvis CT (05/05/17)------> 1. Previous Whipple. Increasing mass in the estella hepatis of concern for local recurrence or metastatic adenopathy. 2. Mild bilateral hydronephrosis/hydroureter now seen , etiology uncertain. Liver workup from 05/05---> Hepatitis profile negative, CANDIE negative, AMA < 20.0, ASMA negative, Celiac panel negative, AFP 1.0, Ca19-9 52.0, CEA 1.3, Ceruloplasmin 30, Alpha 1 Antitrypsin 248. She has a hx of Non-Hodkin's lymphoma and had been on CHOP and more recently Rituxan (last dose in September). LFTs persistently elevated, from yesterday, T. Bili 0.5, AST 105, ALT 246, Alk Phosph 646. Will get HIDA scan to rule out biliary obstruction, Alk phosph isoenzymes, liver biopsy. Trial of Actigall. Of note, she is on Cipro, but this was only started on 05/10 and therefore is likely not the cause of her liver enzyme derangement. She is also on Modafinil. - N/V/D with abnormal weight loss. EGD/colonoscopy (04/15/17)----> normal colonoscopy with bx taken, esophagus contained some phlegm and food residue in upper part, was dilated, gastritis in stomach brightly erythemaous with pile present refluxing via the gastrojejunostomy. Pathology with mildly active chronic fundic gastritis, no helicobacter like organisms are present, mild melanosis coli in ascending and descending colon. Rpt EGD for evaluation of mass in RUQ quadrant/diarrhea ( 05/06/17)-----> normal esophagus, in the stomach there was normal appearing post surgical anatomy, the anastomosis appeared healthy, the jejunum appeared normal, biopsies were taken for evaluation of diarrhea, no tumor was seen on this examination. Pathology revealed small bowel mucosa with no significant histopathologic abnormalities. The villous architecture is normal. Clinically improved. States her symptoms are much improved as is her appetite. Calorie count in progress, but she reports that she is eating majority of trays and more. Creon, PPI, Megace, Carafate. - Anemia, normocytic. 10.3/30.4. EGD/Colonoscopy as above. BM biopsy pending. - Abnormal imaging with increasing mass in the estella hepatis of concern for local recurrence or metastatic adenopathy. Oncology following, PET scan as outpatient - Polyuria, workup per renal. - UTI, DM per attending. - Hx Non-Hodgkin's lymphoma. Dx in 2004 and started chemotherapy. Of note, she also received chemotherapy in 2009 (CHOP) and afterwards stayed on a maintenance dose up until September of 2016 with Rituxan. - Hx Pancreatic head mass. Pancreatic cancer was suspected, although because of location, she could not have a biopsy. S/P Whipple procedure in 2004. Pt reports that this was found to be benign. PLAN - NPO for procedure - Consult IR for liver biopsy - HIDA scan to r/o obstruction - Alkaline phosphatase isoenzymes - Ferritin, Iron Saturation - Await final BM pathology, pending in computer - Monitor labs - Trial of Actigall - Avoid hepatotoxins - Supportive care - If liver biopsy negative, consider MRCP +/- EUS - Further recommendations to follow based onr esults of above - Pt seen and examined by Dr. Oleary and myself and this note is written on her behalf (Rose Yu) Physician Comments seen, examined agree with above (Zoe Oleary MD) Rose Yu May 12, 2017 12:46 Zoe Oleary MD May 12, 2017 17:09
--- NOTE | 2017-05-12 13:52 | RADRPT ---
EXAM DATE/TIME: 05/12/2017 12:57 [facility] COMPARISON: No previous studies available for comparison. INDICATIONS : Elevated LFT's, sepsis and diarrhea. Possible commom bile duct obstruction. DOSE: 4.4 mCi Tc99m Mebrofenin IV MEDICAL HISTORY : Diabetes mellitus type 2. SURGICAL HISTORY : Cholecystectomy. Hysterectomy. Appendectomy. ENCOUNTER: Initial ACUITY: 1 day PAIN SCALE: 0/10 LOCATION: Right upper quadrant TECHNIQUE: Following the intravenous administration of radiotracer, dynamic sequential images were performed wit h continuous acquisition. FINDINGS: HEPATIC KINETICS: There is prompt uptake of radiotracer in the liver. No focal defects are seen. There is normal rate of washout from the hepatic parenchyma. BILIARY CLEARANCE: Activity is first seen in the extrahepatic biliary system at 10 minutes. There is normal excretion i nto the small bowel. GALLBLADDER: Surgically absent. BILIARY ENTRIC REFLUX: Observed. CONCLUSION: 1. Normal common bile duct without obstruction. 2. Status post cholecystectomy. 3. Biliary enteric reflux. Jamal Workman MD on May 12, 2017 at 13:49 Board Certified Radiologist. This report was verified electronically.
[2017-05-12] MEDS ORDERED: LIDOCAINE 1%/EPINEPHrine 1:100,000 SOLN 20 ML VIAL ONE (14:27)
[2017-05-12] MEDS ORDERED: fentaNYL CITRATE 250 MCG/5 ML AMP ONE (14:33)
[2017-05-12] MEDS ORDERED: MIDAZOLAM HCL 5 MG/5 ML VIAL ONE (14:34)
[2017-05-12] MEDS: PROMETHAZINE HCL 25 MG TAB PO PRN (15:05)
--- NOTE | 2017-05-12 15:29 | PD.RAD ---
Post CT Procedure Prog Note Pre Procedure Diagnosis: (1) Elevated LFTs Post Procedure Diagnosis: Procedure Date: May 12, 2017 Supervising Radiologist: Jamal Workman Proceduralist/Assist: Mralen oWods Anesthesia: Conscious Sedation Plan of Activity Patient to Unit: ROPU Patient Condition: Good See PACS Report for procedural detail/treatment Jamal Workman MD May 12, 2017 15:29
--- NOTE | 2017-05-12 16:17 | RADRPT ---
EXAM DATE/TIME: 05/12/2017 14:48 [facility] COMPARISON: No previous studies available for comparison. INDICATIONS : Elevated liver function. SEDATION TIME: 45 minutes BIOPSY SITE: Right MEDICATION(S): 1.) 2.5 mg midazolam (Versed) IV 2.) 125 mcg fentanyl (Sublimaze) IV DEVICE(S): 1.) 18 gauge Temno core biopsy needle MEDICAL HISTORY : Cardiovascular disease. Diabetes mellitus type 2. Lymphoma. SURGICAL HISTORY : Appendectomy. Cholecystectomy. ENCOUNTER: Initial ACUITY: 1 day PAIN SCORE: 0/10 LOCATION: Right A total of one core specimen(s) were obtained and sent to the laboratory for pathologic evaluation. PROCEDURE: 1. CT guided liver biopsy. 2. Conscious sedation with continuous EKG and oximetry monitoring. 3. EKG and oximetry remained stable throughout the procedure. Prior to the procedure informed consent was obtained. Any appropriate prior imaging studies were rev iewed. Using automated exposure control and adjustment of the mA and/or kV according to patient size, radiat ion dose was kept as low as reasonably achievable to obtain optimal diagnostic quality images. DICOM format image data is available electronically for review and comparison. The site was prepped in a sterile fashion. Full sterile technique was used, including cap, mask, diaz rile gloves and gown and a large sterile sheet. Hand hygiene and 2% chlorhexidine and/or betadine/al cohol prep was utilized per protocol for cutaneous antisepsis. The skin and subcutaneous tissues wer e infiltrated with local anesthetic solution. With CT guidance the previously identified target was localized. Biopsy was performed using the presc ribed needle as above. Adequate hemostasis was obtained with compression at the puncture site. Follow-up CT scan reveals no hemorrhage. The patient tolerated the procedure well and there were no complications. The patient was returned to the Radiology Outpatient Unit in stable condition. CONCLUSION: Uncomplicated CT guided biopsy. Jamal Workman MD on May 12, 2017 at 16:15 Board Certified Radiologist. This report was verified electronically.
[2017-05-12 18:20] LABS: GAMMA GT 513 U/L (5-55); TRANSFERRIN IRON PROFILE 233 MG/DL (200-360)
[2017-05-12 18:37] LABS: PROTHROMBIN TIME - PATIENT 10.6 SEC (9.8-11.6)
[2017-05-12 18:45] LABS: FERRITIN 148 NG/ML (8-252)
[2017-05-12] MEDS: URSODIOL 300 MG CAP PO SCH (20:50)
[2017-05-13] VITALS (8 sets, daily range): BP systolic 94–149; BP diastolic 47–87; PULSE 68–101; RESP 16–18; TEMP 96.8–98.7; O2SAT 96–99
[2017-05-13] MEDS: SUCRALFATE 1 GM TAB PO SCH ×4 (06:24→21:00)
[2017-05-13] MEDS: INSULIN ASPART SUPPLEMENTAL SCALE SQ SCH ×4 (06:26→20:59)
[2017-05-13 06:58] LABS: BICARBONATE 30.7 MEQ/L (21.0-32.0); POTASSIUM 3.7 MEQ/L (3.5-5.1)
[2017-05-13 07:02] LABS: HEMATOCRIT 32.8 % (35.0-46.0); MEAN CELL VOLUME 89.4 FL (80.0-100.0); MEAN CORPUSCULAR HEMOGLOBIN 30.1 PG (27.0-34.0); MEAN CORPUSCULAR HGB CONC 33.7 % (32.0-36.0); PLATELET COUNT 420 TH/MM3 (150-450); RED BLOOD COUNT 3.67 MIL/MM3 (4.00-5.30); RED CELL DISTRIBUTION WIDTH 16.4 % (11.6-17.2); REVIEW FLAG FINAL; WHITE BLOOD COUNT 10.5 TH/MM3 (4.0-11.0)
--- NOTE | 2017-05-13 08:26 | PD.ONC.PN ---
Subjective Subjective Remarks feeling better and stronger Objective Data Date Time Temp Pulse Resp B/P Pulse Ox O2 Delivery O2 Flow Rate FiO2 05/13/17 04:06 98.5 71 18 138/79 97 05/12/17 23:58 97.6 78 17 109/66 98 05/12/17 23:00 74 05/12/17 20:53 97.9 80 17 112/69 97 05/12/17 20:00 76 05/12/17 16:30 97.9 84 18 126/78 97 05/12/17 16:00 88 17 102/54 96 05/12/17 15:30 92 18 116/70 97 05/12/17 15:15 97.7 96 17 115/62 97 05/12/17 12:00 98.7 78 18 125/81 98 05/13/17 05/13/17 05/13/17 07:00 15:00 23:00 Intake Total 480 ml Output Total 200 ml Balance 280 ml Result Diagram: 05/13/1730 05/13/17 0530 Laboratory Results Laboratory Tests Test 05/12/17 05/13/17 17:05 05:30 Prothrombin Time 10.6 SEC Prothromb Time International 1.0 RATIO Ratio Serum Osmolality 301 MOSM/KG Iron Level 42 MCG/DL Total Iron Binding Capacity 326 MCG/DL Percent Iron Saturation 12.9 % Ferritin 148 NG/ML Gamma Glutamyl Transpeptidase 513 U/L Vitamin B12 Level 835 PG/ML White Blood Count 10.5 TH/MM3 Red Blood Count 3.67 MIL/MM3 Hemoglobin 11.0 GM/DL Hematocrit 32.8 % Mean Corpuscular Volume 89.4 FL Mean Corpuscular Hemoglobin 30.1 PG Mean Corpuscular Hemoglobin 33.7 % Concent Red Cell Distribution Width 16.4 % Platelet Count 420 TH/MM3 Mean Platelet Volume 8.8 FL Sodium Level 139 MEQ/L Potassium Level 3.7 MEQ/L Chloride Level 102 MEQ/L Carbon Dioxide Level 30.7 MEQ/L Anion Gap 6 MEQ/L Blood Urea Nitrogen 12 MG/DL Creatinine 0.57 MG/DL Estimat Glomerular Filtration 105 ML/MIN Rate Random Glucose 173 MG/DL Calcium Level 9.2 MG/DL Culture Results Microbiology Date/Time Procedure Status Source Growth 05/12/17 09:57 Stool Occult Blood (YAMILE) - Final Complete Stool Stool HEMOCCULT NEGATIVE Administered Medications Medications (Trade) Dose Ordered Sig/[facility]aiser Route PRN Reason Start Time Stop Time Status Last Admin Dose Admin Sodium Chloride (NS Flush) 2 ml BID IV FLUSH 05/03/17 21:00 05/12/17 20:58 Senna/Docusate Sodium (Sultana-Colace) 1 tab BID PO 05/03/17 21:00 05/05/17 21:49 Escitalopram Oxalate (Lexapro) 20 mg DAILY PO 05/05/17 09:00 05/12/17 09:07 Megestrol Acetate (Megace) 20 mg QID PO 05/04/17 13:00 05/12/17 20:51 Metoprolol Succinate (Toprol Xl) 12.5 mg DAILY PO 05/05/17 09:00 05/12/17 09:06 Modafinil (Provigil) 200 mg DAILY PO 05/05/17 09:00 05/12/17 09:07 Modafinil (Provigil) 100 mg DAILY@12 PO 05/04/17 12:00 05/12/17 11:27 Pantoprazole Sodium (Protonix) 40 mg DAILY PO 05/04/17 11:00 05/12/17 09:05 Amylase/Lipase/ Protease (Creon 12-38-60) 6 cap TIDPC PO 05/04/17 18:30 05/12/17 18:27 Promethazine HCl (Phenergan) 25 mg Q6H PRN PO nausea 05/04/17 22:15 05/12/17 15:05 Sucralfate (Carafate) 1 gm ACHS PO 05/04/17 21:00 05/13/17 06:24 Acetaminophen/ Hydrocodone Bitart ([place] 7.5-325 Mg) 1 tab Q6H PRN PO PAIN SCALE 5 TO 10 05/06/17 17:30 05/10/17 22:17 Phenol (Chloraseptic [place]) 2 spray Q2H PRN OROPHARYNG Sore throat 05/06/17 17:30 05/07/17 09:26 Nystatin (Mycostatin Liq) 5 ml QID SWISH-SWAL 05/07/17 18:00 05/12/17 20:52 Lactobacillus Acidophilus (Lactinex) 1 tab TID PO 05/07/17 18:00 05/12/17 18:28 Prednisone (Deltasone) 5 mg BID PO 05/09/17 21:00 05/12/17 20:52 Ciprofloxacin (Cipro) 500 mg Q12HR PO 05/10/17 21:00 05/13/17 20:59 05/12/17 20:52 Ursodiol (Actigall) 300 mg Q12HR PO 05/12/17 21:00 05/12/17 20:50 Objective Remarks GENERAL: slender SKIN: Warm and dry. HEAD: Normocephalic. EYES: No scleral icterus. No injection or drainage. NECK: Supple, trachea midline. No JVD or lymphadenopathy. LYMPHATIC: No adenopathy. CARDIOVASCULAR: Regular rate and rhythm without murmurs. RESPIRATORY: Breath sounds equal bilaterally. No accessory muscle use. GASTROINTESTINAL: Abdomen soft, non-tender, nondistended. EXTREMITIES: No cyanosis, or edema. MUSCULOSKELETAL: Adequate muscle tone. NEUROLOGICAL: No obvious focal deficit. Awake, alert, and oriented x3. PSYCHIATRIC: Appropriate mood and affect; insight and judgment normal. Assessment/Plan Plan 1. bone marrow was normal. no evidence of a primary bone marrow disorder. 2. elevated liver enzymes of unclear etiology--await results of liver bx. Hida scan is normal. 3. polyuria: unclear etiology, unfortunately we do not have endocrinologists inpatient. nephrology to evaluate for ?diabetes insipidus not likely, ? adrenal cortical insufficiency likely ? 4. continue Prednisone 5mg PO BID 5. once discharged, will need to obtain outpatient PET scan. 6. this is a very complex case with no simple answers. extensive conversation held with patient and daugheter at bedside. Get Keating MD May 13, 2017 08:26
[2017-05-13] MEDS: DOCUSATE SODIUM 50 MG/SENNA 8.6 MG TAB PO SCH ×2 (09:00→21:00)
[2017-05-13] MEDS: URSODIOL 300 MG CAP PO SCH ×2 (09:03→21:00)
[2017-05-13] MEDS: LIPASE/PROTEASE/AMYLASE (12,000/38,000/60,000) CAP PO SCH ×4 (09:03→21:08)
[2017-05-13] MEDS: ESCITALOPRAM OXALATE 20 MG TAB PO SCH (09:03)
[2017-05-13] MEDS: MEGESTROL ACETATE 40 MG TAB PO SCH ×4 (09:04→21:00)
[2017-05-13] MEDS: LACTOBACILLUS ACIDOPHILUS TAB PO SCH ×3 (09:04→16:46)
[2017-05-13] MEDS: MODAFINIL 200 MG TAB PO SCH ×2 (09:04→12:59)
[2017-05-13] MEDS: predniSONE 5 MG TAB PO SCH ×2 (09:04→21:00)
[2017-05-13] MEDS: METOPROLOL SUCCINATE 25 MG EXTENDED RELEASE TAB PO SCH (09:05)
[2017-05-13] MEDS: CIPROFLOXACIN 500 MG TAB PO SCH (09:05)
[2017-05-13] MEDS: PANTOPRAZOLE SOD 40 MG DELAYED RELEASE TAB PO SCH (09:05)
[2017-05-13] MEDS: NYSTATIN SUSP 500,000 U/5 ML CUP SWISH-SWAL SCH ×4 (09:05→21:00)
[2017-05-13] MEDS: SODIUM CHLORIDE 0.9% FLUSH 10 ML FLUSH IV FLUSH SCH ×2 (09:11→21:04)
[2017-05-13] MEDS: PROMETHAZINE HCL 25 MG TAB PO PRN (10:34)
--- NOTE | 2017-05-13 11:20 | HHI.PR ---
Subjective Remarks White blood cell count stable. Hemoglobin continues to improve. Potassium levels are stable. Blood sugars are elevated and Lantus will be ordered. By mouth intake adequate. No signs of dehydration or stopping IV hydration. Liver biopsy obtained yesterday. Alternate etiology for his symptoms may be an autoimmune condition. Objective Vital Signs Date Time Temp Pulse Resp B/P Pulse Ox O2 Delivery O2 Flow Rate FiO2 05/13/17 08:00 96.8 79 16 149/87 97 05/13/17 04:06 98.5 71 18 138/79 97 05/12/17 23:58 97.6 78 17 109/66 98 05/12/17 23:00 74 05/12/17 20:53 97.9 80 17 112/69 97 05/12/17 20:00 76 05/12/17 16:30 97.9 84 18 126/78 97 05/12/17 16:00 88 17 102/54 96 05/12/17 15:30 92 18 116/70 97 05/12/17 15:15 97.7 96 17 115/62 97 05/12/17 12:00 98.7 78 18 125/81 98 I/O 05/12/17 05/12/17 05/12/17 05/13/17 05/13/17 05/13/17 07:00 15:00 23:00 07:00 15:00 23:00 Intake Total 50 ml 840 ml 480 ml Output Total 600 ml 1000 ml 200 ml Balance -550 ml -160 ml 280 ml Intake Oral 50 ml 840 ml 480 ml Output Urine Total 600 ml 1000 ml 200 ml # Voids 1 # Bowel Movements 0 1 0 Result Diagram: 05/13/17 0530 05/13/17 0530 Procedures None Objective Remarks GENERAL: NAD, A&Ox3 HEAD: Normocephalic. Erythema with trace evidence of danielito and mouth. NECK: Supple, trachea midline. No lymphadenopathy. EYES: No scleral icterus. No injection or drainage. CARDIOVASCULAR: Regular rate and rhythm without murmurs, gallops, or rubs. RESPIRATORY: Breath sounds equal bilaterally. No accessory muscle use. GASTROINTESTINAL: Abdomen soft, non-tender, nondistended. MUSCULOSKELETAL: No cyanosis, or edema. SKIN: Warm and dry. NEURO: No focal neurological deficitis. A/P Problem List: (1) History of non-Hodgkin's lymphoma ICD Code: Z85.72 (2) Chronic diarrhea ICD Code: K52.9 (3) Sepsis ICD Code: A41.9 (4) Elevated LFTs ICD Code: R79.89 (5) Generalized weakness ICD Code: R53.1 (6) DM (diabetes mellitus) ICD Code: E11.9 Assessment and Plan Assessment and Plan 66-year-old female admitted with sepsis, elevated LFTs, and diarrhea. No signs of dehydration. Appetite improving. Blood sugars elevated. Levemir started. Monitor blood sugars. Continue steroids. Follow liver biopsy. Possible outpatient follow-up with liver biopsy depending on how long it will be. Oral candidiasis Nystatin swish and swallow Severe Sepsis Resolved UTI secondary to Gram Negative Rods Continue Cefepime and Vancomycin Infectious disease doctor following Probiotics added Non Hodgkin lymphoma Chronic Bone biopsy pending Consider abdominal last biopsy based on bone biopsy findings Hydronephrosis No further workup needed per urology Weakness Continue physical therapy Protein calorie malnutrition Related to chronic diarrhea patient on TPN at home Albumin 3.0 Follow electrolytes and replace as needed DM, chronic Follow blood sugars Diabetic diet Insulin sliding scale DVT prophylaxis SCDs Discharge Planning Liver biopsy obtained yesterday. Inpatient versus outpatient follow-up with liver biopsy results. Problem Qualifiers (1) Sepsis: Qualified Code: A41.9 - Sepsis, due to unspecified organism (2) DM (diabetes mellitus): David Flores MD May 13, 2017 11:20
--- NOTE | 2017-05-13 11:46 | HHI.NPPN ---
Subjective General Problems: Anemia Interval History Her urine output is normal, 1200 ml . She has preserved renal function. Family at bedside. (Katharina Keane) Objective Data Data 05/12/17 05/13/17 18:59 06:59 Intake Total 360 ml 960 ml Output Total 400 ml 800 ml Balance -40 ml 160 ml Intake Oral 360 ml 960 ml Output Urine Total 400 ml 800 ml # Voids 1 # Bowel Movements 0 1 Vital Signs Date Time Temp Pulse Resp B/P Pulse Ox O2 Delivery O2 Flow Rate FiO2 05/13/17 08:00 96.8 79 16 149/87 97 05/13/17 04:06 98.5 71 18 138/79 97 05/12/17 23:58 97.6 78 17 109/66 98 05/12/17 23:00 74 05/12/17 20:53 97.9 80 17 112/69 97 05/12/17 20:00 76 05/12/17 16:30 97.9 84 18 126/78 97 05/12/17 16:00 88 17 102/54 96 05/12/17 15:30 92 18 116/70 97 05/12/17 15:15 97.7 96 17 115/62 97 05/12/17 12:00 98.7 78 18 125/81 98 (Katharina Keane) -: 05/13/17 0530 05/13/17 0530 Imaging Last Impressions Liver Biopsy CT 05/12/17 0000 Signed Impressions: Service Date/Time: Friday, May 12, 2017 14:48 - CONCLUSION: Uncomplicated CT guided biopsy. Jamal Workman MD Hepatobiliary Scan Nuclear Medicine 05/12/17 0000 Signed Impressions: Service Date/Time: Friday, May 12, 2017 12:57 - CONCLUSION: 1. Normal common bile duct without obstruction. 2. Status post cholecystectomy. 3. Biliary enteric reflux. Jamal Workman MD Abdomen/Pelvis CT 05/05/17 0000 Signed Impressions: Service Date/Time: Friday, May 05, 2017 01:01 - CONCLUSION: 1. Previous Whipple. Increasing mass in the estella hepatis of concern for local recurrence or metastatic adenopathy. 2. Mild bilateral hydronephrosis/hydroureter now seen, etiology uncertain. Ernie Mccarty MD Chest X-Ray 05/03/17 2021 Signed Impressions: Service Date/Time: Wednesday, May 03, 2017 16:50 - CONCLUSION: No acute disease. 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) Pulmonary Resp Exam: Clear Bilaterally, Breath Sounds Equal (aKtharina Keane 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) Cardiology CV Exam: Regular, Normal Sinus Rhythm (Katharina Keane 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) Gastrointestinal/Abdomen GI Exam: Soft, Non-Tender, Bowel Sounds Present (Katharina Keane) Musculoskeletal MS Exam: Joints Intact, Normal Tone (Katharina Keane) Integumentary Skin Exam: Clear, Warm, Dry, Intact (Katharina KeaneP) Extremeties Extremities Exam: No Edema, Pedal Pulses Palpable (Katharina Keane) Neurologic Neuro Exam: Alert, Awake, Oriented, Speech Clear, Moving All Extremities ( Katharina KeaneP) Psychiatric Psych Exam: Appropriate Responses (Katharina Keane) Assessment/Plan Discussed Condition With: Patient, Daughter Problem List: (1) Polyuria Plan: Recorded urine output is only about 1200, so it does not satisfy diagnosis of polyuria. May have had some degree of osmotic diuresis due to hyperglycemia. diabetes insipidus is unlikely (2) Protein calorie malnutrition Plan: has history of weight loss, chronic diarrhea. Workup in progress. she may have adrenal insufficiency as her cortisol level was low prior to her being given prednisone. Agree with continuing steroids. However consider changing to solucortef PO as it has mineralocorticoid effects (3) Transaminitis Plan: liver biopsy is scheduled. defer to hospitalist (4) History of non-Hodgkin's lymphoma Plan: Hematology following, s/p bone marrow biopsy. (5) DM (diabetes mellitus) Plan: continue insulin coverage. Maintain blood glucose between 140 and 180 Plan we will sign off at this time as she does not have renal impairment and urine output is normal. Call us if needed. (Katharina Keane) Plan Patient was seen and examined. No evidence of polyuria. May have adrenal insufficiency. Discussed with Dr. Keating. (Remi Fuentes MD) Problem Qualifiers (1) DM (diabetes mellitus): Katharina Keane May 13, 2017 11:46 Remi Fuentes MD May 13, 2017 19:55
[2017-05-13] MEDS ORDERED: INSULIN DETEMIR 100 UNITS/ML VIAL SQ ONE (12:30)
--- NOTE | 2017-05-13 14:18 | HHI.GIFU ---
Subjective Remarks Pt resting in bed, visiting with family. Some nausea, no vomiting. Calorie count in progress. (Anupama Flores) Objective Vitals I&O Vital Signs Date Time Temp Pulse Resp B/P Pulse Ox O2 Delivery O2 Flow Rate FiO2 05/13/17 12:00 98.7 79 16 126/69 99 05/13/17 08:00 96.8 79 16 149/87 97 05/13/17 04:06 98.5 71 18 138/79 97 05/12/17 23:58 97.6 78 17 109/66 98 05/12/17 23:00 74 05/12/17 20:53 97.9 80 17 112/69 97 05/12/17 20:00 76 05/12/17 16:30 97.9 84 18 126/78 97 05/12/17 16:00 88 17 102/54 96 05/12/17 15:30 92 18 116/70 97 05/12/17 15:15 97.7 96 17 115/62 97 I/O 05/12/17 05/12/17 05/12/17 05/13/17 05/13/17 05/13/17 07:00 15:00 23:00 07:00 15:00 23:00 Intake Total 50 ml 840 ml 480 ml Output Total 600 ml 1000 ml 200 ml Balance -550 ml -160 ml 280 ml Intake Oral 50 ml 840 ml 480 ml Output Urine Total 600 ml 1000 ml 200 ml # Voids 1 # Bowel Movements 0 1 0 Laboratory Laboratory Tests Test 05/12/17 05/13/17 17:05 05:30 Prothrombin Time 10.6 Prothromb Time International 1.0 Ratio Serum Osmolality 301 Iron Level 42 Total Iron Binding Capacity 326 Percent Iron Saturation 12.9 Ferritin 148 Gamma Glutamyl Transpeptidase 513 Vitamin B12 Level 835 White Blood Count 10.5 Red Blood Count 3.67 Hemoglobin 11.0 Hematocrit 32.8 Mean Corpuscular Volume 89.4 Mean Corpuscular Hemoglobin 30.1 Mean Corpuscular Hemoglobin 33.7 Concent Red Cell Distribution Width 16.4 Platelet Count 420 Mean Platelet Volume 8.8 Sodium Level 139 Potassium Level 3.7 Chloride Level 102 Carbon Dioxide Level 30.7 Anion Gap 6 Blood Urea Nitrogen 12 Creatinine 0.57 Estimat Glomerular Filtration 105 Rate Random Glucose 173 Calcium Level 9.2 Date/Time Procedure Status Source Growth 05/12/17 09:57 Stool Occult Blood (YAMILE) - Final Complete Stool Stool HEMOCCULT NEGATIVE Imaging Last Impressions Liver Biopsy CT 05/12/17 0000 Signed Impressions: Service Date/Time: Friday, May 12, 2017 14:48 - CONCLUSION: Uncomplicated CT guided biopsy. Jamal Workman MD Hepatobiliary Scan Nuclear Medicine 05/12/17 0000 Signed Impressions: Service Date/Time: Friday, May 12, 2017 12:57 - CONCLUSION: 1. Normal common bile duct without obstruction. 2. Status post cholecystectomy. 3. Biliary enteric reflux. Jamal Workman MD Abdomen/Pelvis CT 05/05/17 0000 Signed Impressions: Service Date/Time: Friday, May 05, 2017 01:01 - CONCLUSION: 1. Previous Whipple. Increasing mass in the estella hepatis of concern for local recurrence or metastatic adenopathy. 2. Mild bilateral hydronephrosis/hydroureter now seen, etiology uncertain. Ernie Mccarty MD Chest X-Ray 05/03/17 1625 Signed Impressions: Service Date/Time: Wednesday, May 03, 2017 16:50 - CONCLUSION: No acute disease. Saman Salas MD Physical Exam HEENT: Normocephalic; atraumatic; no jaundice. CHEST: CTA, shallow/diminished CARDIAC: RRR ABDOMEN: Soft, nondistended, nontender; no hepatosplenomegaly; bowel sounds are present in all four quadrants. EXTREMITIES: No clubbing, cyanosis, or edema. SKIN: Normal; no rash; no jaundice. DIRECTOR OF MIDWIFERY/STAFF MIDWIFE: No focal deficits; alert and oriented times three. (Anupama Flores [facility]) Assessment and Plan Plan ASSESSMENT - Reconsulted for elevated LFTs. Abdomen/Pelvis CT (05/05/17)------> 1. Previous Whipple. Increasing mass in the estella hepatis of concern for local recurrence or metastatic adenopathy. 2. Mild bilateral hydronephrosis/hydroureter now seen , etiology uncertain. Liver workup from 05/05---> Hepatitis profile negative, CANDIE negative, AMA < 20.0, ASMA negative, Celiac panel negative, AFP 1.0, Ca19-9 52.0, CEA 1.3, Ceruloplasmin 30, Alpha 1 Antitrypsin 248. She has a hx of Non-Hodkin's lymphoma and had been on CHOP and more recently Rituxan (last dose in September). LFTs persistently elevated, from yesterday, T. Bili 0.5, AST 105, ALT 246, Alk Phosph 646. HIDA neg, Alk phosph isoenzymes-p, liver biopsy-p Trial of Actigall. Of note, she is on Cipro, but this was only started on 05/10 and therefore is likely not the cause of her liver enzyme derangement. She is also on Modafinil. - N/V/D with abnormal weight loss. EGD/colonoscopy (04/15/17)----> normal colonoscopy with bx taken, esophagus contained some phlegm and food residue in upper part, was dilated, gastritis in stomach brightly erythemaous with pile present refluxing via the gastrojejunostomy. Pathology with mildly active chronic fundic gastritis, no helicobacter like organisms are present, mild melanosis coli in ascending and descending colon. Rpt EGD for evaluation of mass in RUQ quadrant/diarrhea ( 05/06/17)-----> normal esophagus, in the stomach there was normal appearing post surgical anatomy, the anastomosis appeared healthy, the jejunum appeared normal, biopsies were taken for evaluation of diarrhea, no tumor was seen on this examination. Pathology revealed small bowel mucosa with no significant histopathologic abnormalities. The villous architecture is normal. Clinically improved. States her symptoms are much improved as is her appetite. Calorie count in progress, but she reports that she is eating majority of trays and more. Creon, PPI, Megace, Carafate. - Anemia, normocytic. 10.3/30.4. EGD/Colonoscopy as above. BM biopsy --> mildly hypercellular marrow with myloid hyperplasia, stainable iron, no evidence noplastic leukocyte population, distinct involvement lymphoma not appreciated, eval limited by hemodilute nature of aspirate specimen - Abnormal imaging with increasing mass in the estella hepatis of concern for local recurrence or metastatic adenopathy. Oncology following, PET scan as outpatient - Polyuria, workup per renal. - UTI, DM per attending. - Hx Non-Hodgkin's lymphoma. Dx in 2004 and started chemotherapy. Of note, she also received chemotherapy in 2009 (CHOP) and afterwards stayed on a maintenance dose up until September of 2016 with Rituxan. - Hx Pancreatic head mass. Pancreatic cancer was suspected, although because of location, she could not have a biopsy. S/P Whipple procedure in 2004. Pt reports that this was found to be benign. PLAN - await liver bx - await Alkaline phosphatase isoenzymes - await Ferritin, Iron Saturation - Monitor labs - Trial of Actigall - Avoid hepatotoxins - Supportive care - If liver biopsy negative, consider MRCP +/- EUS - Further recommendations to follow based on results of above - Pt seen and examined by Dr. Oleary and myself and this note is written on her behalf (Anupama Flores) Physician Comments seen, examined agree with above we will discuss with pathology and dr Keating and try to obtain old lfts and review a list of medications and make adjustments accordingly consider stopping Megace, Tylenol containing products, Rifaximin continue Actigall PET CT as an op, if not diagnostic consider EUS if technically possible (Zoe Oleary MD) Anupama Flores May 13, 2017 14:18 Zoe Oleary MD May 13, 2017 18:31
[2017-05-14 03:57] VITALS: BP 121/73; PULSE 78; RESP 18; TEMP 97.7; O2SAT 98
[2017-05-14] MEDS: SUCRALFATE 1 GM TAB PO SCH ×4 (06:07→21:39)
[2017-05-14] MEDS: INSULIN ASPART SUPPLEMENTAL SCALE SQ SCH ×4 (06:47→21:00)
[2017-05-14 06:52] LABS: AUTOMATED NEUTROPHIL # 8.3 TH/MM3 (1.8-7.7); BASOPHIL % 0.4 % (0.0-2.0); EOSINOPHIL # 0.1 TH/MM3 (0-0.4); EOSINOPHIL % 1.1 % (0.0-4.0); HEMATOCRIT 31.5 % (35.0-46.0); HEMO FLAGS DIFF FINAL; LYMPH % 15.3 % (9.0-44.0); LYMPHOCYTE # 1.6 TH/MM3 (1.0-4.8); MEAN CELL VOLUME 89.3 FL (80.0-100.0); MEAN CORPUSCULAR HEMOGLOBIN 29.9 PG (27.0-34.0); MEAN CORPUSCULAR HGB CONC 33.5 % (32.0-36.0); MONO % 6.6 % (0.0-8.0); NEUT % 76.6 % (16.0-70.0); PLATELET COUNT 382 TH/MM3 (150-450); RED BLOOD COUNT 3.52 MIL/MM3 (4.00-5.30); RED CELL DISTRIBUTION WIDTH 16.2 % (11.6-17.2); WHITE BLOOD COUNT 10.8 TH/MM3 (4.0-11.0)
[2017-05-14 07:13] LABS: ANION GAP 7 MEQ/L (5-15); BLOOD UREA NITROGEN 15 MG/DL (7-18); CHLORIDE 105 MEQ/L (98-107); GLOMERULAR FILTRATION RATE 99 ML/MIN (>89); POTASSIUM 3.8 MEQ/L (3.5-5.1); SODIUM (NA) 141 MEQ/L (136-145)
[2017-05-14 07:14] LABS: ALT (GPT) 233 U/L (10-53); AST (GOT) 92 U/L (15-37)
[2017-05-14 07:17] LABS: ALKALINE PHOSPHATASE 669 U/L (45-117); TOTAL BILIRUBIN ADULT 0.4 MG/DL (0.2-1.0)
[2017-05-14 08:00] VITALS: BP 117/63; PULSE 79; RESP 16; TEMP 97.5; O2SAT 99
[2017-05-14] MEDS: INSULIN DETEMIR 100 UNITS/ML VIAL SQ SCH (09:00)
[2017-05-14] MEDS: DOCUSATE SODIUM 50 MG/SENNA 8.6 MG TAB PO SCH ×2 (09:00→21:00)
--- NOTE | 2017-05-14 09:49 | HHI.GIFU ---
Subjective Remarks Resting in bed. Daughter and at bedside. Appetite good- looking forward to breakfast. No n/v. No abdominal pain. No diarrhea at this time. Reviewed liver biopsy results with patient and discussed plan of care from GI standpoint. Verbalizes understanding. (Rsoe Yu) Objective Vitals I&O Vital Signs Date Time Temp Pulse Resp B/P Pulse Ox O2 Delivery O2 Flow Rate FiO2 05/14/17 08:00 97.5 79 16 117/63 99 05/14/17 03:57 97.7 78 18 121/73 98 05/13/17 23:01 97.4 68 18 94/57 96 05/13/17 20:00 90 05/13/17 19:11 97.4 101 18 96/54 96 05/13/17 17:20 87 109/56 05/13/17 16:00 90 05/13/17 16:00 97.2 90 16 107/47 99 05/13/17 12:00 98.7 79 16 126/69 99 05/13/17 12:00 74 I/O 05/13/17 05/13/17 05/13/17 05/14/17 05/14/17 05/14/17 07:00 15:00 23:00 07:00 15:00 23:00 Intake Total 480 ml 520 ml 360 ml 360 ml Output Total 200 ml Balance 280 ml 520 ml 360 ml 360 ml Intake Oral 480 ml 520 ml 360 ml 360 ml Output Urine Total 200 ml # Voids 1 4 2 3 # Bowel Movements 0 1 1 0 Laboratory Laboratory Tests Test 05/14/17 06:20 White Blood Count 10.8 Red Blood Count 3.52 Hemoglobin 10.5 Hematocrit 31.5 Mean Corpuscular Volume 89.3 Mean Corpuscular Hemoglobin 29.9 Mean Corpuscular Hemoglobin 33.5 Concent Red Cell Distribution Width 16.2 Platelet Count 382 Mean Platelet Volume 9.0 Neutrophils (%) (Auto) 76.6 Lymphocytes (%) (Auto) 15.3 Monocytes (%) (Auto) 6.6 Eosinophils (%) (Auto) 1.1 Basophils (%) (Auto) 0.4 Neutrophils # (Auto) 8.3 Lymphocytes # (Auto) 1.6 Monocytes # (Auto) 0.7 Eosinophils # (Auto) 0.1 Basophils # (Auto) 0.0 CBC Comment DIFF FINAL Differential Comment Sodium Level 141 Potassium Level 3.8 Chloride Level 105 Carbon Dioxide Level 29.0 Anion Gap 7 Blood Urea Nitrogen 15 Creatinine 0.60 Estimat Glomerular Filtration 99 Rate Random Glucose 198 Calcium Level 9.2 Total Bilirubin 0.4 Aspartate Amino Transf 92 (AST/SGOT) Alanine Aminotransferase 233 (ALT/SGPT) Alkaline Phosphatase 669 Total Protein 6.1 Albumin 3.0 Date/Time Procedure Status Source Growth 05/12/17 09:57 Stool Occult Blood (YAMILE) - Final Complete Stool Stool HEMOCCULT NEGATIVE Imaging Last Impressions Liver Biopsy CT 05/12/17 0000 Signed Impressions: Service Date/Time: Friday, May 12, 2017 14:48 - CONCLUSION: Uncomplicated CT guided biopsy. Jamal Workman MD Hepatobiliary Scan Nuclear Medicine 05/12/17 0000 Signed Impressions: Service Date/Time: Friday, May 12, 2017 12:57 - CONCLUSION: 1. Normal common bile duct without obstruction. 2. Status post cholecystectomy. 3. Biliary enteric reflux. Jamal Workman MD Abdomen/Pelvis CT 05/05/17 0000 Signed Impressions: Service Date/Time: Friday, May 05, 2017 01:01 - CONCLUSION: 1. Previous Whipple. Increasing mass in the estella hepatis of concern for local recurrence or metastatic adenopathy. 2. Mild bilateral hydronephrosis/hydroureter now seen, etiology uncertain. Ernie Mccarty MD Chest X-Ray 05/03/17 1625 Signed Impressions: Service Date/Time: Wednesday, May 03, 2017 16:50 - CONCLUSION: No acute disease. Saman Salas MD Physical Exam HEENT: Normocephalic; atraumatic; no jaundice. No oral thrush noted CHEST: CTA, shallow/diminished CARDIAC: RRR ABDOMEN: Soft, nondistended, nontender; no hepatosplenomegaly; bowel sounds are present in all four quadrants. EXTREMITIES: No clubbing, cyanosis, or edema. SKIN: Normal; no rash; no jaundice. MARKETING INTERN: No focal deficits; alert and oriented times three. (Rose Yu) Assessment and Plan Plan ASSESSMENT - Elevated LFTs. This appears to be new- had normal LFTs as recently as 04/27. Abdomen/Pelvis CT (05/05/17)------> 1. Previous Whipple. Increasing mass in the estella hepatis of concern for local recurrence or metastatic adenopathy. 2. Mild bilateral hydronephrosis/hydroureter now seen, etiology uncertain. Liver workup from 05/05---> Hepatitis profile negative, CANDIE negative, AMA < 20.0, ASMA negative , Celiac panel negative, AFP 1.0, Ca19-9 52.0, CEA 1.3, Ceruloplasmin 30, Alpha 1 Antitrypsin 248. She has a hx of Non-Hodkin's lymphoma and had been on CHOP and more recently Rituxan (last dose in September). HIDA (05/12/17)-----> 1. Normal common bile duct without obstruction. 2. Status post cholecystectomy. 3. Biliary enteric reflux. Alk phosph isoenzymes pending. Iron sat 12.9%, Ferritin 148. 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 She was on Cipro, but this was started after LFTs increased. She has been on Provigil for many years for generalized weakness/drowsiness. She was recently on TPN for 2 weeks and stopped about 2 weeks ago. At this point, we would recommend stopping all nonessential meds. We will stop the Nystatin (no longer having oral thrush) and Megace. Recommend also stopping the Modafinil, but will defer this to primary. Recommend minimizing use of pain meds. D/W patient and family. Monitor LFTs. - N/V/D with abnormal weight loss. EGD/colonoscopy (04/15/17)----> normal colonoscopy with bx taken, esophagus contained some phlegm and food residue in upper part, was dilated, gastritis in stomach brightly erythemaous with pile present refluxing via the gastrojejunostomy. Pathology with mildly active chronic fundic gastritis, no helicobacter like organisms are present, mild melanosis coli in ascending and descending colon. Rpt EGD for evaluation of mass in RUQ quadrant/diarrhea ( 05/06/17)-----> normal esophagus, in the stomach there was normal appearing post surgical anatomy, the anastomosis appeared healthy, the jejunum appeared normal, biopsies were taken for evaluation of diarrhea, no tumor was seen on this examination. Pathology revealed small bowel mucosa with no significant histopathologic abnormalities. The villous architecture is normal. Clinically improved. States her symptoms are much improved as is her appetite. Calorie count in progress, but she reports that she is eating majority of trays and more. Creon, PPI, Megace, Carafate. - Anemia, normocytic. 10.5/31.5. EGD/Colonoscopy as above. BM biopsy --> mildly hypercellular marrow with myeloid hyperplasia, stainable iron, no evidence neoplastic leukocyte population, distinct involvement lymphoma not appreciated, eval limited by hemodilute nature of aspirate specimen - Abnormal imaging with increasing mass in the estella hepatis of concern for local recurrence or metastatic adenopathy. Oncology following, PET scan as outpatient. Will consult with Dr. Vasquez for possible EUS with biopsy if indicated after PET Scan - Generalized weakness, fatigue. Endocrinology evaluation as outpatient - Polyuria, workup per renal. - UTI, DM per attending. - Hx Non-Hodgkin's lymphoma. Dx in 2004 and started chemotherapy. Of note, she also received chemotherapy in 2009 (CHOP) and afterwards stayed on a maintenance dose up until September of 2016 with Rituxan. - Hx Pancreatic head mass. Pancreatic cancer was suspected, although because of location, she could not have a biopsy. S/P Whipple procedure in 2004. Pt reports that this was found to be benign. 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 She had normal LFTs 04/27. - Cipro has been d/c'd - D/C Nystatin - D/C Megace - Recommend discontinuing Provigil, will defer to attending - Minimize pain meds, discussed with patient - Await Alkaline phosphatase isoenzymes - Cont. Actigall - Avoid hepatotoxins - LFT in am - PET scan as outpatient - Endocrinology evaluation as outpt - Possible consultation with Dr. Vasquez for EUS with bx if indicated after PET scan - Supportive care - Further recommendations to follow based on results of above - Pt seen and examined by Dr. Oleary and myself and this note is written on her behalf (Rose Yu) Physician Comments seen, examined agree with above (Zoe Oleary MD) Rose Yu May 14, 2017 09:49 Zoe Oleary MD May 14, 2017 20:11
[2017-05-14] MEDS: PANTOPRAZOLE SOD 40 MG DELAYED RELEASE TAB PO SCH (09:50)
[2017-05-14] MEDS: URSODIOL 300 MG CAP PO SCH ×2 (09:51→21:38)
[2017-05-14] MEDS: METOPROLOL SUCCINATE 25 MG EXTENDED RELEASE TAB PO SCH (09:51)
[2017-05-14] MEDS: MODAFINIL 200 MG TAB PO SCH ×2 (09:51→11:59)
[2017-05-14] MEDS: LACTOBACILLUS ACIDOPHILUS TAB PO SCH ×3 (09:51→17:17)
[2017-05-14] MEDS: predniSONE 5 MG TAB PO SCH ×2 (09:51→21:38)
[2017-05-14] MEDS: ESCITALOPRAM OXALATE 20 MG TAB PO SCH (09:51)
[2017-05-14] MEDS: SODIUM CHLORIDE 0.9% FLUSH 10 ML FLUSH IV FLUSH SCH ×2 (09:52→21:00)
[2017-05-14] MEDS: LIPASE/PROTEASE/AMYLASE (12,000/38,000/60,000) CAP PO SCH ×3 (09:52→21:38)
--- NOTE | 2017-05-14 10:51 | HHI.PR ---
Subjective Remarks Hemoglobin stable at 10.5. White blood count at 10.8 today. Potassium level 3.8. Patient is fatigued today. Preliminary biopsy of the liver shows hepatitis which is likely medication induced. Objective Vital Signs Date Time Temp Pulse Resp B/P Pulse Ox O2 Delivery O2 Flow Rate FiO2 05/14/17 08:00 97.5 79 16 117/63 99 05/14/17 03:57 97.7 78 18 121/73 98 05/13/17 23:01 97.4 68 18 94/57 96 05/13/17 20:00 90 05/13/17 19:11 97.4 101 18 96/54 96 05/13/17 17:20 87 109/56 05/13/17 16:00 90 05/13/17 16:00 97.2 90 16 107/47 99 05/13/17 12:00 98.7 79 16 126/69 99 05/13/17 12:00 74 I/O 05/13/17 05/13/17 05/13/17 05/14/17 05/14/17 05/14/17 07:00 15:00 23:00 07:00 15:00 23:00 Intake Total 480 ml 520 ml 360 ml 360 ml Output Total 200 ml Balance 280 ml 520 ml 360 ml 360 ml Intake Oral 480 ml 520 ml 360 ml 360 ml Output Urine Total 200 ml # Voids 1 4 2 3 # Bowel Movements 0 1 1 0 Result Diagram: 05/14/17 0620 05/14/17 0620 Procedures None Objective Remarks GENERAL: NAD, A&Ox3 HEAD: Normocephalic. Erythema with trace evidence of danielito and mouth. NECK: Supple, trachea midline. No lymphadenopathy. EYES: No scleral icterus. No injection or drainage. CARDIOVASCULAR: Regular rate and rhythm without murmurs, gallops, or rubs. RESPIRATORY: Breath sounds equal bilaterally. No accessory muscle use. GASTROINTESTINAL: Abdomen soft, non-tender, nondistended. MUSCULOSKELETAL: No cyanosis, or edema. SKIN: Warm and dry. NEURO: No focal neurological deficitis. A/P Problem List: (1) History of non-Hodgkin's lymphoma ICD Code: Z85.72 (2) Chronic diarrhea ICD Code: K52.9 (3) Sepsis ICD Code: A41.9 (4) Elevated LFTs ICD Code: R79.89 (5) Generalized weakness ICD Code: R53.1 (6) DM (diabetes mellitus) ICD Code: E11.9 Assessment and Plan Assessment and Plan 66-year-old female admitted with sepsis, elevated LFTs, and diarrhea. No signs of dehydration. Continue steroids. Continue blood sugar monitoring. Oral candidiasis Nystatin swish and swallow Severe Sepsis Resolved UTI secondary to Gram Negative Rods Continue Cefepime and Vancomycin Infectious disease doctor following Probiotics added Non Hodgkin lymphoma Chronic Bone biopsy pending Consider abdominal last biopsy based on bone biopsy findings Hydronephrosis No further workup needed per urology Weakness Continue physical therapy Protein calorie malnutrition Related to chronic diarrhea patient on TPN at home Albumin 3.0 Follow electrolytes and replace as needed DM, chronic Follow blood sugars Diabetic diet Insulin sliding scale DVT prophylaxis SCDs Discharge Planning Liver biopsy obtained yesterday. Inpatient versus outpatient follow-up with liver biopsy results. Problem Qualifiers (1) Sepsis: Qualified Code: A41.9 - Sepsis, due to unspecified organism (2) DM (diabetes mellitus): David Flores MD May 14, 2017 10:51
[2017-05-14 12:00] VITALS: BP 119/65; PULSE 93; RESP 16; TEMP 98.7; O2SAT 96
[2017-05-14 16:00] VITALS: BP 108/64; PULSE 79; RESP 16; TEMP 97.5; O2SAT 99
--- NOTE | 2017-05-14 18:29 | PD.ONC.PN ---
Subjective Subjective Remarks feeling better since steroids started several days ago. Objective Data Date Time Temp Pulse Resp B/P Pulse Ox O2 Delivery O2 Flow Rate FiO2 05/14/17 16:00 97.5 79 16 108/64 99 05/14/17 12:00 98.7 93 16 119/65 96 05/14/17 08:00 97.5 79 16 117/63 99 05/14/17 03:57 97.7 78 18 121/73 98 05/13/17 23:01 97.4 68 18 94/57 96 05/13/17 20:00 90 05/13/17 19:11 97.4 101 18 96/54 96 05/14/17 05/14/17 05/14/17 07:00 15:00 23:00 Intake Total 360 ml 240 ml Balance 360 ml 240 ml Result Diagram: 05/14/1720 05/14/1720 Laboratory Results Laboratory Tests Test 05/14/17 06:20 White Blood Count 10.8 TH/MM3 Red Blood Count 3.52 MIL/MM3 Hemoglobin 10.5 GM/DL Hematocrit 31.5 % Mean Corpuscular Volume 89.3 FL Mean Corpuscular Hemoglobin 29.9 PG Mean Corpuscular Hemoglobin 33.5 % Concent Red Cell Distribution Width 16.2 % Platelet Count 382 TH/MM3 Mean Platelet Volume 9.0 FL Neutrophils (%) (Auto) 76.6 % Lymphocytes (%) (Auto) 15.3 % Monocytes (%) (Auto) 6.6 % Eosinophils (%) (Auto) 1.1 % Basophils (%) (Auto) 0.4 % Neutrophils # (Auto) 8.3 TH/MM3 Lymphocytes # (Auto) 1.6 TH/MM3 Monocytes # (Auto) 0.7 TH/MM3 Eosinophils # (Auto) 0.1 TH/MM3 Basophils # (Auto) 0.0 TH/MM3 CBC Comment DIFF FINAL Differential Comment Sodium Level 141 MEQ/L Potassium Level 3.8 MEQ/L Chloride Level 105 MEQ/L Carbon Dioxide Level 29.0 MEQ/L Anion Gap 7 MEQ/L Blood Urea Nitrogen 15 MG/DL Creatinine 0.60 MG/DL Estimat Glomerular Filtration 99 ML/MIN Rate Random Glucose 198 MG/DL Calcium Level 9.2 MG/DL Total Bilirubin 0.4 MG/DL Aspartate Amino Transf 92 U/L (AST/SGOT) Alanine Aminotransferase 233 U/L (ALT/SGPT) Alkaline Phosphatase 669 U/L Total Protein 6.1 GM/DL Albumin 3.0 GM/DL Culture Results Microbiology Date/Time Procedure Status Source Growth 05/12/17 09:57 Stool Occult Blood (YAMILE) - Final Complete Stool Stool HEMOCCULT NEGATIVE Administered Medications Medications (Trade) Dose Ordered Sig/Kaiser Route PRN Reason Start Time Stop Time Status Last Admin Dose Admin Sodium Chloride (NS Flush) 2 ml BID IV FLUSH 05/03/17 21:00 05/14/17 09:52 Senna/Docusate Sodium (Sultana-Colace) 1 tab BID PO 05/03/17 21:00 05/05/17 21:49 Escitalopram Oxalate (Lexapro) 20 mg DAILY PO 05/05/17 09:00 05/14/17 09:51 Metoprolol Succinate (Toprol Xl) 12.5 mg DAILY PO 05/05/17 09:00 05/14/17 09:51 Modafinil (Provigil) 200 mg DAILY PO 05/05/17 09:00 05/14/17 09:51 Modafinil (Provigil) 100 mg DAILY@12 PO 05/04/17 12:00 05/14/17 11:59 Pantoprazole Sodium (Protonix) 40 mg DAILY PO 05/04/17 11:00 05/14/17 09:50 Amylase/Lipase/ Protease (Creon 12-38-60) 6 cap TIDPC PO 05/04/17 18:30 05/14/17 14:33 Promethazine HCl (Phenergan) 25 mg Q6H PRN PO nausea 05/04/17 22:15 05/13/17 10:34 Sucralfate (Carafate) 1 gm ACHS PO 05/04/17 21:00 05/14/17 17:17 Acetaminophen/ Hydrocodone Bitart ([place] 7.5-325 Mg) 1 tab Q6H PRN PO PAIN SCALE 5 TO 10 05/06/17 17:30 05/10/17 22:17 Phenol (Chloraseptic [place]) 2 spray Q2H PRN OROPHARYNG Sore throat 05/06/17 17:30 05/07/17 09:26 Lactobacillus Acidophilus (Lactinex) 1 tab TID PO 05/07/17 18:00 05/14/17 17:17 Prednisone (Deltasone) 5 mg BID PO 05/09/17 21:00 05/14/17 09:51 Ursodiol (Actigall) 300 mg Q12HR PO 05/12/17 21:00 05/14/17 09:51 Insulin Detemir (Levemir Inj) 10 units DAILY SQ 05/14/17 09:00 05/14/17 09:00 Objective Remarks GENERAL: slender. SKIN: Warm and dry. HEAD: Normocephalic. EYES: No scleral icterus. No injection or drainage. NECK: Supple, trachea midline. No JVD or lymphadenopathy. LYMPHATIC: No adenopathy. CARDIOVASCULAR: Regular rate and rhythm without murmurs. RESPIRATORY: Breath sounds equal bilaterally. No accessory muscle use. GASTROINTESTINAL: Abdomen soft, non-tender, nondistended. EXTREMITIES: No cyanosis, or edema. MUSCULOSKELETAL: poor musucle tone NEUROLOGICAL: No obvious focal deficit. Awake, alert, and oriented x3. PSYCHIATRIC: Appropriate mood and affect; insight and judgment normal. Assessment/Plan Plan 1.Discussed with Dr. Oleary and family. Hepatitis appears drug related. She has accumulated many medicines which she may in fact not require. Her oncologist in the past gave her Provigil to counteract the effect of other medicines. I am going to stop everything except essential medicines and can follow as outpatient. Once she is discharged will arrange pet scan to evaluate? mass in upper abd and if real will arrange for EUS and bx. Hopefully home in next 1-2 day. I appreciate all the help. Get Keating MD May 14, 2017 18:29
[2017-05-14 19:00] VITALS: BP 107/61; PULSE 85; RESP 17; TEMP 98; O2SAT 98
[2017-05-14 20:00] VITALS: PULSE 90
[2017-05-15] VITALS (7 sets, daily range): BP systolic 84–132; BP diastolic 48–77; PULSE 74–89; RESP 16–18; TEMP 97–98.3; O2SAT 96–99
[2017-05-15] MEDS: INSULIN ASPART SUPPLEMENTAL SCALE SQ SCH ×4 (06:44→22:00)
[2017-05-15] MEDS: SUCRALFATE 1 GM TAB PO SCH ×4 (06:45→21:58)
[2017-05-15 07:11] LABS: HEMATOCRIT 30.6 % (35.0-46.0); MEAN CELL VOLUME 89.4 FL (80.0-100.0); MEAN CORPUSCULAR HEMOGLOBIN 30.3 PG (27.0-34.0); MEAN CORPUSCULAR HGB CONC 33.9 % (32.0-36.0); PLATELET COUNT 373 TH/MM3 (150-450); RED BLOOD COUNT 3.43 MIL/MM3 (4.00-5.30); RED CELL DISTRIBUTION WIDTH 15.9 % (11.6-17.2); REVIEW FLAG FINAL; WHITE BLOOD COUNT 9.2 TH/MM3 (4.0-11.0)
[2017-05-15 07:36] LABS: BICARBONATE 28.5 MEQ/L (21.0-32.0)
[2017-05-15 07:39] LABS: INDIRECT BILIRUBIN 0.3 MG/DL (0.0-0.8); TOTAL BILIRUBIN ADULT 0.5 MG/DL (0.2-1.0)
[2017-05-15] MEDS: URSODIOL 300 MG CAP PO SCH ×2 (08:50→21:57)
[2017-05-15] MEDS: LIPASE/PROTEASE/AMYLASE (12,000/38,000/60,000) CAP PO SCH ×3 (08:50→21:57)
[2017-05-15] MEDS: predniSONE 5 MG TAB PO SCH ×2 (08:50→21:57)
[2017-05-15] MEDS: METOPROLOL SUCCINATE 25 MG EXTENDED RELEASE TAB PO SCH (08:50)
[2017-05-15] MEDS: LACTOBACILLUS ACIDOPHILUS TAB PO SCH ×3 (08:51→17:31)
[2017-05-15] MEDS: PANTOPRAZOLE SOD 40 MG DELAYED RELEASE TAB PO SCH (08:51)
[2017-05-15] MEDS: SODIUM CHLORIDE 0.9% FLUSH 10 ML FLUSH IV FLUSH SCH ×2 (08:52→21:58)
[2017-05-15] MEDS: DOCUSATE SODIUM 50 MG/SENNA 8.6 MG TAB PO SCH ×2 (08:59→21:00)
[2017-05-15] MEDS: INSULIN DETEMIR 100 UNITS/ML VIAL SQ SCH (08:59)
--- NOTE | 2017-05-15 10:09 | PD.ONC.PN ---
Subjective Subjective Remarks Afebrile overnight. Patient resting in bed in nad. Feeling a bit stronger. Daughter at bedside. Objective Data Date Time Temp Pulse Resp B/P Pulse Ox O2 Delivery O2 Flow Rate FiO2 05/15/17 08:00 97.0 74 18 121/66 98 05/15/17 04:00 98.3 76 16 125/77 98 05/15/17 01:43 Room Air 05/15/17 00:00 97.3 77 17 95/53 99 05/14/17 20:00 90 05/14/17 19:00 98.0 85 17 107/61 98 05/14/17 16:00 97.5 79 16 108/64 99 05/14/17 12:00 98.7 93 16 119/65 96 05/15/17 05/15/17 05/15/17 06:59 14:59 22:59 Intake Total 480 ml Balance 480 ml Result Diagram: 05/15/17 0645 05/15/17 0645 Laboratory Results Laboratory Tests Test 05/15/17 06:45 White Blood Count 9.2 TH/MM3 Red Blood Count 3.43 MIL/MM3 Hemoglobin 10.4 GM/DL Hematocrit 30.6 % Mean Corpuscular Volume 89.4 FL Mean Corpuscular Hemoglobin 30.3 PG Mean Corpuscular Hemoglobin 33.9 % Concent Red Cell Distribution Width 15.9 % Platelet Count 373 TH/MM3 Mean Platelet Volume 9.2 FL Sodium Level 141 MEQ/L Potassium Level 4.0 MEQ/L Chloride Level 105 MEQ/L Carbon Dioxide Level 28.5 MEQ/L Anion Gap 8 MEQ/L Blood Urea Nitrogen 17 MG/DL Creatinine 0.59 MG/DL Estimat Glomerular Filtration 101 ML/MIN Rate Random Glucose 172 MG/DL Calcium Level 8.8 MG/DL Total Bilirubin 0.5 MG/DL Direct Bilirubin 0.2 MG/DL Indirect Bilirubin 0.3 MG/DL Aspartate Amino Transf 55 U/L (AST/SGOT) Alanine Aminotransferase 182 U/L (ALT/SGPT) Alkaline Phosphatase 596 U/L Total Protein 5.9 GM/DL Albumin 3.1 GM/DL Administered Medications Medications (Trade) Dose Ordered Sig/Kaiser Route PRN Reason Start Time Stop Time Status Last Admin Dose Admin Sodium Chloride (NS Flush) 2 ml BID IV FLUSH 05/03/17 21:00 05/15/17 08:52 Senna/Docusate Sodium (Sultana-Colace) 1 tab BID PO 05/03/17 21:00 05/05/17 21:49 Metoprolol Succinate (Toprol Xl) 12.5 mg DAILY PO 05/05/17 09:00 05/15/17 08:50 Pantoprazole Sodium (Protonix) 40 mg DAILY PO 05/04/17 11:00 05/15/17 08:51 Amylase/Lipase/ Protease (Creon 12-38-60) 6 cap TIDPC PO 05/04/17 18:30 05/15/17 08:50 Promethazine HCl (Phenergan) 25 mg Q6H PRN PO nausea 05/04/17 22:15 05/13/17 10:34 Sucralfate (Carafate) 1 gm ACHS PO 05/04/17 21:00 05/15/17 06:45 Acetaminophen/ Hydrocodone Bitart ([place] 7.5-325 Mg) 1 tab Q6H PRN PO PAIN SCALE 5 TO 10 05/06/17 17:30 05/10/17 22:17 Phenol (Chloraseptic [place]) 2 spray Q2H PRN OROPHARYNG Sore throat 05/06/17 17:30 05/07/17 09:26 Lactobacillus Acidophilus (Lactinex) 1 tab TID PO 05/07/17 18:00 05/15/17 08:51 Prednisone (Deltasone) 5 mg BID PO 05/09/17 21:00 05/15/17 08:50 Insulin Detemir (Levemir Inj) 10 units DAILY SQ 05/14/17 09:00 05/15/17 08:59 Ursodiol (Actigall) 300 mg Q12HR PO 05/14/17 21:00 05/15/17 08:50 Objective Remarks GENERAL: Chronically ill appearing female supine in bed in [facility]. SKIN: Warm and dry. HEAD: Normocephalic. EYES: No injection or drainage. NECK: Supple, trachea midline. CARDIOVASCULAR: Regular rate and rhythm RESPIRATORY: Breath sounds equal bilaterally. No accessory muscle use. GASTROINTESTINAL: Abdomen soft, non-tender, nondistended. EXTREMITIES: No cyanosis MUSCULOSKELETAL: generalized muscle wasting. NEUROLOGICAL: No obvious focal deficit. Awake, alert, and oriented x3. Assessment/Plan Assessment 66y/o female with h/o lymphoma with generalized decline over the last six months of unknown origin. Plan 1. patient clear for discharge from oncology perspective. would recommend going home with home health care when primary physician feels this is appropriate. 2. LFT's with some improvement, this may be d/t effect of stopping medications or something else. 3. follow up with Dr. Keating in clinic within 2 weeks. also advised daughter to call and reschedule PET scan once outpatient. Written by Mignon Alonzo, acting as scribe for Dr. Keating on 05/15/17 at 10:10. Attending Statement Once she is discharged I will arrange for a pet scan and she is to contact Dr. Conway to arrange for consultation with endocrine due to DM, adrenal insufficiency and pancreatic insufficiency. She is doing better and hopefully can go home soon. Would limit medicines to only those which are essential on discharge as would like to avoid the confusion that comes with polypharmacy. Mignon Alonzo May 15, 2017 10:09 Get Keating MD May 15, 2017 19:19
--- NOTE | 2017-05-15 14:20 | HHI.PR ---
Subjective Remarks Complaining of right foot pain at the plantar surface. She said plantar fasciitis in the past. No change in activity recently. This is probably spontaneous. Ambulation is slightly inhibited by this pain. Labs are stable today. Objective Vital Signs Date Time Temp Pulse Resp B/P Pulse Ox O2 Delivery O2 Flow Rate FiO2 05/15/17 12:00 98.1 83 18 132/71 98 05/15/17 08:00 97.0 74 18 121/66 98 05/15/17 04:00 98.3 76 16 125/77 98 05/15/17 01:43 Room Air 05/15/17 00:00 97.3 77 17 95/53 99 05/14/17 20:00 90 05/14/17 19:00 98.0 85 17 107/61 98 05/14/17 16:00 97.5 79 16 108/64 99 I/O 05/14/17 05/14/17 05/14/17 05/15/17 05/15/17 05/15/17 07:00 15:00 23:00 07:00 15:00 23:00 Intake Total 360 ml 240 ml 480 ml 480 ml Balance 360 ml 240 ml 480 ml 480 ml Intake Oral 360 ml 240 ml 480 ml 480 ml # Voids 3 2 2 2 # Bowel Movements 0 1 0 0 Result Diagram: 05/15/17 0645 05/15/17 0645 Procedures None Objective Remarks GENERAL: NAD, A&Ox3 HEAD: Normocephalic. Erythema with trace evidence of danielito and mouth. NECK: Supple, trachea midline. No lymphadenopathy. EYES: No scleral icterus. No injection or drainage. CARDIOVASCULAR: Regular rate and rhythm without murmurs, gallops, or rubs. RESPIRATORY: Breath sounds equal bilaterally. No accessory muscle use. GASTROINTESTINAL: Abdomen soft, non-tender, nondistended. MUSCULOSKELETAL: No cyanosis, or edema. SKIN: Warm and dry. NEURO: No focal neurological deficitis. A/P Problem List: (1) History of non-Hodgkin's lymphoma ICD Code: Z85.72 (2) Chronic diarrhea ICD Code: K52.9 (3) Sepsis ICD Code: A41.9 (4) Elevated LFTs ICD Code: R79.89 (5) Generalized weakness ICD Code: R53.1 (6) DM (diabetes mellitus) ICD Code: E11.9 Assessment and Plan Assessment and Plan 66-year-old female admitted with sepsis, elevated LFTs, and diarrhea. No signs of dehydration. History of lymphoma increased concerns for cancer as an etiology for her symptoms. Cancer workup is negative. Possible endocrinologic etiology. Continue steroids. Continue blood sugar monitoring. Short course of NSAIDs provided for plantar fasciitis. Oral candidiasis Nystatin swish and swallow Severe Sepsis Resolved UTI secondary to Gram Negative Rods Continue Cefepime and Vancomycin Infectious disease doctor following Probiotics added Non Hodgkin lymphoma Chronic Bone biopsy pending Consider abdominal last biopsy based on bone biopsy findings Hydronephrosis No further workup needed per urology Weakness Continue physical therapy Protein calorie malnutrition Related to chronic diarrhea patient on TPN at home Albumin 3.0 Follow electrolytes and replace as needed Plantar fasciitis Naproxen given today Naproxen will be provided tomorrow morning Monitor for improvement DM, chronic Follow blood sugars Diabetic diet Insulin sliding scale DVT prophylaxis SCDs Discharge Planning Liver biopsy obtained yesterday. Inpatient versus outpatient follow-up with liver biopsy results. Problem Qualifiers (1) Sepsis: Qualified Code: A41.9 - Sepsis, due to unspecified organism (2) DM (diabetes mellitus): David Flores MD May 15, 2017 2:20 pm
[2017-05-15] MEDS ORDERED: NAPROXEN 250 MG TAB PO ONE (14:30)
[2017-05-15] MEDS: PROMETHAZINE HCL 25 MG TAB PO PRN (17:31)
[2017-05-16 00:08] VITALS: BP 95/57; PULSE 85; RESP 16; TEMP 97.5; O2SAT 96
[2017-05-16 00:45] VITALS: BP 108/38; PULSE 91; RESP 18; TEMP 96.9; O2SAT 97
[2017-05-16 05:54] VITALS: BP 126/75; PULSE 80; RESP 16; TEMP 98.1; O2SAT 96
[2017-05-16] MEDS: SUCRALFATE 1 GM TAB PO SCH ×2 (06:53→11:36)
[2017-05-16] MEDS: INSULIN ASPART SUPPLEMENTAL SCALE SQ SCH ×2 (07:00→11:35)
[2017-05-16 08:00] VITALS: BP 105/61; PULSE 93; RESP 16; TEMP 97.2; O2SAT 98
[2017-05-16] MEDS: LACTOBACILLUS ACIDOPHILUS TAB PO SCH ×2 (08:38→13:00)
[2017-05-16] MEDS: predniSONE 5 MG TAB PO SCH (08:38)
[2017-05-16] MEDS: PANTOPRAZOLE SOD 40 MG DELAYED RELEASE TAB PO SCH (08:38)
[2017-05-16] MEDS: METOPROLOL SUCCINATE 25 MG EXTENDED RELEASE TAB PO SCH (08:39)
[2017-05-16] MEDS: URSODIOL 300 MG CAP PO SCH (08:39)
[2017-05-16] MEDS: SODIUM CHLORIDE 0.9% FLUSH 10 ML FLUSH IV FLUSH SCH (08:40)
[2017-05-16] MEDS: INSULIN DETEMIR 100 UNITS/ML VIAL SQ SCH (08:42)
[2017-05-16] MEDS ORDERED: NAPROXEN 250 MG TAB PO SCH (09:00)
[2017-05-16] MEDS: DOCUSATE SODIUM 50 MG/SENNA 8.6 MG TAB PO SCH (09:00)
[2017-05-16] MEDS: LIPASE/PROTEASE/AMYLASE (12,000/38,000/60,000) CAP PO SCH ×2 (10:25→13:30)
--- NOTE | 2017-05-16 10:38 | HHI.PR ---
Subjective Remarks Follow-up abnormal liver function test and plantar fasciitis. Denies nausea and abdominal pain. Improving foot pain. Ambulatory with assistance initially upon getting up. Her to provide help at home. Objective Vitals Vital Signs Date Time Temp Pulse Resp B/P Pulse Ox O2 Delivery O2 Flow Rate FiO2 05/16/17 08:00 97.2 93 16 105/61 98 05/16/17 05:54 98.1 80 16 126/75 96 05/16/17 01:48 Room Air 05/16/17 00:08 97.5 85 16 95/57 96 05/15/17 21:20 80 05/15/17 20:44 97.9 76 18 84/48 96 05/15/17 16:00 98.2 89 16 98/60 97 05/15/17 12:00 98.1 83 18 132/71 98 I/O 05/15/17 05/15/17 05/15/17 05/16/17 05/16/17 05/16/17 07:00 15:00 23:00 07:00 15:00 23:00 Intake Total 480 ml 180 ml 240 ml Balance 480 ml 180 ml 240 ml Intake Oral 480 ml 180 ml 240 ml # Voids 2 2 2 # Bowel Movements 0 1 1 Result Diagram: 05/15/17 0645 05/15/17 0645 Imaging Last Impressions Liver Biopsy CT 05/12/17 0000 Signed Impressions: Service Date/Time: Friday, May 12, 2017 14:48 - CONCLUSION: Uncomplicated CT guided biopsy. Jamal Workman MD Hepatobiliary Scan Nuclear Medicine 05/12/17 0000 Signed Impressions: Service Date/Time: Friday, May 12, 2017 12:57 - CONCLUSION: 1. Normal common bile duct without obstruction. 2. Status post cholecystectomy. 3. Biliary enteric reflux. Jamal Workman MD Abdomen/Pelvis CT 05/05/17 0000 Signed Impressions: Service Date/Time: Friday, May 05, 2017 01:01 - CONCLUSION: 1. Previous Whipple. Increasing mass in the estella hepatis of concern for local recurrence or metastatic adenopathy. 2. Mild bilateral hydronephrosis/hydroureter now seen, etiology uncertain. Ernie Mccarty MD Chest X-Ray 05/03/17 8154 Signed Impressions: Service Date/Time: Wednesday, May 03, 2017 16:50 - CONCLUSION: No acute disease. Saman Salas MD Objective Remarks Well-developed, asthenic in no distress Lungs are clear a: Expansion Regular rate and rhythm Alert and oriented and nonfocal Procedures EGD with biopsy Bone marrow biopsy Liver biopsy A/P Problem List: (1) Severe sepsis ICD Code: A41.9 Status: Resolved (2) Transaminitis ICD Code: R74.0 Status: Acute (3) Generalized weakness ICD Code: R53.1 Status: Acute (4) Protein calorie malnutrition ICD Code: E46 Status: Acute (5) History of non-Hodgkin's lymphoma ICD Code: Z85.72 Status: Chronic (6) DM (diabetes mellitus) ICD Code: E11.9 Status: Chronic Assessment and Plan 66-year-old female admitted with sepsis, elevated LFTs, and diarrhea. No signs of dehydration. History of lymphoma increased concerns for cancer as an etiology for her symptoms. Cancer workup is negative. Possible endocrinologic etiology. Continue steroids. Continue blood sugar monitoring. Short course of NSAIDs provided for plantar fasciitis. Transaminitis status post liver biopsy. 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 Discontinue all nonessential medications discussed with GI. Patient to follow-up with oncology. PET scan scheduled this Thursday Adrenal insufficiency. Prednisone to be switched to Solu-Cortef per renal recommendations Oral candidiasis Resolved status post Nystatin swish and swallow Severe Sepsis Resolved UTI Resolved status post Cipro Non Hodgkin lymphoma Bone marrow biopsy negative for malignancy Hydronephrosis No further workup needed per urology Weakness Continue physical therapy Protein calorie malnutrition Patient with improved diet consuming 100% of meals Plantar fasciitis Improving. DM, chronic Follow blood sugars Diabetic diet Insulin sliding scale. Restart glyburide discontinue Levemir DVT prophylaxis SCDs. Patient ambulatory Discharge Planning Stable for discharge Problem Qualifiers (1) DM (diabetes mellitus): Florian Gorss MD May 16, 2017 10:38 Discharge Planning Liver biopsy obtained yesterday. Inpatient versus outpatient follow-up with liver biopsy results. Problem Qualifiers (1) DM (diabetes mellitus): Florian Gross MD May 16, 2017 10:38
[2017-05-16] MEDS ORDERED: LACT PO (11:08)
[2017-05-16] MEDS ORDERED: CORT20TA PO (11:08)
[2017-05-16] MEDS ORDERED: URSO300C2 PO (11:08)
--- NOTE | 2017-05-16 11:08 | HHI.DCPOC ---
Discharge Care Plan Diagnosis: (1) Elevated LFTs Your Health Problems Are: Difficulty with ADL Exercise Tolerance Goals to Promote Your Health * To prevent worsening of your condition and complications * To maintain your health at the optimal level Directions to Meet Your Goals Take your medications as prescribed Follow your dietary instruction Follow activity as directed Keep your appointments as scheduled Take your immunizations and boosters as scheduled If your symptoms worsen call your PCP, if no PCP go to Urgent Care Center or Emergency Room Smoking is Dangerous to Your Health. Avoid second hand smoke Call the 24-hour hour crisis hotline for domestic abuse at Florian Gross MD May 16, 2017 11:08
--- NOTE | 2017-05-16 11:09 | HHI.FF ---
Face to Face Verification Diagnosis: (1) Elevated LFTs Physical Therapy Order: Evaluate and Treat, Improve ambulation, Strength and gait training Home Health Nursing Order: Medical education Signs/symptoms of disease process Nursing assessment with vital signs I have seen patient Riddhi Louis on 05/16/17. My clinical findings support the need for the requested home health care services because: Ltd mobility - disease progression I certify that my clinical findings support that this patient is homebound because: Unsteady gait/balance Need for psychosocial assistance Florian Gross MD May 16, 2017 11:09
--- NOTE | 2017-05-16 11:29 | HHI.DS ---
Discharge Summary Admission Date May 03, 2017 at 19:19 Discharge Date: May 16, 2017 Admitting Diagnosis sepsis, elevated LFTs, generalized weakness (1) Severe sepsis ICD Code: A41.9 Diagnosis: Principal (2) Transaminitis ICD Code: R74.0 Diagnosis: Principal (3) Generalized weakness ICD Code: R53.1 Diagnosis: Principal (4) Protein calorie malnutrition ICD Code: E46 Diagnosis: Principal (5) History of non-Hodgkin's lymphoma ICD Code: Z85.72 Diagnosis: Secondary (6) DM (diabetes mellitus) ICD Code: E11.9 Diagnosis: Secondary Procedures EGD with biopsy Bone marrow biopsy Liver biopsy Brief History - From Admission 66 y/o female with a history of non Hodgkin lymphoma, DM, tachycardia, depression and gerd presented to the ED with complaints of weakness,nausea, vomiting, and diarrhea that started . Over the last few days she has been getting worse and more fatigued and confused at time. Yesterday she developed a 102 fever at home with chills. She denies chest pain, sob, or dysuria. She is incontinent at times, but not more than normal. She was started on TPN at home last month, she does not eat much by mouth, she becomes more nauseated after eating by mouth. Per the daughter who is at bedside she states over the last few days she has been becoming more confused at times and her balance has been off when using the walker. She just started with Dr. Keating, in the process of getting a pet scan and bone marrow biopsy Dr Ferrer is her GI doctor Dr. Quispe is her PCP CBC/BMP: 05/15/17 0645 05/15/17 0645 Significant Findings Laboratory Tests Test 05/14/17 05/15/17 06:20 06:45 Red Blood Count 3.52 MIL/MM3 3.43 MIL/MM3 (4.00-5.30) (4.00-5.30) Hemoglobin 10.5 GM/DL 10.4 GM/DL (11.6-15.3) (11.6-15.3) Hematocrit 31.5 % 30.6 % (35.0-46.0) (35.0-46.0) Neutrophils (%) (Auto) 76.6 % (16.0-70.0) Neutrophils # (Auto) 8.3 TH/MM3 (1.8-7.7) Random Glucose 198 MG/DL 172 MG/DL (74-106) (74-106) Aspartate Amino Transf 92 U/L (15-37) 55 U/L (15-37) (AST/SGOT) Alanine Aminotransferase 233 U/L (10-53) 182 U/L (10-53) (ALT/SGPT) Alkaline Phosphatase 669 U/L 596 U/L (45-117) (45-117) Total Protein 6.1 GM/DL 5.9 GM/DL (6.4-8.2) (6.4-8.2) Albumin 3.0 GM/DL 3.1 GM/DL (3.4-5.0) (3.4-5.0) Imaging Last Impressions Liver Biopsy CT 05/12/17 0000 Signed Impressions: Service Date/Time: Friday, May 12, 2017 14:48 - CONCLUSION: Uncomplicated CT guided biopsy. Jamal Workman MD Hepatobiliary Scan Nuclear Medicine 05/12/17 0000 Signed Impressions: Service Date/Time: Friday, May 12, 2017 12:57 - CONCLUSION: 1. Normal common bile duct without obstruction. 2. Status post cholecystectomy. 3. Biliary enteric reflux. Jamal Workman MD Abdomen/Pelvis CT 05/05/17 0000 Signed Impressions: Service Date/Time: Friday, May 05, 2017 01:01 - CONCLUSION: 1. Previous Whipple. Increasing mass in the estella hepatis of concern for local recurrence or metastatic adenopathy. 2. Mild bilateral hydronephrosis/hydroureter now seen, etiology uncertain. Ernie Mccarty MD Chest X-Ray 05/03/17 1625 Signed Impressions: Service Date/Time: Wednesday, May 03, 2017 16:50 - CONCLUSION: No acute disease. Saman Salas MD PE at Discharge Well-developed, asthenic in no distress Lungs are clear a: Expansion Regular rate and rhythm Alert and oriented and nonfocal Hospital Course 66-year-old female admitted with sepsis, elevated LFTs, and diarrhea. No signs of dehydration. History of lymphoma increased concerns for cancer as an etiology for her symptoms. Cancer workup is negative. Possible endocrinologic etiology. Continue steroids. Continue blood sugar monitoring. Short course of NSAIDs provided for plantar fasciitis. Transaminitis status post liver biopsy. 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 Discontinue all nonessential medications discussed with GI. Patient to follow-up with oncology. PET scan scheduled this Thursday Non Hodgkin lymphoma Bone marrow biopsy negative for malignancy Adrenal insufficiency. Prednisone to be switched to Solu-Cortef per renal recommendations Oral candidiasis Resolved status post Nystatin swish and swallow Severe Sepsis Resolved UTI Resolved status post Cipro Hydronephrosis No further workup needed per urology Weakness Continue physical therapy Protein calorie malnutrition Patient with improved diet consuming 100% of meals Plantar fasciitis Improving. DM, chronic Follow blood sugars Diabetic diet Insulin sliding scale. Restart glyburide discontinue Levemir DVT prophylaxis SCDs. Patient ambulatory Pt Condition on Discharge: Stable Discharge Disposition: Disch w/ Home Health Serv Discharge Time: > 30 minutes Discharge Instructions DIET: Follow Instructions for: Diabetic Diet Activities you can perform: Regular-No Restrictions Follow up Referrals: Endocrinology - 1 Week Gastroenterology - 1 Week Oncology - 1 Week PCP Follow-up - 1 Week New Medications: Hydrocortisone (Cortef) 20 Mg Tab 20 MG PO BID Take with food to decrease GI upset adrenal insufficiency #60 Ref 0 TAB Ursodiol (Ursodiol) 300 Mg Cap 300 MG PO BID Gallstones #60 Ref 0 CAP Lactobacillus Acidophilus (Acidophilus/l-Sporogenes) 1 Tab Tab 1 TAB PO TID Bowel Management #90 TAB Continued Medications: Glyburide (Glyburide) 2.5 Mg Tab 2.5 MG PO BID Take with meals at the same time each day Blood Sugar Management # 60 Ref 0 TAB Metoprolol Succinate ER 24 HR (Metoprolol Succinate ER 24 HR) 25 Mg Tab 12.5 MG PO DAILY #30 Ref 0 TAB Omeprazole (Omeprazole) 40 Mg Cap 40 MG PO DAILY #30 Ref 0 CAP Pancrelipase (Creon) 12,000-38,000-60,000 Units Cap 1 CAP PO TIDPC Digestive Aid #90 Ref 0 CAP Discontinued Medications: Escitalopram (Lexapro) 20 Mg Tab 20 MG PO DAILY #30 Ref 0 TAB Megestrol (Megestrol) 20 Mg Tab 20 MG PO QID Ref 0 TAB Modafinil (Provigil) 200 Mg Tab 200 MG PO DAILY Manage Daytime Sleepiness Ref 0 TAB Modafinil (Provigil) 100 Mg Tab 100 MG PO DAILY@1200 Manage Daytime Sleepiness Ref 0 TAB Rifaximin (Xifaxan) 550 Mg Tab 550 MG PO Q12HR Hepatic encephalopathy #60 Ref 0 TAB Additional Information I spent 35 minutes [id number] with the patient or on the ziegler discussing the patient's disposition, prognosis, and plan of care with patient's caregivers. Over half the time spent was devoted to counseling the patient regarding placement in coordinating care with caregivers and case management. Florian Gross MD May 16, 2017 11:29
[2017-05-16 12:00] VITALS: BP 116/64; PULSE 92; RESP 16; TEMP 97.2; O2SAT 97
--- NOTE | 2017-05-18 11:02 | PQ ---
Physician Query Response Document PATIENT: ZINA BARONE : 1950 ADMIT DATE: 05/03/2017 7:19 PM DISCH DATE: 05/16/2017 2:31 PM RESPONDING PROVIDER #: Miesha QUERY TEXT: Malnutrition Severity Malnutrition is documented in the Medical Record. Please specify the severity Such as: -- Mild ? first degree -- Moderate ? second degree -- Severe ? third degree -- Severe malnutrition with marasmus -- Other, please specify Your prompt response is appreciated, please do not hesitate to contact the CDI/Coding Hotline with an y questions,comments,and/or concerns you may have at ext. [phone] The patient's Clinical Indicators include: per H protein calorie malnutrition, patient on TPN at home, albumin 3.0 Query created by: Annamaria Castro on 05/18/2017 10:31 AM RESPONSE TEXT: MIld malnutrition Electronically signed by: Florian Gross MD 05/18/2017 10:58 AM
[2017-05-19 13:53] LABS: ENDOMYSIAL AB TITER ND (<1:5); TISSUE TRANSGLUTAMINASE AB LESS THAN 1 U/mL (())
[2017-05-19 23:53] LABS: IGA SERUM 80 mg/dL (81-463); STRIATED MUCLE AB TITER ND (<1:40)
[2017-05-20 03:52] LABS: ACETYLCHOLINE REC BINDING LESS THAN 0.30 nmol/L (())
== END 2017-05-16 14:31 | disposition home health service (06) | DRG 872 ==
LOC: NEPC 15:54 → NEDA 19:19 → N06B 21:09
PROVIDERS: ADMIT Internal Medicine; ATTEND Internal Medicine
PROC: 07DR3ZX Extraction of Iliac Bone Marrow, Percutaneous Approach, Diagnostic (ICD-10-PCS; 2017-05-05)
PROC: 0DBA8ZX Excision of Jejunum, Via Natural or Artificial Opening Endoscopic, Diagnostic (ICD-10-PCS; principal; 2017-05-06 09:40)
PROC: 30233N1 Transfusion of Nonautologous Red Blood Cells into Peripheral Vein, Percutaneous Approach (ICD-10-PCS; 2017-05-10)
PROC: 0FB03ZX Excision of Liver, Percutaneous Approach, Diagnostic (ICD-10-PCS; 2017-05-12)
DX: A41.9 Sepsis, unspecified organism (principal); B37.0 Candidal stomatitis; E11.65 Type 2 diabetes mellitus with hyperglycemia; K75.89 Other specified inflammatory liver diseases; E27.40 Unspecified adrenocortical insufficiency; N13.30 Unspecified hydronephrosis; N39.0 Urinary tract infection, site not specified; Z68.1 Body mass index [BMI] 19.9 or less, adult; E44.1 Mild protein-calorie malnutrition; R53.1 Weakness; R65.20 Severe sepsis without septic shock; E87.6 Hypokalemia; G89.29 Other chronic pain; M72.2 Plantar fascial fibromatosis; D64.9 Anemia, unspecified; K52.9 Noninfective gastroenteritis and colitis, unspecified; B96.89 Other specified bacterial agents as the cause of diseases classified elsewhere; K21.9 Gastro-esophageal reflux disease without esophagitis; F32.9 Major depressive disorder, single episode, unspecified; R74.0 Nonspecific elevation of levels of transaminase and lactic acid dehydrogenase [LDH]; Z85.72 Personal history of non-Hodgkin lymphomas; Z92.21 Personal history of antineoplastic chemotherapy; Z87.891 Personal history of nicotine dependence; Z79.84 Long term (current) use of oral hypoglycemic drugs
CPT/HCPCS: 36430; 47000; 71010; 74177; 77012; 78226; 80048; 80053; 80074; 80076; 80202; 81001; 82088; 82103; 82105; 82272; 82378; 82390; 82533; 82550; 82565; 82607; 82728; 82784; 82947; 82948; 82977; 83036; 83516; 83519; 83520; 83540; 83550; 83605; 83615; 83735; 83930; 84080; 84100; 84132; 84484; 85025; 85027; 85097; 85610; 85730; 86038; 86255; 86301; 86850; 86900; 86901; 86920; 87040; 87077; 87086; 87186; 87493; 87506; 87804; 88184; 88185; 88237; 88264; 88280; 88305; 88307; 88311; 88313; 88341; 88342; 93005; 96374; A9537; J0692; J1720; J1815; J2250; J3010; J3370; J3475; J3480; J7030; J7040; J7050; J7120; J7512; P9016; Q0164; Q0169; Q9963; Q9967

== ENCOUNTER → 2017-05-25 | Outpatient (CLI) | payer MEDICARE, OTHER ==
[~2017-05-25] MED LIST changes: -CARA1TAB6 PO; +CORT20TA PO; -HYDR-2376 PO; -KPHOS250 PO; +LACT PO; -LEXA20TA PO; -LOMO2.5T PO; -MEGE20TA PO; -PROM25TA10 PO; -PROV100T10 PO; -PROV200T11 PO; -REST0.05 EACH EYE; +URSO300C2 PO; -XIFA550T4 PO
[2017-05-25 13:36] LABS: HEMATOCRIT 33.9 % (35.0-46.0); MEAN CELL VOLUME 88.7 FL (80.0-100.0); MEAN CORPUSCULAR HEMOGLOBIN 29.7 PG (27.0-34.0); MEAN CORPUSCULAR HGB CONC 33.5 % (32.0-36.0); PLATELET COUNT 309 TH/MM3 (150-450); RED BLOOD COUNT 3.82 MIL/MM3 (4.00-5.30); RED CELL DISTRIBUTION WIDTH 15.1 % (11.6-17.2); REVIEW FLAG FINAL; WHITE BLOOD COUNT 13.4 TH/MM3 (4.0-11.0)
[2017-05-25 14:05] LABS: ANION GAP 8 MEQ/L (5-15); AST (GOT) 30 U/L (15-37); BICARBONATE 29.1 MEQ/L (21.0-32.0); BLOOD UREA NITROGEN 15 MG/DL (7-18); CHLORIDE 105 MEQ/L (98-107); GLOMERULAR FILTRATION RATE 101 ML/MIN (>89); GLUCOSE,FASTING 128 MG/DL (74-99); POTASSIUM 3.8 MEQ/L (3.5-5.1); SODIUM (NA) 142 MEQ/L (136-145)
[2017-05-25 14:06] LABS: ALT (GPT) 65 U/L (10-53)
[2017-05-25 14:08] LABS: ALKALINE PHOSPHATASE 402 U/L (45-117); TOTAL BILIRUBIN ADULT 0.4 MG/DL (0.2-1.0)
== END ==
LOC: CLAB 13:14
PROVIDERS: ATTEND Family Medicine
DX: K75.9 Inflammatory liver disease, unspecified (principal); D47.3 Essential (hemorrhagic) thrombocythemia
CPT/HCPCS: 36415; 80053; 85027

== ENCOUNTER → 2017-11-10 | Outpatient (CLI) | payer MEDICARE ==
[~2017-11-10] MED LIST changes: +LIDO1PAD52 TOPICAL; +METO1TAB42 PO; -METO25TA6 PO; +REME15TA PO
[2017-11-10 13:35] LABS: HEMATOCRIT 31.7 % (35.0-46.0); HEMOGLOBIN 11.2 GM/DL (11.6-15.3); MEAN CELL VOLUME 87.7 FL (80.0-100.0); MEAN CORPUSCULAR HEMOGLOBIN 30.9 PG (27.0-34.0); MEAN CORPUSCULAR HGB CONC 35.2 % (32.0-36.0); MEAN PLATELET VOLUME 9.4 FL (7.0-11.0); PLATELET COUNT 231 TH/MM3 (150-450); RED BLOOD COUNT 3.62 MIL/MM3 (4.00-5.30); WHITE BLOOD COUNT 5.5 TH/MM3 (4.0-11.0)
[2017-11-10 13:51] LABS: ALBUMIN 3.6 GM/DL (3.4-5.0); AST (GOT) 14 U/L (15-37); BICARBONATE 27.2 MEQ/L (21.0-32.0); BLOOD UREA NITROGEN 20 MG/DL (7-18); CALCIUM 9.2 MG/DL (8.5-10.1); CHLORIDE 109 MEQ/L (98-107); GLOMERULAR FILTRATION RATE 83 ML/MIN (>89); GLUCOSE,FASTING 224 MG/DL (74-99); SODIUM (NA) 144 MEQ/L (136-145)
[2017-11-10 13:51] LABS: BILIRUBIN, URINE NEG (NEG); BLOOD, URINE NEG (NEG); GLUCOSE,URINE NEG (NEG); HYALINE CAST, URINE 6 /lpf (RARE); KETONE, URINE NEG (NEG); MUCUS URINE MANY /lpf (OCC); NITRITE,URINE NEG (NEG); SQUAMOUS EPITHELIAL CELL URINE 1 /hpf (0-5); URINE COLOR DARK-YELLOW (YELLW/STRAW); URINE LEUKOCYTE ESTERASE SMALL (NEG)
[2017-11-10 13:55] LABS: ALKALINE PHOSPHATASE 82 U/L (45-117); ALT (GPT) 24 U/L (10-53); TOTAL BILIRUBIN ADULT 0.3 MG/DL (0.2-1.0); TOTAL PROTEIN 6.5 GM/DL (6.4-8.2)
== END ==
LOC: CLAB 12:49
PROVIDERS: ATTEND Physical Medicine & Rehabilitation
DX: E46 Unspecified protein-calorie malnutrition (principal); N39.0 Urinary tract infection, site not specified
CPT/HCPCS: 36415; 80053; 81001; 85027; 87086

== ENCOUNTER 2017-12-15 12:32 | Emergency (ER) | payer MEDICARE ==
[~2017-12-15] VITALS: Ht 160 cm; Wt 44.5 kg
[~2017-12-15 12:32] MED LIST changes: -LIDO1PAD52 TOPICAL
[2017-12-15 12:33] VITALS: BP 100/60; PULSE 93; RESP 16; TEMP 98.2; O2SAT 99
[2017-12-15] MEDS ORDERED: IOHEXOL 350 MG/ML 10 ML VIAL (for RAD DIAG) IVCONTRAST ONE (12:33)
--- NOTE | 2017-12-15 13:25 | PD ---
HPI Chief Complaint: GI Complaint Time Seen by Provider: 12:51 Travel History International Travel<30 days: No Contact w/Intl Traveler<30days: No Traveled to known affect area: No History of Present Illness HPI Patient is a 67-year-old female presents emergency department for evaluation of nausea vomiting and diarrhea over the past month gradually worsening. Patient has a history of lymphoma and resection gastric bypass, she has been seen by her physician Dr. Quispe, she had formerly been followed by Dr. Keating but was lost to follow-up, she is also followed by Dr. Joe whom she has not seen in some time. The family is concerned because she has been losing weight is very reluctant to eat anything. They brought her into the hospital at this time. She is able to tolerate p.o. fluids, she states that anytime she eats anything she usually gets nauseated to the point where she throws up. Nonbloody nonbilious emesis, nonbloody and non-melanous stools. No fevers, no cough no congestion. Symptoms over the past month, gradually worsening, context and associated signs symptoms as above. Denies any abdominal pain. PFSH Past Medical History Heart Rhythm Problems: No Cancer: Yes (NON HODKINS LYMPHOMA, stage 4) Cardiac Catheterization: No Cardiovascular Problems: Yes High Cholesterol: No Chemotherapy: Yes (last 09/2016) Congestive Heart Failure: No Diabetes: Yes (dm2) Diminished Hearing: No Gastrointestinal Disorders: Yes Hypertension: No Musculoskeletal: No Neurologic: No Psychiatric: No Respiratory: No Myocardial Infarction: No Radiation Therapy: No Menopausal: Yes Past Surgical History Abdominal Surgery: Yes (APPENDECTOMY) Appendectomy: Yes Body Medical Devices: PORT Cholecystectomy: Yes (DURING WHIPPLE) Coronary Artery Bypass Graft: No Genitourinary Surgery: Yes (WHIPPLE PROCEDURE) Gynecologic Surgery: Yes (HYSTERECTOMY) Hysterectomy: Yes Oral Surgery: Yes (TONSILLECTOMY) Tonsillectomy: Yes Other Surgery: Yes Social History Alcohol Use: No Tobacco Use: No Substance Use: No Allergies-Medications (Allergen,Severity, Reaction): Coded Allergies: pregabalin (Unverified Allergy, Severe, neuro symptoms, 06/09/17) Reported Meds & Prescriptions Reported Meds & Active Scripts Active Flagyl (Metronidazole) 500 Mg Tab 500 Mg PO BID 14 Days Remeron (Mirtazapine) 15 Mg Tab 15 Mg PO HS Cortef (Hydrocortisone) 20 Mg Tab 20 Mg PO BID Take with food to decrease GI upset Ursodiol 300 Mg Cap 300 Mg PO BID Acidophilus/l-Sporogenes (Lactobacillus Acidophilus) 1 Tab Tab 1 Tab PO TID Reported Glyburide 2.5 Mg Tab 2.5 Mg PO BID Take with meals at the same time each day Creon (Amylase/Lipase/Protease) 12,000-38,000-60,000 Units Cap 1 Cap PO TIDPC Metoprolol Succinate ER 24 HR (Metoprolol Succinate) 25 Mg Tab 12.5 Mg PO DAILY Omeprazole 40 Mg Cap 40 Mg PO DAILY Review of Systems Except as stated in HPI: all other systems reviewed are Neg Physical Exam Narrative GENERAL: Well-developed, thin but in no obvious distress. SKIN: Focused skin assessment warm/dry. HEAD: Atraumatic. Normocephalic. EYES: Pupils equal and round. No scleral icterus. No injection or drainage. ENT: No nasal bleeding or discharge. Mucous membranes pink and moist. NECK: Trachea midline. No JVD. CARDIOVASCULAR: Regular rate and rhythm. No murmur appreciated. RESPIRATORY: No accessory muscle use. Clear to auscultation. Breath sounds equal bilaterally. GASTROINTESTINAL: Abdomen soft, non-tender, nondistended. Hepatic and splenic margins not palpable. MUSCULOSKELETAL: No obvious deformities. No clubbing. No cyanosis. No edema. NEUROLOGICAL: Awake and alert. No obvious cranial nerve deficits. Motor grossly within normal limits. Normal speech. PSYCHIATRIC: Appropriate mood and affect; insight and judgment normal. Data Data Last Documented VS Vital Signs Date Time Temp Pulse Resp B/P (MAP) Pulse Ox O2 Delivery O2 Flow Rate FiO2 12/15/17 19:06 12/15/17 13:49 15 12/15/17 13:48 90 98 Room Air 12/15/17 12:33 98.2 Orders Orders Complete Blood Count With Diff (12/15/17 13:18) Comprehensive Metabolic Panel (12/15/17 13:18) Lipase (12/15/17 13:18) Iv Access Insert/Monitor (12/15/17 13:18) Ecg Monitoring (12/15/17 13:18) Oximetry (12/15/17 13:18) Sodium Chloride 0.9% Flush (Ns Flush) (12/15/17 13:30) Electrocardiogram (12/15/17 13:18) Sodium Chlorid 0.9% 500 Ml Inj (Ns 500 M (12/15/17 13:30) Ondansetron Inj (Zofran Inj) (12/15/17 13:30) C Diff Toxin Pcr (12/15/17 13:18) Stool Ova And Parasite Screen (12/15/17 13:18) Oral Contrast - Adult (12/15/17 16:14) Ct Abd/Pel W Iv Contrast(Rout) (12/15/17 17:19) Iohexol 350 Inj (Omnipaque 350 Inj) (12/15/17 12:33) Ed Discharge Order (12/15/17 18:32) Heparin Central Flush (Heparin Central F (12/15/17 19:00) Labs Laboratory Tests Test 12/15/17 13:15 White Blood Count 10.9 TH/MM3 Red Blood Count 3.50 MIL/MM3 Hemoglobin 10.7 GM/DL Hematocrit 30.6 % Mean Corpuscular Volume 87.4 FL Mean Corpuscular Hemoglobin 30.7 PG Mean Corpuscular Hemoglobin Concent 35.2 % Red Cell Distribution Width 12.9 % Platelet Count 250 TH/MM3 Mean Platelet Volume 8.9 FL Neutrophils (%) (Auto) 79.9 % Lymphocytes (%) (Auto) 13.2 % Monocytes (%) (Auto) 5.9 % Eosinophils (%) (Auto) 0.8 % Basophils (%) (Auto) 0.2 % Neutrophils # (Auto) 8.7 TH/MM3 Lymphocytes # (Auto) 1.4 TH/MM3 Monocytes # (Auto) 0.6 TH/MM3 Eosinophils # (Auto) 0.1 TH/MM3 Basophils # (Auto) 0.0 TH/MM3 CBC Comment DIFF FINAL Differential Comment Blood Urea Nitrogen 17 MG/DL Creatinine 0.66 MG/DL Random Glucose 127 MG/DL Total Protein 6.0 GM/DL Albumin 3.5 GM/DL Calcium Level 8.3 MG/DL Alkaline Phosphatase 66 U/L Aspartate Amino Transf (AST/SGOT) 12 U/L Alanine Aminotransferase (ALT/SGPT) 22 U/L Total Bilirubin 0.4 MG/DL Sodium Level 141 MEQ/L Potassium Level 3.2 MEQ/L Chloride Level 107 MEQ/L Carbon Dioxide Level 26.4 MEQ/L Anion Gap 8 MEQ/L Estimat Glomerular Filtration Rate 89 ML/MIN Lipase 74 U/L [facility] Medical Decision Making Medical Screen Exam Complete: Yes Emergency Medical Condition: Yes Differential Diagnosis Short gut syndrome, chronic nausea and vomiting, electrolyte abnormality, significant malnourishment seems unlikely. Narrative Course Patient room to the emergency department, she appears well and in no obvious distress, she has had no diarrhea and in fact no stooling in the emergency department and no emesis while in the emergency department. She was given fluids Zofran, she has been taking Phenergan at home with minimal relief. Labs were sent and are reassuring, electrolytes within normal limits except for some mild hypokalemia. On re-discussion with the patient and her family are quite concerned that something more severe is going on, I think a CAT scan is warranted to exclude obstruction partial or otherwise or partial ileus. Last 24 hours Impressions Abdomen/Pelvis CT 12/15/17 3672 Signed Impressions: Service Date/Time: Friday, December 15, 2017 17:33 - CONCLUSION: 1. Several loops of fluid-filled but not dilated jejunum as well as minimally distended distal colon/sigmoid which subtle colonic wall thickening. Overall, findings are nonspecific and may reflect enteritis/colitis. No obstruction. 2. Stable postoperative features with decreasing nonspecific soft tissue density in the estella hepatis which may reflect improving adenopathy, treated residual/ recurrent disease or evolving postsurgical change. 1. Nate Carlson MD The results were discussed with the patient given her history of diarrhea C. difficile is a possibility and we will start her on empiric Flagyl, I did briefly discuss the patient with Dr. Keating who states that he would like to see her in the office sometime in the near future and this was conveyed to the patient, at this time I do not see indication or benefit to this patient for hospitalization. She has not had any emesis while in the emergency department, she has Phenergan at home. I discussed supplemental nutrition with her including ensure, the patient's family states that she will even try it, I was fairly firm with her that she needs to have the hydrated as well as supplementation to ensure that she stays adequately up on her nutrition. She verbalized understanding and will try to again. Discussed return to ED criteria follow-up with a primary care physician Diagnosis Primary Impression: Chronic diarrhea Scripts Metronidazole (Flagyl) 500 Mg Tab 500 MG PO BID for Infection for 14 Days, #28 TAB 0 Refills Prov: Sinan Myles MD 12/15/17 Disposition: 01 DISCHARGE HOME Condition: Stable Sinan Myles MD Dec 15, 2017 13:25
[2017-12-15] MEDS ORDERED: SODIUM CHLORID 0.9% 500 ML INJ 500 ML IV ONE (13:30)
[2017-12-15] MEDS ORDERED: ONDANSETRON HCL 4 MG/2 ML VIAL IV PUSH ONE (13:30)
[2017-12-15] MEDS ORDERED: SODIUM CHLORIDE 0.9% FLUSH 10 ML FLUSH IV FLUSH PRN (13:30)
[2017-12-15 13:48] VITALS: BP 95/58; PULSE 90; RESP 16; O2SAT 98
[2017-12-15 14:37] LABS: AUTOMATED NEUTROPHIL # 8.7 TH/MM3 (1.8-7.7); BASOPHIL % 0.2 % (0.0-2.0); EOSINOPHIL # 0.1 TH/MM3 (0-0.4); EOSINOPHIL % 0.8 % (0.0-4.0); HEMATOCRIT 30.6 % (35.0-46.0); HEMOGLOBIN 10.7 GM/DL (11.6-15.3); LYMPH % 13.2 % (9.0-44.0); LYMPHOCYTE # 1.4 TH/MM3 (1.0-4.8); MEAN CELL VOLUME 87.4 FL (80.0-100.0); MEAN CORPUSCULAR HEMOGLOBIN 30.7 PG (27.0-34.0); MEAN CORPUSCULAR HGB CONC 35.2 % (32.0-36.0); MEAN PLATELET VOLUME 8.9 FL (7.0-11.0); MONO % 5.9 % (0.0-8.0); MONOCYTE # 0.6 TH/MM3 (0-0.9); NEUT % 79.9 % (16.0-70.0); PLATELET COUNT 250 TH/MM3 (150-450); RED CELL DISTRIBUTION WIDTH 12.9 % (11.6-17.2); WHITE BLOOD COUNT 10.9 TH/MM3 (4.0-11.0)
[2017-12-15 14:44] LABS: ALBUMIN 3.5 GM/DL (3.4-5.0); ALT (GPT) 22 U/L (10-53); AST (GOT) 12 U/L (15-37); BICARBONATE 26.4 MEQ/L (21.0-32.0); BLOOD UREA NITROGEN 17 MG/DL (7-18); CALCIUM 8.3 MG/DL (8.5-10.1); CHLORIDE 107 MEQ/L (98-107); CREATININE 0.66 MG/DL (0.50-1.00); GLOMERULAR FILTRATION RATE 89 ML/MIN (>89); GLUCOSE,RANDOM 127 MG/DL (74-106); SODIUM (NA) 141 MEQ/L (136-145)
[2017-12-15 14:47] LABS: ALKALINE PHOSPHATASE 66 U/L (45-117); TOTAL BILIRUBIN ADULT 0.4 MG/DL (0.2-1.0)
--- NOTE | 2017-12-15 18:07 | RADRPT ---
EXAM DATE/TIME: 12/15/2017 17:33 [facility] COMPARISON: CT NEEDLE BIOPSY LIVER, May 12, 2017, 14:48. CT ABDOMEN & PELVIS W CONTRAST, May 05, 2017, 1:01. INDICATIONS : Diffuse abdomen pain for two days with nausea.. IV CONTRAST: 91 cc Omnipaque 350 (iohexol) IV ORAL CONTRAST: No oral contrast ingested. RADIATION DOSE: 4.09 CTDIvol (mGy) MEDICAL HISTORY : Diabetes mellitus type 2. Non Hodkins lymphoma, SURGICAL HISTORY : Appendectomy. Cholecystectomy.Hysterectomy. ENCOUNTER: Initial ACUITY: 2 days PAIN SCALE: 4/10 LOCATION: Bilateral lower quadrant TECHNIQUE: Volumetric scanning of the abdomen and pelvis was performed. Using automated exposure control and ad justment of the mA and/or kV according to patient size, radiation dose was kept as low as reasonably achievable to obtain optimal diagnostic quality images. DICOM format image data is available electro nically for review and comparison. FINDINGS: LOWER LUNGS: The visualized lower lungs are clear. LIVER: Homogeneous density without lesion. There is no dilation of the biliary tree. Redemonstration of sof t tissue density in the estella hepatis which appears less prominent measuring 3.6 x 1.8 cm in comparis on to 4.7 x 2.7 cm on prior exam. SPLEEN: Normal size without lesion. PANCREAS: Evidence for prior pancreatic surgery. The pancreatic body and tail are grossly unremarkable without significant pancreatic ductal dilatation. KIDNEYS: Normal in size and shape. There is no mass, stone or hydronephrosis. ADRENAL GLANDS: Within normal limits. VASCULAR: There is no aortic aneurysm. BOWEL/MESENTERY: Several loops of fluid-filled but not dilated jejunum throughout the left abdomen. Minimally distende d distal colon/sigmoid. No significant inflammatory change or gross colonic wall thickening. No pneum atosis or free air. No free fluid. ABDOMINAL WALL: Within normal limits. RETROPERITONEUM: There is no lymphadenopathy. BLADDER: No wall thickening or mass. REPRODUCTIVE: Within normal limits. INGUINAL: There is no lymphadenopathy or hernia. MUSCULOSKELETAL: Densely sclerotic lesion in the left ilium, likely bone island. Degenerative spondylosis of the lower lumbar spine. CONCLUSION: 1. Several loops of fluid-filled but not dilated jejunum as well as minimally distended distal colon/ sigmoid which subtle colonic wall thickening. Overall, findings are nonspecific and may reflect enter itis/colitis. No obstruction. 2. Stable postoperative features with decreasing nonspecific soft tissue density in the estlela hepatis which may reflect improving adenopathy, treated residual/recurrent disease or evolving postsurgical change. 1. Nate Carlson MD on December 15, 2017 at 17:56 Board Certified Radiologist. This report was verified electronically.
[2017-12-15] MEDS ORDERED: METR-1 PO (18:32)
--- NOTE | 2017-12-15 18:32 | PD ---
HPI Chief Complaint: GI Complaint Time Seen by Provider: 12:51 Travel History International Travel<30 days: No Contact w/Intl Traveler<30days: No Traveled to known affect area: No History of Present Illness HPI [facility] [place] Past Medical History Heart Rhythm Problems: No Cancer: Yes (NON HODKINS LYMPHOMA, stage 4) Cardiac Catheterization: No Cardiovascular Problems: Yes High Cholesterol: No Chemotherapy: Yes (last 09/2016) Congestive Heart Failure: No Diabetes: Yes (dm2) Diminished Hearing: No Gastrointestinal Disorders: Yes Hypertension: No Musculoskeletal: No Neurologic: No Psychiatric: No Respiratory: No Myocardial Infarction: No Radiation Therapy: No Menopausal: Yes Past Surgical History Abdominal Surgery: Yes (APPENDECTOMY) Appendectomy: Yes Body Medical Devices: PORT Cholecystectomy: Yes (DURING WHIPPLE) Coronary Artery Bypass Graft: No Genitourinary Surgery: Yes (WHIPPLE PROCEDURE) Gynecologic Surgery: Yes (HYSTERECTOMY) Hysterectomy: Yes Oral Surgery: Yes (TONSILLECTOMY) Tonsillectomy: Yes Other Surgery: Yes Social History Alcohol Use: No Tobacco Use: No Substance Use: No Allergies-Medications (Allergen,Severity, Reaction): Coded Allergies: pregabalin (Unverified Allergy, Severe, neuro symptoms, 06/09/17) Reported Meds & Prescriptions Reported Meds & Active Scripts Active Flagyl (Metronidazole) 500 Mg Tab 500 Mg PO BID 14 Days Remeron (Mirtazapine) 15 Mg Tab 15 Mg PO HS Cortef (Hydrocortisone) 20 Mg Tab 20 Mg PO BID Take with food to decrease GI upset Ursodiol 300 Mg Cap 300 Mg PO BID Acidophilus/l-Sporogenes (Lactobacillus Acidophilus) 1 Tab Tab 1 Tab PO TID Reported Glyburide 2.5 Mg Tab 2.5 Mg PO BID Take with meals at the same time each day Creon (Amylase/Lipase/Protease) 12,000-38,000-60,000 Units Cap 1 Cap PO TIDPC Metoprolol Succinate ER 24 HR (Metoprolol Succinate) 25 Mg Tab 12.5 Mg PO DAILY Omeprazole 40 Mg Cap 40 Mg PO DAILY Data Data Last Documented VS Vital Signs Date Time Temp Pulse Resp B/P (MAP) Pulse Ox O2 Delivery O2 Flow Rate FiO2 12/15/17 19:06 12/15/17 13:49 15 12/15/17 13:48 90 98 Room Air 12/15/17 12:33 98.2 Orders Orders Complete Blood Count With Diff (12/15/17 13:18) Comprehensive Metabolic Panel (12/15/17 13:18) Lipase (12/15/17 13:18) Iv Access Insert/Monitor (12/15/17 13:18) Ecg Monitoring (12/15/17 13:18) Oximetry (12/15/17 13:18) Sodium Chloride 0.9% Flush (Ns Flush) (12/15/17 13:30) Electrocardiogram (12/15/17 13:18) Sodium Chlorid 0.9% 500 Ml Inj (Ns 500 M (12/15/17 13:30) Ondansetron Inj (Zofran Inj) (12/15/17 13:30) C Diff Toxin Pcr (12/15/17 13:18) Stool Ova And Parasite Screen (12/15/17 13:18) Oral Contrast - Adult (12/15/17 16:14) Ct Abd/Pel W Iv Contrast(Rout) (12/15/17 17:19) Iohexol 350 Inj (Omnipaque 350 Inj) (12/15/17 12:33) Ed Discharge Order (12/15/17 18:32) Heparin Central Flush (Heparin Central F (12/15/17 19:00) Labs Laboratory Tests Test 12/15/17 13:15 White Blood Count 10.9 TH/MM3 Red Blood Count 3.50 MIL/MM3 Hemoglobin 10.7 GM/DL Hematocrit 30.6 % Mean Corpuscular Volume 87.4 FL Mean Corpuscular Hemoglobin 30.7 PG Mean Corpuscular Hemoglobin Concent 35.2 % Red Cell Distribution Width 12.9 % Platelet Count 250 TH/MM3 Mean Platelet Volume 8.9 FL Neutrophils (%) (Auto) 79.9 % Lymphocytes (%) (Auto) 13.2 % Monocytes (%) (Auto) 5.9 % Eosinophils (%) (Auto) 0.8 % Basophils (%) (Auto) 0.2 % Neutrophils # (Auto) 8.7 TH/MM3 Lymphocytes # (Auto) 1.4 TH/MM3 Monocytes # (Auto) 0.6 TH/MM3 Eosinophils # (Auto) 0.1 TH/MM3 Basophils # (Auto) 0.0 TH/MM3 CBC Comment DIFF FINAL Differential Comment Blood Urea Nitrogen 17 MG/DL Creatinine 0.66 MG/DL Random Glucose 127 MG/DL Total Protein 6.0 GM/DL Albumin 3.5 GM/DL Calcium Level 8.3 MG/DL Alkaline Phosphatase 66 U/L Aspartate Amino Transf (AST/SGOT) 12 U/L Alanine Aminotransferase (ALT/SGPT) 22 U/L Total Bilirubin 0.4 MG/DL Sodium Level 141 MEQ/L Potassium Level 3.2 MEQ/L Chloride Level 107 MEQ/L Carbon Dioxide Level 26.4 MEQ/L Anion Gap 8 MEQ/L Estimat Glomerular Filtration Rate 89 ML/MIN Lipase 74 U/L MDM Diagnosis Primary Impression: Chronic diarrhea Med/Other Pt SpecificInfo: Prescription(s) given Scripts Metronidazole (Flagyl) 500 Mg Tab 500 MG PO BID for Infection for 14 Days, #28 TAB 0 Refills Prov: Sinan Myles MD 12/15/17 Disposition: 01 DISCHARGE HOME Condition: Stable Sinan Myles MD Dec 15, 2017 18:32
--- NOTE | 2017-12-16 15:51 | EKG ---
Date Performed: 12/15/2017 Time Performed: 13:48:36 PTAGE: 67 years EKG: Sinus rhythm NONSPECIFIC T-WAVE ABNORMALITY BORDERLINE ECG PREVIOUS TRACING : 05/03/2017 16.49 DOCTOR: Amilcar Gonzales Interpretating Date/Time 12/16/2017 15:50:53
== END 2017-12-15 19:07 | disposition home or self-care (01) ==
LOC: NEPC 12:32
DX: K52.9 Noninfective gastroenteritis and colitis, unspecified (principal); E11.9 Type 2 diabetes mellitus without complications; Z79.84 Long term (current) use of oral hypoglycemic drugs; Z85.72 Personal history of non-Hodgkin lymphomas
CPT/HCPCS: 74177; 80053; 83690; 85025; 93005; 96360; 99285; J1642; J2405; J7040; Q9967

== ENCOUNTER 2018-10-15 16:32 | Inpatient (IN) ==
[2018-10-15] MEDS ORDERED: Sod Chloride 0.9% Inj 1,000 ML IV.SIG SCH ×2 (17:15→19:15)
--- NOTE | 2018-10-15 17:18 | ED ---
HPI General Chief complaint: Fall Stated complaint: R side and leg&arm pain Time Seen by Provider: 10/15/18 17:00 Source: patient Mode of arrival: ambulatory Limitations: no limitations History of Present Illness HPI narrative: 67yo F with PMH of nonHodgkin lymphoma, DM, vertigo, here with c/ o persistent right shoulder and right hip pain since a fall 10/07/18. Pt was evaluated at [place] 10/07/[address] brain and xray right shoulder. Had negative xray right hip as outpatient. However, said pain is so bad she cant walk or put weight on her right side. Denies any new fall. Pt has been having chronic weakness, dizziness for about a year but since her fall , she has been getting worst. Unable to do PT or OT at home. She is not eating much and vomited at home. Denies any fever, chest pain, sob, nausea, abdominal pain, focal weakness or numbness. Related Data Home Medications Medication Instructions Recorded Confirmed insulin aspart U-100 7 unit SUBCUT QPM 10/07/18 10/15/18 mirtazapine 15 mg PO HS 10/07/18 10/15/18 omeprazole 40 mg PO DAILY 10/07/18 10/15/18 duloxetine [Cymbalta] 30 mg PO HS 10/15/18 10/15/18 hydrocodone-acetaminophen 1 tab PO Q6H 10/15/18 10/15/18 Allergies Allergy/AdvReac Type Severity Reaction Status Date / Time pregabalin Allergy Severe neuro Verified 10/15/18 16:53 symptoms Review of Systems ROS: all other systems reviewed are negative [facility] Medical History Medical History Depressed (Acute) Diabetes (Acute) Non-Hodgkin lymphoma (Acute) Whipple disease (Acute) Social History Social History Substance History: No History of Abuse Second Hand Smoke Exposure: No Smoking Status: Former smoker How Often Do You Have a Drink Containing Alcohol: Never Recent Travel in [place] within the Last 8 Weeks: No Recent Out of Country Travel within the Last 8 Weeks: No Immunization History Tetanus Immunization: Unsure Exam Narrative Exam Narrative: GENERAL: 67yo F in mild distress. SKIN: Focused skin assessment warm/dry. HEAD: Atraumatic. Normocephalic. EYES: Pupils equal and round. No scleral icterus. No injection or drainage. ENT: No nasal bleeding or discharge. Mucous membranes pink and moist. NECK: Trachea midline. No JVD. CARDIOVASCULAR: Tachycardic. No murmur appreciated. RESPIRATORY: No accessory muscle use. Clear to auscultation. Breath sounds equal bilaterally. GASTROINTESTINAL: Abdomen soft, non-tender, nondistended. MUSCULOSKELETAL: +TTP right shoulder and right hip. No erythema or edema. Distal pulses intact. Sensation intact. NEUROLOGICAL: Awake and alert. No obvious cranial nerve deficits. Motor grossly within normal limits. Normal speech. PSYCHIATRIC: Appropriate mood and affect; insight and judgment normal. Course Initial Documented Vital Signs Temperature 98.2 F 10/15/18 16:49 Pulse Rate 117 H 10/15/18 16:49 Respiratory Rate 16 10/15/18 16:49 Blood Pressure 105/63 10/15/18 16:49 Pulse Oximetry 99 10/15/18 16:49 Last Documented Vital Signs Temperature 98.2 F 10/15/18 16:49 Pulse Rate 93 H 10/15/18 20:43 Respiratory Rate 16 10/15/18 20:43 Blood Pressure 130/62 10/15/18 20:43 Pulse Oximetry 98 10/15/18 20:43 Medical Decision Making MDM Narrative Medical decision making narrative: 67yo F with what sounds like failure to thrive since her fall on 10/07/18. She does appear dehydrated and is tachycardic so obtained blood work. Labs reviewed, leukocytosis at 16.1. H/H normal. BUN/creatinine ratio is almost 3 to 1. Glucose 159. Magnesium normal. Lipase low. Pt will persistent right shoulder pain and hip pain after fall so will order CT to evaluate for missed fracture on xray. CT right shoulder showed acute, minimally displaced surgical neck fracture of the right humerus. CT right hip showed subtle nondisplaced fracture of the right greater trochanter. BP is still low after almost 1 liter of IVF, so ordered another liter. Pt has not urinated for urinalysis so will cath for urine. Discussed with Dr. King and accepted to her service. Medical Screen Exam Complete: Yes Emergency Medical Condition: Yes Differential Diagnosis Differential Diagnosis: Dehydration vs. failure to thrive vs. small fracture vs. electrolyte abnormality Lab Data Result diagrams: 10/15/18 17:45 10/15/18 17:45 Lab Results 10/15/18 10/15/18 10/15/18 Range/Units 17:45 17:45 17:45 CBC w Diff Auto diff final WBC 16.1 H (4.0-11.0) th/mm3 RBC 3.85 L (4.00-5.30) mil/mm3 Hgb 11.6 (11.6-15.3) gm/dL Hct 35.1 (35.0-46.0) % MCV 91.2 (80.0-100.0) fL MCH 30.3 (27.0-34.0) pg MCHC 33.2 (32.0-36.0) % RDW 12.5 (11.6-17.2) % Plt Count 359 D (150-450) th/mm3 MPV 8.8 (7.0-11.0) fL Neut % (Auto) 88.5 H (16.0-70.0) % Lymph % (Auto) 6.8 L (9.0-44.0) % [place] % (Auto) 4.2 (0.0-8.0) % Eos % (Auto) 0.3 (0.0-4.0) % Baso % (Auto) 0.2 (0.0-2.0) % Neut # (Auto) 14.3 H (1.8-7.7) th/mm3 Lymph # (Auto) 1.1 (1.0-4.8) th/mm3 [place] # (Auto) 0.7 (0.0-0.9) th/mm3 Eos # (Auto) 0.0 (0.0-0.4) th/mm3 Baso # (Auto) 0.0 (0.0-0.2) th/mm3 WBC Differential . Differential Comment . Sodium 138 (136-145) meq/L Potassium 4.0 (3.5-5.1) meq/L Chloride 104 (98-107) meq/L Carbon Dioxide 25.3 (21.0-32.0) meq/L Anion Gap 9 (5-15) meq/L BUN 29 H (7-18) mg/dL Creatinine 0.59 (0.50-1.00) mg/dL Estimated GFR Greater than 89 (>89) mL/min POC Glucose (68-110) mg/dl Random Glucose 159 H (74-106) mg/dL Calcium 8.7 (8.5-10.1) mg/dL Magnesium 2.1 (1.5-2.5) mg/dL Total Bilirubin 0.7 (0.2-1.0) mg/dL AST 20 (15-37) U/L ALT 28 (10-53) U/L Alkaline Phosphatase 78 (45-117) U/L Total Protein 7.1 (6.4-8.2) g/dL Albumin 3.6 (3.4-5.0) g/dL Lipase 53 L (73-393) U/L Urine Color (Yellw/Straw) Urine Clarity (Clear) Urine pH (5.0-8.5) Ur Specific [place] (1.002-1.035) Urine Protein (Neg-Trace) mg/dL Urine Glucose (UA) (Negative) mg/dL Urine Ketones (Negative) mg/dL Urine Occult Blood (Negative) Urine Nitrate (Negative) Urine Bilirubin (Negative) Urine Urobilinogen (Less than 2) mg/dL Ur Leukocyte Esterase (Negative) Urine WBC (0-5) /hpf Ur Squamous Epith Cells (0-5) /hpf Urine Mucus (Occasional) /lpf Micro UA Comment Ur Microscopic Review Urine Culture Comments 10/15/18 10/15/18 Range/Units 19:30 20:39 CBC w Diff WBC (4.0-11.0) th/mm3 RBC (4.00-5.30) mil/mm3 Hgb (11.6-15.3) gm/dL Hct (35.0-46.0) % MCV (80.0-100.0) fL MCH (27.0-34.0) pg MCHC (32.0-36.0) % RDW (11.6-17.2) % Plt Count (150-450) th/mm3 MPV (7.0-11.0) fL Neut % (Auto) (16.0-70.0) % Lymph % (Auto) (9.0-44.0) % [place] % (Auto) (0.0-8.0) % Eos % (Auto) (0.0-4.0) % Baso % (Auto) (0.0-2.0) % Neut # (Auto) (1.8-7.7) th/mm3 Lymph # (Auto) (1.0-4.8) th/mm3 [place] # (Auto) (0.0-0.9) th/mm3 Eos # (Auto) (0.0-0.4) th/mm3 Baso # (Auto) (0.0-0.2) th/mm3 WBC Differential Differential Comment Sodium (136-145) meq/L Potassium (3.5-5.1) meq/L Chloride (98-107) meq/L Carbon Dioxide (21.0-32.0) meq/L Anion Gap (5-15) meq/L BUN (7-18) mg/dL Creatinine (0.50-1.00) mg/dL Estimated GFR (>89) mL/min POC Glucose 124 H (68-110) mg/dl Random Glucose (74-106) mg/dL Calcium (8.5-10.1) mg/dL Magnesium (1.5-2.5) mg/dL Total Bilirubin (0.2-1.0) mg/dL AST (15-37) U/L ALT (10-53) U/L Alkaline Phosphatase (45-117) U/L Total Protein (6.4-8.2) g/dL Albumin (3.4-5.0) g/dL Lipase (73-393) U/L Urine Color Yellow (Yellw/Straw) Urine Clarity Clear (Clear) Urine pH 6.0 (5.0-8.5) Ur Specific [place] 1.020 (1.002-1.035) Urine Protein Negative (Neg-Trace) mg/dL Urine Glucose (UA) Negative (Negative) mg/dL Urine Ketones 15 H (Negative) mg/dL Urine Occult Blood Negative (Negative) Urine Nitrate Negative (Negative) Urine Bilirubin Negative (Negative) Urine Urobilinogen 0.2 (Less than 2) mg/dL Ur Leukocyte Esterase Negative (Negative) Urine WBC 0-5 (0-5) /hpf Ur Squamous Epith Cells 0-5 (0-5) /hpf Urine Mucus Rare H (Occasional) /lpf Micro UA Comment Culture not ind Ur Microscopic Review Microscopic reviewed Urine Culture Comments Culture not ind Imaging Data Radiologist's impression: Hip CT 10/15/18 17:15 CONCLUSION: 1. Subtle nondisplaced fracture of the right greater trochanter. Shoulder CT 10/15/18 17:15 CONCLUSION: Minimally displaced surgical neck fracture of the right humerus. Discharge Plan Discharge Disposition Patient Disposition: ED Admit(ED Internal Use Only) Discharge Order Discharge Orders: ED Use Only Admit Order (Routine); Ordered 10/15/18 Ordered By: Sonal Lopez Discharge Details Diagnosis: Dehydration, Closed fracture of greater trochanter of femur Physicians Team ED Provider: Sonal Lopez Primary Care Provider: Azeal Quispe Attending Provider: Rosalie King Other Providers: Anh Espinoza Status ED Status: Admitted Patient
[2018-10-15 18:01] LABS: Chloride 104 meq/L (98-107); Sodium 138 meq/L (136-145)
[2018-10-15 18:04] LABS: Baso % (Auto) 0.2 % (0.0-2.0); Calcium 8.7 mg/dL (8.5-10.1); Eos % (Auto) 0.3 % (0.0-4.0); Hematocrit 35.1 % (35.0-46.0); Hemoglobin 11.6 gm/dL (11.6-15.3); Lymph # (Auto) 1.1 th/mm3 (1.0-4.8); Lymph % (Auto) 6.8 % (9.0-44.0); Mean Corpuscular HGB Conc 33.2 % (32.0-36.0); Mean Corpuscular Hemoglobin 30.3 pg (27.0-34.0); Mean Corpuscular Volume 91.2 fL (80.0-100.0); Mean Platelet Volume 8.8 fL (7.0-11.0); Mono # (Auto) 0.7 th/mm3 (0.0-0.9); Mono % (Auto) 4.2 % (0.0-8.0); Neut # (Auto) 14.3 th/mm3 (1.8-7.7); Neut % (Auto) 88.5 % (16.0-70.0); Platelet Count 359 th/mm3 (150-450); Red Blood Count 3.85 mil/mm3 (4.00-5.30); Red Cell Distribution Width 12.5 % (11.6-17.2); White Blood Count 16.1 th/mm3 (4.0-11.0)
[2018-10-15 18:05] LABS: Albumin 3.6 g/dL (3.4-5.0); Anion Gap 9 meq/L (5-15); Blood Urea Nitrogen 29 mg/dL (7-18); Carbon Dioxide 25.3 meq/L (21.0-32.0); Glucose,Random 159 mg/dL (74-106); Lipase 53 U/L (73-393)
[2018-10-15 18:08] LABS: Alanine Aminotransferase 28 U/L (10-53); Aspartate Aminotransferase 20 U/L (15-37); Glomerular Filtration Rate Greater Than 89 mL/min (>89)
[2018-10-15 18:10] LABS: Total Protein 7.1 g/dL (6.4-8.2)
[2018-10-15 18:11] LABS: Alkaline Phosphatase 78 U/L (45-117)
--- NOTE | 2018-10-15 19:03 | CT ---
EXAM DATE: 10/15/2018 6:56 PM EST AGE/SEX: 67 years / Female INDICATIONS: Patient fell four days ago. Landed on right hip and right shoulder. CLINICAL DATA: This is the patient's initial encounter. Patient reports that signs and symptoms have been present for 1 day and indicates a pain score of 7/10. MEDICAL/SURGICAL HISTORY: . Diabetes. Non-Hodgkin lymphoma. Whipple disease. . RADIATION DOSE: 7.40 CTDI (mGy) COMPARISON: [facility], XR HIP AP AND LAT, RIGHT, 10/13/2018. . TECHNIQUE: Multiple contiguous axial images were acquired using a multirow detector CT scanner witho ut contrast. Multiplanar reconstruction was performed in the sagittal and coronal planes. Using aut omated exposure control and adjustment of the mA and/or kV according to patient size, radiation dose was kept as low as reasonably achievable to obtain optimal diagnostic quality images. DICOM format i mage data is available electronically for review and comparison. FINDINGS: Bones: There is a subtle nondisplaced fracture of the greater trochanter . Osseous structures other hanna appear intact without additional acute bony fracture. Joints: No significant arthropathy or bony hypertrophy is seen. The articular surface of the femora l head is smooth. Soft Tissues: Unremarkable for a non-contrast study. Other: No foreign bodies seen. CONCLUSION: 1. Subtle nondisplaced fracture of the right greater trochanter. Electronically signed by: Nate Carlson MD Board Certified Radiologist 10/15/2018 7:01 PM DELL Shea
--- NOTE | 2018-10-15 19:04 | CT ---
EXAM DATE: 10/15/2018 6:57 PM EST AGE/SEX: 67 years / Female INDICATIONS: Patient fell four days ago. Landed on right hip and right shoulder. CLINICAL DATA: This is the patient's initial encounter. Patient reports that signs and symptoms have been present for 1 day and indicates a pain score of 7/10. MEDICAL/SURGICAL HISTORY: . Diabetes. Non-Hodgkin's lymphoma. Whipple disease. . RADIATION DOSE: 17.83 CTDI (mGy) [place] [facility] [place]. . TECHNIQUE: Multiple contiguous axial images were acquired using a multirow detector CT scanner witho ut contrast. Multiplanar reconstruction was performed in the sagittal and coronal planes. Using aut omated exposure control and adjustment of the mA and/or kV according to patient size, radiation dose was kept as low as reasonably achievable to obtain optimal diagnostic quality images. DICOM format i mage data is available electronically for review and comparison. FINDINGS: There is an acute, minimally displaced fracture in the surgical neck region of the proximal humerus, best seen on series 300 image 35. There is an associated small glenohumeral joint effusion. No other fractures are demonstrated. No subluxations. CONCLUSION: Minimally displaced surgical neck fracture of the right humerus. Electronically signed by: Ernie Mccarty MD Board Certified Radiologist 10/15/2018 7:03 PM EST
[2018-10-15] MEDS ORDERED: Acetaminophen 325 MG Tablet PO PRN (19:30)
[2018-10-15] MEDS ORDERED: Bisacodyl 10 MG Supp RECTAL PRN (19:30)
[2018-10-15 21:15] LABS: Bilirubin,Urine Negative (Negative); Clarity,Urine Clear (Clear); Color,Urine Yellow (Yellw/Straw); Glucose,Urine (UA) Negative (Negative); Leukocyte Esterase,Urine Negative (Negative); Nitrite,Urine Negative (Negative); Urobilinogen,Urine 0.2 mg/dL (Less than 2)
[2018-10-15 21:19] LABS: Mucus,Urine Rare /lpf (Occasional); Squamous Epithelial Cell,Urine 0-5 /hpf (0-5); WBC,Urine 0-5 /hpf (0-5)
[2018-10-15] MEDS: Sod Chloride 0.9% Inj 1,000 ML IV.CONT SCH (21:49)
[2018-10-15] MEDS: Senna/Docusate Sodium 8.6/50 MG Tablet PO SCH (21:50)
[2018-10-15] MEDS: Mirtazapine 15 MG Tablet PO SCH (21:50)
[2018-10-16 06:47] LABS: Baso # (Auto) 0.1 th/mm3 (0.0-0.2); Baso % (Auto) 0.6 % (0.0-2.0); Eos # (Auto) 0.2 th/mm3 (0.0-0.4); Eos % (Auto) 2.6 % (0.0-4.0); Hemoglobin 9.5 gm/dL (11.6-15.3); Lymph # (Auto) 1.9 th/mm3 (1.0-4.8); Lymph % (Auto) 20.1 % (9.0-44.0); Mean Corpuscular HGB Conc 33.8 % (32.0-36.0); Mean Corpuscular Hemoglobin 30.9 pg (27.0-34.0); Mean Corpuscular Volume 91.4 fL (80.0-100.0); Mean Platelet Volume 9.4 fL (7.0-11.0); Mono # (Auto) 0.6 th/mm3 (0.0-0.9); Mono % (Auto) 6.4 % (0.0-8.0); Neut # (Auto) 6.4 th/mm3 (1.8-7.7); Neut % (Auto) 70.3 % (16.0-70.0); Platelet Count 307 th/mm3 (150-450); Red Blood Count 3.07 mil/mm3 (4.00-5.30); Red Cell Distribution Width 12.5 % (11.6-17.2); White Blood Count 9.2 th/mm3 (4.0-11.0)
[2018-10-16 08:14] LABS: Alanine Aminotransferase 21 U/L (10-53); Albumin 2.9 g/dL (3.4-5.0); Alkaline Phosphatase 66 U/L (45-117); Anion Gap 8 meq/L (5-15); Aspartate Aminotransferase 17 U/L (15-37); Blood Urea Nitrogen 19 mg/dL (7-18); Calcium 7.8 mg/dL (8.5-10.1); Carbon Dioxide 23.2 meq/L (21.0-32.0); Chloride 112 meq/L (98-107); Glomerular Filtration Rate Greater Than 89 mL/min (>89); Glucose,Random 88 mg/dL (74-106); Potassium 3.1 meq/L (3.5-5.1); Sodium 143 meq/L (136-145); Total Protein 5.7 g/dL (6.4-8.2)
[2018-10-16] MEDS: Nystatin Liq 500,000 UNIT/5 ML UDC SWISH-SWAL SCH ×5 (08:42→20:36)
[2018-10-16] MEDS: Sod Chloride 0.9% Inj 1,000 ML IV.CONT SCH ×2 (08:42→17:01)
--- NOTE | 2018-10-16 08:43 | P.CONOP ---
[facility] Orthopedics Consult Note - HPI Consult date: 10/16/18 Chief complaint: DEHYDRATION,HYPOTENSION,GREATER TROCHANTER FRACTUR Narrative: 67yo F with PMH of nonHodgkin lymphoma, DM, vertigo, here with c/o persistent right shoulder and right hip pain since a fall 10/07/18. Pt was evaluated at [place] 10/07/[address] brain and xray right shoulder. Had negative xray right hip as outpatient. However, said pain is so bad she cant walk or put weight on her right side. Denies any new fall. Pt has been having chronic weakness, dizziness for about a year but since her fall, she has been getting worst. Unable to do PT or OT at home. She is not eating much and vomited at home. Denies any fever, chest pain, sob, nausea, abdominal pain, focal weakness or numbness. Review of Systems Denies fevers, chills, nausea or vomiting. Denies chest or abdominal pain. Denies cough or shortness of breath. Denies back pain or new numbness, tingling or weakness. Denies rash or anxiety Reports generalized fatigue. Reports Right shoulder and right hip pain PMFSH - History History Provided By: Patient, Family Member - Medical History Medical History: Medical History (Last Reviewed 10/16/18 @ 11:19 by Isidra Dumont MD) Depressed Diabetes Non-Hodgkin lymphoma Whipple disease - Tobacco History Second Hand Smoke Exposure: No Smoking Status: Former smoker - Alcohol History How Often Do You Have a Drink Containing Alcohol: Never - Substance Use History Substance History: No History of Abuse - Travel History Recent Travel in the [place] Within the Last 8 Weeks: No Recent Travel Out of the Country Within the Last 8 Weeks: No - Immunization History Tetanus Immunization: Unsure Hx Influenza Vaccine This Season: Yes Medications and Allergies Active Medications: Active Medications Acetaminophen (Tylenol) 650 mg PO Q4H PRN PRN Reason: Temp > 100.4 Hydrocodone Bitart/Acetaminophen ([place] 5/325) 1 tab PO Q6H PRN PRN Reason: PAIN 3-5 Last Admin: 10/15/18 21:50 Dose: 1 tab Hydrocodone Bitart/Acetaminophen ([place] 5/325) 1 tab PO Q4H PRN PRN Reason: PAIN SCALE 1 TO 10 Al Hydroxide/Mg Hydroxide (Milk Of Magnesia Liq) 30 ml PO Q12H PRN PRN Reason: Mild Constipation Bisacodyl (Dulcolax Supp) 10 mg RECTAL DAILY PRN PRN Reason: SEVERE CONSITIPATION Duloxetine HCl (Cymbalta) 30 mg PO HS [facility] Last Admin: 10/15/18 21:50 Dose: 30 mg Sodium Chloride (Ns Inj) 1,000 mls @ 100 mls/hr IV.CONT .Q10H [facility] Last Infusion: 10/15/18 23:03 Dose: 100 mls/hr Lactulose (Lactulose Liq) 30 ml PO DAILY PRN PRN Reason: SEVERE CONSITIPATION Mirtazapine (Remeron) 30 mg PO HS [facility] Last Admin: 10/15/18 21:50 Dose: 30 mg Nystatin (Mycostatin Liq) 5 ml SWISH-SWAL QID [facility] Ondansetron HCl (Zofran Inj) 4 mg IV.PUSH Q6H PRN PRN Reason: NAUSEA OR VOMITING Pantoprazole Sodium (Protonix) 40 mg PO DAILY [facility] Senna/Docusate Sodium (Sultana-Colace) 1 tab PO BID [facility] Last Admin: 10/15/18 21:50 Dose: 1 tab Sennosides (Senokot) 17.2 mg PO Q12H PRN PRN Reason: Moderate Constipation Sodium Chloride (Ns Flush) 2 ml IV.FLUSH BID [facility] Last Admin: 10/15/18 21:50 Dose: 2 ml Sodium Chloride (Ns Flush) 2 ml IV.FLUSH PRN PRN PRN Reason: FLUSH AFTER USING IV ACCESS Allergies Allergy/AdvReac Type Severity Reaction Status Date / Time pregabalin Allergy Severe neuro Verified 10/15/18 16:53 symptoms Home Medications Medication Instructions Recorded Confirmed Type insulin aspart U-100 7 unit SUBCUT QPM 10/07/18 10/15/18 History mirtazapine 15 mg PO HS 10/07/18 10/15/18 History omeprazole 40 mg PO DAILY 10/07/18 10/15/18 History duloxetine [Cymbalta] 30 mg PO HS 10/15/18 10/15/18 History hydrocodone-acetaminophen 1 tab PO Q6H 10/15/18 10/15/18 History Exam Vital signs: Vital Signs 10/15/18 16:49 10/15/18 17:51 10/15/18 19:18 Temperature 98.2 F Pulse Rate 117 H 110 H 105 H Respiratory Rate 16 18 16 Blood Pressure 105/63 98/76 L 83/67 L Pulse Oximetry 99 95 99 10/15/18 20:43 10/15/18 22:58 10/15/18 23:00 Temperature Pulse Rate 93 H 102 H Respiratory Rate 16 Blood Pressure 130/62 116/76 Pulse Oximetry 98 10/16/18 00:00 10/16/18 01:00 10/16/18 02:00 Temperature Pulse Rate 106 H 98 H 100 H Respiratory Rate 11 L 13 14 Blood Pressure Pulse Oximetry 95 96 95 10/16/18 02:01 10/16/18 03:00 10/16/18 03:41 Temperature Pulse Rate 100 H 102 H 106 H Respiratory Rate 15 13 16 Blood Pressure 114/55 L 113/64 Pulse Oximetry 96 96 96 10/16/18 04:00 10/16/18 05:00 Temperature Pulse Rate 100 H 106 H Respiratory Rate 12 14 Blood Pressure 118/65 131/67 Pulse Oximetry 96 95 Intake & Output 10/15/18 10/16/18 10/16/18 18:59 06:59 18:59 Intake Total 1000 / 1000 1100 / 1100 Balance 1000 / 1000 1100 / 1100 Weight 43 kg 44.9 kg Intake: IV 1000 / 1000 1100 / 1100 NS Inj 1,000 ML @ 100 mls/hr IV 100 / 100 .CONT .Q10H LOWE[facility] Rx#:[id number] NS Inj 1,000 ML @ 1000 mls/hr 1000 / 1000 1000 / 1000 IV.SIG BOLUS LOWELL Rx#:[id number] Other: Weight On Admission 44.9 kg Narrative: Awake alert NAD Normocephalic Pupils equal No JVD Moist mucous membranes Nonlabored respirations Regular rate Soft abdomen RUE: minimal edema and no ecchymosis. Mild TTP about shoulder. Unable to assess shoulder and elbow ROM due to pain. NVI distally. BCR RLE: mild TTP over greater trochanter. Minimal edema or ecchymosis. Unable to assess hip and knee ROM due to pain. NVI distally. BCR LUE and LLE: no visible deformities or TTP. Full active ROM throughout. NVI distally. BCR No rash Normal affect Results - Labs Result Diagrams: 10/16/18 05:40 10/16/18 05:40 Labs: Laboratory Results - last 24 hr 10/15/18 10/15/18 10/15/18 17:45 17:45 17:45 CBC w Diff Auto diff final WBC 16.1 H RBC 3.85 L Hgb 11.6 Hct 35.1 MCV 91.2 MCH 30.3 MCHC 33.2 RDW 12.5 Plt Count 359 D MPV 8.8 Neut % (Auto) 88.5 H Lymph % (Auto) 6.8 L [place] % (Auto) 4.2 Eos % (Auto) 0.3 Baso % (Auto) 0.2 Neut # (Auto) 14.3 H Lymph # (Auto) 1.1 [place] # (Auto) 0.7 Eos # (Auto) 0.0 Baso # (Auto) 0.0 WBC Differential . Differential Comment . Sodium 138 Potassium 4.0 Chloride 104 Carbon Dioxide 25.3 Anion Gap 9 BUN 29 H Creatinine 0.59 Estimated GFR Greater than 89 POC Glucose Random Glucose 159 H Calcium 8.7 Magnesium 2.1 Total Bilirubin 0.7 AST 20 ALT 28 Alkaline Phosphatase 78 Total Protein 7.1 Albumin 3.6 Lipase 53 L Urine Color Urine Clarity Urine pH Ur Specific [place] Urine Protein Urine Glucose (UA) Urine Ketones Urine Occult Blood Urine Nitrate Urine Bilirubin Urine Urobilinogen Ur Leukocyte Esterase Urine WBC Ur Squamous Epith Cells Urine Mucus Micro UA Comment Ur Microscopic Review Urine Culture Comments 10/15/18 10/15/18 10/16/18 19:30 20:39 05:40 CBC w Diff Auto diff final WBC 9.2 RBC 3.07 L Hgb 9.5 L D Hct 28.0 L MCV 91.4 MCH 30.9 MCHC 33.8 RDW 12.5 Plt Count 307 MPV 9.4 Neut % (Auto) 70.3 H Lymph % (Auto) 20.1 [place] % (Auto) 6.4 Eos % (Auto) 2.6 Baso % (Auto) 0.6 Neut # (Auto) 6.4 Lymph # (Auto) 1.9 [place] # (Auto) 0.6 Eos # (Auto) 0.2 Baso # (Auto) 0.1 WBC Differential . Differential Comment . Sodium Potassium Chloride Carbon Dioxide Anion Gap BUN Creatinine Estimated GFR POC Glucose 124 H Random Glucose Calcium Magnesium Total Bilirubin AST ALT Alkaline Phosphatase Total Protein Albumin Lipase Urine Color Yellow Urine Clarity Clear Urine pH 6.0 Ur Specific [place] 1.020 Urine Protein Negative Urine Glucose (UA) Negative Urine Ketones 15 H Urine Occult Blood Negative Urine Nitrate Negative Urine Bilirubin Negative Urine Urobilinogen 0.2 Ur Leukocyte Esterase Negative Urine WBC 0-5 Ur Squamous Epith Cells 0-5 Urine Mucus Rare H Micro UA Comment Culture not ind Ur Microscopic Review Microscopic reviewed Urine Culture Comments Culture not ind 10/16/18 10/16/18 10/16/18 05:40 07:09 08:19 CBC w Diff WBC RBC Hgb Hct MCV MCH MCHC RDW Plt Count MPV Neut % (Auto) Lymph % (Auto) [place] % (Auto) Eos % (Auto) Baso % (Auto) Neut # (Auto) Lymph # (Auto) [place] # (Auto) Eos # (Auto) Baso # (Auto) WBC Differential Differential Comment Sodium 143 Potassium 3.1 L D Chloride 112 H D Carbon Dioxide 23.2 Anion Gap 8 BUN 19 H Creatinine 0.37 L Estimated GFR Greater than 89 POC Glucose 92 99 Random Glucose 88 Calcium 7.8 L D Magnesium Total Bilirubin 0.5 AST 17 ALT 21 Alkaline Phosphatase 66 Total Protein 5.7 L D Albumin 2.9 L D Lipase Urine Color Urine Clarity Urine pH Ur Specific [place] Urine Protein Urine Glucose (UA) Urine Ketones Urine Occult Blood Urine Nitrate Urine Bilirubin Urine Urobilinogen Ur Leukocyte Esterase Urine WBC Ur Squamous Epith Cells Urine Mucus Micro UA Comment Ur Microscopic Review Urine Culture Comments - Diagnostic results Imaging: Impressions Hip CT 10/15/18 17:15 CONCLUSION: 1. Subtle nondisplaced fracture of the right greater trochanter. Shoulder CT 10/15/18 17:15 CONCLUSION: Minimally displaced surgical neck fracture of the right humerus. Assessment and Plan - Assessment and Plan 67yo F with closed right proximal humerus fracture and closed right greater trochanter fracture. Radiographs and CT scans reviewed by myself. Patient has a minimally displaced right proximal humerus fracture. She also has a closed right minimally displaced greater trochanter fracture without intertrochanteric extension. Both of these injuries can be treated with nonoperative management. Surgical intervention at this time would not be recommended. Patient can be protected weightbearing to the right lower extremity with a walker. She should be nonweightbearing to the right upper extremity in a sling. Certainly this will limit her ability to mobilize and will likely require placement. Patient may follow-up in my office in 2 weeks. No plan for orthopedic surgery intervention at this time. Okay for discharge planning with likely placement in rehab per primary team.
[2018-10-16] MEDS: Senna/Docusate Sodium 8.6/50 MG Tablet PO SCH ×2 (08:44→20:34)
--- NOTE | 2018-10-16 11:06 | P.HPIM ---
History of Present Illness Primary Care Physician: Azael Quispe MD History of Present Illness: 67yo F with with h/o nonHodgkin lymphoma, DM, vertigo,failure to thrive(over last 2yrs),presented with c/o persistent right shoulder and right hip pain since a fall 10/07/18. Pt was evaluated at [place] 10/07/[address] brain and xray right shoulder. Had negative xray right hip as outpatient. Her pain remained persistent while at home and as such she has been unable to bear weight on her right side. No other falls since the last one. Her appetite has been poor, she also has thrush for the last 1 week. She vomited once yesterday morning. Bowel movements are normal. Denies any fever, chest pain, sob, nausea, abdominal pain, focal weakness or numbness. She also c/o dizziness due to her vertigo which has been on going for the last 1 year. ROS is negative except as stated above. On presentation to ER, patient had intermittent hypotension, CT shoulder and hip revealed minimally displaced fracture of surgical neck of humerus and subtle non displaced fracture of greater trochanter respectively. Patient was admitted to ICU for management of dehydration. Orthopedic consulted overnight. Inpatient Certification Inpatient Certification: I certify that the inpatient services were ordered in accordance with Medicare regulations governing the order. This includes certification that hospital inpatient services are reasonable and necessary and in the case of services not specified as inpatient-only under 42 CFR 419.22(n), that they are appropriately provided as inpatient services in accordance to with the 2-midnight benchmark under 43 CFR 412.3(e) Estimated Total Length of Stay (Days): 2 Plans for Post Hospital Care: Not yet determined Review of Systems Review of Systems: all other systems reviewed are negative [facility] Medical History Medical History Depressed (Acute) Diabetes (Acute) Non-Hodgkin lymphoma (Acute) Whipple disease (Acute) Social History Social History Substance History: No History of Abuse Second Hand Smoke Exposure: No Smoking Status: Former smoker How Often Do You Have a Drink Containing Alcohol: Never Recent Travel in [facility] within the Last 8 Weeks: No Recent Out of Country Travel within the Last 8 Weeks: No Immunization History Tetanus Immunization: Unsure Hx Influenza Vaccine This Season: Yes Medications and Allergies Allergies Allergy/AdvReac Type Severity Reaction Status Date / Time pregabalin Allergy Severe neuro Verified 10/15/18 16:53 symptoms Home Medications Medication Instructions Recorded Confirmed Type insulin aspart U-100 7 unit SUBCUT QPM 10/07/18 10/15/18 History mirtazapine 15 mg PO HS 10/07/18 10/15/18 History omeprazole 40 mg PO DAILY 10/07/18 10/15/18 History duloxetine [Cymbalta] 30 mg PO HS 10/15/18 10/15/18 History hydrocodone-acetaminophen 1 tab PO Q6H 10/15/18 10/15/18 History Active Medications: Active Medications Acetaminophen (Tylenol) 650 mg PO Q4H PRN PRN Reason: Temp > 100.4 Hydrocodone Bitart/Acetaminophen ([place] 5/325) 1 tab PO Q6H PRN PRN Reason: PAIN 3-5 Last Admin: 10/15/18 21:50 Dose: 1 tab Hydrocodone Bitart/Acetaminophen ([place] 5/325) 1 tab PO Q4H PRN PRN Reason: PAIN SCALE 1 TO 10 Last Admin: 10/16/18 08:53 Dose: 1 tab Al Hydroxide/Mg Hydroxide (Milk Of Magnesia Liq) 30 ml PO Q12H PRN PRN Reason: Mild Constipation Bisacodyl (Dulcolax Supp) 10 mg RECTAL DAILY PRN PRN Reason: SEVERE CONSITIPATION Duloxetine HCl (Cymbalta) 30 mg PO [facility] Last Admin: 10/15/18 21:50 Dose: 30 mg Sodium Chloride (Ns Inj) 1,000 mls @ 100 mls/hr IV.CONT .Q10H [facility] Last Admin: 10/16/18 08:42 Dose: 100 mls/hr Lactulose (Lactulose Liq) 30 ml PO DAILY PRN PRN Reason: SEVERE CONSITIPATION Mirtazapine (Remeron) 30 mg PO [facility] Last Admin: 10/15/18 21:50 Dose: 30 mg Nystatin (Mycostatin Liq) 5 ml SWISH-SWAL QID [facility] Last Admin: 10/16/18 08:50 Dose: 5 ml Ondansetron HCl (Zofran Inj) 4 mg IV.PUSH Q6H PRN PRN Reason: NAUSEA OR VOMITING Pantoprazole Sodium (Protonix) 40 mg PO DAILY [facility] Last Admin: 10/16/18 08:44 Dose: 40 mg Senna/Docusate Sodium (Sultana-Colace) 1 tab PO BID [facility] Last Admin: 10/16/18 08:44 Dose: 1 tab Sennosides (Senokot) 17.2 mg PO Q12H PRN PRN Reason: Moderate Constipation Sodium Chloride (Ns Flush) 2 ml IV.FLUSH BID [facility] Last Admin: 10/16/18 08:44 Dose: 2 ml Sodium Chloride (Ns Flush) 2 ml IV.FLUSH PRN PRN PRN Reason: FLUSH AFTER USING IV ACCESS Physical Exam Vital signs: Last Vital Signs Temp 98.5 F 10/16/18 08:00 Pulse 94 H 10/16/18 08:00 Resp 13 10/16/18 08:00 BP 127/66 10/16/18 08:00 Pulse Ox 94 L 10/16/18 08:00 Intake & Output 10/14/18 10/15/18 10/16/18 10/17/18 06:59 06:59 06:59 06:59 Intake Total 2099 / 2099 900 / 900 Balance 2099 900 / 900 Weight 44.9 kg Narrative: GENERAL: chronically ill appearing woman,appears older than stated age, cachectic. HEENT:not pale,anicteric, oral thrush noted. CARDIOVASCULAR: Regular rate and rhythm without murmurs, gallops, or rubs. CHEST: lt side port cath noted,Clear to auscultation. Breath sounds equal bilaterally. No wheezes, rales, or rhonchi. GASTROINTESTINAL: Abdomen soft, non-tender, nondistended. Normal active bowel sounds MUSCULOSKELETAL: Extremities without clubbing, cyanosis, or edema.Tenderness rt hip and rt shoulder. ROM limited due to pain. NEURO: Alert & Oriented x4 to person, place, time, situation. Moves all ext x4 Results Labs CBC & Chem 7: 10/16/18 05:40 10/16/18 05:[address] 10/15/18 17:15 CONCLUSION: 1. Subtle nondisplaced fracture of the right greater trochanter. Shoulder CT 10/15/18 17:15 CONCLUSION: Minimally displaced surgical neck fracture of the right humerus. Caprini VTE Risk Assessment Caprini VTE Risk Assessment: Moderate/High Risk (score >= 2) Caprini Risk Assessment Model: Point Value = 1 Point Value = 2 Point Value = 3 Point Value = 5 Age 41-60 Minor surgery BMI > 25 kg/m2 Swollen legs Varicose veins or History of unexplained or recurrent spontaneous Oral contraceptives or hormone replacement Sepsis (< 1 month) Serious lung disease, including pneumonia (< 1 month) Abnormal pulmonary function Acute myocardial infarction Congestive heart failure (< 1 month) History of inflammatory bowel disease Medical patient at bed rest Age 61-74 Arthroscopic surgery Major open surgery (> 45 min) Laparoscopic surgery (> 45 min) Malignancy Confined to bed (> 72 hours) Immobilizing plaster cast Central venous access Age >= 75 History of VTE Family history of VTE Factor V Leiden Prothrombin [id number] Lupus anticoagulant Anticardiolipin antibodies Elevated serum homocysteine Heparin-induced thrombocytopenia Other congenital or acquired thrombophilia Stroke (< 1 month) Elective arthroplasty Hip, pelvis, or leg fracture Acute spinal cord injury (< 1 month) Prophylaxis Regimen: Total Risk Factor Score Risk Level Prophylaxis Regimen 0-1 Low Early ambulation 2 Moderate Order ONE of the following: *Sequential Compression Device (SCD) *Heparin 5000 units SQ BID 3-4 Higher Order ONE of the following medications: *Heparin 5000 units SQ TID *Enoxaparin/Lovenox 40 mg SQ daily (WT < 150 kg, CrCl > 30 mL/min) *Enoxaparin/Lovenox 30 mg SQ daily (WT < 150 kg, CrCl > 10-29 mL/min) *Enoxaparin/Lovenox 30 mg SQ BID (WT < 150 kg, CrCl > 30 mL/min) AND/OR *Sequential Compression Device (SCD) 5 or more Highest Order ONE of the following medications: *Heparin 5000 units SQ TID (Preferred with Epidurals) *Enoxaparin/Lovenox 40 mg SQ daily (WT < 150 kg, CrCl > 30 mL/min) *Enoxaparin/Lovenox 30 mg SQ daily (WT < 150 kg, CrCl > 10-29 mL/min) *Enoxaparin/Lovenox 30 mg SQ BID (WT < 150 kg, CrCl > 30 mL/min) AND *Sequential Compression Device (SCD) Assessment and Plan Plan 67yo F with with h/o nonHodgkin lymphoma, DM, vertigo,failure to thrive(over last 2yrs),presented with c/o persistent right shoulder and right hip pain since a fall 10/07/18. 1.s/p recent fall with minimally displaced fracture of surgical neck of humerus and subtle non displaced fracture of greater trochanter- -appreciate ortho recs, non surgical management -protected weightbearing to the right lower extremity with a walker -nonweightbearing to the right upper extremity in a sling PT/OT eval Pain control-Hydrocodone/Apap, Lidocaine patches 2. Dehydration with hypotension--due to poor PO intake. Has been on IV fluids, BP improved. keep maintenance fluids. 3.DM-blood glucose within acceptable limits. continue Insulin aspart 7 units pm 4.Failure to thrive, with protein calorie malnutrition. 5. Electrolyte dmlhflrlud-hhhrqegfkty-lgloqzt as needed. 6.H/o Vertigo- PT/OT. check orthostatic vitals. 7. Chronic normocytic anemia--Hb stable close to baseline. DVT ppx. Patient is clinically stable for transfer to the med surg floor.
[2018-10-16] MEDS: Enoxaparin Inj 30 MG/0.3 ML Syringe SQ SCH (13:30)
[2018-10-16] MEDS: Lidocaine 5% Patch T-DERMAL SCH (14:47)
[2018-10-16] MEDS: Mirtazapine 15 MG Tablet PO SCH (20:34)
[2018-10-17] MEDS: Sod Chloride 0.9% Inj 1,000 ML IV.CONT SCH (02:45)
--- NOTE | 2018-10-17 09:24 | P.PNIM ---
Subjective Interval history: feeling somewhat dizzy from vertigo. Physical Exam Vital signs: Last Vital Signs Temp 97.3 F L 10/17/18 00:00 Pulse 102 H 10/17/18 00:00 Resp 18 10/17/18 00:00 BP 140/76 10/17/18 00:00 Pulse Ox 99 10/17/18 00:00 Intake & Output 10/15/18 10/16/18 10/17/18 10/18/18 06:59 06:59 06:59 06:59 Intake Total 2099 3751 / 3751 Output Total 300 / 300 Balance 2099 3451 / 3451 Weight 44.9 kg Narrative: GENERAL: chronically ill appearing woman,appears older than stated age, cachectic. HEENT:not pale,anicteric, oral thrush noted. CARDIOVASCULAR: Regular rate and rhythm without murmurs, gallops, or rubs. CHEST: lt side port cath noted,Clear to auscultation. Breath sounds equal bilaterally. No wheezes, rales, or rhonchi. GASTROINTESTINAL: Abdomen soft, non-tender, nondistended. Normal active bowel sounds MUSCULOSKELETAL: Extremities without clubbing, cyanosis, or edema.Tenderness rt hip and rt shoulder. ROM limited due to pain. NEURO: Alert & Oriented x4 to person, place, time, situation. Moves all ext x4 Urinary Catheter Management Straight: Cath placed during this visit: yes Urethral indwelling: No Insertion date: 10/15/18 Insertion time: 20:40 Results Labs CBC & Chem 7: 10/16/18 05:40 10/17/18 10:10 Assessment and Plan Plan 67yo F with with h/o nonHodgkin lymphoma, DM, vertigo,failure to thrive(over last 2yrs),presented with c/o persistent right shoulder and right hip pain since a fall 10/07/18, found to have stable rt shoulder and trochanteric fractures, and was also dehydrated. 1.s/p recent fall with minimally displaced fracture of surgical neck of humerus and subtle non displaced fracture of greater trochanter- -appreciate ortho recs, non surgical management -protected weightbearing to the right lower extremity with a walker -nonweightbearing to the right upper extremity in a sling PT/OT eval--rehab recommended, needs 3 midnight stay according to family caseworker. Pain control-Hydrocodone/Apap, Lidocaine patches 2. Dehydration with hypotension--due to poor PO intake. Has been on IV fluids, BP improved. dc fluids today, encourage PO intake. 3.DM-blood glucose within acceptable limits. continue Insulin aspart 7 units pm 4.Failure to thrive, with protein calorie malnutrition. 5. Electrolyte jgpqguqpxl-yiqijzwlgnz-nlfgxlk as needed. 6.H/o Vertigo- PT/OT. 7. Chronic normocytic anemia--Hb stable close to baseline. DVT ppx. disposition: Anticipate discharge to rehab on 10/18 if clinically stable. Progress Note: Quality VTE Deep Vein Thrombosis/Pulmonary Embolism Present on Admission: No
[2018-10-17] MEDS: Enoxaparin Inj 30 MG/0.3 ML Syringe SQ SCH (10:01)
[2018-10-17] MEDS: Senna/Docusate Sodium 8.6/50 MG Tablet PO SCH ×2 (10:02→20:35)
[2018-10-17] MEDS: Nystatin Liq 500,000 UNIT/5 ML UDC SWISH-SWAL SCH ×4 (10:02→20:35)
[2018-10-17] MEDS: Lidocaine 5% Patch T-DERMAL SCH (10:03)
[2018-10-17 10:49] LABS: Chloride 109 meq/L (98-107); Potassium 3.8 meq/L (3.5-5.1); Sodium 142 meq/L (136-145)
[2018-10-17 10:52] LABS: Anion Gap 13 meq/L (5-15); Calcium 7.8 mg/dL (8.5-10.1); Carbon Dioxide 20.5 meq/L (21.0-32.0); Glucose,Random 74 mg/dL (74-106)
[2018-10-17 11:06] LABS: Blood Urea Nitrogen 8 mg/dL (7-18); Glomerular Filtration Rate Greater Than 89 mL/min (>89)
[2018-10-17] MEDS: Morphine Inj 4 MG/ML Vial IV.PUSH PRN ×2 (14:11→20:37)
[2018-10-17] MEDS: Mirtazapine 15 MG Tablet PO SCH (20:35)
[2018-10-18] MEDS: Morphine Inj 4 MG/ML Vial IV.PUSH PRN (04:18)
[2018-10-18] MEDS: Enoxaparin Inj 30 MG/0.3 ML Syringe SQ SCH (08:47)
[2018-10-18] MEDS: Lidocaine 5% Patch T-DERMAL SCH (08:48)
[2018-10-18] MEDS: Nystatin Liq 500,000 UNIT/5 ML UDC SWISH-SWAL SCH ×4 (08:48→22:26)
[2018-10-18] MEDS: Senna/Docusate Sodium 8.6/50 MG Tablet PO SCH ×2 (08:49→22:27)
--- NOTE | 2018-10-18 09:15 | P.PNIM ---
Subjective Interval history: No overnight events, left shoulder pain is controlled, but 5/ 10. Mildly nauseated but no vomiting. No fever. Physical Exam Vital signs: Last Vital Signs Temp 98.2 F 10/18/18 08:00 Pulse 99 H 10/18/18 08:00 Resp 16 10/18/18 08:00 BP 134/68 10/18/18 08:00 Pulse Ox 96 10/18/18 08:00 Intake & Output 10/16/18 10/17/18 10/18/18 10/19/18 06:59 06:59 06:59 06:59 Intake Total 2099 3751 / 3751 1291 / 1291 Output Total 300 / 300 2600 / 2600 Balance 2099 3451 / 3451 -1309 / -1309 Weight 44.9 kg 46.5 kg Narrative: GENERAL: chronically ill appearing woman,appears older than stated age HEENT:not pale,anicteric, oral thrush noted. CARDIOVASCULAR: Regular rate and rhythm without murmurs, gallops, or rubs. CHEST: lt side port cath noted,Clear to auscultation. Breath sounds equal bilaterally. No wheezes, rales, or rhonchi. GASTROINTESTINAL: Abdomen soft, non-tender, nondistended. Normal active bowel sounds MUSCULOSKELETAL: Extremities without clubbing, cyanosis, or edema. Arm sling in place. NEURO: Alert & Oriented x4 to person, place, time, situation. Moves all ext x4 Urinary Catheter Management Straight: Cath placed during this visit: yes Urethral indwelling: No Insertion date: 10/15/18 Insertion time: 20:40 Results Labs CBC & Chem 7: 10/16/18 05:40 10/17/18 10:10 Assessment and Plan Plan 67yo F with with h/o nonHodgkin lymphoma, DM, vertigo,failure to thrive(over last 2yrs),presented with c/o persistent right shoulder and right hip pain since a fall 10/07/18, found to have stable rt shoulder and trochanteric fractures, and was also dehydrated. 1.s/p recent fall with minimally displaced fracture of surgical neck of humerus and subtle non displaced fracture of greater trochanter-appreciate ortho recs, non surgical management, protected weightbearing to the right lower extremity with a walker, nonweightbearing to the right upper extremity in a sling , PT/OT eval--rehab recommended, needs 3 midnight stay according to showcase maker. Pain control-Hydrocodone/Apap, Lidocaine patches 2. Dehydration with hypotension--due to poor PO intake. Has been on IV fluids, BP improved. Of fluids. 3.DM-blood glucose within acceptable limits. continue Insulin aspart 7 units pm 4.Failure to thrive, with protein calorie malnutrition. 5. Electrolyte prcdqkeqpj-feehkiimyze-houejhb as needed. 6.H/o Vertigo- PT/OT. 7. Chronic normocytic anemia--Hb stable close to baseline. DVT ppx: Lovenox disposition: Discharge once with a bed at the assisted Progress Note: Quality VTE Deep Vein Thrombosis/Pulmonary Embolism Present on Admission: No
[2018-10-18] MEDS ORDERED: Dextrose 50% in Water 50 ML Vial IV.PUSH PRN (13:08)
[2018-10-18] MEDS: Insulin NovoLIN Regular Correctional Sugar Inj SQ SCH ×2 (17:38→22:20)
[2018-10-18] MEDS: Mirtazapine 15 MG Tablet PO SCH (22:25)
[2018-10-19] MEDS: Morphine Inj 4 MG/ML Vial IV.PUSH PRN (00:37)
[2018-10-19 08:49] VITALS: RESP 20
[2018-10-19] MEDS: Insulin NovoLIN Regular Correctional Sugar Inj SQ SCH ×4 (10:11→21:49)
[2018-10-19] MEDS: Enoxaparin Inj 30 MG/0.3 ML Syringe SQ SCH (10:12)
[2018-10-19] MEDS: Lidocaine 5% Patch T-DERMAL SCH (10:12)
[2018-10-19] MEDS: Nystatin Liq 500,000 UNIT/5 ML UDC SWISH-SWAL SCH ×4 (10:13→21:47)
[2018-10-19] MEDS: Senna/Docusate Sodium 8.6/50 MG Tablet PO SCH ×2 (10:14→21:47)
--- NOTE | 2018-10-19 11:09 | P.PNIM ---
Subjective Interval history: Blood glucose in the 150s-200.No overnight events, no fever or chills. Pain is controlled. Physical Exam Vital signs: Last Vital Signs Temp 97.3 F L 10/19/18 08:00 Pulse 109 H 10/19/18 08:00 Resp 20 10/19/18 08:00 BP 126/74 10/19/18 08:00 Pulse Ox 96 10/19/18 08:00 Intake & Output 10/17/18 10/18/18 10/19/18 10/20/18 06:59 06:59 06:59 06:59 Intake Total 3751 / 3751 1291 / 1291 200 / 200 240 / 240 Output Total 300 / 300 2600 / 2600 1800 / 1800 300 / 300 Balance 3451 / 3451 -1309 / -1309 -1600 / -1600 -60 / -60 Weight 46.5 kg 45.7 kg Narrative: GENERAL: chronically ill appearing woman,appears older than stated age CARDIOVASCULAR: Regular rate and rhythm without murmurs, gallops, or rubs. CHEST: lt side port cath noted,Clear to auscultation. Breath sounds equal bilaterally. No wheezes, rales, or rhonchi. GASTROINTESTINAL: Abdomen soft, non-tender, nondistended. Normal active bowel sounds MUSCULOSKELETAL: Extremities without clubbing, cyanosis, or edema. Arm sling in place. NEURO: Alert & Oriented x4 to person, place, time, situation. Moves all ext x4 Urinary Catheter Management Straight: Cath placed during this visit: yes Urethral indwelling: No Insertion date: 10/15/18 Insertion time: 20:40 Results Labs CBC & Chem 7: 10/16/18 05:40 10/17/18 10:10 Assessment and Plan Plan 67yo F with with h/o nonHodgkin lymphoma, DM, vertigo,failure to thrive(over last 2yrs),presented with c/o persistent right shoulder and right hip pain since a fall 10/07/18, found to have stable rt shoulder and trochanteric fractures, and was also dehydrated. 1.s/p recent fall with minimally displaced fracture of surgical neck of humerus and subtle non displaced fracture of greater trochanter-appreciate ortho recs, non surgical management, protected weightbearing to the right lower extremity with a walker, nonweightbearing to the right upper extremity in a sling , PT/OT eval--rehab recommended, needs 3 midnight stay according to case folder. Pain control-Hydrocodone/Apap, Lidocaine patches 2. Dehydration with hypotension--due to poor PO intake. Resolved. 3.DM type 2 -blood glucose within acceptable limits. Patient refusing insulin. Start metformin. 4.Failure to thrive, with protein calorie malnutrition. 5. Electrolyte htfpklkvhf-ksdnnaggrkt-zqvtoyj as needed. 6.H/o Vertigo- PT/OT. 7. Chronic normocytic anemia--Hb stable close to baseline. 8. Oral thrush-continue nystatin. DVT ppx: Lovenox disposition: Discharge once with a bed at the halfway Progress Note: Quality VTE Deep Vein Thrombosis/Pulmonary Embolism Present on Admission: No
--- NOTE | 2018-10-19 14:30 | P.DS ---
DS: Providers Date of admission: 10/15/18 19:34 Primary care physician: Azael Quispe MD Consults: 10/15/18 19:30 Consult to Orthopedic Surgery Routine Consulting Provider: Anh Espinoza Reason for Consultation: Shoulder/Hip Fx CONSULT FOR AM Notified:: Service Spoke with:: [email or web address] Date Notified:: 10/15/18 Time Notified:: 22:23 Ordering Provider: SANTOS 10/16/18 11:22 HUB Only Consult Order Routine Consulting Provider: [employer] Reason for Consultation: NEEDS 3 DAY INPT STAY. WAS ADMITTED LAST NIGHT. CAN GO [place] Brief History from admission: 67yo F with with h/o nonHodgkin lymphoma, DM, vertigo,failure to thrive(over last 2yrs),presented with c/o persistent right shoulder and right hip pain since a fall 10/07/18. Pt was evaluated at [place] 10/07/[address] brain and xray right shoulder. Had negative xray right hip as outpatient. Her pain remained persistent while at home and as such she has been unable to bear weight on her right side. No other falls since the last one. Her appetite has been poor, she also has thrush for the last 1 week. She vomited once yesterday morning. Bowel movements are normal. Denies any fever, chest pain, sob, nausea, abdominal pain, focal weakness or numbness. She also c/o dizziness due to her vertigo which has been on going for the last 1 year. ROS is negative except as stated above. On presentation to ER, patient had intermittent hypotension, CT shoulder and hip revealed minimally displaced fracture of surgical neck of humerus and subtle non displaced fracture of greater trochanter respectively. Patient was admitted to ICU for management of dehydration. Orthopedic consulted overnight. DS: Diagnosis Discharge Diagnosis (1) Closed fracture of greater trochanter of femur: Status: Acute (2) Dehydration: Status: Acute (3) Humerus head fracture: Status: Acute DS: Summary [address] [place] [address] [address] [place] [address] [address] [place] [address] Internal Med Progress Note This is a 67/F with with h/o nonHodgkin lymphoma, DM, vertigo,failure to thrive( over last 2yrs),presented with c/o persistent right shoulder and right hip pain since a fall 10/07/18, found to have stable rt shoulder and trochanteric fractures, and was also dehydrated. After the fall, she sustained a minimally displaced fracture of surgical neck of humerus and subtle non displaced fracture of greater trochanter, orthopedics was consulted, her mentation is non surgical management, protected weightbearing to the right lower extremity with a walker, nonweightbearing to the right upper extremity in a sling. Patient was evaluated by physical therapy, patient will be discharged to rehab. Continue pain control. Patient was dehydrated and hypotensive upon admission, this improved with volume resuscitation. Patient has type 2 diabetes mellitus but she is refusing insulin, she was started on metformin. All other medical issues remained stable. She will be discharged to rehab once a bed is available. Time Spent with Patient Total time spent providing and/or coordinating discharge services: Greater than 30 minutes Quality: VTE Deep Vein Thrombosis/Pulmonary Embolism Present on Admission: No Exam Narrative Exam Narrative: Narrative: GENERAL: chronically ill appearing woman,appears older than stated age CARDIOVASCULAR: Regular rate and rhythm without murmurs, gallops, or rubs. CHEST: lt side port cath noted,Clear to auscultation. Breath sounds equal bilaterally. No wheezes, rales, or rhonchi. GASTROINTESTINAL: Abdomen soft, non-tender, nondistended. Normal active bowel sounds MUSCULOSKELETAL: Extremities without clubbing, cyanosis, or edema. Arm sling in place. NEURO: Alert & Oriented x4 to person, place, time, situation. Moves all ext x4 Results Labs on day of discharge: Labs from last 24 hours 10/19/18 10/19/18 10/18/18 11:48 08:01 22:20 POC Glucose 169 H 151 H 193 H 10/18/18 17:11 POC Glucose 109 Impressions ITS Impressions Hip CT 10/15/18 17:15 CONCLUSION: 1. Subtle nondisplaced fracture of the right greater trochanter. Shoulder CT 10/15/18 17:15 CONCLUSION: Minimally displaced surgical neck fracture of the right humerus. Discharge Plan Discharge Disposition Patient Disposition: Discharge to SNF Discharge Order Discharge Orders: Discharge Order (Routine); Ordered 10/18/18 Ordered By: Thendrex Natacha Discharge Details Anticipated Discharge Date: 10/18/18 Discharge Comment: discharge once bed is ready Physicians Team ED Provider: Sonal Lopez Primary Care Provider: Azael Quispe Attending Provider: Vlad Manzano Other Providers: Anh Espinoza ; [employer] Rxs /Orders / Referrals /Forms Prescriptions: New sennosides-docusate sodium [Senna Plus] 8.6-50 mg Tablet 1 tab PO BID Qty: 30 RF: 0 nystatin 100,000 unit/mL Suspension 5 ml SWISH-SWAL QID Qty: 20 RF: 0 Continue omeprazole 40 mg Capsule,Delayed Release(Dr/Ec) 40 mg PO DAILY RF: 0 mirtazapine 30 mg Tablet 15 mg PO HS RF: 0 insulin aspart U-100 100 unit/mL Insulin Pen 7 unit SUBCUT QPM RF: 0 duloxetine [Cymbalta] 30 mg Capsule,Delayed Release(Dr/Ec) 30 mg PO HS RF: 0 csdyxa-dkwyuudq-xyiyalm [Creon] 12,000-38,000 -60,000 unit Capsule,Delayed Release(Dr/Ec) 2 cap PO TID RF: 0 hydrocodone-acetaminophen 5-325 mg Tablet 1 tab PO Q6H Qty: 6 RF: 0 Referrals: Azael Quispe MD [Primary Care Provider] - See Instructions Status ED Status: Left Department
[2018-10-19] MEDS: Mirtazapine 15 MG Tablet PO SCH (21:47)
[2018-10-20] MEDS: Insulin NovoLIN Regular Correctional Sugar Inj SQ SCH ×2 (08:36→13:13)
[2018-10-20] MEDS: Lidocaine 5% Patch T-DERMAL SCH (08:37)
[2018-10-20] MEDS: Enoxaparin Inj 30 MG/0.3 ML Syringe SQ SCH (08:38)
[2018-10-20] MEDS: Senna/Docusate Sodium 8.6/50 MG Tablet PO SCH (08:38)
[2018-10-20] MEDS: Nystatin Liq 500,000 UNIT/5 ML UDC SWISH-SWAL SCH ×2 (08:38→13:14)
[2018-10-20] MEDS: Morphine Inj 4 MG/ML Vial IV.PUSH PRN (11:14)
[2018-10-20 12:13] VITALS: BP 107/55; PULSE 111; TEMP 97.6; O2SAT 97
[2018-10-20] MEDS ORDERED: Heparin Central Flush 100 UNIT/ML 5 ML Vial IV.FLUSH PRN ×2 (13:33)
--- NOTE | 2018-10-20 15:41 | P.PNIM ---
Physical Exam Vital signs: Vital Signs 10/19/18 16:00 10/19/18 20:00 10/20/18 00:00 Temperature 98.1 F 97.9 F 97.0 F L Pulse Rate 90 102 H 102 H Respiratory Rate 20 20 20 Blood Pressure 112/64 116/65 106/61 Pulse Oximetry 99 97 97 10/20/18 08:00 10/20/18 12:00 Temperature 97.3 F L 97.6 F Pulse Rate 106 H 111 H Respiratory Rate 20 20 Blood Pressure 110/66 107/55 L Pulse Oximetry 96 97 Intake & Output 10/19/18 10/20/18 10/20/18 18:59 06:59 18:59 Intake Total 960 / 960 120 / 120 Output Total 1000 / 1000 400 / 400 Balance -40 / -40 -280 / -280 Weight 45.3 kg 44.9 kg Intake: Oral 720 / 720 120 / 120 Tube Feeding 240 / 240 Output: Urine 1000 / 1000 400 / 400 Other: # Incontinent Voids 2 # Urine Diapers 2 Date of Last Bowel Movement 10/16/18 Narrative: GENERAL: chronically ill appearing woman,appears older than stated age CARDIOVASCULAR: Regular rate and rhythm without murmurs, gallops, or rubs. CHEST: lt side port cath noted,Clear to auscultation. Breath sounds equal bilaterally. No wheezes, rales, or rhonchi. GASTROINTESTINAL: Abdomen soft, non-tender, nondistended. Normal active bowel sounds MUSCULOSKELETAL: Extremities without clubbing, cyanosis, or edema. Arm sling in place. NEURO: Alert & Oriented x4 to person, place, time, situation. Moves all ext - Urinary Catheter Management Straight Cath placed during this visit: yes Urethral indwelling: No Reason for continuing: Not indwelling catheter Insertion date: 10/15/18 Insertion time: 20:40 Results - Labs CBC & Chem 7: 10/16/18 05:40 10/17/18 10:10 Laboratory Results - last 24 hr 10/19/18 10/19/18 10/20/18 16:40 21:45 04:49 POC Glucose 160 H 143 H 139 H 10/20/18 12:52 POC Glucose 132 H Assessment and Plan - Assessment (1) Closed fracture of greater trochanter of femur Code(s): S72.113A - Displaced fracture of greater trochanter of unspecified femur, initial encounter for closed fracture Status: Acute (2) Dehydration Code(s): E86.0 - Dehydration Status: Acute (3) Humerus head fracture Code(s): S42.293A - Other displaced fracture of upper end of unspecified humerus , initial encounter for closed fracture Status: Acute - Plan 67yo F with with h/o nonHodgkin lymphoma, DM, vertigo,failure to thrive(over last 2yrs),presented with c/o persistent right shoulder and right hip pain since a fall 10/07/18, found to have stable rt shoulder and trochanteric fractures, and was also dehydrated. 1.s/p recent fall with minimally displaced fracture of surgical neck of humerus and subtle non displaced fracture of greater trochanter-appreciate ortho recs, non surgical management, protected weightbearing to the right lower extremity with a walker, nonweightbearing to the right upper extremity in a sling , PT/OT eval--rehab recommended, needs 3 midnight stay according to director case. Pain control-Hydrocodone/Apap, Lidocaine patches 2. Dehydration with hypotension--due to poor PO intake. Resolved. 3.DM type 2 -blood glucose within acceptable limits. Patient refusing insulin. Start metformin. 4.Failure to thrive, with protein calorie malnutrition. 5. Electrolyte [id number] as needed. 6.H/o Vertigo- PT/OT. 7. Chronic normocytic anemia--Hb stable close to baseline. 8. Oral thrush-continue nystatin. DVT ppx: Lovenox disposition: Discharge once with a bed at the detention
== END 2018-10-20 15:59 | DRG 536 ==
LOC: PHED 16:32 → PHEDA 19:34 → PHICU 23:00 → PH3 10-16 16:33
PROVIDERS: ADMIT Internal Medicine; ATTEND Internal Medicine
DX: Z87.891 Personal history of nicotine dependence; E46 Unspecified protein-calorie malnutrition; E11.9 Type 2 diabetes mellitus without complications; S72.114A Nondisplaced fracture of greater trochanter of right femur, initial encounter for closed fracture; E86.0 Dehydration; D64.9 Anemia, unspecified; Z68.1 Body mass index [BMI] 19.9 or less, adult; Y92.9 Unspecified place or not applicable; E87.6 Hypokalemia; R42 Dizziness and giddiness; Z79.4 Long term (current) use of insulin; B37.0 Candidal stomatitis; C85.90 Non-Hodgkin lymphoma, unspecified, unspecified site; R62.7 Adult failure to thrive; R64 Cachexia; S42.211A Unspecified displaced fracture of surgical neck of right humerus, initial encounter for closed fracture; W19.XXXA Unspecified fall, initial encounter; I95.9 Hypotension, unspecified
CPT/HCPCS: 73200; 73700; 80048; 80053; 81001; 82948; 82962; 83690; 83735; 85025; 87641; 90760; 92610; 96360; 97110; 97163; 97530; 99285; G0195; J1642; J1650; J2270; J2405; J2550; J7030